=== PATIENT | male | born 1945 | race Caucasian/White ===

== ENCOUNTER → 2019-11-01 14:04 | Outpatient (BNVA) | payer MEDICARE, SELFPAY | PROVIDERS: Family Provider Family Medicine; PCP Family Medicine; Visit Provider Internal Medicine Rheumatology | DX: L40.59 Other psoriatic arthropathy (principal); L40.0 Psoriasis vulgaris; Z79.52 Long term (current) use of systemic steroids; D86.0 Sarcoidosis of lung; M17.0 Bilateral primary osteoarthritis of knee; Z79.899 Other long term (current) drug therapy | CPT/HCPCS: 99213 ==

== ENCOUNTER → 2020-02-07 13:06 | Outpatient (BNVA) | payer MEDICARE, SELFPAY | PROVIDERS: Family Provider Family Medicine; PCP Family Medicine; Visit Provider Internal Medicine Rheumatology | DX: L40.50 Arthropathic psoriasis, unspecified (principal); Z79.899 Other long term (current) drug therapy; L40.59 Other psoriatic arthropathy; Z11.59 Encounter for screening for other viral diseases; Z72.89 Other problems related to lifestyle | CPT/HCPCS: 36415; 80076; 82565; 85025; 85651; 86140; 86480; 86704; 86803; 87340 ==

== ENCOUNTER → 2020-04-11 10:13 | Outpatient (BNVA) | payer MEDICARE, SELFPAY | PROVIDERS: Family Provider Family Medicine; PCP Family Medicine; Visit Provider Internal Medicine | DX: J84.89 Other specified interstitial pulmonary diseases (principal); Z79.899 Other long term (current) drug therapy; Z11.59 Encounter for screening for other viral diseases; Z11.1 Encounter for screening for respiratory tuberculosis; M35.9 Systemic involvement of connective tissue, unspecified; M35.3 Polymyalgia rheumatica; L40.50 Arthropathic psoriasis, unspecified; M54.5 Low back pain; M35.8 Other specified systemic involvement of connective tissue; Z72.89 Other problems related to lifestyle | CPT/HCPCS: 36415; 80053; 85025; 85651; 86140; 86431; 86480; 86704; 86803; 86812; 87340 ==

== ENCOUNTER 2020-04-13 11:00 | Outpatient (CLI) | payer MEDICARE, SELFPAY ==
--- NOTE | 2020-04-13 11:16 | XR_ITS ---
WS: [id number] XR lumbar spine 2-3V* [id number] REASON FOR EXAM: lower back pain FINDINGS: Loss of the disc spaces from L2 through S1 from degenerate disc disease. The vertebral bodies appear to be essentially normal there is no fractures seen. There is calcified densities seen in both kidneys suggesting renal calculus. A scoliotic curve convex to the right is seen. XR/XR lumbar spine 2-3V* [id number] IMPRESSION: Degenerated disc changes L2-S1 Renal calculus bilaterally Scoliosis convex to the right.
--- NOTE | 2020-04-13 11:16 | XR_ITS ---
WS: [id number] XR hand LT 2V 71502 REASON FOR EXAM: hand pain and swelling FINDINGS: A prominent cyst is seen in the distal third phalanx. This appears to be expanding and ther e appears to be a fracture noted through the cyst. Mild degenerate changes of the remaining entered phalangeal joints. XR/XR hand LT 2V 10714 IMPRESSION: Fracture of the distal third phalanx through a prominent cyst.
--- NOTE | 2020-04-13 11:16 | XR_ITS ---
WS: [id number] XR hand RT 2V 34115 REASON FOR EXAM: hand pain FINDINGS: Degenerate changes of the first metacarpal carpal articulation cystic changes in the proxim al metacarpal are noted. There is degenerate changes of the distal interphalangeal joints. XR/XR hand RT 2V 45913 IMPRESSION: Osteoarthritic changes. Degenerate changes of the first metacarpal carpal articulation.
--- NOTE | 2020-04-13 11:16 | XR_ITS ---
WS: [id number] XR pelvis 1-2V* [id number] REASON FOR EXAM: SI joint pain FINDINGS: Normal appearance of the sacroiliac joints are seen. The ilium, ischium, and pubis are within normal limits. XR/XR pelvis 1-2V* [id number] IMPRESSION: Negative pelvis and sacroiliac joints .
== END 2020-04-13 11:01 | disposition home or self-care (01) ==
LOC: RADWPI 11:04
PROVIDERS: Family Provider Family Medicine; PCP Family Medicine; Visit Provider Internal Medicine
DX: M54.5 Low back pain (principal); M79.89 Other specified soft tissue disorders; N20.0 Calculus of kidney; M19.041 Primary osteoarthritis, right hand; S62.633A Displaced fracture of distal phalanx of left middle finger, initial encounter for closed fracture; X58.XXXA Exposure to other specified factors, initial encounter
CPT/HCPCS: 72100; 72170; 73120

== ENCOUNTER → 2020-06-27 09:58 | Outpatient (BNVA) | payer MEDICARE, SELFPAY | PROVIDERS: Family Provider Family Medicine; PCP Family Medicine; Visit Provider Internal Medicine | DX: L40.50 Arthropathic psoriasis, unspecified (principal); M35.8 Other specified systemic involvement of connective tissue; J84.89 Other specified interstitial pulmonary diseases; Z79.899 Other long term (current) drug therapy; Z79.52 Long term (current) use of systemic steroids | CPT/HCPCS: 99213 ==

== ENCOUNTER 2020-07-09 07:19 | Outpatient (CLI) | payer MEDICARE, SELFPAY ==
--- NOTE | 2020-07-09 07:45 | ECG_ITS ---
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 Interpretive Statements NAME OF STUDY: LEXISCAN SESTAMIBI STRESS TEST INDICATION: Chest Pain PROCEDURE: At the baseline, the blood pressure was 122/73 mmHg, oxygen saturation 98% with a heart rate of 57 bpm. The electrocardiogram showed sinus bradycardia, normal axis with nonspecific ST-T changes. The Lexiscan was infused over a period of 20 seconds. A total of 0.4 milligrams of Lexiscan was infused. The stress phase was continued for a total of 5 minutes. Heart rate at the end of the stress phase was 68 bpm, oxygen saturation 98% with a blood pressure of 127/67 mmHg. The EKG at the peak infusion revealed no significant ST-T wave changes. Sestamibi was injected 20 seconds after the Lexiscan infusion. Blood pressure at the end of the recovery phase was 118/66 mmHg, oxygen saturation 99% with a heart rate of 64 beats per minute. CONCLUSION: 1. No significant EKG changes with the LexiScan infusion. 2. No LexiScan induced chest pain or cardiac arrhythmia. 3. Normal blood pressure and heart rate response. 4. Sestamibi/sestamibi perfusion scan pending; see separate report. Electronically Signed On 07-09-2020 17:25:15 CDT by Cristina Gaytan M.D. [email or web address]
--- NOTE | 2020-07-09 07:45 | NMCV_ITS ---
NM sonya perf SPECT r/s* [id number] Sarkis Galvin Age: 74 Gender: M : 1945 Exam Date: 07/09/2020 08:52 Ordering Phys: Steffany Escobedo Technologist: ANDRADE Field Exam Location: [facility] [place] Indications: CHEST PAIN STRESS TEST Please see separate stress test report in [facility] for full findings IMAGE PROTOCOL Rest/Stress 1 Lexiscan Day Radiopharmaceutical Dose (mCi) Administration Site Administered by Rest: Tc-99m 10.7 IV ANDRADE Wick Sestamibi Stress:Tc-99m 32.4 IV ANDRADE Wick Sestamibi Rest: 09-Jul-2020 60 Discovery 630 Stress: 09-Jul-2020 15 Discovery 630 0.4mg Lexiscan. Images obtained in supine and prone position. SPECT RESULTS Technical Quality: Excellent Raw Data Analysis: Normal Image Corrections: No attenuation or motion correction applied Summed Stress Score: 1 Summed Rest Score: 0 Summed Difference Score: 1 PERFUSION FINDINGS SPECT images demonstrate homogeneous tracer distribution throughout the myocardium. FUNCTIONAL RESULTS (calculated via Gated SPECT) Stress Image LV EF (%): 74 Stress EDV (mL):97 TID: 1.17 Stress ESV (mL):25 FUNCTIONAL FINDINGS: There is normal left ventricular systolic function. LVEF at stress is 74%. IMPRESSIONS 1. Normal myocardial perfusion is noted. 2. LV systolic function is normal Kyler Quiroz MD (Electronically Signed) Final Date: 10 July 2020 17:38 S
[2020-07-09 08:02] VITALS: BMI 30.5
[2020-07-09] MEDS: regadenoson 0.4 Mg/5 ml Syringe IVP (10:06)
[2020-07-09 10:27] VITALS: BP 118/66; PULSE 65
== END 2020-07-09 07:20 | disposition home or self-care (01) ==
LOC: CDL 07:19
PROVIDERS: PCP Family Medicine; Visit Provider Nurse Practitioner Family
DX: R07.9 Chest pain, unspecified (principal)
CPT/HCPCS: 78452; 93017; A9500; J2785

== ENCOUNTER → 2020-08-10 09:30 | Outpatient (BNVA) | payer MEDICARE, SELFPAY | PROVIDERS: PCP Family Medicine; Visit Provider Internal Medicine Rheumatology | DX: Z79.899 Other long term (current) drug therapy (principal) | CPT/HCPCS: 36415; 80053; 85025; 85651; 86140 ==

== ENCOUNTER 2020-08-17 10:02 | Outpatient (CLI) | payer MEDICARE, SELFPAY ==
--- NOTE | 2020-08-17 15:15 | CT_ITS ---
WS: [id number] CT scan of the chest without IV contrast, supine inspiration and expiration, prone inspiration, addit ional two-dimensional coronal and sagittal reconstruction was performed. 08/17/2020 Clinical Data: Interstitial lung disease Comparison: CT chest, 03/10/2019. DLP: 1814.[address] scans at [facility] use at least one of these dose optimization techniques: automat ed exposure control; mA and/or kV adjustment per patient size (includes targeted exams where dose is matched to clinical indication); or iterative reconstruction. Findings: There is a pleural-based 0.3 cm right middle lobe nodule seen best on axial image 29 of 62 unchanged. Again there is no evidence of interstitial fibrosis or diffuse interstitial lung disease. The localiz ed interstitial change in the left lower lobe with mild left pleural thickening remains the same. The expiratory images show no air trapping. No lung masses are seen. No pleural effusion or pneumonia is seen. The pulmonary vascularity is normal. The heart size is normal with no pericardial effusion. Mitral valve calcification is noted. The pulmo nary arterial system and thoracic aorta demonstrate no abnormalities or dilatations. Tracheal bifurca tion normally into the bronchi. There is no axillary or significant mediastinal adenopathy. The upper abdomen shows nonobstructing calcifications in the right kidney with a low density lesion m easuring 1.85 cm. The lesion has not changed from the previous study.. CT/CT chest wo con [id number] Impression: 1. Negative for diffuse interstitial lung disease or air trapping. 2. No change in left lower lobe interstitial change and pleural thickening. 3. No change in 0.3 cm right middle lobe nodule.
== END 2020-08-17 10:03 | disposition home or self-care (01) ==
PROVIDERS: Family Provider Family Medicine; PCP Family Medicine; Visit Provider Internal Medicine Critical Care Medicine
DX: J84.9 Interstitial pulmonary disease, unspecified (principal)
CPT/HCPCS: 71250

== ENCOUNTER → 2020-08-18 12:47 | Outpatient (BNVA) | payer MEDICARE, SELFPAY | PROVIDERS: Family Provider Family Medicine; PCP Family Medicine; Visit Provider Internal Medicine Critical Care Medicine | DX: Z11.59 Encounter for screening for other viral diseases (principal); J98.4 Other disorders of lung | CPT/HCPCS: 87635 ==

== ENCOUNTER 2020-08-22 07:16 | Outpatient (CLI) | payer MEDICARE, SELFPAY ==
--- NOTE | 2020-08-22 09:26 | PFTS_ITS ---
Date of Study:08/22/20 Date of Dictation: MECHANICS: Forced vital capacity (FVC) is reduced. Forced expiratory volume in one second (FEV1) is reduced. FEV1/FVC is normal. FLOW VOLUME LOOP: Narrow. LUNG VOLUMES: Total lung capacity (TLC) is reduced. Residual volume (RV) is reduced. DIFFUSING CAPACITY FOR CARBON MONOXIDE: Moderately reduced. INTERPRETATION: The pulmonary function tests are consistent with moderately severe restriction. There is no significant postbronchodilator response. Lung volumes are consistent with restrictive lung disease. Gas exchange (DLCO) is moderately reduced. MTDD
== END 2020-08-22 07:17 | disposition home or self-care (01) ==
PROVIDERS: PCP Family Medicine; Visit Provider Internal Medicine Critical Care Medicine
DX: J98.4 Other disorders of lung (principal)
CPT/HCPCS: 94060; 94726; 94729; J7611

== ENCOUNTER → 2020-09-27 13:57 | Outpatient (BNVA) | payer MEDICARE, SELFPAY | PROVIDERS: PCP Family Medicine; Visit Provider Internal Medicine | DX: L40.50 Arthropathic psoriasis, unspecified (principal); Z79.899 Other long term (current) drug therapy; Z79.52 Long term (current) use of systemic steroids; J84.10 Pulmonary fibrosis, unspecified; J98.4 Other disorders of lung | CPT/HCPCS: 81401; 99213 ==

== ENCOUNTER 2020-11-08 20:00 | Outpatient (CLI) | payer MEDICARE, SELFPAY | END 2020-11-08 20:01 | disposition home or self-care (01) | LOC: SLEEP 11-09 08:59 | PROVIDERS: PCP Family Medicine; Visit Provider Internal Medicine Critical Care Medicine | DX: G47.33 Obstructive sleep apnea (adult) (pediatric) (principal) | CPT/HCPCS: 95811 ==

== ENCOUNTER 2020-12-19 10:43 | Outpatient (CLI) | payer MEDICARE, SELFPAY ==
--- NOTE | 2020-12-19 11:00 | USCV_ITS ---
Sarkis Galvin Age: 75 Gender: M : 1945 Exam Date: 12/19/2020 11:08 Ordering Phys: Jace Cho MD Technologist: Maria Esther Alarcon [place]am Location[place] [facility] [place] Indication: CHEST PAIN BP: 133 / 70 HR: 66 Rhythm: Sinus Technical Quality: Fair MEASUREMENTS (Male / Female) Normal Values 2D ECHO LV Diastolic Diameter PLAX 4.3 cm 4.2 - 5.9 / 3.9 - 5.3 cm LV Systolic Diameter PLAX 3.0 cm IVS Diastolic Thickness 1.0 cm 0.6 - 1.0 / 0.6 - 0.9 cm IVS Systolic Thickness 1.3 cm LVPW Diastolic Thickness 0.9 cm 0.6 - 1.0 / 0.6 - 0.9 cm LVPW Systolic Thickness 1.3 cm RV Chamber Size 4.7 cm LVOT Diameter 2.0 cm LV Ejection Fraction 2D Teich 58.4 % LV Ejection Fraction MOD 2C 56.9 % LV Ejection Fraction 2C AL 57.9 % LA Diameter 3.1 cm LA Width 3.8 cm LA Height 4.7 cm RA Width 3.8 cm RA Height 4.3 cm Aorta at Sinotubular Diameter 2.6 cm M-MODE LV Diastolic Diameter MM 4.9 cm 4.2 - 5.9 / 3.9 - 5.3 cm LV Systolic Diameter MM 3.4 cm LV Ejection Fraction MM Teich 58.7 % IVS Diastolic Thickness MM 1.0 cm 0.6 - 1.0 / 0.6 - 0.9 cm IVS Systolic Thickness MM 1.7 cm LVPW Diastolic Thickness MM 1.1 cm 0.6 - 1.0 / 0.6 - 0.9 cm LVPW Systolic Thickness MM 1.7 cm Aortic Annulus Diameter 2.9 cm LA Ao Ratio MM 1.1 MV E Point Septal Separation 0.9 cm DOPPLER AV Peak Velocity 135.0 cm/s LVOT Peak Velocity 121.0 cm/s AV Area Cont Eq vti 2.7 cm squared AV Area Cont Eq pk 2.9 cm squared MV Area PHT 5.8 cm squared Mitral E to A Ratio 1.0 MV E' Velocity 39.5 cm/s Mitral E to MV E' Ratio 13.2 Mitral E to LV E' Lateral Ratio 11.5 Mitral E to LV E' Septal Ratio 15.8 TR Peak Velocity 297.7 cm/s TR Peak Gradient 35.5 mmHg TR Mean Velocity 194.2 cm/s TR Mean Gradient 18.8 mmHg TR Velocity Time Integral 94.7 cm TV Peak E Velocity 87.0 cm/s Right Atrial Pressure 8.0 mmHg Pulmonary Artery Systolic Pressu 43.5 mmHg PV Peak Velocity 58.0 cm/s RV Acceleration Time 0.0 s RV Ejection Time 0.3 s RV AcT/ET 0.1 FINDINGS Left Ventricle Normal left ventricular size and systolic function, EF 57 %. No regional wall motion abnormalities. Right Ventricle The right ventricle is normal in size and function. Right Atrium The right atrium is normal in size. Left Atrium The left atrium is normal in size. Mitral Valve Thickened mitral valve. Mild mitral annular calcification. Grade 2 prolapse of the anterior mitral leaflet with trace to mild mitral regurgitation Aortic Valve Thickened aortic valve. Tricuspid Valve Moderate tricuspid valve regurgitation. Pulmonic Valve No gross abnormalities noted Pericardium Normal pericardium without effusion. Aorta Normal ascending aorta dimension. CONCLUSIONS Normal left ventricular size and systolic function, EF 57 %. No regional wall motion abnormalities. Thickened mitral valve. Mild mitral annular calcification. Grade 2 prolapse of the anterior mitral leaflet with trace to mild mitral regurgitation. Thickened aortic valve. Moderate tricuspid valve regurgitation. Mild pulmonary hypertension with an estimated pulmonary artery peak systolic pressure of 43.5 mmHg There is no pericardial effusion. There are no intracardiac masses. Compared to the study from 03/10/2019, there may not be a significant change Dr Rohit Clark MD [facility] (Electronically Signed) Final Date: 19 December 2020 17:10 S
== END 2020-12-19 10:44 | disposition home or self-care (01) ==
LOC: US 10:44
PROVIDERS: PCP Family Medicine; Visit Provider Internal Medicine Critical Care Medicine
DX: L40.50 Arthropathic psoriasis, unspecified (principal); M79.643 Pain in unspecified hand; J96.11 Chronic respiratory failure with hypoxia; Z79.899 Other long term (current) drug therapy; Z79.52 Long term (current) use of systemic steroids; R07.9 Chest pain, unspecified; I08.3 Combined rheumatic disorders of mitral, aortic and tricuspid valves; I27.20 Pulmonary hypertension, unspecified
CPT/HCPCS: 80053; 85025; 85651; 86140; 93306; 99214

== ENCOUNTER 2020-12-26 20:00 | Outpatient (CLI) | payer MEDICARE, SELFPAY | END 2020-12-26 20:01 | disposition home or self-care (01) | LOC: SLEEP 12-27 08:17 | PROVIDERS: PCP Family Medicine; Visit Provider Internal Medicine Critical Care Medicine | DX: G47.31 Primary central sleep apnea (principal) | CPT/HCPCS: 95811 ==

== ENCOUNTER → 2021-02-11 11:42 | Outpatient (BNVA) | payer MEDICARE, SELFPAY | PROVIDERS: PCP Family Medicine; Visit Provider Internal Medicine | DX: L40.50 Arthropathic psoriasis, unspecified (principal); R21 Rash and other nonspecific skin eruption; Z79.899 Other long term (current) drug therapy; D86.0 Sarcoidosis of lung; J96.11 Chronic respiratory failure with hypoxia; Z99.81 Dependence on supplemental oxygen | CPT/HCPCS: 99214 ==

== ENCOUNTER 2021-02-12 09:43 | Outpatient (CLI) | payer MEDICARE, SELFPAY ==
--- NOTE | 2021-02-12 09:54 | XRR_ITS ---
PROCEDURE INFORMATION: Exam: XR Right Hand Exam date and time: 02/12/2021 9:57 AM Age: 75 years old Clinical indication: Condition or disease; Arthritis; Type not specified; Hand; Bilateral; Additional info: L40.50 - arthropathic psoriasis, unspecified TECHNIQUE: Imaging protocol: XR Right hand. Views: 1 or 2 views. COMPARISON: CR XR hand RT 2V [id number] 04/13/2020 11:20 AM FINDINGS: Bones/joints: Chronic degenerative osteoarthritis is present with joint space narrowing, sclerosis and small osteophyte formation. This is most prominent in the triscaphe joint and 1st carpometacarpal joint. There also moderate degenerative changes in the 2nd and 3rd metacarpophalangeal joints and in most of the interphalangeal joints with narrowing sclerosis and tiny osteophytes. No fracture or other acute abnormalities are seen. No other erosive or destructive changes are seen. Soft tissues: Normal. XR/XR hand RT 2V [id number] IMPRESSION: 1. No acute abnormality. 2. Chronic degenerative osteoarthritis most prominently in the triscaphe joint and 1st carpometacarpal joint.
--- NOTE | 2021-02-12 09:54 | XRR_ITS ---
PROCEDURE INFORMATION: Exam: XR Left Hand Exam date and time: 02/12/2021 9:57 AM Age: 75 years old Clinical indication: Condition or disease; Arthritis; Type not specified; Hand; Bilateral; Additional info: L40.50 - arthropathic psoriasis, unspecified TECHNIQUE: Imaging protocol: XR Left hand. Views: 3 or more views. COMPARISON: CR XR hand LT 2V [id number] 04/13/2020 11:20 AM FINDINGS: Bones/joints: No fracture, dislocation or other acute bone or joint abnormalities are seen. Chronic degenerative disease is present with joint space narrowing sclerosis and osteophytes especially in the triscaphe joint and 1st carpometacarpal joint. There also degenerative changes moderately in the 2nd and 3rd metacarpophalangeal joints and in the interphalangeal joints with narrowing sclerosis and osteophytes. There is a stable benign cyst in the distal phalanx of the middle finger. Soft tissues: Normal. XR/XR hand LT 2V [id number] IMPRESSION: 1. No acute abnormality. 2. Chronic degenerative osteoarthritis most probably in the triscaphe joint and 1st carpometacarpal joint. 3. No significant change in the benign bone cyst in the distal phalanx of the middle finger.
[2021-02-12 10:35] LABS: Add Urine Microscopic? NO; Charge for UA Resulting for Rev
[2021-02-12 10:40] LABS: Basophils # 0.1 10^3/uL (0.0-0.1); Basophils % 0.6 %; Eosinophils # 0.1 10^3/uL (0.0-0.8); Eosinophils % 1.1 %; Hematocrit 44.8 % (42.0-52.0); Hemoglobin 13.4 g/dL (11.7-16.6); Lymphocytes # 1.7 10^3/uL (0.8-4.8); Lymphocytes % 14.4 %; Mean Corpuscular HGB Conc 29.9 g/dL (30.0-36.0); Mean Corpuscular Hemoglobin 29.5 pg (28.0-34.0); Mean Corpuscular Volume 98.5 fL (80-94); Monocytes # 0.6 10^3/uL (0.2-0.9); Neutrophils # 9.47 10^3/uL (1.8-7.7); Neutrophils % 78.1 %; Nucleated Red Blood Cells % 0 %; Platelet Count 275 10^3/cmm (130-400); Red Blood Count 4.55 10^6/uL (4.1-5.3); Red Cell Distribution Width 12.5 % (12.1-15.1); White Blood Count 12.1 10^3/uL (4.0-10.0)
[2021-02-12 10:56] LABS: Bilirubin Urine Neg (Negative); Blood Urine Neg (Negative); Glucose Urine UA Norm (Normal); Ketones Urine Negative (Negative); Leukocyte Esterase Urine Negative (Negative); Nitrate Urine Negative (Negative); Protein Urine Neg (Negative); Urine Appearance Clear (CLEAR); Urine Color Yellow (Yellow); Urobilinogen Urine Norm (Negative); pH Urine 5 (5-7)
[2021-02-12 10:57] LABS: Alanine Aminotransferase 32 U/L (0-41); Albumin Level 4.4 g/dL (3.5-5.2); Alkaline Phosphatase 62 IU/L (40-130); Anion Gap 13.3 (5-19); Aspartate Amino Transferase 22 U/L (0-40); Blood Urea Nitrogen 32 mg/dL (8-23); Calcium 9.1 mg/dL (8.5-10.5); Carbon Dioxide 30 mmol/L (22-29); Chloride 100 mmol/L (98-107); Globulin 2.6 g/dL (1.3-4.6); Glucose 127 mg/dL (65-115); Osmolality Calculated 296 mOsm/kg (285-295); Potassium 4.3 mmol/L (3.5-5.1); Sodium 139 mmol/L (136-145); Total Bilirubin 0.3 mg/dL (0.15-1.2)
[2021-02-12 11:58] LABS: Erythrocyte Sedimentation Rate 9 mm/hr (0-10)
== END 2021-02-12 09:44 | disposition home or self-care (01) ==
PROVIDERS: PCP Family Medicine; Visit Provider Internal Medicine
DX: L40.50 Arthropathic psoriasis, unspecified (principal)
CPT/HCPCS: 36415; 73120; 80053; 81003; 85025; 85651

== ENCOUNTER → 2021-03-28 13:07 | Outpatient (BNVA) | payer MEDICARE, SELFPAY | PROVIDERS: PCP Family Medicine; Visit Provider Internal Medicine | DX: L40.50 Arthropathic psoriasis, unspecified (principal); M06.09 Rheumatoid arthritis without rheumatoid factor, multiple sites; D86.0 Sarcoidosis of lung; Z79.899 Other long term (current) drug therapy; Z79.52 Long term (current) use of systemic steroids | CPT/HCPCS: 99214 ==

== ENCOUNTER 2021-04-03 12:00 | Outpatient (CLI) | payer MEDICARE, SELFPAY | END 2021-04-03 12:01 | disposition home or self-care (01) | LOC: SLEEP 04-04 16:04 | PROVIDERS: PCP Family Medicine; Visit Provider Internal Medicine Critical Care Medicine | DX: G47.31 Primary central sleep apnea (principal) | CPT/HCPCS: 94762 ==

== ENCOUNTER 2021-04-10 13:26 | Outpatient (CLI) | payer MEDICARE, SELFPAY ==
[2021-04-10 13:35] VITALS: BP 131/80; PULSE 60; RESP 20; TEMP 35.8; O2SAT 94
[2021-04-10] MEDS: sodium chloride 0.9% 250 ML 100 ML IV (14:00)
[2021-04-10] MEDS: diphenhydrAMINE 25 mg Capsule PO (14:03)
[2021-04-10] MEDS: acetaminophen 325 mg Tablet 650 MG PO (14:03)
[2021-04-10 15:12] VITALS: BP 121/75; PULSE 61; RESP 20; TEMP 36.2; O2SAT 99
== END 2021-04-10 13:27 | disposition home or self-care (01) ==
LOC: ONCMED 13:29
PROVIDERS: PCP Family Medicine; Visit Provider Internal Medicine
DX: M06.09 Rheumatoid arthritis without rheumatoid factor, multiple sites (principal)
CPT/HCPCS: 96365; 96375; J0129; J2920; J7050

== ENCOUNTER 2021-04-24 06:35 | Outpatient (CLI) | payer MEDICARE, SELFPAY ==
[2021-04-24] MEDS: diphenhydrAMINE 25 mg Capsule PO (14:10)
[2021-04-24] MEDS: acetaminophen 325 mg Tablet 650 MG PO (14:10)
[2021-04-24] MEDS: sodium chloride 0.9% 250 ML 30 ML IV (14:15)
== END 2021-04-24 06:36 | disposition home or self-care (01) ==
PROVIDERS: PCP Family Medicine; Referring Provider Internal Medicine; Visit Provider Internal Medicine
DX: M06.09 Rheumatoid arthritis without rheumatoid factor, multiple sites (principal)
CPT/HCPCS: 96365; 96375; J0129; J2920; J7050

== ENCOUNTER 2021-04-27 10:51 | Outpatient (CLI) | payer MEDICARE, SELFPAY ==
[2021-04-27 11:40] LABS: Basophils # 0.1 10^3/uL (0.0-0.1); Basophils % 0.9 %; Eosinophils # 0.2 10^3/uL (0.0-0.8); Eosinophils % 2.3 %; Hematocrit 46.5 % (42.0-52.0); Hemoglobin 13.8 g/dL (11.7-16.6); Lymphocytes # 1.9 10^3/uL (0.8-4.8); Lymphocytes % 18.1 %; Mean Corpuscular HGB Conc 29.7 g/dL (30.0-36.0); Mean Corpuscular Hemoglobin 28.3 pg (28.0-34.0); Mean Corpuscular Volume 95.3 fL (80-94); Mean Platelet Volume 9.7 fL (7.4-10.4); Monocytes # 0.7 10^3/uL (0.2-0.9); Monocytes % 7.1 %; Neutrophils % 70.8 %; Nucleated Red Blood Cells % 0 %; Platelet Count 262 10^3/cmm (130-400); Red Blood Count 4.88 10^6/uL (4.1-5.3); Red Cell Distribution Width 13.7 % (12.1-15.1); White Blood Count 10.3 10^3/uL (4.0-10.0)
[2021-04-27 11:59] LABS: Alanine Aminotransferase 28 U/L (0-41); Albumin Level 4.1 g/dL (3.5-5.2); Alkaline Phosphatase 67 IU/L (40-130); Anion Gap 14.1 (5-19); Aspartate Amino Transferase 23 U/L (0-40); Blood Urea Nitrogen 27 mg/dL (8-23); C Reactive Protein 8.7 mg/L (0.0-4.9); Calcium 9.4 mg/dL (8.5-10.5); Carbon Dioxide 32 mmol/L (22-29); Chloride 101 mmol/L (98-107); Globulin 2.8 g/dL (1.3-4.6); Glucose 134 mg/dL (65-115); Osmolality Calculated 303 mOsm/kg (285-295); Potassium 4.1 mmol/L (3.5-5.1); Sodium 143 mmol/L (136-145); Total Bilirubin 0.4 mg/dL (0.15-1.2); Total Protein 6.9 g/dL (6.6-8.7)
[2021-04-27 12:46] LABS: Erythrocyte Sedimentation Rate 5 mm/hr (0-10)
== END 2021-04-27 10:52 | disposition home or self-care (01) ==
PROVIDERS: PCP Family Medicine; Visit Provider Internal Medicine
DX: L40.50 Arthropathic psoriasis, unspecified (principal); M06.09 Rheumatoid arthritis without rheumatoid factor, multiple sites; M17.0 Bilateral primary osteoarthritis of knee; Z79.899 Other long term (current) drug therapy
CPT/HCPCS: 36415; 80053; 85025; 85651; 86140

== ENCOUNTER → 2021-05-01 13:48 | Outpatient (BNVA) | payer MEDICARE, SELFPAY | PROVIDERS: PCP Family Medicine; Visit Provider Internal Medicine | DX: M06.09 Rheumatoid arthritis without rheumatoid factor, multiple sites (principal); L40.50 Arthropathic psoriasis, unspecified; D86.0 Sarcoidosis of lung; J98.4 Other disorders of lung; G47.33 Obstructive sleep apnea (adult) (pediatric); M17.0 Bilateral primary osteoarthritis of knee; Z79.899 Other long term (current) drug therapy | CPT/HCPCS: 99214 ==

== ENCOUNTER → 2021-05-24 14:11 | Outpatient (BNVA) | payer MEDICARE, SELFPAY | PROVIDERS: PCP Family Medicine; Visit Provider Registered Nurse Neonatal Intensive Care | DX: Z20.822 Contact with and (suspected) exposure to COVID-19 (principal) | CPT/HCPCS: 87635 ==

== ENCOUNTER 2021-05-25 10:42 | Emergency (ER) | payer MEDICARE, SELFPAY ==
[2021-05-25 10:51] VITALS: BP 123/71; PULSE 71; RESP 18; TEMP 39.3; O2SAT 97; BMI 31.0
[2021-05-25 11:04] VITALS: O2SAT 96
--- NOTE | 2021-05-25 11:28 | XRR_ITS ---
PROCEDURE INFORMATION: Exam: XR Chest Exam date and time: 05/25/2021 11:28 AM Age: 75 years old Clinical indication: Cough; Additional info: Covid, interstitial fibrosis, hypoxia TECHNIQUE: Imaging protocol: XR of the chest. Views: 1 view. COMPARISON: CT chest con [id number] 08/17/2020 10:45 AM FINDINGS: Lungs: Atelectasis/scarring at the left lateral costophrenic angle. Mild interstitial prominence. No focal consolidation. Pleural spaces: Unremarkable. No pleural effusion. No pneumothorax. Heart/Mediastinum: Unremarkable. No cardiomegaly. Vasculature: Prominent aortic arch similar to prior. Bones/joints: No acute bony abnormality. XR/XR chest 1V portable [id number] IMPRESSION: Mild atelectasis/scarring interstitial prominence. No focal consolidation.
--- NOTE | 2021-05-25 11:32 | ED_ITS ---
HPI - COVID General: Chief Complaint: COVID symptoms Stated Complaint: COVID +; CHEST PAIN Time Seen by Provider: 05/25/21 10:52 Triage information: Has fever, cough or shortness of breath . Exposure to COVID + person last 14 days History of Present Illness: MD complaint: known COVID positive Prior covid testing: yes, results known Prior testing date: 05/24/21 COVID 19 common symptoms: positive fever(s), chills, cough, non-productive cough, dyspnea, fatigue, body aches, headache(s) and nasal congestion; negative nausea, vomiting or diarrhea COVID 19 other sytmptoms: negative chest pain or requiring more oxygen Onset (ago): day(s) (5) Severity: mild Pertinent comorbid conditions: COPD/respiratory disease (Interstitial fibrosis) Treatment prior to arrival: none COVID Results: SARS-CoV-2 RNA (RT-PCR) Not detected (NOT DETECTED) 08/18/20 12:47 08/18/20 Review of Systems Const: Reports: fever(s), chills, body aches and fatigue ENMT: Reports: nasal congestion Card: Denies: chest pain, edema, dyspnea on exertion or orthopnea Resp: Reports: dyspnea and non-productive cough GI: Denies: abdominal pain, nausea, vomiting, hematemesis, coffee ground emesis, diarrhea, constipation, bloating, hematochezia or melena : Denies: flank pain, dysuria, urinary frequency or urinary urgency Skin/Breast: Denies: rash or pruritus Neuro: Reports: headache(s) PFSH ED PFSH: Medical History Diastolic heart failure Fibromyalgia Lumbago TRACE (obstructive sleep apnea) Osteoarthritis of knees, bilateral Psoriatic arthritis Rheumatoid arthritis without rheumatoid factor, multiple sites Sarcoidosis of lung Shortness of breath Surgical History H/O bilateral cataract extraction right:12/05/14 left: 12/12/14 H/O lithotripsy H/O repair of rotator cuff H/O transurethral resection of prostate History of appendectomy History of arthroscopy of both knees History of lung biopsy Family History Father , Emphysema 72 Emphysema of lung CAD (coronary artery disease) Other Cancer Hypertension Social History Smoking and tobacco status: never smoked Alcohol intake: never Lives independently: Yes Household members: spouse Marital status: Current occupational status: retired History of recent travel: No Current gender identity: Male Physical Exam Const: COMMON NORMALS: no acute distress GENERAL APPEARANCE: cooperative and comfortable ORIENTATION/CONSCIOUSNESS: Yes awake, Yes oriented to person, Yes oriented to place and Yes oriented to time HENMT: COMMON NORMALS: normocephalic and atraumatic HEAD & SCALP: normocephalic and atraumatic Neck/C-Spine: COMMON NORMALS: no JVD Resp: AUSCULTATION: wheezes Cardio: COMMON NORMALS: no JVD, regular rate, regular rhythm and No murmurs present (Cardio) RATE: regular rate RHYTHM: regular rhythm GI: COMMON NORMALS: Soft to palpation and No hepatosplenomegaly present AUSCULTATION: Yes normoactive bowel sounds PALPATION: Yes Soft to palpation, No Tenderness to palpation present (GI), No Guarding due to palpation present (GI) and Yes No hepatosplenomegaly present Extremity: COMMON NORMALS: normal to inspection, capillary refill normal, no clubbing, cyanosis or edema, no calf tenderness and no pedal edema Neuro: SENSORIUM/ORIENTATION: Yes oriented to person, Yes oriented to place and Yes oriented to time Skin: COMMON NORMALS: no rashes or lesions noted GENERAL SKIN EXAM: no rashes or lesions noted Course Vital Signs: Vital signs: Vital Signs Temperature 102.7 F H 05/25/21 10:51 Pulse Rate 71 05/25/21 10:51 Respiratory Rate 18 05/25/21 10:51 Blood Pressure 123/71 05/25/21 10:51 Pulse Oximetry 85 L 05/25/21 11:58 MDM - COVID MDM Narrative: Medical decision making narrative: Initially was a question whether or not the patient would qualify he is normally on 4 L we did a home O2 eval any maintains his sats with activity on the regular 4 L he is. He is not requiring any further oxygen. Think this patient is at significant risk for deterioration with Covid in the earlier he gets the monoclonal antibody infusions the more beneficial day will be we are still completing some infusions at this time we will go ahead and move him to the vertical flow room complete infusion and then discharged home. Follow-up with primary care continue to monitor home oxygen saturations. Lab Data: Labs: Lab Results 05/25/21 Range/Units 10:30 WBC 4.9 (4.0-10.0) 10^3/ uL RBC 4.22 (4.1-5.3) 10^6/u L Hgb 13.1 (11.7-16.6) g/dL Hct 40.2 L (42.0-52.0) % MCV 95.3 H (80-94) fL MCH 31.0 (28.0-34.0) pg MCHC 32.6 (30.0-36.0) g/dL RDW 14.5 (12.1-15.1) % Plt Count 187 (130-400) 10^3/c mm MPV 10.4 (7.4-10.4) fL Neut % (Auto) 63.2 % Lymph % (Auto) 28.2 % [place] % (Auto) 8.0 % Eos % (Auto) 0.0 % Baso % (Auto) 0.2 % Neut # (Auto) 3.10 (1.8-7.7) 10^3/u L Lymph # (Auto) 1.4 (0.8-4.8) 10^3/u L [place] # (Auto) 0.4 (0.2-0.9) 10^3/u L Eos # (Auto) 0.0 (0.0-0.8) 10^3/u L Baso # (Auto) 0.0 (0.0-0.1) 10^3/u L Nucleated RBC % (a uto) 0 % Nucleated RBCs # 0.0 /100WBC COVID Results: SARS-CoV-2 RNA (RT-PCR) Not detected (NOT DETECTED) 08/18/20 12:47 08/18/20 Discharge Plan Discharge Patient Disposition: Home Clinical Impression: COVID-19, Pulmonary fibrosis, Sarcoidosis of lung Condition: Stable Prescriptions: No Action aspirin [Aspirin Low Dose] 81 mg tablet,delayed release (DR/EC) 81 mg PO DAILY RF: 0 metoprolol tartrate 100 mg tablet 100 mg PO DAILY RF: 0 escitalopram oxalate [Lexapro] 20 mg tablet 20 mg PO DAILY RF: 0 oxycodone-acetaminophen [Percocet] 7.5-325 mg tablet 1 tab PO BID PRNRF: 0 cholecalciferol (vitamin D3) 25 mcg (1,000 unit) capsule 25 mcg PO DAILY RF: 0 prednisone 5 mg tablet 5 mg PO DAILY Qty: 30 RF: 2 desonide 0.05 % cream 1 applic TOPICAL BID Qty: 60 RF: 0 Xeljanz XR 11 mg tablet extended release 24 hr 11 mg PO DAILY Qty: 30 RF: 3 Hold Instructions: Patient No Longer Taking prednisone 5 mg tablet 10 mg PO DAILY RF: 0 esomeprazole magnesium 40 mg capsule,delayed release(DR/EC) 40 mg PO DAILY 90 Days Qty: 90 RF: 3 Anoro Ellipta 62.5-25 mcg/actuation blister with device See Rx Instructions .ROUTE .COMPLEX Qty: 60 RF: 3 spironolactone 25 mg tablet 25 mg PO BID Qty: 60 RF: 5 hydroxychloroquine 200 mg tablet 200 mg PO BID Qty: 60 RF: 2 furosemide 40 mg tablet 80 mg PO QAM Qty: 30 RF: 3 Discharge Orders: Discharge ED (Routine); Ordered 05/25/21 Ordered By: Aleksandr Jett Referrals: Ryan Condon, [Primary Care Provider] - Discharge Diet: Usual diet Discharge Activity: Increase activity as tolerated Patient Instructions: Opioid Safety Activity Restrictions/Additional Instructions: Monitor oxygen sats at home return to the emergency room if you have further problems. 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
[2021-05-25 11:58] VITALS: O2SAT 85; O2SAT 93
[2021-05-25 12:45] LABS: Basophils % 0.2 %; Hematocrit 40.2 % (42.0-52.0); Hemoglobin 13.1 g/dL (11.7-16.6); Lymphocytes # 1.4 10^3/uL (0.8-4.8); Lymphocytes % 28.2 %; Mean Corpuscular HGB Conc 32.6 g/dL (30.0-36.0); Mean Corpuscular Volume 95.3 fL (80-94); Mean Platelet Volume 10.4 fL (7.4-10.4); Monocytes # 0.4 10^3/uL (0.2-0.9); Neutrophils % 63.2 %; Nucleated Red Blood Cells % 0 %; Platelet Count 187 10^3/cmm (130-400); Red Blood Count 4.22 10^6/uL (4.1-5.3); Red Cell Distribution Width 14.5 % (12.1-15.1); White Blood Count 4.9 10^3/uL (4.0-10.0)
[2021-05-25 13:43] VITALS: BP 119/69; PULSE 71; RESP 18; TEMP 37.5; O2SAT 98
[2021-05-25 14:21] LABS: Alanine Aminotransferase 18 U/L (0-41); Alkaline Phosphatase 51 IU/L (40-130); Anion Gap 14.9 (5-19); Aspartate Amino Transferase 41 U/L (0-40); Blood Urea Nitrogen 30 mg/dL (8-23); C Reactive Protein 77.3 mg/L (0.0-4.9); Calcium 8.4 mg/dL (8.5-10.5); Carbon Dioxide 30 mmol/L (22-29); Chloride 97 mmol/L (98-107); Globulin 2.4 g/dL (1.3-4.6); Glucose 81 mg/dL (65-115); Osmolality Calculated 289 mOsm/kg (285-295); Potassium 4.9 mmol/L (3.5-5.1); Sodium 137 mmol/L (136-145); Total Bilirubin 0.3 mg/dL (0.15-1.2); Total Protein 6.4 g/dL (6.6-8.7)
[2021-05-25 15:05] VITALS: BP 113/69; PULSE 69; RESP 18; TEMP 37.7; O2SAT 97
--- NOTE | 2021-05-25 15:05 | PC.NURSE ---
DC instructions given to patient ,voiced full understanding. IV DC'd Cath intact,bleeding controlled with cotton ball and coban . tolerated well. Patient to Er entrance via wheelchair to POV with zero difficulties.
== END 2021-05-25 15:05 | disposition home or self-care (01) ==
PROVIDERS: Emergency Provider Family Medicine; PCP Family Medicine
DX: U07.1 COVID-19 (principal); J84.10 Pulmonary fibrosis, unspecified; D86.0 Sarcoidosis of lung; I50.30 Unspecified diastolic (congestive) heart failure; Z79.82 Long term (current) use of aspirin
CPT/HCPCS: 71045; 80053; 85025; 86140; 94760; 96365; 99284

== ENCOUNTER → 2021-08-21 14:05 | Outpatient (BNVA) | payer MEDICARE, SELFPAY | PROVIDERS: PCP Family Medicine; Visit Provider Internal Medicine | DX: M06.09 Rheumatoid arthritis without rheumatoid factor, multiple sites (principal); J98.4 Other disorders of lung; R22.1 Localized swelling, mass and lump, neck; M17.0 Bilateral primary osteoarthritis of knee; Z79.899 Other long term (current) drug therapy | CPT/HCPCS: 36415; 81003; 81401; 86140; 99214 ==

== ENCOUNTER 2021-08-24 13:51 | Outpatient (CLI) | payer MEDICARE, SELFPAY ==
--- NOTE | 2021-08-24 14:51 | XRR_ITS ---
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 Views: 2 views. COMPARISON: CR XR chest 1V portable [id number] 05/25/2021 11:36 AM FINDINGS: Lungs: Minimal bibasilar atelectasis with unchanged elevation of the right hemidiaphragm. No consolidation. Low lung volumes. Pleural spaces: Unremarkable. No pleural effusion. No pneumothorax. Heart/Mediastinum: Stable cardiomediastinal silhouette. Bones/joints: Degenerative changes of the spine seen. XR/XR chest 2V* [id number] IMPRESSION: No evidence of active cardiopulmonary disease. Radiation Dose CTDIVOL = (mGy): DLP = (mGy-cm)
--- NOTE | 2021-08-24 14:51 | XRR_ITS ---
PROCEDURE INFORMATION: Exam: XR Left Knee Exam date and time: 08/24/2021 2:51 PM Age: 76 years old Clinical indication: Screening exam; - rheumatoid arthritis without rheumatoid factor, . ; additional info: M06.09 - rheumatoid arthritis without rheumatoid factor, . . . TECHNIQUE: Imaging protocol: XR Left knee. Views: 1 or 2 views. COMPARISON: No relevant prior studies available. FINDINGS: Bones/joints: No fracture or dislocation. There is [id number] degenerative changes of the left knee, manifested by joint space narrowing and periarticular osteophytes, involving mainly the medial compartment. Small loose/intra-articular bodies noted along the mid posterior aspect of the joint. Trace joint effusion noted. Soft tissues: Normal. XR/XR knee LT 1-2V [id number] IMPRESSION: 1. Jvgc-kd-fazftrdt degenerative changes, involving mainly the medial compartment. 2. No acute injury. Radiation Dose CTDIVOL = (mGy): DLP = (mGy-cm)
--- NOTE | 2021-08-24 14:51 | XRR_ITS ---
PROCEDURE INFORMATION: Exam: XR Right Knee Exam date and time: 08/24/2021 2:51 PM Age: 76 years old Clinical indication: Screening exam; - rheumatoid arthritis without rheumatoid factor, . ; additional info: M06.09 - rheumatoid arthritis without rheumatoid factor, . . . TECHNIQUE: Imaging protocol: XR Right knee. Views: 1 or 2 views. COMPARISON: No relevant prior studies available. FINDINGS: Bones/joints: No acute fracture or dislocation. There is severe degenerative changes of the right knee, manifested by joint space narrowing with [id number]-sa-[id number] apposition and subchondral sclerosis in the medial compartment. Small periarticular osteophytes noted. Trace joint effusion seen. Soft tissues: Normal. XR/XR knee RT 1-2V [id number] IMPRESSION: 1. No acute injury. 2. Severe degenerative changes of the medial compartment. Radiation Dose CTDIVOL = (mGy): DLP = (mGy-cm)
== END 2021-08-24 13:52 | disposition home or self-care (01) ==
LOC: RAD 13:55
PROVIDERS: PCP Family Medicine; Visit Provider Internal Medicine
DX: M06.09 Rheumatoid arthritis without rheumatoid factor, multiple sites (principal); Z79.899 Other long term (current) drug therapy
CPT/HCPCS: 71046; 73560

== ENCOUNTER → 2021-08-30 10:20 | Outpatient (BNVA) | payer MEDICARE, SELFPAY | PROVIDERS: PCP Family Medicine; Visit Provider Internal Medicine Cardiovascular Disease | DX: I50.32 Chronic diastolic (congestive) heart failure (principal) | CPT/HCPCS: 80048; 83880 ==

== ENCOUNTER → 2021-11-13 14:04 | Outpatient (BNVA) | payer MEDICARE, SELFPAY | PROVIDERS: PCP Family Medicine; Visit Provider Internal Medicine | DX: M06.09 Rheumatoid arthritis without rheumatoid factor, multiple sites (principal); L40.50 Arthropathic psoriasis, unspecified; R06.02 Shortness of breath; J84.10 Pulmonary fibrosis, unspecified; M25.569 Pain in unspecified knee | CPT/HCPCS: 99214 ==

== ENCOUNTER → 2022-01-02 14:26 | Outpatient (BNVA) | payer MEDICARE, SELFPAY | PROVIDERS: PCP Family Medicine; Visit Provider Internal Medicine Critical Care Medicine | DX: G47.31 Primary central sleep apnea (principal); J96.11 Chronic respiratory failure with hypoxia; J84.10 Pulmonary fibrosis, unspecified; J98.4 Other disorders of lung | CPT/HCPCS: 99213 ==

== ENCOUNTER → 2022-01-21 15:26 | Outpatient (BNVA) | payer MEDICARE, SELFPAY | PROVIDERS: PCP Family Medicine; Visit Provider Internal Medicine | DX: I50.32 Chronic diastolic (congestive) heart failure (principal); I08.1 Rheumatic disorders of both mitral and tricuspid valves; R06.02 Shortness of breath | CPT/HCPCS: 99214 ==

== ENCOUNTER 2022-05-05 13:14 | Outpatient (CLI) | payer MEDICARE, SELFPAY ==
[2022-05-05 13:50] LABS: Basophils % 0.5 %; Eosinophils # 0.1 10^3/uL (0.0-0.8); Eosinophils % 1.2 %; Hematocrit 41.7 % (42.0-52.0); Hemoglobin 13.6 g/dL (11.7-16.6); Lymphocytes # 2.3 10^3/uL (0.8-4.8); Lymphocytes % 34.7 %; Mean Corpuscular HGB Conc 32.6 g/dL (30.0-36.0); Mean Corpuscular Hemoglobin 30.3 pg (28.0-34.0); Mean Corpuscular Volume 92.9 fl (80-94); Mean Platelet Volume 10.5 fL (7.4-10.4); Monocytes # 0.4 10^3/uL (0.2-0.9); Monocytes % 6.7 %; Neutrophils # 3.72 10^3/uL (1.8-7.7); Neutrophils % 56.4 %; Nucleated Red Blood Cells % 0 %; Platelet Count 220 10^3/cmm (130-400); Red Blood Count 4.49 10^6/uL (4.1-5.3); Red Cell Distribution Width 13.2 % (12.1-15.1); White Blood Count 6.6 10^3/uL (4.0-10.0)
[2022-05-05 14:15] LABS: Erythrocyte Sedimentation Rate 8 mm/hr (0-10)
[2022-05-05 14:18] LABS: Alanine Aminotransferase 14 U/L (0-41); Alkaline Phosphatase 74 IU/L (40-130); Aspartate Amino Transferase 21 U/L (0-40); Blood Urea Nitrogen 19 mg/dL (8-23); C Reactive Protein 29.7 mg/L (0.0-4.9); Calcium 8.8 mg/dL (8.5-10.5); Carbon Dioxide 31 mmol/L (22-29); Chloride 97 mmol/L (98-107); Glucose 110 mg/dL (65-115); Osmolality Calculated 291 mOsm/kg (285-295); Sodium 139 mmol/L (136-145); Total Bilirubin 0.3 mg/dL (0.15-1.2)
[2022-05-05 14:20] LABS: Anion Gap 15.3 (5-19); Potassium 4.3 mmol/L (3.5-5.1)
== END 2022-05-05 13:15 | disposition home or self-care (01) ==
LOC: LAB 13:16
PROVIDERS: PCP Family Medicine; Visit Provider Internal Medicine
DX: L40.50 Arthropathic psoriasis, unspecified (principal); M17.0 Bilateral primary osteoarthritis of knee
CPT/HCPCS: 80053; 85025; 85651; 86140

== ENCOUNTER → 2022-05-06 13:27 | Outpatient (BNVA) | payer MEDICARE, SELFPAY | PROVIDERS: PCP Family Medicine; Visit Provider Internal Medicine | DX: M06.09 Rheumatoid arthritis without rheumatoid factor, multiple sites (principal); L40.50 Arthropathic psoriasis, unspecified; M17.0 Bilateral primary osteoarthritis of knee; R06.02 Shortness of breath; M79.643 Pain in unspecified hand | CPT/HCPCS: 99214 ==

== ENCOUNTER → 2022-06-06 11:19 | Outpatient (BNVA) | payer MEDICARE, SELFPAY | PROVIDERS: PCP Family Medicine; Visit Provider Nurse Practitioner Family | DX: R00.1 Bradycardia, unspecified (principal) | CPT/HCPCS: 93005; 99213 ==

== ENCOUNTER → 2022-07-07 10:49 | Outpatient (BNVA) | payer MEDICARE, SELFPAY | PROVIDERS: PCP Family Medicine; Visit Provider Internal Medicine Critical Care Medicine | DX: J96.11 Chronic respiratory failure with hypoxia (principal); G47.31 Primary central sleep apnea; J84.10 Pulmonary fibrosis, unspecified; J98.4 Other disorders of lung; R51.9 Headache, unspecified | CPT/HCPCS: 99213; 99214 ==

== ENCOUNTER 2022-07-10 08:23 | Outpatient (CLI) | payer MEDICARE, OTHER, SELFPAY ==
--- NOTE | 2022-07-10 08:31 | US_ITS ---
WS: [id number] Thyroid ultrasound, 07/10/2022 Clinical Data: LEFT SIDED NECK FULLNESS Comparison: Subcutaneous ultrasound of the anterior inferior left neck. Findings: The right lobe of thyroid measures 4.4 cm x 1.7 cm x 1.9 cm. There is a small nodule in the inferior thyroid measuring 0.35 x 0.46 x 0.54 cm. There are minimal echoes within. The left lobe measures 3.4 cm x 1.5 cm x 1.8 cm. There is a small lymph node adjacent to the left lob e of thyroid measuring 0.69 x 1.02 x 1.11 cm per The isthmus measured 0.7 mm. The echotexture of the thyroid is uniform. No cysts or masses are seen. There is a small lymph node in the left cervical chain measuring 0.52 x 0.80 x 0.88 cm US/US thyroid [id number] Impression: 1. Small nodule in right lobe of thyroid. 2. Small lymph node adjacent to the left thyroid lobe. 3. Left cervical lymph node. 4. Enlarged isthmus.
--- NOTE | 2022-07-10 08:31 | US_ITS ---
WS: [email or web address] Abdomen ultrasound, 07/10/2022 Clinical Data: RUQ BELLY PAIN Comparison: Renal ultrasound, 11/14/2011. Findings: The pancreas is obscured by overlying bowel gas. The liver shows no cysts, masses or dilated intrahepatic ducts. Portal venous flow is normal. The jaylon er echotexture is consistent and unremarkable. The gallbladder has no stones or sludge. The wall measures 0.3 cm with no pericholecystic fluid. The common bile duct is 0.4 cm and no intraductal abnormalities are noted. The right kidney is 10.9 cm. There are 2 simple cysts in the inferior pole right kidney, one measures 1.93 x 2.20 x 2.23 cm and the other is 1.27 x 1.30 x 1.41 cm. The left kidney is 9.9 cm. There is a simple cyst measuring 4.45 x 4.49 x 5.03 cm per The abdominal aorta is not dilated and the inferior vena cava has normal flow. No vascular abnormalit ies are seen. The spleen measures 11.8 cm and there are no intrasplenic masses or capsular abnormalities. US/US abdomen complete* [id number] Impression: 1. Pancreas obscured by overlying bowel gas. 2. Bilateral renal cysts.
== END 2022-07-10 08:24 | disposition home or self-care (01) ==
LOC: RAD 08:23
PROVIDERS: PCP Family Medicine; Visit Provider Family Medicine
DX: R10.11 Right upper quadrant pain (principal); E04.1 Nontoxic single thyroid nodule
CPT/HCPCS: 76536; 76700

== ENCOUNTER 2022-08-15 14:45 | Outpatient (CLI) | payer OTHER, SELFPAY ==
--- NOTE | 2022-08-15 | CT_ITS ---
WS: [email or web address] CT NECK TECHNIQUE: Contrast-enhanced CT of the neck with coronal and sagittal reformatted images. CLINICAL INFORMATION: PAIN COMPARISON: Ultrasound thyroid July 10, 2022 DLP: 279.[address] scans at [facility] use at least one of these dose optimization techniques: automated e xposure control; mA and/or kV adjustment per patient size (includes targeted exams where dose is matc hed to clinical indication); or iterative reconstruction. FINDINGS: Dental artifact degrades some images at the tongue base. Mastoid air cells are well aerated. Retentio n cyst or polyp RIGHT maxillary sinus measuring 12 x 18 mm. Normal posterior nasopharynx. Normal para pharyngeal fat. Parotid glands are normal. Normal submandibular glands. No evidence of supraglottic o r glottic mass. Normal subglottic airway. Lung apices are well aerated. Partially visualized slightly ectatic descending thoracic aorta measuri ng 3.4 CM. Somewhat diminutive atrophic thyroid gland is normal in appearance. Small nodule seen on recent ultrasound not well seen on today's study. Incidental bovine arch. Reversal normal cervical lordosis centered at t he C4-C6 vertebral bodies with anterior wedging. Slight anterolisthesis C3 on C4. No cervical lymphad enopathy. CT/CT neck w con* [id number] IMPRESSION: 1. Somewhat diminutive atrophic thyroid gland. No visualized thyroid nodules. Tiny subcentimeter nodule along the recent ultrasound not well visualized on is study. 2. No cervical lymphadenopathy. 3. No evidence of supraglottic or glottic mass. 4. Slightly ectatic thoracic aorta measuring 3.4 CM. 5. Reversal normal cervical lordosis centered at C4-C6 with mild central canal stenosis.
[2022-08-15] MEDS: iohexol 350 mg/mL 100 mL Btl IV (16:25)
== END 2022-08-15 14:46 | disposition home or self-care (01) ==
LOC: RAD 14:46
PROVIDERS: PCP Family Medicine; Visit Provider Family Medicine
DX: I77.810 Thoracic aortic ectasia (principal)
CPT/HCPCS: 70491

== ENCOUNTER → 2022-09-01 14:52 | Outpatient (BNVA) | payer MEDICARE, SELFPAY | PROVIDERS: PCP Family Medicine; Visit Provider Internal Medicine | DX: L40.50 Arthropathic psoriasis, unspecified (principal); R51.9 Headache, unspecified; M17.0 Bilateral primary osteoarthritis of knee | CPT/HCPCS: 80053; 84550; 85025; 85651; 86140; 99214 ==

== ENCOUNTER → 2022-09-05 08:40 | Outpatient (BNVA) | payer OTHER, MEDICARE, SELFPAY | PROVIDERS: PCP Family Medicine; Visit Provider Otolaryngology | DX: Z86.39 Personal history of other endocrine, nutritional and metabolic disease (principal); H60.542 Acute eczematoid otitis externa, left ear; H83.3X9 Noise effects on inner ear, unspecified ear; H93.13 Tinnitus, bilateral; M26.623 Arthralgia of bilateral temporomandibular joint | CPT/HCPCS: 99204 ==

== ENCOUNTER → 2022-10-24 11:04 | Outpatient (BNVA) | payer MEDICARE, SELFPAY | PROVIDERS: PCP Family Medicine; Visit Provider Internal Medicine | DX: I50.32 Chronic diastolic (congestive) heart failure (principal); R06.02 Shortness of breath; I07.1 Rheumatic tricuspid insufficiency; I34.1 Nonrheumatic mitral (valve) prolapse | CPT/HCPCS: 99214 ==

== ENCOUNTER 2022-12-03 14:41 | Outpatient (CLI) | payer MEDICARE, SELFPAY ==
--- NOTE | 2022-12-03 15:00 | USCV_ITS ---
Sarkis Galvin Age: 77 Gender: M : 1945 Exam Date: 12/03/2022 14:54 Ordering Phys: Kyler Quiroz M.D ([email or web address]) Technologist: Aurora Ayala Exam Location: [place] Indication: mvp BP: 130 / 70 HR: 52 Rhythm: Sinus Technical Quality: Good MEASUREMENTS (Male / Female) Normal Values 2D ECHO LV Diastolic Diameter PLAX 5.1 cm 4.2 - 5.9 / 3.9 - 5.3 cm LV Systolic Diameter PLAX 3.0 cm IVS Diastolic Thickness 1.1 cm 0.6 - 1.0 / 0.6 - 0.9 cm IVS Systolic Thickness 2.2 cm LVPW Diastolic Thickness 1.0 cm 0.6 - 1.0 / 0.6 - 0.9 cm LVPW Systolic Thickness 1.6 cm LVOT Diameter 2.1 cm LV Ejection Fraction 2D Teich 70.2 % LV Ejection Fraction MOD 2C 60.9 % LV Ejection Fraction 2C AL 62.2 % LA Diameter 3.4 cm LA Width 3.8 cm LA Height 4.4 cm RA Width 2.5 cm RA Height 5.2 cm Aorta at Sinotubular Diameter 2.8 cm IVC Diameter 1.4 cm M-MODE MV E Point Septal Separation 1.5 cm DOPPLER AV Peak Velocity 105.0 cm/s LVOT Peak Velocity 111.0 cm/s AV Area Cont Eq vti 3.6 cm squared AV Area Cont Eq pk 3.8 cm squared MV Area PHT 2.4 cm squared Mitral E to A Ratio 0.8 MV E' Velocity 37.5 cm/s Mitral E to MV E' Ratio 11.5 Mitral E to LV E' Lateral Ratio 9.3 Mitral E to LV E' Septal Ratio 15.4 TR Peak Velocity 260.0 cm/s TR Peak Gradient 27.0 mmHg Right Atrial Pressure 3.0 mmHg Pulmonary Artery Systolic Pressu 30.0 mmHg PV Peak Velocity 81.0 cm/s RV Acceleration Time 0.1 s RV Ejection Time 0.3 s RV AcT/ET 0.4 FINDINGS Left Ventricle Left ventricle is normal in size. LV systolic function is normal with EF of 60 to 65%. No regional wall motion abnormalities are seen. Grade 1 diastolic dysfunction is seen. Right Ventricle Normal in size and function Right Atrium Normal in size Left Atrium Normal in size Mitral Valve Moderate mitral annular calcification is seen. Mitral valve prolapse is noted. Mild mitral regurgitation. Aortic Valve Aortic valve is mildly thickened. No significant aortic stenosis. Tricuspid Valve Mild tricuspid regurgitation. Pulmonary artery systolic pressure is normal. Pulmonic Valve Not well-visualized Pericardium Normal Aorta Normal in size IVC Appears to be normal CONCLUSIONS LV systolic function is normal with EF of 60 to 65% Grade 1 diastolic dysfunction Moderate mitral annular calcification is seen. Mitral valve prolapse is noted. Mild mitral regurgitation. Aortic valve is mildly thickened. Mild tricuspid regurgitation Compared to prior echocardiogram from 2020, no significant changes are seen. Kyler Quiroz MD (Electronically Signed) Final Date: 09 December 2022 18:21 S
== END 2022-12-03 14:42 | disposition home or self-care (01) ==
LOC: RAD 14:42
PROVIDERS: PCP Family Medicine; Visit Provider Internal Medicine
DX: I07.1 Rheumatic tricuspid insufficiency (principal); I34.1 Nonrheumatic mitral (valve) prolapse; I35.8 Other nonrheumatic aortic valve disorders
CPT/HCPCS: 93306

== ENCOUNTER → 2023-01-12 09:19 | Outpatient (BNVA) | payer MEDICARE, SELFPAY | PROVIDERS: PCP Family Medicine; Visit Provider Internal Medicine Pulmonary Disease | DX: J96.11 Chronic respiratory failure with hypoxia (principal); G47.31 Primary central sleep apnea; J84.10 Pulmonary fibrosis, unspecified; J98.4 Other disorders of lung | CPT/HCPCS: 99214 ==

== ENCOUNTER → 2023-02-05 11:22 | Outpatient (BNVA) | payer MEDICARE, SELFPAY | PROVIDERS: PCP Family Medicine; Visit Provider Internal Medicine | DX: L40.50 Arthropathic psoriasis, unspecified (principal); M17.0 Bilateral primary osteoarthritis of knee | CPT/HCPCS: 99214 ==

== ENCOUNTER 2023-03-03 15:47 | Outpatient (CLI) | payer MEDICARE, SELFPAY ==
--- NOTE | 2023-03-03 16:36 | MR_ITS ---
WS: [email or web address] MRI NECK with and without CONTRAST. COMPARISON: Prior MRI brain 05/17/2018 Multiplanar, multisequence imaging is performed with and without contrast. MultiHance 20 mL IV. History: Jaw pain for 6 months. No injury. Marked reversal of the normal cervical lordosis centered at C4-5. Mild anterior wedging of C5 and C6. Cervical cord is being displaced posterior. There is disc and osteophyte contact on the cervical cor d most significant at C4-5 and C5-6. No inferior displacement of cerebellar tonsils. Nasopharynx and oropharynx and larynx are negative. No enhancing masses. No compromise of the airway. Torus tubarius and eustachian tubes are negative. No significant amount of fluid in the mastoid air cells. No mass at the cerebellopontine angles or along the internal auditory canals. Orbits and globe s are negative. Imaging through the mandible demonstrates no destructive lesions. No significant amount of edema. The re is artifact from the patient's dental amalgam. There is no bone destruction which is obvious. Very mild narrowing of the TM joints. This study was not dedicated to the TM joints but there is no signa l abnormality identified. No cervical chain adenopathy. Visualized portions of the brain included dem onstrate dilatation of the ventricular system most significant involving the lateral ventricles which may be related to aging. Fourth ventricle is normal size. MR/MR orbit face neck wo/w* [id number] IMPRESSION: 1. No neck mass or adenopathy. 2. Marked reversal of the normal cervical lordosis centered at C4-5. There is osteophyte contact on the ventral cervical cord at C4-5 and C5-6. 3. On a few images which include the brain in the lateral ventricles appear di lated. Only a small portion of the lateral ventricles are included. This appear s progressed since 2018. Consider follow-up MRI brain or CT head for further ev aluation.
[2023-03-03] MEDS: gadobenate dimeglumine 20 mL vial IV (17:45)
== END 2023-03-03 15:48 | disposition home or self-care (01) ==
PROVIDERS: PCP Clinical Nurse Specialist Adult Health; Visit Provider Specialist
DX: H90.3 Sensorineural hearing loss, bilateral (principal)
CPT/HCPCS: 70543; A9577

== ENCOUNTER → 2023-03-04 13:16 | Outpatient (BNVA) | payer MEDICARE, SELFPAY | PROVIDERS: PCP Clinical Nurse Specialist Adult Health; Visit Provider Otolaryngology | DX: Z86.39 Personal history of other endocrine, nutritional and metabolic disease (principal); E04.1 Nontoxic single thyroid nodule | CPT/HCPCS: 99213 ==

== ENCOUNTER 2023-03-16 13:04 | Outpatient (CLI) | payer MEDICARE, SELFPAY ==
--- NOTE | 2023-03-16 13:15 | US_ITS ---
WS: [email or web address] ULTRASOUND THYROID TECHNIQUE: Ultrasound of the thyroid. CLINICAL INFORMATION: thyroid nodule COMPARISON: Ultrasound July 10, 2022 FINDINGS: Thyroid: Right and left thyroid lobes are normal in size and echotexture. Right thyroid lobe: 4.2 cm x 1.8 cm x 1.7 cm Hypoechoic RIGHT inferior thyroid lobe nodule measuring 4.9 x 5.3 x 3.1 mm Left thyroid lobe: 2.7 cm x 1.5 cm x 1.1 cm. Isthmus: 0.5 mm. Cervical lymphadenopathy: None. US/US thyroid [id number] IMPRESSION: 1. Hypoechoic RIGHT inferior thyroid lobe nodule measuring 4.9 x 5.3 x 3.1 mm is unchanged 2. No LEFT thyroid nodules. 3. Enlarged isthmus measuring 5 mm unchanged. 4. No other suspicious findings.
== END 2023-03-16 13:05 | disposition home or self-care (01) ==
LOC: RAD 13:09
PROVIDERS: PCP Clinical Nurse Specialist Adult Health; Visit Provider Otolaryngology
DX: E04.1 Nontoxic single thyroid nodule (principal)
CPT/HCPCS: 76536

== ENCOUNTER 2023-04-11 20:08 | Inpatient (IN) | payer MEDICARE, SELFPAY ==
[2023-04-11 20:26] VITALS: BP 105/70; PULSE 74; RESP 17; TEMP 36.7; O2SAT 90
--- NOTE | 2023-04-11 22:23 | XRR_ITS ---
PROCEDURE INFORMATION: Exam: XR Right Hip Exam date and time: 04/11/2023 10:43 PM Age: 77 years old Clinical indication: Injury or trauma; Fall; Blunt trauma (contusions or hematomas); Right; Hip; Additional info: Fall hip pain TECHNIQUE: Imaging protocol: Radiologic exam of the right hip. Views: 1 view hip with pelvis when performed. COMPARISON: CR XR pelvis 1-2V* [id number] 04/13/2020 11:20 AM FINDINGS: Bones/joints: Unremarkable. No acute fracture. Soft tissues: Unremarkable. XR/XR hip RT 2-3V wo/w pel* [id number] IMPRESSION: No acute findings.
--- NOTE | 2023-04-11 22:23 | XRR_ITS ---
PROCEDURE INFORMATION: Exam: XR Right Wrist Exam date and time: 04/11/2023 10:43 PM Age: 77 years old Clinical indication: Injury or trauma; Fall; Other: Pain; Additional info: Fall wrist pain TECHNIQUE: Imaging protocol: Radiologic exam of the right wrist. Views: 3 or more views. COMPARISON: No relevant prior studies available. FINDINGS: Bones/joints: Severe degenerative changes in the distal scaphoid carpal joint. Degenerative changes of the 1st carpometacarpal joint. No fracture. Soft tissues: Normal. Vasculature: Arterial calcifications. XR/XR wrist RT min 3V* [id number] IMPRESSION: No acute findings.
[2023-04-11 22:30] VITALS: BP 144/92; PULSE 88; RESP 22; O2SAT 92
[2023-04-11] MEDS: ondansetron 2 mg/ML SDV 2 mL 4 MG IVP (22:39)
[2023-04-11 22:44] VITALS: RESP 22; O2SAT 96
[2023-04-11] MEDS: HYDROmorphone 1 mg/mL INJ 1 mL IVP (22:44)
[2023-04-11 23:30] VITALS: BP 160/107; RESP 20; O2SAT 94
[2023-04-12] VITALS (14 sets, daily range): BP systolic 92–125; BP diastolic 52–91; PULSE 73–97; RESP 18–22; TEMP 36.8–37.5; O2SAT 90–98
--- NOTE | 2023-04-12 00:01 | XRR_ITS ---
PROCEDURE INFORMATION: Exam: XR Chest Exam date and time: 04/12/2023 12:13 AM Age: 77 years old Clinical indication: Injury or trauma; Fall; Shortness of breath; Crushing; Additional info: Fall SOB TECHNIQUE: Imaging protocol: Radiologic exam of the chest. Views: 1 view. COMPARISON: CR XR chest 2V* [id number] 08/24/2021 2:54 PM FINDINGS: Lungs: Low lung volumes and bronchovascular crowding as well as asymmetric more reduction of the left lung volume compared to the right which could be accentuated by portable technique. Suggestion of increased pulmonary vascularity increased interstitial opacities. There are bibasilar opacities which may represent atelectasis, inflammation, or infection. Pleural spaces: Unremarkable. No pleural effusion. No pneumothorax. Heart/Mediastinum: There is patchy opacity in the right lower lobe medially which may represent inflammation , infection, or prominent mediastinal lymph nodes or vascular structure. The cardiomediastinal silhouette is enlarged, similar to the prior. Vasculature: The thoracic aorta is tortuous and atherosclerotic. Bones/joints: There are degenerative changes of the spine and shoulder joints. Gastrointestinal tract: The stomach is mildly distended with gases. XR/XR chest 1V portable [id number] IMPRESSION: 1. Low lung volumes and bronchovascular crowding.. 2. Mildly increased pulmonary vascularity and increased interstitial opacities. Findings can be seen with pulmonary edema. Atypical infection can give a similar appearance. 3. Hilar and mediastinal opacities compatible with calcified lymph nodes. 4. Mild gastric gaseous distention.
--- NOTE | 2023-04-12 00:02 | ECG_ITS ---
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 Measurements Intervals Ward Rate: 97 P: 41 AZ: 186 QRS: 19 QRSD: 93 T: 15 QT: 345 QTc: 439 Interpretive Statements SINUS RHYTHM MINIMAL ST DEPRESSION [0.025+ mV ST DEPRESSION] No previous ECG available for comparison Electronically Signed On 04-13-2023 7:58:49 CDT by Kyler Quiroz M.D. [email or web address]
--- NOTE | 2023-04-12 00:05 | PC.NURSE ---
Attempted to ambulate patient per provider. Patient able to stand but unable to bear weight or walk with walker. Patient also complains of shortness of breath. Patient does wear oxygen at home but normally only 2 Liters at night. Patient on 4L via nasal cannula with oxygen saturation at 93%. Patient history of pulmonary fibroids. Provider notified and new orders obtained.
[2023-04-12 00:20] LABS: Basophils # 0.1 10^3/uL (0.0-0.1); Basophils % 0.4 %; Eosinophils # 0.1 10^3/uL (0.0-0.8); Eosinophils % 0.6 %; Hematocrit 48.1 % (42.0-52.0); Hemoglobin 14.7 g/dL (11.7-16.6); Lymphocytes # 4.9 10^3/uL (0.8-4.8); Lymphocytes % 23.2 %; Mean Corpuscular HGB Conc 30.6 g/dL (30.0-36.0); Mean Corpuscular Hemoglobin 29.5 pg (28.0-34.0); Mean Corpuscular Volume 96.4 fl (80-94); Mean Platelet Volume 10.1 fL (7.4-10.4); Monocytes # 1.3 10^3/uL (0.2-0.9); Monocytes % 6.1 %; Neutrophils # 14.51 10^3/uL (1.8-7.7); Nucleated Red Blood Cells % 0 %; Platelet Count 305 10^3/cmm (130-400); Red Blood Count 4.99 10^6/uL (4.1-5.3); Red Cell Distribution Width 13.6 % (12.1-15.1)
[2023-04-12 00:26] LABS: ABG PCO2 54.5 mmHg (35-45); ABG PH Result 7.29 (7.35-7.45); Base Excess ABG -1.4 mmol/L (-2.0-2.0); Blood Gas Allen Test Pos; Blood Gas Sample Type Arterial; HCO3 ABG 26.3 mmol/L (22-26); PO2 ABG 78.7 mmHg (80.0-100.0)
[2023-04-12 00:28] LABS: Blood Gas Sample Site Radial, left; Oxygen Device NC
[2023-04-12 00:37] LABS: Glucose Urine UA Norm (Normal); Ketones Urine 1+ (Negative); Protein Urine 1+ (Negative); Specific Gravity, Urine 1.025 (1.005-1.030); Urine Appearance Hazy (CLEAR); Urine Color Yellow (Yellow); pH Urine 5 (5-7)
[2023-04-12 00:38] LABS: Add Urine Microscopic? YES; Bilirubin Urine Neg (Negative); Blood Urine Neg (Negative); Leukocyte Esterase Urine Trace (Negative); Nitrate Urine Negative (Negative); Urobilinogen Urine Norm (Negative)
[2023-04-12 00:39] LABS: Bacteria Urine TRACE /hpf; Squamous Epithelial Cell Urine 0-4 /hpf (0-5); WBC Urine 0-4 /hpf (0-5)
[2023-04-12 00:40] LABS: Hyaline Casts Urine 0-4 /lpf; Mucus Urine 1+ /hpf
[2023-04-12 00:44] LABS: Alanine Aminotransferase 24 U/L (0-41); Albumin Level 4.5 g/dL (3.5-5.2); Alkaline Phosphatase 93 U/L (40-130); Anion Gap 18.6 (5-19); Aspartate Amino Transferase 26 U/L (0-40); Blood Urea Nitrogen 32 mg/dL (8-23); C Reactive Protein 15.2 mg/L (0.0-4.9); Calcium 9.7 mg/dL (8.5-10.5); Carbon Dioxide 30 mmol/L (22-29); Chloride 98 mmol/L (98-107); Globulin 3.2 g/dL (1.3-4.6); Glucose 121 mg/dL (65-115); NT Pro B Type Natriuretic Pept 407 pg/mL (0-450); Osmolality Calculated 302 mOsm/kg (285-295); Potassium 4.6 mmol/L (3.5-5.1); Sodium 142 mmol/L (136-145); Total Bilirubin 0.5 mg/dL (0.15-1.2); Total Protein 7.7 g/dL (6.6-8.7)
--- NOTE | 2023-04-12 00:45 | W.ED.FALL ---
HPI - Fall General: Chief Complaint: Fall Stated Complaint: fall, right hip pain Time Seen by Provider: 04/11/23 22:19 Source: patient and family History of Present Illness: 77 year old gentleman with a history of pulmonary fibrosis. Evidently this is from sarcoidosis. He presents with a fall at home. He sustained an injury to his right hip, and was unable to get up her bear weight at home. He also caught himself in the fall with his right hand coming as complaining of right wrist pain, and an abrasion to the right elbow. He is more short of breath than normal as well. He has noticed this today. Usually, he only wears oxygen at night. MD complaint: fall Fall from: standing Fall witnessed: yes, by family Place fall occurred: home Loss of consciousness: None Prolonged down time: no Symptoms prior to fall: none Context: tripped/slipped Location of injury - extremities: Right: hand and thigh Severity: severe Quality: sharp Associated symptoms-after fall: Reports difficulty walking, short of breath and weakness (generalized); Denies abdominal pain, chest pain, confusion, headache(s), hematuria, lightheadedness, neck pain or vertigo Review of Systems Const: Denies: fever(s) or chills Eyes: Denies: change in vision Card: Denies: chest pain or lightheadedness Resp: Reports: dyspnea; Denies: productive cough or non-productive cough GI: Denies: abdominal pain : Denies: flank pain, difficulty urinating or hematuria Musc: Denies: neck pain Neuro: Reports: difficulty walking; Denies: headache(s), vertigo or confusion PFS ED PFSH: Medical History Diastolic heart failure Facial pain Fibromyalgia 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 Lumbago Mitral valve prolapse TRACE (obstructive sleep apnea) Osteoarthritis of knees, bilateral Psoriatic arthritis Rheumatoid arthritis without rheumatoid factor, multiple sites Sarcoidosis of lung Shortness of breath Surgical History H/O bilateral cataract extraction right:12/05/14 left: 12/12/14 H/O lithotripsy H/O repair of rotator cuff H/O transurethral resection of prostate History of appendectomy History of arthroscopy of both knees History of lung biopsy History of lung biopsy Family History Father , Emphysema 72 Emphysema of lung CAD (coronary artery disease) Other Cancer Hypertension Social History Smoking and tobacco status: never smoked Second hand smoke exposure: No Smoking risk assessment/counseling performed?: No Alcohol intake: never Counseling given: No Substance/Drug Use: never Counseling given: No Lives independently: Yes Household members: spouse Marital status: Current occupational status: retired Current occupation: Steps are wide 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 Can use walker to ascend Do you think of yourself as: Straight/Heterosexual Current gender identity: Male Physical Exam Const: GENERAL APPEARANCE: ill appearing (mildly) and frail appearing NUTRITIONAL APPEARANCE: overweight ORIENTATION/CONSCIOUSNESS: Yes awake, Yes oriented to person and Yes oriented to place HENMT: COMMON NORMALS: normocephalic, atraumatic and Normal external nose present HEAD & SCALP: normocephalic and atraumatic FACE & SINUS: normal facial exam NOSE: Normal external nose present Eye: COMMON NORMALS: Equal, round and reactive pupils present and EOMs intact bilaterally PUPIL: Yes Equal, round and reactive pupils present Neck/C-Spine: GENERAL: Yes trachea midline Chest: CHEST: Yes Symmetrical chest wall rise Resp: COMMON NORMALS: clear to auscultation bilaterally EFFORT & INSPECTION: Yes tachypneic and No respiratory distress AUSCULTATION: clear to auscultation bilaterally and diminished lung sounds Cardio: COMMON NORMALS: regular rate and regular rhythm RATE: regular rate RHYTHM: regular rhythm PERIPHERAL PULSES: posterior tibial pulses present GI: COMMON NORMALS: Normal to inspection, nondistended, normoactive bowel sounds present and non-tender Extremity: NARRATIVE EXTREMITY EXAM: Examination of the right hip reveals no gross deformity. There is tenderness laterally, but not anteriorly. There is moderate pain on log roll testing. Pulses are intact distally. Examination of the r wrist reveals ulnar sided tenderness. No deformity. Neuro: SENSORIUM/ORIENTATION: Yes oriented to person and Yes oriented to place Course Vital Signs: Vital signs: Vital Signs Temperature 98.7 F 04/12/23 11:58 Pulse Rate 90 04/12/23 09:17 Respiratory Rate 18 04/12/23 11:58 Blood Pressure 109/70 04/12/23 11:58 Pulse Oximetry 95 04/12/23 09:17 Oxygen Delivery Me thod Nasal Cannula 04/12/23 09:17 Oxygen Flow Rate 4 04/12/23 09:17 MDM - Fall Medical Decision Making X-rays were negative for hip fracture. Also negative for right wrist fracture. However, the patient is significantly short of breath. He's requiring more oxygen than normal, just sitting at the edge of the bed. He's up to four liters by nasal cannula now. X-ray reveals baseline changes of pulmonary fibrosis, but perhaps increased opacities suggestive of a possible atypical pneumonia. He is treated with rocephin and zithromax after blood cultures. He is unable to bear weight on that hip. Because of these things, he'll be admitted. Hospitalist has agreed to admit, and will evaluate the patient. Lab Data 04/12/23 00:13 04/12/23 00:13 Radiology Impressions Hip/Pelvis X-Ray 04/11/23 22:23 IMPRESSION: No acute findings. Wrist X-Ray 04/11/23 22:23 IMPRESSION: No acute findings. Chest X-Ray 04/12/23 00:01 IMPRESSION: 1. Low lung volumes and bronchovascular crowding.. 2. Mildly increased pulmonary vascularity and increased interstitial opacities. Findings can be seen with pulmonary edema. Atypical infection can give a similar appearance. 3. Hilar and mediastinal opacities compatible with calcified lymph nodes. 4. Mild gastric gaseous distention. Pelvis CT 04/12/23 02:59 IMPRESSION: 1. No definite acute fracture or dislocation, see above discussion. 2. Other findings discussed above. Laboratory Results WBC 21.0 10^3/uL (4.0-10.0) H 04/12/23 00:13 RBC 4.99 10^6/uL (4.1-5.3) 04/12/23 00:13 Hgb 14.7 g/dL (11.7-16.6) 04/12/23 00:13 Hct 48.1 % (42.0-52.0) 04/12/23 00:13 MCV 96.4 fl (80-94) H 04/12/23 00:13 MCH 29.5 pg (28.0-34.0) 04/12/23 00:13 MCHC 30.6 g/dL (30.0-36.0) 04/12/23 00:13 RDW 13.6 % (12.1-15.1) 04/12/23 00:13 Plt Count 305 10^3/cmm (130-400) 04/12/23 00:13 MPV 10.1 fL (7.4-10.4) 04/12/23 00:13 Neut % (Auto) 69.0 % 04/12/23 00:13 Lymph % (Auto) 23.2 % 04/12/23 00:13 [place] % (Auto) 6.1 % 04/12/23 00:13 Eos % (Auto) 0.6 % 04/12/23 00:13 Baso % (Auto) 0.4 % 04/12/23 00:13 Neut # (Auto) 14.51 10^3/uL (1.8-7.7) H 04/12/23 00:13 Lymph # (Auto) 4.9 10^3/uL (0.8-4.8) H 04/12/23 00:13 [place] # (Auto) 1.3 10^3/uL (0.2-0.9) H 04/12/23 00:13 Eos # (Auto) 0.1 10^3/uL (0.0-0.8) 04/12/23 00:13 Baso # (Auto) 0.1 10^3/uL (0.0-0.1) 04/12/23 00:13 Nucleated RBC % (auto) 0 % 04/12/23 00:13 Nucleated RBCs # 0.0 /100WBC 04/12/23 00:13 Specimen Type Arterial 04/12/23 00:16 Sample Site Radial, left 04/12/23 00:16 ABG pH 7.29 (7.35-7.45) L 04/12/23 00:16 ABG pCO2 54.5 mmHg (35-45) H 04/12/23 00:16 ABG pO2 78.7 mmHg (80.0-100.0) L 04/12/23 00:16 ABG HCO3 26.3 mmol/L (22-26) H 04/12/23 00:16 ABG Base Excess -1.4 mmol/L (-2.0-2.0) 04/12/23 00:16 Kj Test Pos 04/12/23 00:16 Hematocrit 47.0 % (42-52) 04/12/23 00:16 O2 Delivery Device Nc 04/12/23 00:16 O2 Liters/Min 4.0 % 04/12/23 00:16 File Keeper ID [email or web address] 04/12/23 00:16 Sodium 142 mmol/L (136-145) 04/12/23 00:13 Potassium 4.6 mmol/L (3.5-5.1) 04/12/23 00:13 Chloride 98 mmol/L (98-107) 04/12/23 00:13 Carbon Dioxide 30 mmol/L (22-29) H 04/12/23 00:13 Anion Gap 18.6 (5-19) 04/12/23 00:13 BUN 32 mg/dL (8-23) H 04/12/23 00:13 Creatinine 1.9 mg/dL (0.7-1.2) H 04/12/23 00:13 GFR Calculation Not Reportable 04/12/23 00:13 Glucose 121 mg/dL (65-115) H 04/12/23 00:13 Calculated Osmolality 302 mOsm/kg (285-295) H 04/12/23 00:13 Calcium 9.7 mg/dL (8.5-10.5) 04/12/23 00:13 Total Bilirubin 0.5 mg/dL (0.15-1.2) 04/12/23 00:13 AST 26 U/L (0-40) 04/12/23 00:13 ALT 24 U/L (0-41) 04/12/23 00:13 Alkaline Phosphatase 93 U/L (40-130) 04/12/23 00:13 C-Reactive Protein 15.2 mg/L (0.0-4.9) H 04/12/23 00:13 NT-Pro-B Natriuret Pep 407 pg/mL (0-450) 04/12/23 00:13 Total Protein 7.7 g/dL (6.6-8.7) 04/12/23 00:13 Albumin 4.5 g/dL (3.5-5.2) 04/12/23 00:13 Globulin 3.2 g/dL (1.3-4.6) 04/12/23 00:13 Urine Color Yellow (Yellow) 04/12/23 00:13 Urine Appearance Hazy (CLEAR) A 04/12/23 00:13 Urine pH 5 (5-7) 04/12/23 00:13 Ur Specific [place] 1.025 (1.005-1.030) 04/12/23 00:13 Urine Protein 1+ (Negative) H 04/12/23 00:13 Urine Glucose (UA) Norm (Normal) 04/12/23 00:13 Urine Ketones 1+ (Negative) H 04/12/23 00:13 Urine Blood Neg (Negative) 04/12/23 00:13 Urine Nitrate Negative (Negative) 04/12/23 00:13 Urine Bilirubin Neg (Negative) 04/12/23 00:13 Urine Urobilinogen Norm mg/dL (Negative) 04/12/23 00:13 Ur Leukocyte Esterase Trace (Negative) H 04/12/23 00:13 Urine RBC None /hpf (0-2) 04/12/23 00:13 Urine WBC 0-4 /hpf (0-5) H 04/12/23 00:13 Ur Squamous Epith Cells 0-4 /hpf (0-5) H 04/12/23 00:13 Amorphous Sediment Not Reportable 04/12/23 00:13 Urine Bacteria Trace /hpf (NONE) 04/12/23 00:13 Hyaline Casts 0-4 /lpf H 04/12/23 00:13 Urine Mucus 1+ /hpf 04/12/23 00:13 Discharge Plan Discharge Patient Disposition: Admitted As Inpatient Admit Provider: Yudelka Crain Clinical Impression: Pulmonary fibrosis, Chronic respiratory failure with hypoxia, Pneumonia, Contusion of hip, right Condition: Stable Coding Level of Care Code ED Practice Support Specialist for Kyle Schwartz
[2023-04-12] MEDS: cefTRIAXone 1,000 MG in sodium chloride 0.9% (plus) 50 ML 100 MG IV (02:17)
[2023-04-12] MEDS: azithromycin 500 MG in sodium chloride 0.9% 250 ML 250 MG IV (02:55)
--- NOTE | 2023-04-12 02:59 | CTR_ITS ---
PROCEDURE INFORMATION: Exam: CT Pelvis Without Contrast; Skeletal Exam date and time: 04/12/2023 3:12 AM Age: 77 years old Clinical indication: Pain and injury or trauma; Fall; Crushing; Hip and pelvic region; Hip pain; Right hip; Additional info: R hip pain TECHNIQUE: Imaging protocol: Computed tomography of the pelvis without contrast. Exam focused on the skeleton. Radiation optimization: All CT scans at this facility use at least one of these dose optimization techniques: automated exposure control; mA and/or kV adjustment per patient size (includes targeted exams where dose is matched to clinical indication); or iterative reconstruction. REPORTING DATA: Count of CT and Cardiac NM exams in prior 12 months: This patient has received [address] and 0 known cardiac nuclear medicine studies in the 12 months prior to the current study. COMPARISON: CR (PELVIS, ) 04/11/2023 10:43 PM RADIATION DOSE METRICS: Total DLP (mGy-cm): 615.95 FINDINGS: Bones/joints: No visible acute fracture or dislocation of either femoral head or neck. If there is continued clinical suspicion for hip fracture, MRI could be more sensitive than CT for detecting occult/subtle fractures. No definite acute fracture of the other included bones of the pelvis. No diastases of either SI joint, or the symphysis pubis. Moderate to severe degenerative/arthritic changes in the lower lumbar spine. Soft tissues: Small umbilical hernia, containing only fat. Very small inguinal hernias bilaterally, containing only fat. No other significant soft tissue abnormality. CT/CT bony pelvis [id number] IMPRESSION: 1. No definite acute fracture or dislocation, see above discussion. 2. Other findings discussed above.
--- NOTE | 2023-04-12 04:24 | PM.HP ---
Providers/Chief Complaint Admitting Physician: Yudelka Crain MD Primary Care Provider: Bill Mello Chief Complaint: fall, right hip pain History of Present Illness Sarkis Galvin is a 77 year old male with history of obstructive sleep apnea rheumatoid arthritis pulmonary fibrosis sarcoidosis diastolic heart failure osteoarthritis psoriatic arthritis presented with complaint of fall and pain in right hip. As per the patient he was playing with his grandson when he had a mechanical fall followed by dizziness and inability to move the right hip. He denies any fever shortness of breath chest pain cough bowel or urinary complaints. No history of sick contacts noted. In ER his WBC was 21 with left shift ABG consistent with hypercarbia hypoxia serum creatinine was 1.9 and UA was positive for trace leukocyte Estrace trace bacteria. Review of Systems Narrative: Review of system as per [facility] Medications/Allergies Home Medications Medication Instructions Recorded Confirmed Last Taken Type aspirin 81 mg tablet,delayed 81 mg PO DAILY 01/27/20 03/04/23 Unknown History release (Sea Low Dose Aspirin) cholecalciferol (vitamin D3) 25 25 mcg PO DAILY 03/28/21 02/24/23 Unknown History mcg (1,000 unit) capsule ascorbic acid (vitamin C) 1,000 mg 1,000 mg PO DAILY 09/02/21 03/04/23 Unknown History tablet zinc 50 mg tablet 50 mg PO DAILY 09/02/21 03/04/23 Unknown History desonide 0.05 % topical cream 1 applic topical BID #60 grams 12/31/21 03/04/23 Unknown Rx potassium chloride 10 mEq 10 meq PO DAILY #90 tabs 04/21/22 03/04/23 Unknown Rx tablet,extended release spironolactone 25 mg tablet 25 mg PO DAILY #90 tabs 10/24/22 03/04/23 Unknown Rx furosemide 40 mg tablet 40 mg PO DAILY #90 tabs 01/05/23 03/04/23 Unknown Rx esomeprazole magnesium 40 mg 40 mg PO DAILY 90 days #90 caps 01/06/23 02/24/23 Unknown Rx capsule,delayed release hydroxychloroquine 200 mg tablet 200 mg PO BID #60 tabs 01/13/23 02/24/23 Unknown Rx metoprolol succinate 100 mg See Rx Instructions .Route 02/02/23 03/04/23 Unknown Rx tablet,extended release 24 hr .COMPLEX #90 tabs melatonin 10 mg disintegrating 10 mg PO DAILY To fall asleep 02/24/23 03/04/23 Unknown History tablet escitalopram oxalate 20 mg tablet See Rx Instructions .Route 03/02/23 03/04/23 Unknown Rx .COMPLEX #90 tabs prednisone 5 mg tablet 5 mg PO DAILY #50 tabs 04/06/23 Unknown Rx Allergies Allergy/AdvReac Type Severity Reaction Status Date / Time ranitidine [From Zantac] Allergy Mild rash Verified 04/11/23 20:31 apremilast [From Otezla] Allergy diarrhea Verified 04/11/23 20:31 etanercept [From Enbrel] Allergy life Verified 04/11/23 20:31 threatening infection levofloxacin [From Levaquin] Allergy vomiting Verified 04/11/23 20:31 methotrexate Allergy life Verified 04/11/23 20:31 threatening infection tamsulosin Allergy dizziness Verified 04/11/23 20:31 tramadol Allergy nausea Verified 04/11/23 20:31 tofacitinib [From Xeljanz] AdvReac ADR-Dizzine Verified 04/11/23 20:31 ss PFSH Acute PFSH: Medical History Diastolic heart failure Facial pain Fibromyalgia 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 Lumbago Mitral valve prolapse TRACE (obstructive sleep apnea) Osteoarthritis of knees, bilateral Psoriatic arthritis Rheumatoid arthritis without rheumatoid factor, multiple sites Sarcoidosis of lung Shortness of breath Surgical History H/O bilateral cataract extraction right:12/05/14 left: 12/12/14 H/O lithotripsy H/O repair of rotator cuff H/O transurethral resection of prostate History of appendectomy History of arthroscopy of both knees History of lung biopsy History of lung biopsy Family History Father , Emphysema 72 Emphysema of lung CAD (coronary artery disease) Other Cancer Hypertension Social History Smoking and tobacco status: never smoked Second hand smoke exposure: No Smoking risk assessment/counseling performed?: No Alcohol intake: never Counseling given: No Substance/Drug Use: never Counseling given: No Lives independently: Yes Household members: spouse Marital status: Current occupational status: retired Do you think of yourself as: Straight/Heterosexual Current gender identity: Male Vitals/I&O/Wt Last Vital Signs Temp 98.3 F 04/12/23 04:00 Pulse 73 04/12/23 04:00 Resp 18 04/12/23 04:00 BP 105/75 04/12/23 04:00 Pulse Ox 95 04/12/23 04:00 O2 Del Method Nasal Cannula 04/12/23 04:00 O2 Flow Rate 4 04/12/23 04:00 04/11/23 04/11/23 04/12/23 14:59 22:59 06:59 Intake Total 300 / 300 Balance 300 / 300 Weight last 48 hrs Weight 95.254 kg Physical Exam Narrative: Alert awake oriented x3 lying comfortably in bed not in acute distress Chest clear to auscultation bilaterally no rhonchi or wheezing Cardiovascular exam normal Abdomen soft distended nontender normal bowel sounds Extremities trace edema bilateral lower extremities, restriction of movement in right lower extremity, right hip no bruising noted Data 04/12/23 00:13 04/12/23 00:13 CT Abd/Pel: Radiologist's impression: Bones/joints: No visible acute fracture or dislocation of either femoral head or neck. ?If there is continued clinical suspicion for hip fracture, MRI could be more sensitive than CT for detecting occult/subtle fractures. ?No definite acute fracture of the other included bones of the pelvis. ?No diastases of either SI joint, or the symphysis pubis. ?Moderate to severe degenerative/arthritic changes in the lower lumbar spine. Soft tissues: Small umbilical hernia, containing only fat. ?Very small inguinal hernias bilaterally, containing only fat. ?No other significant soft tissue abnormality. CXR: Radiologist's impression: IMPRESSION: 1. ? Low lung volumes and bronchovascular crowding.. 2. ? Mildly increased pulmonary vascularity and increased interstitial opacities. Findings can be seen with pulmonary edema. Atypical infection can give a similar appearance. 3. ? Hilar and mediastinal opacities compatible with calcified lymph nodes. 4. ? Mild gastric gaseous distention Xray Ortho: Radiologist's impression: X-ray hip and x-ray of right wrist No acute findings EKG 1: My Interpretation: Normal sinus rhythm no acute ST-T changes A&P Assessment and plan (1) Pneumonia: (2) Fall: (3) Acute renal failure: Plan 77-year-old with significant medical history presented with complaint of right hip pain and restriction of movement s/p fall and found to have leukocytosis acute renal failure and metabolic acidosis likely secondary to pneumonia and dehydration Will admit to medical floor IV fluids normal saline at 100 mm/h IV ceftriaxone 1 g daily IV azithromycin 500 mg daily Right hip pain likely secondary to blunt trauma OT PT eval Pain control with p.o. Percocet 1 tab every 4 hours as needed Resume home medications DVT prophylaxis with subcutaneous heparin Full code for now Need to reconcile home medications with family Attestations Medical Necessity Statement*: In view of pneumonia and shortness of breath associated with on patient needs to be on IV antibiotics and seen by OT PT. hence needs continued hospitalization for more than 2 midnights Time Spent in Patient Care: 30 minutes Coding Level of Care Code 07239 Diagnoses Pneumonia J18.9 Fall W19.XXXA Acute renal failure N17.9 Time Spent (min) 30
--- NOTE | 2023-04-12 04:26 | PC.NURSE ---
ADMIT NOTE Pt received to room from ED at 0415. Is alert and oriented. Says he fell while playing with his great grandchild. c/o pain in R leg and wrist/arm. Was unable to walk. Says pain is not bad now if he is not moving. Has a skin tear to R elbow with bandaids in place. Bruising noted to elbow. O2 in place at 4l per NC. Was reported by ED nurse to have been quite SOB & sats dropping significantly with getting up down there. Pt says he normally wears O2 at 2l mostly at night and denies any increasing SOB lately or cough. Tells me he has pulmonary fibrosis but it has been better last couple of years. IV patent to L ac. Received IV antibiotics while in the ED. VS check done and RN at bedside completing admission assessment
[2023-04-12] MEDS: sodium chloride 0.9% 1,000 ML 75 ML IV ×2 (05:48→19:42)
[2023-04-12] MEDS: enoxaparin 30 mg/0.3 mL Syringe SUBCUT (05:51)
[2023-04-12] MEDS: hydroxychloroquine 200 mg Tablet PO (08:14)
[2023-04-12] MEDS: cholecalciferol (vitamin D3) 1,000 unit Tablet 1000 UNIT PO (08:14)
[2023-04-12] MEDS: ascorbic acid 500 mg Tablet 1000 MG PO (08:15)
[2023-04-12] MEDS: metoprolol succinate ER (24 HR) 100 mg Tablet PO (08:15)
[2023-04-12] MEDS: potassium chloride ER 10 mEq Tablet PO (08:15)
[2023-04-12] MEDS: aspirin 81 mg EC Tablet PO (08:15)
[2023-04-12] MEDS: spironolactone 25 mg Tablet PO (08:15)
[2023-04-12] MEDS: zinc gluconate 50 mg Tablet PO (08:15)
[2023-04-12] MEDS: predniSONE 5 mg Tablet PO (08:15)
[2023-04-12] MEDS: pantoprazole DR 40 mg Tablet PO (08:15)
[2023-04-12] MEDS: escitalopram 10 mg Tablet 20 MG PO (08:15)
--- NOTE | 2023-04-12 10:51 | CTR_ITS ---
PROCEDURE INFORMATION: Exam: CT Lumbar Spine Without Contrast Exam date and time: 04/12/2023 2:34 PM Age: 77 years old Clinical indication: Injury or trauma; Fall; Blunt trauma (contusions or hematomas) TECHNIQUE: Imaging protocol: Computed tomography of the lumbar spine without contrast. Radiation optimization: All CT scans at this facility use at least one of these dose optimization techniques: automated exposure control; mA and/or kV adjustment per patient size (includes targeted exams where dose is matched to clinical indication); or iterative reconstruction. REPORTING DATA: Count of CT and Cardiac NM exams in prior 12 months: This patient has received [address] and 0 known cardiac nuclear medicine studies in the 12 months prior to the current study. COMPARISON: CR XR lumbar spine 2-3V* [id number] 04/13/2020 11:20 AM RADIATION DOSE METRICS: Total DLP (mGy-cm): 830.45 FINDINGS: Bones/joints: See L1-L2 finding. L1-L2: L1-L2 broad-based disc bulge with mild spinal canal and moderate bilateral foraminal narrowing. L2-L3: L2-L3 productive degenerative changes with minimal spinal canal and moderate to severe bilateral foraminal narrowing. L3-L4: No significant disc bulge or herniation. No severe spinal canal stenosis. No significant neural foraminal narrowing. L4-L5: L4-L5 broad-based disc bulge with mild spinal canal and cvmh-bo-aiezauze bilateral foraminal narrowing. L4-L5 broad-based disc bulge with kzto-vi-vkehaivq spinal canal and moderate bilateral foraminal narrowing. L5-S1: L5/S1 productive degenerative changes with moderate to severe bilateral foraminal narrowing. Kidneys and ureters: Perinephric edema bilaterally likely reflecting renal insufficiency. Bilateral renal cysts, some of which appear hyperdense, negative for follow-up advised. Soft tissues: Unremarkable. Other findings: Bilateral punctate non-obstructing calyceal stones. CT/CT lumbar spine wo con* [id number] IMPRESSION: 1. Negative for fracture or dislocation. 2. Bilateral punctate non-obstructing calyceal stones. 3. Perinephric edema bilaterally likely reflecting renal insufficiency. 4. Bilateral renal cysts, some of which appear hyperdense, negative for follow-up advised. 5. L1-L2 broad-based disc bulge with mild spinal canal and moderate bilateral foraminal narrowing. 6. L2-L3 productive degenerative changes with minimal spinal canal and moderate to severe bilateral foraminal narrowing. 7. L4-L5 broad-based disc bulge with mild spinal canal and xqad-hl-uvackmef bilateral foraminal narrowing. 8. L4-L5 broad-based disc bulge with wwnv-md-moknprtc spinal canal and moderate bilateral foraminal narrowing. 9. L5/S1 productive degenerative changes with moderate to severe bilateral foraminal narrowing. COMMENTS: Consistent with the [employer]'s Incidental Findings Committee white paper (J Am Galindo Radiol 2018): Any incidental renal lesion less than 1 cm or classified as too small to characterize, or any incidental cystic renal lesion characterized as simple-appearing, is likely benign. No follow-up imaging is recommended for these lesions per consensus recommendations based on imaging criteria.
[2023-04-12] MEDS: fentaNYL 25 mcg Patch 1 PATCH TRANSDERMA (11:58)
[2023-04-12] MEDS: diclofenac 1% Topical Gel 100 gm 1 APPLIC TOPICAL ×3 (12:00→21:46)
--- NOTE | 2023-04-12 15:17 | W.PM.EVENTAC ---
Event Note Event Note: Admitted overnight. H&P and labs appreciated. Today morning laying comfortably in bed. States he was feeling absolutely fine at his baseline till yesterday while he was playing with his grandson and he fell backwards. He states a mechanical fall. Post fall he has been having pain in his right hip along with mild dizziness. Pain is going down the right leg. Having pain on minimal movements starting from back. Denies any nausea vomiting, headache, dysuria, diarrhea, fever, cough or expectoration. Denies any recent changes in medications. States takes Lasix for some kind of heart failure, prednisone for rheumatoid arthritis and pulmonary fibrosis. At baseline uses 2 L of oxygen when sleeping at night. Blood work from last night appreciated for white count 21,000, hemoglobin of 14, CMP showing a creatinine of 1.9 with baseline creatinine of around 1.5. Patient failed SLR testing on right leg. Plan: CT lumbar spine. CT pelvic, wrist x-ray negative for acute fractures. Fentanyl patch on right hip and back. Diclofenac application locally. Continue with gentle IV hydration. Hold off on Lasix for now. Repeat CBC and CMP in AM. Low suspicion of infectious process for now. Leukocytosis could be reactionary to fall along with being on chronic steroids. Patient so far has not had any fever. Check blood culture. Started on ceftriaxone and azithromycin overnight. For now we will continue. Other Coding Information Prolonged care (total time indicated above or notated here) (50 minutes) Gathering history, examining, reviewing labs with patient and ordering new labs including CT lumbar spine.
[2023-04-12 16:20] LABS: Iron 64 ug/dL (59-158); Percent Saturation 25.4 % (20-50); Total Iron Binding Capacity 251 mcg/dl; Unsaturated Iron Binding 187 ug/dL (112-347)
[2023-04-12 16:27] LABS: Procalcitonin 0.96 ng/mL (0-0.5)
[2023-04-12 16:32] LABS: Thyroid Stimulating Hormone 1.22 uIU/mL (0.27-4.20); Vitamin B12 541 pg/mL (232-1245)
--- NOTE | 2023-04-12 18:39 | PC.NURSE ---
Patient's daughter and son have POA and the son is the primary on medical. She can bring a copy if she need to.
[2023-04-13] VITALS (7 sets, daily range): BP systolic 105–116; BP diastolic 63–71; PULSE 67–90; RESP 17–23; TEMP 36.7–37.8; O2SAT 90–96
[2023-04-13] MEDS: cefTRIAXone 1,000 MG in sodium chloride 0.9% (plus) 50 ML 100 MG IV (01:12)
[2023-04-13] MEDS: azithromycin 500 MG in sodium chloride 0.9% 250 ML 250 MG IV (03:56)
[2023-04-13 04:01] LABS: Basophils # 0.1 10^3/uL (0.0-0.1); Basophils % 0.5 %; Eosinophils # 0.3 10^3/uL (0.0-0.8); Eosinophils % 2.7 %; Hematocrit 36.4 % (42.0-52.0); Hemoglobin 11.6 g/dL (11.7-16.6); Lymphocytes # 1.9 10^3/uL (0.8-4.8); Lymphocytes % 20.4 %; Mean Corpuscular HGB Conc 31.9 g/dL (30.0-36.0); Mean Corpuscular Hemoglobin 30.8 pg (28.0-34.0); Mean Corpuscular Volume 96.6 fl (80-94); Mean Platelet Volume 10.9 fL (7.4-10.4); Monocytes # 0.8 10^3/uL (0.2-0.9); Monocytes % 8.8 %; Neutrophils # 6.08 10^3/uL (1.8-7.7); Neutrophils % 66.9 %; Nucleated Red Blood Cells % 0 %; Platelet Count 166 10^3/cmm (130-400); Red Blood Count 3.77 10^6/uL (4.1-5.3); Red Cell Distribution Width 13.6 % (12.1-15.1); White Blood Count 9.1 10^3/uL (4.0-10.0)
[2023-04-13 04:39] LABS: Chol HDL Ratio 4.49 mg/dL (1.0-5.00); Cholesterol 166 mg/dL (0-200); HDL Cholesterol 37 mg/dL (60-100); LDL Cholesterol Calculated 108 mg/dL (50-129); Triglycerides 104 mg/dL (0-150); VLDL Cholestrol Calculation 21 mg/dL (0-30)
[2023-04-13 04:43] LABS: Alanine Aminotransferase 14 U/L (0-41); Albumin Level 3.3 g/dL (3.5-5.2); Alkaline Phosphatase 68 U/L (40-130); Anion Gap 14.6 (5-19); Aspartate Amino Transferase 17 U/L (0-40); Blood Urea Nitrogen 40 mg/dL (8-23); Calcium 8.9 mg/dL (8.5-10.5); Carbon Dioxide 26 mmol/L (22-29); Chloride 100 mmol/L (98-107); Globulin 2.5 g/dL (1.3-4.6); Glucose 99 mg/dL (65-115); Osmolality Calculated 292 mOsm/kg (285-295); Potassium 4.6 mmol/L (3.5-5.1); Sodium 136 mmol/L (136-145); Total Bilirubin 0.5 mg/dL (0.15-1.2); Total Protein 5.8 g/dL (6.6-8.7)
[2023-04-13 04:48] LABS: Estmated Average Glucose 117; Hemoglobin A1C 5.7 % (4.0-6.0)
[2023-04-13 04:51] LABS: Folate Level 5.7 ng/mL (4.5-32.2)
[2023-04-13] MEDS: enoxaparin 30 mg/0.3 mL Syringe SUBCUT (06:32)
[2023-04-13] MEDS: escitalopram 10 mg Tablet 20 MG PO (09:39)
[2023-04-13] MEDS: pantoprazole DR 40 mg Tablet PO (09:39)
[2023-04-13] MEDS: predniSONE 5 mg Tablet PO (09:39)
[2023-04-13] MEDS: aspirin 81 mg EC Tablet PO (09:39)
[2023-04-13] MEDS: zinc gluconate 50 mg Tablet PO (09:39)
[2023-04-13] MEDS: cholecalciferol (vitamin D3) 1,000 unit Tablet 1000 UNIT PO (09:39)
[2023-04-13] MEDS: metoprolol succinate ER (24 HR) 100 mg Tablet PO (09:39)
[2023-04-13] MEDS: ascorbic acid 500 mg Tablet 1000 MG PO (09:39)
[2023-04-13] MEDS: diclofenac 1% Topical Gel 100 gm 1 APPLIC TOPICAL (09:41)
--- NOTE | 2023-04-13 10:10 | XR_ITS ---
WS: [id number] EXAMINATION: XR chest 1V portable [id number] REASON FOR EXAM: hypoxia COMPARISON: 04/12/2023 ORDER DATE: 04/13/2023 10:13 AM TECHNIQUE: A single, portable frontal chest x-ray was obtained. X-RAY FINDINGS: There is mildly prominent pulmonary vascularity. There is moderate reduction in lung volume greater o n the right with the diaphragm elevated about 2 cm above the left hemidiaphragm. There is some associ ated right basal atelectasis. Pleural spaces are clear. No pleural effusions or pneumothorax. Cardiomediastinal silhouette demonstrates mild atherosclerotic aortic change. No significant change f rom previous. There are some nodular opacities superimposed by left heart border in the left infrahil ar region possibly adenopathy cannot rule out other nodular pulmonary change and is stable compared t o the previous study No tubes or lines are present. XR/XR chest 1V portable [id number] IMPRESSION: No significant change from previous study Follow-up chest lateral view would be beneficial for comparison. If Feasible.
[2023-04-13 14:45] LABS: Adenovirus Not Detected (NOT DETECT); Chlamydia Pneumoniae Not Detected (NOT DETECT); Coronavirus 229E,HKU1,NL63,OC4 Not Detected (NOT DETECT); Human Metapneumovirus Not Detected (NOT DETECT); Human Rhinovirus/Enterovirus Not Detected (NOT DETECT); Influenza A Not Detected (NOT DETECT); Influenza A H1 Not Detected (NOT DETECT); Influenza A H1-2009 Not Detected (NOT DETECT); Influenza A H3 Not Detected (NOT DETECT); Influenza B Not Detected (NOT DETECT); Mycoplasma Pneumoniae Not Detected (NOT DETECT); Parainfluenza Virus Type 1 Not Detected (NOT DETECT); Parainfluenza Virus Type 2 Not Detected (NOT DETECT); Parainfluenza Virus Type 3 Not Detected (NOT DETECT); Parainfluenza Virus Type 4 Not Detected (NOT DETECT); Respiratory Syncytial Virus A Not Detected (NOT DETECT); Respiratory Syncytial Virus B Not Detected (NOT DETECT); SARS-COV-2 Not Detected (NOT DETECT)
[2023-04-13] MEDS: FUROsemide 10 mg/mL SDV 2mL 20 MG IVP (15:06)
--- NOTE | 2023-04-13 18:26 | P.PN_ITS ---
Subjective Subjective: States he is doing all right. He worked some with physical therapy. That did not go as well as he thought it would. He is agreeable for arrangements to go to rehabilitation. He otherwise denies pain or discomfort while at rest. Vitals/I&O/Wt Last Vital Signs Temp 98.1 F 04/13/23 16:00 Pulse 73 04/13/23 16:00 Resp 19 H 04/13/23 16:00 BP 107/67 04/13/23 16:00 Pulse Ox 95 04/13/23 16:00 O2 Del Method Nasal Cannula 04/13/23 16:00 O2 Flow Rate 2 04/13/23 15:46 04/13/23 04/13/23 04/13/23 06:59 14:59 22:59 Intake Total 500 / 2180 1959 480 / 2440 Output Total 300 / 900 400 / 400 Balance 200 / 1280 1959 80 / 2040 Weight last 48 hrs Weight 95.254 kg Physical Exam Narrative: Sitting up in a chair. Const: COMMON NORMALS: patient oriented x3 and alert GENERAL APPEARANCE: cooperative ORIENTATION/CONSCIOUSNESS: Yes awake HENMT: COMMON NORMALS: oropharynx normal Neck/C-Spine: COMMON NORMALS: no JVD Resp: COMMON NORMALS: normal respiratory effort and clear to auscultation bilaterally AUSCULTATION: clear to auscultation bilaterally Cardio: COMMON NORMALS: no JVD, regular rhythm, S1 normal heart sound present, S2 normal heart sound present and No murmurs present (Cardio) RHYTHM: regular rhythm HEART SOUNDS: S1 normal heart sound present and S2 normal heart sound present GI: COMMON NORMALS: Normal to inspection, nondistended, normoactive bowel sounds present, Soft to palpation and non-tender PALPATION: Yes Soft to palpation Extremity: COMMON NORMALS: no joint enlargement and no pedal edema Neuro: COMMON NORMALS: patient oriented x3 and moves all extremities SENSORIUM/ORIENTATION: Yes alert Skin: COMMON NORMALS: no rashes or lesions noted GENERAL SKIN EXAM: no rashes or lesions noted Data 04/13/23 03:21 04/13/23 03:21 Micro: Microbiology 04/12/23 15:36 Blood Culture - Preliminary Blood NEGATIVE TO DATE 04/12/23 15:30 Blood Culture - Preliminary Blood NEGATIVE TO DATE 04/12/23 15:44 MRSA Culture - Final Nose A&P Assessment and plan (1) Pneumonia: Continue ceftriaxone, azithromycin. Low-grade temp noted again this morning. Obtain COVID-19 PCR panel, noted negative. Still requiring oxygen support 2 L. Follow-up chest x-ray obtained no significant change from prior. Moderate reduction in lung volume, greater on the right, mildly prominent pulmonary vascularity. Right basilar atelectasis. Stop IV fluid. On my review with some congestive appearance of x-ray given also dose of 20 mg IV Lasix x1, however, with ASHLEE risk of worsening kidney function and renal failure, reassess renal function. (2) Fall: Per discussion with physical therapist did not do as well today as anticipated, will require rehabilitation. Discussed with case management, working on setting it up and he is agreeable. Degenerative changes noted on CT spine. (3) Acute renal failure: With noted improvement, creatinine down to 1.4 from 1.9. Reassess renal fu nction. Plan 77-year-old with significant medical history presented with complaint of right hip pain and restriction of movement s/p fall and found to have leukocytosis acute renal failure and metabolic acidosis likely secondary to pneumonia and dehydration Will admit to medical floor Right hip pain likely secondary to blunt trauma OT PT eval Pain control with p.o. Percocet 1 tab every 4 hours as needed Resume home medications DVT prophylaxis with subcutaneous heparin Full code for now Need to reconcile home medications with family Attestations Medical Necessity Statement*: Admission for assessment managed of pneumonia, hypoxia, ASHLEE in a gentleman after a fall. Post discharge planning and arrangements. Diagnoses Pneumonia J18.9 Fall W19.XXXA Acute renal failure N17.9
[2023-04-14] VITALS (13 sets, daily range): BP systolic 96–122; BP diastolic 62–82; PULSE 61–91; RESP 16–24; TEMP 36.5–37.4; O2SAT 90–98
[2023-04-14] MEDS: cefTRIAXone 1,000 MG in sodium chloride 0.9% (plus) 50 ML 100 MG IV (01:59)
[2023-04-14] MEDS: azithromycin 500 MG in sodium chloride 0.9% 250 ML 250 MG IV (02:38)
[2023-04-14] MEDS: ipratropium-albuterol 3 mL Neb INHALATION ×4 (04:10→19:26)
[2023-04-14 04:53] LABS: Basophils % 0.5 %; Eosinophils # 0.3 10^3/uL (0.0-0.8); Eosinophils % 3.6 %; Hematocrit 36.5 % (42.0-52.0); Hemoglobin 11.3 g/dL (11.7-16.6); Lymphocytes # 1.4 10^3/uL (0.8-4.8); Mean Corpuscular Hemoglobin 29.4 pg (28.0-34.0); Mean Corpuscular Volume 94.8 fl (80-94); Mean Platelet Volume 10.3 fL (7.4-10.4); Monocytes # 0.8 10^3/uL (0.2-0.9); Monocytes % 9.6 %; Neutrophils % 69.7 %; Nucleated Red Blood Cells % 0 %; Platelet Count 147 10^3/cmm (130-400); Red Blood Count 3.85 10^6/uL (4.1-5.3); Red Cell Distribution Width 13.7 % (12.1-15.1); White Blood Count 8.5 10^3/uL (4.0-10.0)
[2023-04-14 05:08] LABS: Anion Gap 15.1 (5-19); Blood Urea Nitrogen 34 mg/dL (8-23); Calcium 8.9 mg/dL (8.5-10.5); Carbon Dioxide 26 mmol/L (22-29); Chloride 102 mmol/L (98-107); Glucose 103 mg/dL (65-115); Osmolality Calculated 294 mOsm/kg (285-295); Potassium 5.1 mmol/L (3.5-5.1); Sodium 138 mmol/L (136-145)
[2023-04-14] MEDS: enoxaparin 30 mg/0.3 mL Syringe SUBCUT (05:41)
[2023-04-14] MEDS: ascorbic acid 500 mg Tablet 1000 MG PO (09:40)
[2023-04-14] MEDS: cholecalciferol (vitamin D3) 1,000 unit Tablet 1000 UNIT PO (09:40)
[2023-04-14] MEDS: zinc gluconate 50 mg Tablet PO (09:40)
[2023-04-14] MEDS: pantoprazole DR 40 mg Tablet PO (09:40)
[2023-04-14] MEDS: metoprolol succinate ER (24 HR) 100 mg Tablet PO (09:40)
[2023-04-14] MEDS: aspirin 81 mg EC Tablet PO (09:40)
[2023-04-14] MEDS: escitalopram 10 mg Tablet 20 MG PO (09:40)
[2023-04-14] MEDS: predniSONE 5 mg Tablet PO (09:40)
--- NOTE | 2023-04-14 14:52 | XR_ITS ---
WS: [id number] Chest 2 view. HISTORY: Respiratory failure. Inspiration and expiration films were obtained. COMPARISON: 04/13/2023. Mild elevation of the RIGHT hemidiaphragm. Mild interstitial thickening. No fluid overload. No pleura l effusions. No pneumothorax. Mild volume loss with expiration. Mild cardiomegaly. Moderate widening of the mediastinum is probably due to position and ectatic aorta. XR/XR chest 2V insp/exp [id number] IMPRESSION: 1. No pneumonia. 2. Mild interstitial thickening may be fluid or pneumonitis. 3. No pneumothorax.
--- NOTE | 2023-04-14 15:02 | P.PN_ITS ---
Subjective Subjective: He feels the breathing is still not the best today. Breathing treatments helped for short while. No chest pain. Denies orthopnea. No LE edema. Vitals/I&O/Wt Last Vital Signs Temp 97.9 F 04/14/23 12:00 Pulse 88 04/14/23 13:25 Resp 18 04/14/23 13:15 BP 118/82 04/14/23 12:00 Pulse Ox 93 04/14/23 13:15 O2 Del Method Nasal Cannula 04/14/23 13:15 O2 Flow Rate 3 04/14/23 13:15 04/14/23 04/14/23 04/14/23 06:59 14:59 22:59 Intake Total 300 / 2940 960 / 960 Output Total 450 / 850 Balance -150 / 2090 960 / 960 Physical Exam Narrative: Sitting up in bed. Const: COMMON NORMALS: patient oriented x3 and alert GENERAL APPEARANCE: cooperative ORIENTATION/CONSCIOUSNESS: Yes awake HENMT: COMMON NORMALS: oropharynx normal Neck/C-Spine: OTHER: Difficult to evaluate if any JVD Resp: COMMON NORMALS: normal respiratory effort and clear to auscultation bilaterally AUSCULTATION: clear to auscultation bilaterally Cardio: COMMON NORMALS: regular rhythm, S1 normal heart sound present, S2 normal heart sound present and No murmurs present (Cardio) RHYTHM: regular rhythm HEART SOUNDS: S1 normal heart sound present and S2 normal heart sound present GI: COMMON NORMALS: Normal to inspection, nondistended, normoactive bowel sounds present, Soft to palpation and non-tender PALPATION: Yes Soft to palpation Extremity: COMMON NORMALS: no joint enlargement and no pedal edema Neuro: COMMON NORMALS: patient oriented x3 and moves all extremities SENSORIUM/ORIENTATION: Yes alert Skin: COMMON NORMALS: no rashes or lesions noted GENERAL SKIN EXAM: no rashes or lesions noted Data 04/14/23 04:32 04/14/23 04:32 Micro: Microbiology 04/12/23 15:36 Blood Culture - Preliminary Blood NEGATIVE TO DATE 04/12/23 15:30 Blood Culture - Preliminary Blood NEGATIVE TO DATE 04/12/23 15:44 MRSA Culture - Final Nose A&P Assessment and plan (1) Pneumonia: He is still feeling somewhat dyspneic. Does have a few faint crackles. Cannot evaluate for JVD. No peripheral edema. Denies orthopnea. 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 Discussed with him obtaining repeat chest x-ray. Requested. Consider additional Lasix. Possible diastolic CHF. Otherwise for pneumonia continue ceftriaxone, azithromycin. Low-grade temp noted again this morning. Noted COVID 19 PCR panel negative, discussed with h im. Still requiring oxygen support 3 L. Add I-S Repeat renal function, monitor for worsening renal function which she is at risk with ASHLEE. Creatinine today is somewhat better at 1.1. (2) Fall: Will benefit from rehabilitation. Continue PT. Arrangements underway for a uthorization for rehabilitation at [facility]. Discussed with case management. Degenerative changes noted on CT spine. Discussed with him. He was having lower back pain with turning. Add lidocaine patch. Currently continues with fentanyl patch. [place] as needed. (3) Acute renal failure: With noted improvement, creatinine down to 1.4 from 1.9. Reassess renal function. Plan 77-year-old with significant medical history presented with complaint of right hip pain and restriction of movement s/p fall and found to have leukocytosis acute renal failure and metabolic acidosis likely secondary to pneumonia and dehydration Will admit to medical floor Right hip pain likely secondary to blunt trauma OT PT eval Pain control with p.o. Percocet 1 tab every 4 hours as needed Resume home medications DVT prophylaxis with subcutaneous heparin Full code for now Need to reconcile home medications with family Attestations Medical Necessity Statement*: Continue admission for Monia, hypoxia, possible diastolic CHF, optimization of pain control, disposition planning and arrangements. Diagnoses Pneumonia J18.9 Fall W19.XXXA Acute renal failure N17.9
[2023-04-15] VITALS (12 sets, daily range): BP systolic 98–124; BP diastolic 62–80; PULSE 64–92; RESP 16–21; TEMP 36.4–37.7; O2SAT 88–98
[2023-04-15] MEDS: cefTRIAXone 1,000 MG in sodium chloride 0.9% (plus) 50 ML 100 MG IV (02:31)
[2023-04-15] MEDS: ipratropium-albuterol 3 mL Neb INHALATION ×4 (02:51→20:27)
[2023-04-15] MEDS: azithromycin 500 MG in sodium chloride 0.9% 250 ML 250 MG IV (03:10)
[2023-04-15] MEDS: enoxaparin 30 mg/0.3 mL Syringe SUBCUT (05:49)
[2023-04-15 06:06] LABS: Basophils % 0.5 %; Eosinophils # 0.3 10^3/uL (0.0-0.8); Eosinophils % 3.5 %; Hematocrit 36.5 % (42.0-52.0); Hemoglobin 11.5 g/dL (11.7-16.6); Lymphocytes # 1.1 10^3/uL (0.8-4.8); Lymphocytes % 14.5 %; Mean Corpuscular HGB Conc 31.5 g/dL (30.0-36.0); Mean Corpuscular Hemoglobin 29.8 pg (28.0-34.0); Mean Corpuscular Volume 94.6 fl (80-94); Mean Platelet Volume 10.9 fL (7.4-10.4); Monocytes # 0.7 10^3/uL (0.2-0.9); Monocytes % 9.4 %; Neutrophils # 5.56 10^3/uL (1.8-7.7); Neutrophils % 71.5 %; Nucleated Red Blood Cells % 0 %; Platelet Count 161 10^3/cmm (130-400); Red Blood Count 3.86 10^6/uL (4.1-5.3); Red Cell Distribution Width 13.7 % (12.1-15.1); White Blood Count 7.8 10^3/uL (4.0-10.0)
[2023-04-15 06:28] LABS: Anion Gap 14.7 (5-19); Blood Urea Nitrogen 28 mg/dL (8-23); Calcium 8.9 mg/dL (8.5-10.5); Carbon Dioxide 25 mmol/L (22-29); Chloride 100 mmol/L (98-107); Creatinine Clr Calc Pharmacy 82.3099; Glucose 88 mg/dL (65-115); Osmolality Calculated 285 mOsm/kg (285-295); Potassium 4.7 mmol/L (3.5-5.1); Sodium 135 mmol/L (136-145)
[2023-04-15] MEDS: cholecalciferol (vitamin D3) 1,000 unit Tablet 1000 UNIT PO (08:22)
[2023-04-15] MEDS: pantoprazole DR 40 mg Tablet PO (08:22)
[2023-04-15] MEDS: predniSONE 5 mg Tablet PO (08:22)
[2023-04-15] MEDS: metoprolol succinate ER (24 HR) 100 mg Tablet PO (08:22)
[2023-04-15] MEDS: ascorbic acid 500 mg Tablet 1000 MG PO (08:22)
[2023-04-15] MEDS: aspirin 81 mg EC Tablet PO (08:22)
[2023-04-15] MEDS: zinc gluconate 50 mg Tablet PO (08:22)
[2023-04-15] MEDS: escitalopram 10 mg Tablet 20 MG PO (08:22)
[2023-04-15] MEDS: lidocaine 5% Patch 1 PATCH TOPICAL (08:31)
[2023-04-15] MEDS: fentaNYL 25 mcg Patch 1 PATCH TRANSDERMA (10:26)
[2023-04-15] MEDS: FUROsemide 10 mg/mL SDV 2mL 20 MG IVP (10:26)
--- NOTE | 2023-04-15 21:42 | P.PN_ITS ---
Subjective Subjective: He is not feeling the best in terms of his breathing. Breathing treatments helping for short while. Having some cough, not coughing up much phlegm. Vitals/I&O/Wt Last Vital Signs Temp 98.2 F 04/15/23 20:46 Pulse 69 04/15/23 20:46 Resp 21 H 04/15/23 20:46 BP 103/70 04/15/23 20:46 Pulse Ox 95 04/15/23 20:46 O2 Del Method Nasal Cannula 04/15/23 20:27 O2 Flow Rate 3 04/15/23 20:27 04/15/23 04/15/23 04/15/23 06:59 14:59 22:59 Intake Total 300 / 1740 240 / 240 450 / 690 Output Total 400 / 700 250 / 250 Balance -100 / 1040 -10 / -10 450 / 440 Physical Exam Narrative: Sitting up in bed. Const: COMMON NORMALS: patient oriented x3 and alert GENERAL APPEARANCE: cooperative ORIENTATION/CONSCIOUSNESS: Yes awake HENMT: COMMON NORMALS: oropharynx normal Neck/C-Spine: COMMON NORMALS: no JVD OTHER: Difficult to evaluate if any JVD Resp: COMMON NORMALS: normal respiratory effort and clear to auscultation bilaterally AUSCULTATION: clear to auscultation bilaterally Cardio: COMMON NORMALS: no JVD, regular rhythm, S1 normal heart sound present, S2 normal heart sound present and No murmurs present (Cardio) RHYTHM: regular rhythm HEART SOUNDS: S1 normal heart sound present and S2 normal heart sound present GI: COMMON NORMALS: Normal to inspection, nondistended, normoactive bowel sounds present, Soft to palpation and non-tender PALPATION: Yes Soft to palpation Extremity: COMMON NORMALS: no joint enlargement and no pedal edema Neuro: COMMON NORMALS: patient oriented x3 and moves all extremities SENSORIUM/ORIENTATION: Yes alert Skin: COMMON NORMALS: no rashes or lesions noted GENERAL SKIN EXAM: no rashes or lesions noted Data 04/15/23 05:25 04/15/23 05:25 Micro: Microbiology 04/14/23 13:30 Gram Stain - Final Sputum - Expectorated Sputum A&P Assessment and plan (1) Pneumonia: Still dyspnea, discussed with him interstitial edema, possibly pneumonitis, vers us fluid overload changes noted on chest x-ray. Discussed giving him additional dose of Lasix IV this morning. Reassess again in the morning, consider repeat. BUN noted with some elevation at 28. Creatinine has normalized at 0.9. At risk of further ASHLEE. Monitor with diuretic. Discussed with case management delay in discharge. He is still feeling somewhat dyspneic. Few faint crackles. Cannot evaluate for JVD. No peripheral edema. Denies orthopnea. 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 Discussed with him obtaining repeat chest x-ray. Requested. Consider additional Lasix. Possible acute diastolic CHF. Per discussion with nursing staff he persistent transient worsening of breathing after receiving infusions of ceftriaxone and azithromycin. We are going to try to change his antibiotic, but as he is allergic to Levaquin. Will change to cefepime for now. MRSA PCR noted negative. He is also feeling somewhat achy. Blood pressure soft. We will increase his prednisone dose to 15 mg. Otherwise for pneumonia continue ceftriaxone, azithromycin. Low-grade temp noted again this morning. Noted COVID 19 PCR panel negative, discussed with him. Still requiring oxygen support 3 L. I-S Repeat renal function, monitor for worsening renal function which she is at risk with ASHLEE. Creatinine today is somewhat better at 1.1. (2) Fall: Will benefit from rehabilitation. Continue PT. Arrangements underway for authorization for rehabilitation at SNF. Discussed with case management. Degenerative changes noted on CT spine. Discussed with him. He was having lower back pain with turning. Add lidocaine patch. Currently continues with fentanyl patch. [place] as needed. (3) Acute renal failure: Improving. Cr normalized. BUN 28. Reassess renal function. Plan 77-year-old with significant medical history presented with complaint of right hip pain and restriction of movement s/p fall and found to have leukocytosis acute renal failure and metabolic acidosis likely secondary to pneumonia and dehydration Will admit to medical floor Right hip pain likely secondary to blunt trauma OT PT eval Pain control with p.o. Percocet 1 tab every 4 hours as needed Resume home medications DVT prophylaxis with subcutaneous heparin Full code for now Need to reconcile home medications with family Attestations Medical Necessity Statement*: Continue admission for Monia, hypoxia, possible diastolic CHF, optimization of pain control, disposition planning and arrangements. Diagnoses Pneumonia J18.9 Fall W19.XXXA Acute renal failure N17.9
[2023-04-15] MEDS: cefepime 1,000 MG in sodium chloride 0.9% (plus) 50 ML 100 MG IV (22:56)
[2023-04-16 03:10] VITALS: PULSE 67; RESP 18; O2SAT 95
[2023-04-16] MEDS: ipratropium-albuterol 3 mL Neb INHALATION ×2 (03:10→09:00)
[2023-04-16 04:03] VITALS: BP 119/73; PULSE 70; RESP 19; TEMP 36.8; O2SAT 97
[2023-04-16 05:12] LABS: Basophils % 0.7 %; Eosinophils # 0.3 10^3/uL (0.0-0.8); Eosinophils % 5.4 %; Hemoglobin 11.1 g/dL (11.7-16.6); Lymphocytes # 1.2 10^3/uL (0.8-4.8); Mean Corpuscular HGB Conc 31.7 g/dL (30.0-36.0); Mean Corpuscular Hemoglobin 30.3 pg (28.0-34.0); Mean Corpuscular Volume 95.6 fl (80-94); Monocytes # 0.6 10^3/uL (0.2-0.9); Monocytes % 9.4 %; Neutrophils # 3.82 10^3/uL (1.8-7.7); Nucleated Red Blood Cells % 0 %; Platelet Count 159 10^3/cmm (130-400); Red Blood Count 3.66 10^6/uL (4.1-5.3); Red Cell Distribution Width 13.8 % (12.1-15.1)
[2023-04-16 05:32] LABS: Anion Gap 12.4 (5-19); Blood Urea Nitrogen 25 mg/dL (8-23); Carbon Dioxide 28 mmol/L (22-29); Chloride 103 mmol/L (98-107); Glucose 100 mg/dL (65-115); Osmolality Calculated 292 mOsm/kg (285-295); Potassium 4.4 mmol/L (3.5-5.1); Sodium 139 mmol/L (136-145)
[2023-04-16] MEDS: enoxaparin 40 mg/0.4 mL Syringe SUBCUT (05:54)
[2023-04-16 07:16] VITALS: BP 104/68; PULSE 69; RESP 16; TEMP 36.3; O2SAT 97
[2023-04-16] MEDS: lidocaine 5% Patch 1 PATCH TOPICAL (08:09)
[2023-04-16] MEDS: cholecalciferol (vitamin D3) 1,000 unit Tablet 1000 UNIT PO (08:10)
[2023-04-16] MEDS: ascorbic acid 500 mg Tablet 1000 MG PO (08:10)
[2023-04-16] MEDS: metoprolol succinate ER (24 HR) 100 mg Tablet PO (08:10)
[2023-04-16] MEDS: zinc gluconate 50 mg Tablet PO (08:10)
[2023-04-16] MEDS: aspirin 81 mg EC Tablet PO (08:10)
[2023-04-16] MEDS: predniSONE 5 mg Tablet 15 MG PO (08:10)
[2023-04-16] MEDS: escitalopram 10 mg Tablet 20 MG PO (08:10)
[2023-04-16] MEDS: pantoprazole DR 40 mg Tablet PO (08:10)
[2023-04-16 08:50] VITALS: PULSE 66; RESP 18; O2SAT 97
[2023-04-16] MEDS: FUROsemide 10 mg/mL SDV 2mL 20 MG IVP (09:27)
[2023-04-16] MEDS: cefepime 1,000 MG in sodium chloride 0.9% (plus) 50 ML 100 MG IV (09:27)
[2023-04-16 11:07] VITALS: BP 110/72; PULSE 73; RESP 18; TEMP 36.9; O2SAT 91
[2023-04-16 11:11] LABS: SARS Covid-2 Antigen negative (Negative)
[2023-04-16] MEDS: levoFLOXacin 750 mg Tablet PO (11:35)
--- NOTE | 2023-04-16 13:23 | P.DS_ITS ---
Discharge Providers Date of Admission: 04/12/23 03:30 Date of Discharge: April 16, 2023 Attending Provider at Admission: Yudelka Crain MD Attending Provider at Discharge: Dwayne Salinas Primary Care Provider: Bill Mello Diagnoses at Discharge Discharge Diagnosis (1) Pneumonia: Status: Acute (2) Fall: Status: Acute (3) Acute renal failure: Status: Acute Reason for Visit Reason for Visit: fall, right hip pain Hospital Course Hospital Course Pleasant 77-year-old gentleman with history of TRACE, rheumatoid arthritis, localized pulmonary fibrosis, sarcoidosis, diastolic CHF, mitral valve prolapse, osteoarthritis, psoriatic arthritis, presented after a fall with pain in his right hip he sustained while playing with his grandson. Subsequently with pain, inability to move the right hip. Dizziness. On presentation found to have pneumonia, with leukocytosis, as well as acute kidney injury creatinine up to 1.9. With metabolic acidosis. Dehydration. He was treated with ceftriaxone, azithromycin, his diuretics were stopped, received fluid hydration. Pain control was initiated for right hip pain with fentanyl patch, as needed oxycodone, although he did not request for any of the latter. Imaging and presentation including hip and pelvis x-ray, wrist x-ray without acute findings. Pelvic CT obtained with persistent pain without definite acute fracture or dislocation. Moderate to severe degenerative/arthritic changes in the lower lumbar spine. This was followed up with lumbar spine CT and also as discussed with him noted mild-moderate to moderate changes including disc bulges, neuroforaminal narrowing, with moderate to severe neuroforaminal narrowing in L5/S1. Lidocaine patch was added for local pain control as well. This has been gradually improving. He has been mobilizing with physical therapy but would benefit from further rehabilitation. He has had slow recovery from pneumonia. MRSA PCR was negative. Sputum culture was obtained and with some mixed organisms on Gram stain with gram-positive cocci, gram-positive rods. Pending. Requiring oxygenation support of 3 L. Has had some cough and congestion without much sputum coming up. Viral PCR COVID panel negative for COVID or other viruses. Chest x-ray with interstitial pulmonary changes, pneumonitis, possibly edema, as he had been receiving IV fluids, these were discontinued, he received Lasix. Symptoms with improvement. He also was noted to be quite sensitive to antibiotic infusions possibly with a mitral prolapse and diastolic CHF, further confirming likely also exacerbated diastolic CHF. Received IV Lasix yesterday and today. Today he is feeling he is doing better and is improving. Volume status appears improved. He will complete antibiotic course for pneumonia with transition to Levaquin. He has adverse reaction of vomiting listed, however, agreed to try the medication here before discharge to see if he is in fact intolerant as he does not recall having a reaction. Discussed with him risks of Levaquin including tendinitis/tendon rupture. No noted aneurysm on prior imaging including abdominal ultrasound and CT chest. Please follow-up pending sputum culture results. With acute illness his prednisone dose is increased to 15 mg with a taper over the next 6 days. He is asked to follow-up with pulmonology to reassess for recovery, and follow- up with pulmonology and rheumatology to continue his treatments and assessments for any rheumatologic or sarcoidosis related pulmonary involvement. Physical Exam Narrative: Sitting up in bed. Const: COMMON NORMALS: patient oriented x3 and alert GENERAL APPEARANCE: cooperative ORIENTATION/CONSCIOUSNESS: Yes awake HENMT: COMMON NORMALS: oropharynx normal Neck/C-Spine: COMMON NORMALS: no JVD OTHER: Difficult to evaluate if any JVD Resp: COMMON NORMALS: normal respiratory effort and clear to auscultation bilaterally AUSCULTATION: clear to auscultation bilaterally Cardio: COMMON NORMALS: no JVD, regular rhythm, S1 normal heart sound present, S2 normal heart sound present and No murmurs present (Cardio) RHYTHM: regular rhythm HEART SOUNDS: S1 normal heart sound present and S2 normal heart sound present GI: COMMON NORMALS: Normal to inspection, nondistended, normoactive bowel sounds present, Soft to palpation and non-tender PALPATION: Yes Soft to palpation Extremity: COMMON NORMALS: no joint enlargement and no pedal edema Neuro: COMMON NORMALS: patient oriented x3 and moves all extremities SENSORIUM/ORIENTATION: Yes alert Skin: COMMON NORMALS: no rashes or lesions noted GENERAL SKIN EXAM: no rashes or lesions noted Discharge Data Studies Completed and Pending Completed Studies During Hospitalization Category Date Time Status CT bony pelvis [id number] Stat Cat Scan 04/12/23 02:[address] lumbar spine wo con* [id number] Routine Cat Scan 04/12/23 10:51 Completed CXRIE [XR chest 2V insp/exp [id number]] Routine Exams 04/14/23 14:52 Completed CXRP [XR chest 1V portable [id number]] Routine Exams 04/13/23 10:10 Completed XR chest 1V portable [id number] Stat Exams 04/12/23 00:01 Completed XR hip RT 2-3V wo/w pel* [id number] Stat Exams 04/11/23 22:23 Completed XR wrist RT min 3V* [id number] Stat Exams 04/11/23 22:23 Completed Pending at discharge Category Date Time Status Blood Culture Stat Lab 04/12/23 15:36 Results Sputum Culture and Gram Stain Routine Lab 04/14/23 13:30 Results Radiology Impressions Hip/Pelvis X-Ray 04/11/23 22:23 IMPRESSION: No acute findings. Wrist X-Ray 04/11/23 22:23 IMPRESSION: No acute findings. Pelvis CT 04/12/23 02:59 IMPRESSION: 1. No definite acute fracture or dislocation, see above discussion. 2. Other findings discussed above. Lumbar Spine CT 04/12/23 10:51 IMPRESSION: 1. Negative for fracture or dislocation. 2. Bilateral punctate non-obstructing calyceal stones. 3. Perinephric edema bilaterally likely reflecting renal insufficiency. 4. Bilateral renal cysts, some of which appear hyperdense, negative for follow-up advised. 5. L1-L2 broad-based disc bulge with mild spinal canal and moderate bilateral foraminal narrowing. 6. L2-L3 productive degenerative changes with minimal spinal canal and moderate to severe bilateral foraminal narrowing. 7. L4-L5 broad-based disc bulge with mild spinal canal and [id number] bilateral foraminal narrowing. 8. L4-L5 broad-based disc bulge with [id number] spinal canal and moderate bilateral foraminal narrowing. 9. L5/S1 productive degenerative changes with moderate to severe bilateral foraminal narrowing. COMMENTS: Consistent with the [employer]'s Incidental Findings Committee white paper (J Am Galindo Radiol 2018): Any incidental renal lesion less than 1 cm or classified as too small to characterize, or any incidental cystic renal lesion characterized as simple-appearing, is likely benign. No follow-up imaging is recommended for these lesions per consensus recommendations based on imaging criteria. Chest X-Ray 04/14/23 14:52 IMPRESSION: 1. No pneumonia. 2. Mild interstitial thickening may be fluid or pneumonitis. 3. No pneumothorax. Laboratory Results WBC 6.0 10^3/uL (4.0-10.0) 04/16/23 04:21 RBC 3.66 10^6/uL (4.1-5.3) L 04/16/23 04:21 Hgb 11.1 g/dL (11.7-16.6) L 04/16/23 04:21 Hct 35.0 % (42.0-52.0) L 04/16/23 04:21 MCV 95.6 fl (80-94) H 04/16/23 04:21 MCH 30.3 pg (28.0-34.0) 04/16/23 04:21 MCHC 31.7 g/dL (30.0-36.0) 04/16/23 04:21 RDW 13.8 % (12.1-15.1) 04/16/23 04:21 Plt Count 159 10^3/cmm (130-400) 04/16/23 04:21 MPV 11.0 fL (7.4-10.4) H 04/16/23 04:21 Neut % (Auto) 64.0 % 04/16/23 04:21 Lymph % (Auto) 20.0 % 04/16/23 04:21 [place] % (Auto) 9.4 % 04/16/23 04:21 Eos % (Auto) 5.4 % 04/16/23 04:21 Baso % (Auto) 0.7 % 04/16/23 04:21 Neut # (Auto) 3.82 10^3/uL (1.8-7.7) 04/16/23 04:21 Lymph # (Auto) 1.2 10^3/uL (0.8-4.8) 04/16/23 04:21 [place] # (Auto) 0.6 10^3/uL (0.2-0.9) 04/16/23 04:21 Eos # (Auto) 0.3 10^3/uL (0.0-0.8) 04/16/23 04:21 Baso # (Auto) 0.0 10^3/uL (0.0-0.1) 04/16/23 04:21 Nucleated RBC % (auto) 0 % 04/16/23 04:21 Nucleated RBCs # 0.0 /100WBC 04/16/23 04:21 Specimen Type Arterial 04/12/23 00:16 Sample Site Radial, left 04/12/23 00:16 ABG pH 7.29 (7.35-7.45) L 04/12/23 00:16 ABG pCO2 54.5 mmHg (35-45) H 04/12/23 00:16 ABG pO2 78.7 mmHg (80.0-100.0) L 04/12/23 00:16 ABG HCO3 26.3 mmol/L (22-26) H 04/12/23 00:16 ABG Base Excess -1.4 mmol/L (-2.0-2.0) 04/12/23 00:16 Kj Test Pos 04/12/23 00:16 Hematocrit 47.0 % (42-52) 04/12/23 00:16 O2 Delivery Device Nc 04/12/23 00:16 O2 Liters/Min 4.0 % 04/12/23 00:16 City Councilman ID [email or web address] 04/12/23 00:16 Sodium 139 mmol/L (136-145) 04/16/23 04:21 Potassium 4.4 mmol/L (3.5-5.1) 04/16/23 04:21 Chloride 103 mmol/L (98-107) 04/16/23 04:21 Carbon Dioxide 28 mmol/L (22-29) 04/16/23 04:21 Anion Gap 12.4 (5-19) 04/16/23 04:21 BUN 25 mg/dL (8-23) H 04/16/23 04:21 Creatinine 1.0 mg/dL (0.7-1.2) 04/16/23 04:21 GFR Calculation Not Reportable 04/16/23 04:21 Glucose 100 mg/dL (65-115) 04/16/23 04:21 Estimat Average Glucose 117 04/13/23 03:21 Hemoglobin A1c 5.7 % (4.0-6.0) 04/13/23 03:21 Calculated Osmolality 292 mOsm/kg (285-295) 04/16/23 04:21 Calcium 9.0 mg/dL (8.5-10.5) 04/16/23 04:21 Iron 64 ug/dL (59-158) 04/12/23 15:30 TIBC 251 mcg/dl 04/12/23 15:30 % Saturation 25.4 % (20-50) 04/12/23 15:30 Unsat Iron Binding 187 ug/dL (112-347) 04/12/23 15:30 Total Bilirubin 0.5 mg/dL (0.15-1.2) 04/13/23 03:21 AST 17 U/L (0-40) 04/13/23 03:21 ALT 14 U/L (0-41) 04/13/23 03:21 Alkaline Phosphatase 68 U/L (40-130) 04/13/23 03:21 C-Reactive Protein 15.2 mg/L (0.0-4.9) H 04/12/23 00:13 NT-Pro-B Natriuret Pep 407 pg/mL (0-450) 04/12/23 00:13 Total Protein 5.8 g/dL (6.6-8.7) L 04/13/23 03:21 Albumin 3.3 g/dL (3.5-5.2) L 04/13/23 03:21 Globulin 2.5 g/dL (1.3-4.6) 04/13/23 03:21 Triglycerides 104 mg/dL (0-150) 04/13/23 03:21 Cholesterol 166 mg/dL (0-200) 04/13/23 03:21 LDL Cholesterol, Calc 108 mg/dL (50-129) 04/13/23 03:21 Total VLDL Cholesterol 21 mg/dL (0-30) 04/13/23 03:21 HDL Cholesterol 37 mg/dL (60-100) L 04/13/23 03:21 Cholesterol/HDL Ratio 4.49 mg/dL (1.0-5.00) 04/13/23 03:21 Vitamin B12 541 pg/mL (232-1245) 04/12/23 15:30 Folate 5.7 ng/mL (4.5-32.2) 04/13/23 03:21 Procalcitonin 0.96 ng/mL (0-0.5) H 04/12/23 15:30 TSH 1.22 uIU/mL (0.27-4.20) 04/12/23 15:30 Urine Color Yellow (Yellow) 04/12/23 00:13 Urine Appearance Hazy (CLEAR) A 04/12/23 00:13 Urine pH 5 (5-7) 04/12/23 00:13 Ur Specific [place] 1.025 (1.005-1.030) 04/12/23 00:13 Urine Protein 1+ (Negative) H 04/12/23 00:13 Urine Glucose (UA) Norm (Normal) 04/12/23 00:13 Urine Ketones 1+ (Negative) H 04/12/23 00:13 Urine Blood Neg (Negative) 04/12/23 00:13 Urine Nitrate Negative (Negative) 04/12/23 00:13 Urine Bilirubin Neg (Negative) 04/12/23 00:13 Urine Urobilinogen Norm mg/dL (Negative) 04/12/23 00:13 Ur Leukocyte Esterase Trace (Negative) H 04/12/23 00:13 Urine RBC None /hpf (0-2) 04/12/23 00:13 Urine WBC 0-4 /hpf (0-5) H 04/12/23 00:13 Ur Squamous Epith Cells 0-4 /hpf (0-5) H 04/12/23 00:13 Amorphous Sediment Not Reportable 04/12/23 00:13 Urine Bacteria Trace /hpf (NONE) 04/12/23 00:13 Hyaline Casts 0-4 /lpf H 04/12/23 00:13 Urine Mucus 1+ /hpf 04/12/23 00:13 Coronavirus 229E (PCR) Not detected (NOT DETECT) 04/13/23 12:45 SARS-CoV-2 (PCR) Not detected (NOT DETECT) 04/13/23 12:45 SARS-CoV-2 Ag (Rapid) negative (Negative) 04/16/23 10:30 Vitals Last Vital Signs Temp 98.4 F 04/16/23 11:07 Pulse 73 04/16/23 11:07 Resp 18 04/16/23 11:07 BP 110/72 04/16/23 11:07 Pulse Ox 91 04/16/23 11:07 O2 Del Method Nasal Cannula 04/16/23 11:07 O2 Flow Rate 3 04/16/23 08:50 Discharge Plan Discharge Patient Disposition: Xfer SNF Condition: Stable Prescriptions: New lidocaine 5 % Adhesive Patch,Medicated 1 patch topical [id number] Qty: 7 0RF acetaminophen 650 mg tablet extended release 650 mg PO Q8H PRN (Reason: pain) Qty: 60 0RF fentanyl 25 mcg/hr Patch 72 Hour 1 patch transdermal Q72H Qty: 2 0RF levofloxacin 750 mg Tablet 750 mg PO DAILY Qty: 4 0RF Continued aspirin [Sea Low Dose Aspirin] 81 mg tablet,delayed release (DR/EC) 81 mg PO DAILY cholecalciferol (vitamin D3) 25 mcg (1,000 unit) capsule 25 mcg PO DAILY ascorbic acid (vitamin C) 1,000 mg tablet 1,000 mg PO DAILY spironolactone 25 mg tablet 25 mg PO DAILY Qty: 90 2RF melatonin 10 mg tablet,disintegrating 10 mg PO DAILY desonide 0.05 % cream 1 applic TOPICAL BID Qty: 60 0RF potassium chloride 10 mEq tablet extended release 10 meq PO DAILY Qty: 90 3RF esomeprazole magnesium 40 mg capsule,delayed release(DR/EC) 40 mg PO DAILY 90 Days Qty: 90 2RF hydroxychloroquine 200 mg tablet 200 mg PO BID Qty: 60 4RF metoprolol succinate 100 mg tablet extended release 24 hr See Rx Instructions .ROUTE .COMPLEX Qty: 90 3RF Dose Instruction: Take 1 tablet by mouth once daily Rx Instructions: Take 1 tablet by mouth once daily zinc acetate 50 mg (zinc) Capsule 50 mg PO DAILY escitalopram oxalate 20 mg tablet 20 mg PO DAILY prednisone 5 mg tablet 5 mg PO DAILY Qty: 20 3RF Rx Instructions: 1 and 1/2 tabs daily Changed furosemide 40 mg tablet 40 mg PO DAILY PRN (Reason: Edema) Qty: 90 3RF Discharge Orders: Discharge Order (Routine); Ordered 04/16/23 Ordered By: Dwayne Salinas Referrals: [facility] [Outside] Datar,Dejan Turcios MD [Physician] - 06/22/23 3:00 pm () Bill Mello NP [Primary Care Provider] - 4-7 days Discharge Diet: Cardiac Discharge Activity: Increase activity as tolerated, As per PT/OT instructions and Oxygen as instructed Patient Instructions: Fentanyl (Absorbed through the skin), Levofloxacin (By mouth), Mitral Valve Prolapse (GEN), Using Oxygen at Home (GEN), Community Acquired Pneumonia (GEN), Fall Prevention (GEN) Activity Restrictions/Additional Instructions: Continue oxygen support at 3 L, wean down as tolerating. Continue incentive spirometer. Complete antibiotic course. Continue oral Lasix as needed for lower extremity edema, in case of worsening shortness of breath with lying flat. Or more than 3 pounds weight gain in 2 days. Monitor daily weights. Follow-up with pulmonology to reassess recovery from pneumonia, reassess pulmonary fibrosis. Prednisone dose is increased for now to 15 mg due to acute illness, please taper down to 10 mg in 3 days, then back to 5 mg and another 3 days. Follow-up with pulmonology and rheumatology for continued reassessment of sarcoidosis, rheumatoid arthritis, continued monitoring for any autoimmune related pulmonary condition. Please have your primary doctor reassess your kidney function after acute kidney injury. Avoid NSAIDs, avoid any medications that may contribute to kidney injury. Follow-up with your primary doctor for reassessment of recovery from back pain and reassessment of significant arthritis in your lower back. Follow-up with your primary provider regarding mitral valve prolapse. Discharge Attestations Time Spent in Discharge Care*: greater than 30 min Quality Metrics Clinical Quality Measures [ No reported AMI, CVA or VTE this stay] Coding Level of Care Code 30352 Total time (in minutes) for Discharge: 40 Diagnoses Pneumonia J18.9 Fall W19.XXXA Acute renal failure N17.9
[2023-04-16 14:19] VITALS: BP 110/72; PULSE 73; RESP 18; TEMP 36.9; O2SAT 91
== END 2023-04-16 13:45 | disposition skilled nursing facility (03) | DRG 193 ==
LOC: ER 22:19 → MEDSURG 04-12 03:30
PROVIDERS: Student in an Organized Health Care Education/Training Program; Admitting Provider Internal Medicine; Emergency Provider Emergency Medicine; PCP Clinical Nurse Specialist Adult Health; Visit Provider Internal Medicine
DX: J18.9 Pneumonia, unspecified organism (principal); I50.33 Acute on chronic diastolic (congestive) heart failure; N17.9 Acute kidney failure, unspecified; E87.20 Acidosis, unspecified; W01.0XXA Fall on same level from slipping, tripping and stumbling without subsequent striking against object, initial encounter; G47.33 Obstructive sleep apnea (adult) (pediatric); M06.09 Rheumatoid arthritis without rheumatoid factor, multiple sites; J84.10 Pulmonary fibrosis, unspecified; D86.0 Sarcoidosis of lung; I34.1 Nonrheumatic mitral (valve) prolapse; L40.50 Arthropathic psoriasis, unspecified; M25.551 Pain in right hip; Z79.82 Long term (current) use of aspirin; Z79.52 Long term (current) use of systemic steroids; M51.26 Other intervertebral disc displacement, lumbar region; M79.7 Fibromyalgia; E86.0 Dehydration
CPT/HCPCS: 36415; 36600; 71045; 71046; 72131; 72192; 73110; 73502; 80048; 80053; 80061; 81001; 82607; 82746; 82803; 83036; 83540; 83550; 83880; 84145; 84443; 85025; 86140; 87040; 87070; 87205; 87426; 87635; 87641; 93005; 94640; 96365; 96367; 96372; 96375; 97110; 97116; 97162; 97166; 97530; 97535; 99222; 99285; J0456; J0692; J0696; J1170; J1650; J1940; J2405; J7030; J7050; J7512

== ENCOUNTER 2023-05-03 07:57 | Inpatient (IN) | payer MEDICARE, SELFPAY ==
[2023-05-03] VITALS (9 sets, daily range): BP systolic 115–142; BP diastolic 72–81; PULSE 64–74; RESP 16–18; TEMP 36.3–36.9; O2SAT 96–98; BMI 29.8
--- NOTE | 2023-05-03 08:15 | W.ED.FALL ---
HPI - Fall General: Chief Complaint: Fall Stated Complaint: RIGHT HIP PAIN S/P FALL Time Seen by Provider: 05/03/23 07:58 Source: patient Mode of arrival: EMS History of Present Illness: This 77-year-old male was brought in for evaluation following a fall this morning. He was trying to get out of the toilet seat when he tripped and fell. He landed on the right hip. Patient denies head injury or loss of consciousness. He was unable to put weight on that leg. Associated symptoms-after fall: Denies chest pain, headache(s), lightheadedness or neck pain Review of Systems Const: Denies: chills, body aches or change in appetite Eyes: Denies: change in vision or eye discharge ENMT: Denies: throat pain, dental pain or nasal discharge Card: Denies: chest pain or lightheadedness : Denies: dysuria Musc: Reports: extremity pain (Right hip) and deformity (Right hip); Denies: neck pain or back pain Neuro: Denies: headache(s) or weakness in extremities Psych: Denies: depression Derian/Lymph: Denies: easy bruising All/Imm: Denies: urticaria, tongue swelling or facial swelling PFSH ED PFSH: Medical History Diastolic heart failure Facial pain Fibromyalgia 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 Lumbago Mitral valve prolapse TRACE (obstructive sleep apnea) Osteoarthritis of knees, bilateral Psoriatic arthritis Rheumatoid arthritis without rheumatoid factor, multiple sites Sarcoidosis of lung Shortness of breath Surgical History H/O bilateral cataract extraction right:12/05/14 left: 12/12/14 H/O lithotripsy H/O repair of rotator cuff H/O transurethral resection of prostate History of appendectomy History of arthroscopy of both knees History of lung biopsy History of lung biopsy Family History Father , Emphysema 72 Emphysema of lung CAD (coronary artery disease) Other Cancer Hypertension Social History Smoking and tobacco status: never smoked Second hand smoke exposure: No Smoking risk assessment/counseling performed?: No Alcohol intake: never Counseling given: No Substance/Drug Use: never Counseling given: No Lives independently: Yes Household members: spouse Marital status: Current occupational status: retired Current occupation: Steps are wide 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 Can use walker to ascend Do you think of yourself as: Straight/Heterosexual Current gender identity: Male Physical Exam Const: COMMON NORMALS: no acute distress, patient oriented x3, no limitations and alert HENMT: COMMON NORMALS: normocephalic HEAD & SCALP: normocephalic Eye: COMMON NORMALS: EOMs intact bilaterally Neck/C-Spine: COMMON NORMALS: full ROM and supple Chest: COMMONS NORMALS: normal inspection of the chest Resp: COMMON NORMALS: normal respiratory effort, No retractions and No use of accessory muscles AUSCULTATION: wheezes (Terminal expiratory wheeze) Cardio: COMMON NORMALS: regular rate, regular rhythm and No murmurs present (Cardio) RATE: regular rate RHYTHM: regular rhythm GI: COMMON NORMALS: Normal to inspection, nondistended, normoactive bowel sounds present and non-tender : COMMON NORMALS: Yes no CVA tenderness BLADDER/KIDNEY EXAM: Yes no CVA tenderness Back/Pelvis: COMMON NORMALS: no CVA tenderness and no thoracic nor lumbar tenderness Extremity: GENERAL: Yes normal exam except as noted LEFT UPPER EXTREMITY: Yes lower arm (Skin tear on the lateral aspect of the left forearm.) RIGHT LOWER EXTREMITY: Yes hip joint OTHER: Marked limitation of right hip movement due to pain. Dorsalis pedis pulses present. No distal neurovascular deficit. Neuro: COMMON NORMALS: patient oriented x3 and no focal motor deficits SENSORIUM/ORIENTATION: Yes alert Psych: COMMON NORMALS: mental status grossly normal and cooperative Course Consultations: Consultation #1: X-ray reveals right ankle femur fracture. Case discussed with Dr. Dejesus, orthopedic surgeon. He recommends admitting patient to hospitalist and he will plan for surgery tomorrow. Consultation #2: Case discussed with Dr. Hameed who accepted patient for admission. Time: 09:37 Vital Signs: Vital signs: Vital Signs Temperature 97.5 F L 05/05/23 09:49 Pulse Rate 83 05/05/23 09:49 Respiratory Rate 14 05/05/23 09:49 Blood Pressure 118/82 05/05/23 09:49 Pulse Oximetry 98 05/05/23 09:49 Oxygen Delivery Me thod Nasal Cannula 05/05/23 09:49 Oxygen Flow Rate 2 05/05/23 08:26 MDM - Fall Medical Decision Making Medical decision making: This 77-year-old male presents to the ER for evaluation following a fall. X-ray reveals a right neck of femur fracture. Case discussed with Dr. Dejesus who recommends admission under the hospitalist. He will take patient to the OR tomorrow. Case discussed with Dr. Hameed who accepted patient for admission. Lab Data 05/05/23 05:00 05/05/23 05:00 Radiology Impressions Hip/Pelvis X-Ray 05/03/23 08:23 IMPRESSION: Mildly impacted right subcapital femoral neck fracture with varus angulation. Chest X-Ray 05/03/23 08:36 IMPRESSION: No acute findings. Laboratory Results WBC 7.8 10^3/uL (4.0-10.0) 05/03/23 08:50 RBC 3.60 10^6/uL (4.1-5.3) L 05/03/23 08:50 Hgb 12.1 g/dL (11.7-16.6) 05/03/23 08:50 Hct 36.8 % (42.0-52.0) L 05/03/23 08:50 MCV 102.2 fl (80-94) H 05/03/23 08:50 MCH 33.6 pg (28.0-34.0) 05/03/23 08:50 MCHC 32.9 g/dL (30.0-36.0) 05/03/23 08:50 RDW 14.0 % (12.1-15.1) 05/03/23 08:50 Plt Count 311 10^3/cmm (130-400) 05/03/23 08:50 MPV 10.5 fL (7.4-10.4) H 05/03/23 08:50 Neut % (Auto) 56.8 % 05/03/23 08:50 Lymph % (Auto) 29.7 % 05/03/23 08:50 Navarro % (Auto) 9.3 % 05/03/23 08:50 Eos % (Auto) 3.0 % 05/03/23 08:50 Baso % (Auto) 0.9 % 05/03/23 08:50 Neut # (Auto) 4.41 10^3/uL (1.8-7.7) 05/03/23 08:50 Lymph # (Auto) 2.3 10^3/uL (0.8-4.8) 05/03/23 08:50 Navarro # (Auto) 0.7 10^3/uL (0.2-0.9) 05/03/23 08:50 Eos # (Auto) 0.2 10^3/uL (0.0-0.8) 05/03/23 08:50 Baso # (Auto) 0.1 10^3/uL (0.0-0.1) 05/03/23 08:50 Nucleated RBC % (auto) 0 % 05/03/23 08:50 Nucleated RBCs # 0.0 /100WBC 05/03/23 08:50 PT 13.60 SECONDS (12.1-14.9) 05/03/23 08:50 INR 1.01 (0.8-1.2) 05/03/23 08:50 Sodium Cancelled 05/03/23 08:50 Potassium Cancelled 05/03/23 08:50 Chloride Cancelled 05/03/23 08:50 Carbon Dioxide Cancelled 05/03/23 08:50 Anion Gap Cancelled 05/03/23 08:50 BUN Cancelled 05/03/23 08:50 Creatinine Cancelled 05/03/23 08:50 GFR Calculation Cancelled 05/03/23 08:50 Glucose Cancelled 05/03/23 08:50 Calculated Osmolality Cancelled 05/03/23 08:50 Calcium Cancelled 05/03/23 08:50 Total Bilirubin Cancelled 05/03/23 08:50 AST Cancelled 05/03/23 08:50 ALT Cancelled 05/03/23 08:50 Alkaline Phosphatase Cancelled 05/03/23 08:50 Total Protein Cancelled 05/03/23 08:50 Albumin Cancelled 05/03/23 08:50 Globulin Cancelled 05/03/23 08:50 Discharge Plan Discharge Patient Disposition: Admitted As Inpatient Admit Provider: Scottie Hameed Clinical Impression: Fracture of femoral neck, right, Fall Condition: Stable Discharge Diet: Advance as tolerated Discharge Activity: Limit activity as instructed Coding Level of Care Code ED Rod Drawer for Chg Lana
--- NOTE | 2023-05-03 08:23 | XRR_ITS ---
PROCEDURE INFORMATION: Exam: XR Right Hip Exam date and time: 05/03/2023 8:30 AM Age: 77 years old Clinical indication: Injury or trauma; Fall; Blunt trauma (contusions or hematomas); Right; Hip; Additional info: Fall with right hip pain TECHNIQUE: Imaging protocol: Radiologic exam of the right hip. Views: 2 or 3 views hip with pelvis when performed. COMPARISON: CT bony pelvis [id number] 04/12/2023 3:12 AM FINDINGS: Bones/joints: Mildly impacted subcapital femoral neck fracture on the right. Satisfactory femoroacetabular alignment. Varus angulation at the fracture site. The visible portion of the pelvis is intact. Left hip is unremarkable. Soft tissues: Visible soft tissues are unremarkable. XR/XR hip RT 2-3V wo/w pel* [id number] IMPRESSION: Mildly impacted right subcapital femoral neck fracture with varus angulation.
[2023-05-03] MEDS: morphine 4 mg/mL SDV 1 mL IVP (08:29)
--- NOTE | 2023-05-03 08:36 | XRR_ITS ---
PROCEDURE INFORMATION: Exam: XR Chest Exam date and time: 05/03/2023 8:34 AM Age: 77 years old Clinical indication: Injury or trauma; Fall; Blunt trauma (contusions or hematomas); Additional info: Pre op right hip FX TECHNIQUE: Imaging protocol: Radiologic exam of the chest. Views: 1 view. COMPARISON: CR XR chest 2V insp/exp [id number] 04/14/2023 2:09 PM FINDINGS: Lungs: There is no consolidation. Pleural spaces: There is no pleural effusion or pneumothorax. Heart/Mediastinum: There is enlargement of the cardiac silhouette. Bones/joints: Bones are unremarkable. XR/XR chest 1V portable [id number] IMPRESSION: No acute findings.
[2023-05-03 09:24] LABS: Basophils # 0.1 10^3/uL (0.0-0.1); Basophils % 0.9 %; Eosinophils # 0.2 10^3/uL (0.0-0.8); Hematocrit 36.8 % (42.0-52.0); Hemoglobin 12.1 g/dL (11.7-16.6); Lymphocytes # 2.3 10^3/uL (0.8-4.8); Lymphocytes % 29.7 %; Mean Corpuscular HGB Conc 32.9 g/dL (30.0-36.0); Mean Corpuscular Hemoglobin 33.6 pg (28.0-34.0); Mean Corpuscular Volume 102.2 fl (80-94); Mean Platelet Volume 10.5 fL (7.4-10.4); Monocytes # 0.7 10^3/uL (0.2-0.9); Monocytes % 9.3 %; Neutrophils # 4.41 10^3/uL (1.8-7.7); Neutrophils % 56.8 %; Nucleated Red Blood Cells % 0 %; Platelet Count 311 10^3/cmm (130-400); White Blood Count 7.8 10^3/uL (4.0-10.0)
[2023-05-03 09:38] LABS: INR 1.01 (0.8-1.2)
[2023-05-03] MEDS: LORazepam 2 mg/mL INJ 1 mL 1 MG IVP ×2 (09:41→15:16)
[2023-05-03 10:18] LABS: Alanine Aminotransferase 39 U/L (0-41); Albumin Level 3.6 g/dL (3.5-5.2); Alkaline Phosphatase 152 U/L (40-130); Anion Gap 9.9 (5-19); Aspartate Amino Transferase 37 U/L (0-40); Blood Urea Nitrogen 19 mg/dL (8-23); Calcium 8.9 mg/dL (8.5-10.5); Carbon Dioxide 34 mmol/L (22-29); Chloride 99 mmol/L (98-107); Glucose 95 mg/dL (65-115); Osmolality Calculated 290 mOsm/kg (285-295); Potassium 3.9 mmol/L (3.5-5.1); Sodium 139 mmol/L (136-145); Total Bilirubin 0.4 mg/dL (0.15-1.2); Total Protein 6.6 g/dL (6.6-8.7)
[2023-05-03] MEDS: morphine 4 mg/mL SDV 1 mL 2 MG IVP (12:17)
[2023-05-03] MEDS: hydrocortisone 100 mg/2 mL SDV 50 MG IVP ×2 (12:18→23:20)
[2023-05-03] MEDS: oxyCODONE-APAP 5-325 mg Tablet 1 TAB PO ×2 (14:32→23:20)
--- NOTE | 2023-05-03 15:10 | PM.CONSULT ---
Providers/Reason For Consult Consulting Physician/Specialty*: Orthopedics Reason for Consult*: Right hip pain Attending Physician: Scottie Hameed MD Primary Care Provider: Bill Mello History of Present Illness History of Present Illness Sarkis Galvin is a 77 year old male who presented to the emergency room after a fall while trying to get off the toilet. Patient reports falling April 12, 2023 but no fractures were identified. He was sent to a snf due to inability to mobilize without severe pain in the right hip. He then fell 05/03/2023 x-rays confirmed a displaced right femoral neck orthopedics was consulted for more definitive treatment and management. He was evaluated in room 266 with family present still complaining of sharp stabbing constant pain in the right hip with movement making it much worse spasming pain has been intense. He denies any loss of consciousness in the fall denies any neck or back pain. He ranks the pain as 10 out of 10 on the pain scale. Pain is localized to the right hip with movement making it much worse. States he received some Ativan in the emergency room which she is requesting again because it did provide him some relief. Review of Systems Const: Denies: chills, body aches or change in appetite Eyes: Denies: change in vision or eye discharge ENMT: Denies: throat pain, dental pain or nasal discharge Card: Denies: chest pain or lightheadedness : Denies: dysuria Musc: Reports: extremity pain (Right hip) and deformity (Right hip); Denies: neck pain or back pain Neuro: Denies: headache(s) or weakness in extremities Psych: Denies: depression Derian/Lymph: Denies: easy bruising All/Imm: Denies: urticaria, tongue swelling or facial swelling Medications/Allergies Home Medications Medication Instructions Recorded Confirmed Last Taken Type aspirin 81 mg tablet,delayed 81 mg PO DAILY 01/27/20 05/03/23 05/02/23 History release (Sea Low Dose Aspirin) cholecalciferol (vitamin D3) 25 25 mcg PO DAILY 03/28/21 05/03/23 05/02/23 History mcg (1,000 unit) capsule ascorbic acid (vitamin C) 1,000 mg 1,000 mg PO DAILY 09/02/21 05/03/23 05/02/23 History tablet desonide 0.05 % topical cream 1 applic topical BID #60 grams 12/31/21 05/03/23 05/02/23 Rx potassium chloride 10 mEq 10 meq PO DAILY #90 tabs 04/21/22 05/03/23 Unknown Rx tablet,extended release spironolactone 25 mg tablet 25 mg PO DAILY #90 tabs 10/24/22 05/03/23 05/02/23 Rx esomeprazole magnesium 40 mg 40 mg PO DAILY 90 days #90 caps 01/06/23 05/03/23 05/02/23 Rx capsule,delayed release hydroxychloroquine 200 mg tablet 200 mg PO BID #60 tabs 01/13/23 05/03/23 05/03/23 Rx melatonin 10 mg disintegrating 10 mg PO DAILY To fall asleep 02/24/23 05/03/23 05/02/23 History tablet escitalopram oxalate 20 mg tablet 20 mg PO DAILY 04/12/23 05/03/23 05/02/23 History zinc acetate 50 mg (zinc) capsule 50 mg PO DAILY 04/12/23 05/03/23 05/02/23 History acetaminophen 650 mg 650 mg PO Q8H PRN pain #60 tabs 04/16/23 05/03/23 Unknown Rx tablet,extended release furosemide 40 mg tablet 40 mg PO DAILY PRN Edema #90 tabs 04/16/23 05/03/23 05/03/23 Rx lidocaine 5 % topical patch 1 patch topical [id number] #7 ea 04/16/23 05/03/23 Unknown Rx prednisone 5 mg tablet 5 mg PO DAILY #20 tabs 04/16/23 05/03/23 05/02/23 Rx metoprolol succinate 100 mg 100 mg PO DAILY 05/03/23 05/03/23 05/02/23 History tablet,extended release 24 hr Allergies Allergy/AdvReac Type Severity Reaction Status Date / Time ranitidine [From Zantac] Allergy Mild rash Verified 05/03/23 08:59 apremilast [From Otezla] Allergy diarrhea Verified 05/03/23 08:59 etanercept [From Enbrel] Allergy life Verified 05/03/23 08:59 threatening infection levofloxacin [From Levaquin] Allergy vomiting Verified 05/03/23 08:59 methotrexate Allergy life Verified 05/03/23 08:59 threatening infection tamsulosin Allergy dizziness Verified 05/03/23 08:59 tramadol Allergy nausea Verified 05/03/23 08:59 tofacitinib [From Xeljanz] AdvReac ADR-Dizzine Verified 05/03/23 08:59 ss Current Medications Generic Name Dose Route Start Last Admin Trade Name Freq PRN Reason Stop Dose Admin Hydrocortisone Sodium Succinate 50 mg 05/03/23 12:00 05/03/23 12:18 Hydrocortisone 100 Mg/2 Ml Sdv IVP 50 mg Q12H AGNES Administration Morphine Sulfate 2 mg 05/03/23 11:29 05/03/23 12:17 Morphine 4 Mg/Ml Sdv 1 Ml IVP 2 mg Q2H PRN Administration SEVERE PAIN Oxycodone/Acetaminophen 1 tab 05/03/23 11:29 05/03/23 14:32 Oxycodone-Apap 5-325 Mg Tablet PO 1 tab Q4H PRN Administration SEVERE PAIN PFSH Acute PFSH: Medical History Diastolic heart failure Facial pain Fibromyalgia 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 Lumbago Mitral valve prolapse TRACE (obstructive sleep apnea) Osteoarthritis of knees, bilateral Psoriatic arthritis Rheumatoid arthritis without rheumatoid factor, multiple sites Sarcoidosis of lung Shortness of breath Surgical History H/O bilateral cataract extraction right:12/05/14 left: 12/12/14 H/O lithotripsy H/O repair of rotator cuff H/O transurethral resection of prostate History of appendectomy History of arthroscopy of both knees History of lung biopsy History of lung biopsy Family History Father , Emphysema 72 Emphysema of lung CAD (coronary artery disease) Other Cancer Hypertension Social History Smoking and tobacco status: never smoked Second hand smoke exposure: No Smoking risk assessment/counseling performed?: No Alcohol intake: never Counseling given: No Substance/Drug Use: never Counseling given: No Lives independently: Yes Household members: spouse Marital status: Current occupational status: retired Current occupation: Steps are wide 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 Can use walker to ascend Do you think of yourself as: Straight/Heterosexual Current gender identity: Male Vitals/I&O/Wt Last Vital Signs Temp 97.3 F L 05/03/23 11:36 Pulse 66 05/03/23 11:36 Resp 18 05/03/23 14:32 BP 142/81 05/03/23 11:36 Pulse Ox 98 05/03/23 11:36 O2 Del Method Nasal Cannula 05/03/23 11:36 O2 Flow Rate 2 05/03/23 08:30 Weight last 48 hrs Weight 220 lb Physical Exam Narrative: Patient is alert and orient x3 has a good general appearance in obvious acute distress. He has obvious deformity of the right lower extremity with shortening and external rotation of the leg. He is tender with palpation over the right hip nontender over the left. He has full range of motion of the left lower extremity at the hip knee and ankle. He has negative logroll on the left. He has good sensation light touch down both lower extremities skin is clear warm femoral good cap refill wiggles all digits. Calves are supple no medial thigh tenderness. Dorsalis pedis and posterior tibial pulses are palpable. He has no palpable pain in the lumbar thoracic or cervical spine full range motion of both upper extremities at the shoulders elbows and wrist. Hands warm good cap refill radial pulses are palpable. HENMT: COMMON NORMALS: normocephalic and atraumatic HEAD & SCALP: normocephalic and atraumatic Resp: OTHER: Labored with oxygen via nasal cannula Cardio: COMMON NORMALS: regular rate and regular rhythm RATE: regular rate RHYTHM: regular rhythm GI: COMMON NORMALS: Soft to palpation and non-tender PALPATION: Yes Soft to palpation : COMMON NORMALS: Yes no CVA tenderness BLADDER/KIDNEY EXAM: Yes no CVA tenderness Back/Pelvis: COMMON NORMALS: no CVA tenderness Psych: COMMON NORMALS: mental status grossly normal and cooperative Data 05/04/23 03:57 05/04/23 03:57 A&P Assessment and plan (1) Displaced fracture of right femoral neck: Discussed treatment options and involve a right hip hemiarthroplasty. We will await medical clearance. Due to his rheumatoid arthritis I will order portable flexion-extension views of the cervical spine. We will keep him n.p.o. after midnight. Has pain medication available. I will add Ativan 1 mg IV every 8 hours as needed anxiety and spasms. Explained the risks and benefits of the procedure which include but not limited to bleeding infection nerve damage continued hip pain need for further surgery reaction anesthesia he understands these risks wished to proceed. Discussed this with Dr. Dejesus agrees above-stated plan. More than 50% of the time spent with the patient today involved coordination of care, counseling and discussion of conservative versus surgical treatment options. Total amount of time spent with the patient was 32 minutes. Coding Level of Care Code Acute Code for [facility] Fwd Diagnoses Displaced fracture of right femoral neck S72.001A Time Spent (min) 32
--- NOTE | 2023-05-03 15:39 | P.HP_ITS ---
Providers/Chief Complaint Admitting Physician: Scottie Hameed MD Primary Care Provider: Bill Mello Chief Complaint: RIGHT HIP PAIN S/P FALL History of Present Illness Sarkis Galvin is a 77 year old male with past medical history of obstructive sleep apnea rheumatoid arthritis pulmonary fibrosis sarcoidosis, diastolic heart failure osteoarthritis psoriatic arthritis, after a fall while trying to get off the toilet. Patient was recently discharged after being managed for fall at home he was sent to the retirement, at that time no fracture was identified. It appears from the description of the patient that likely it is a mechanical fall, he denied any loss of co nsciousness, lightheadedness dizziness, chest pain shortness of breath. X-ray right hip done today has shown: Mildly impacted right subcapital femoral neck fracture with varus angulation. Orthopedic was consulted by ER due for intervention in the morning. His labs and vitals have been reviewed. Review of Systems General: Reports: 10 or more systems reviewed and unremarkable except in HPI and below Const: Denies: fever(s), chills, body aches, change in appetite or diaphoresis Card: Denies: palpitations, edema, swelling of feet/ankles, dyspnea on exertion, orthopnea or leg pain with exertion Resp: Denies: dyspnea, productive cough, wheezing or pain on inspiration GI: Denies: abdominal pain, nausea, vomiting, diarrhea or constipation : Denies: flank pain or difficulty urinating Musc: Reports: extremity pain; Denies: back pain or extremity swelling Neuro: Denies: headache(s), difficulty walking or confusion Medications/Allergies Home Medications Medication Instructions Recorded Confirmed Last Taken Type aspirin 81 mg tablet,delayed 81 mg PO DAILY 01/27/20 05/03/23 05/02/23 History release (Sea Low Dose Aspirin) cholecalciferol (vitamin D3) 25 25 mcg PO DAILY 03/28/21 05/03/23 05/02/23 History mcg (1,000 unit) capsule ascorbic acid (vitamin C) 1,000 mg 1,000 mg PO DAILY 09/02/21 05/03/23 05/02/23 History tablet desonide 0.05 % topical cream 1 applic topical BID #60 grams 12/31/21 05/03/23 05/02/23 Rx potassium chloride 10 mEq 10 meq PO DAILY #90 tabs 04/21/22 05/03/23 Unknown Rx tablet,extended release spironolactone 25 mg tablet 25 mg PO DAILY #90 tabs 10/24/22 05/03/23 05/02/23 Rx esomeprazole magnesium 40 mg 40 mg PO DAILY 90 days #90 caps 01/06/23 05/03/23 05/02/23 Rx capsule,delayed release hydroxychloroquine 200 mg tablet 200 mg PO BID #60 tabs 01/13/23 05/03/23 05/03/23 Rx melatonin 10 mg disintegrating 10 mg PO DAILY To fall asleep 02/24/23 05/03/23 05/02/23 History tablet escitalopram oxalate 20 mg tablet 20 mg PO DAILY 04/12/23 05/03/23 05/02/23 History zinc acetate 50 mg (zinc) capsule 50 mg PO DAILY 04/12/23 05/03/23 05/02/23 H istory acetaminophen 650 mg 650 mg PO Q8H PRN pain #60 tabs 04/16/23 05/03/23 Unknown Rx tablet,extended release furosemide 40 mg tablet 40 mg PO DAILY PRN Edema #90 tabs 04/16/23 05/03/23 0 05/03/23 Rx lidocaine 5 % topical patch 1 patch topical [id number] #7 ea 04/16/23 05/03/23 Unknown Rx prednisone 5 mg tablet 5 mg PO DAILY #20 tabs 04/16/23 05/03/23 05/02/23 Rx metoprolol succinate 100 mg 100 mg PO DAILY 05/03/23 05/03/23 05/02/23 History tablet,extended release 24 hr Allergies Allergy/AdvReac Type Severity Reaction Status Date / Time ranitidine [From Zantac] Allergy Mild rash Verified 05/03/23 08:59 apremilast [From Otezla] Allergy diarrhea Verified 05/03/23 08:59 etanercept [From Enbrel] Allergy life Verified 05/03/23 08:59 threatening infection levofloxacin [From Levaquin] Allergy vomiting Verified 05/03/23 08:59 methotrexate Allergy life Verified 05/03/23 08:59 threatening infection tamsulosin Allergy dizziness Verified 05/03/23 08:59 tramadol Allergy nausea Verified 05/03/23 08:59 tofacitinib [From Xeljanz] AdvReac ADR-Dizzine Verified 05/03/23 08:59 ss PFSH Acute PFSH: Medical History Diastolic heart failure Facial pain Fibromyalgia 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 Lumbago Mitral valve prolapse TRACE (obstructive sleep apnea) Osteoarthritis of knees, bilateral Psoriatic arthritis Rheumatoid arthritis without rheumatoid factor, multiple sites Sarcoidosis of lung Shortness of breath Surgical History H/O bilateral cataract extraction right:12/05/14 left: 12/12/14 H/O lithotripsy H/O repair of rotator cuff H/O transurethral resection of prostate History of appendectomy History of arthroscopy of both knees History of lung biopsy History of lung biopsy Family History Father , Emphysema 72 Emphysema of lung CAD (coronary artery disease) Other Cancer Hypertension Social History Smoking and tobacco status: never smoked Second hand smoke exposure: No Smoking risk assessment/counseling performed?: No Alcohol intake: never Counseling given: No Substance/Drug Use: never Counseling given: No Lives independently: Yes Household members: spouse Marital status: Current occupational status: retired Current occupation: Steps are wide 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 Can use walker to ascend Do you think of yourself as: Straight/Heterosexual Current gender identity: Male Vitals/I&O/Wt Last Vital Signs Temp 97.3 F L 05/03/23 11:36 Pulse 66 05/03/23 11:36 Resp 18 05/03/23 14:32 BP 142/81 05/03/23 11:36 Pulse Ox 98 05/03/23 11:36 O2 Del Method Nasal Cannula 05/03/23 11:36 O2 Flow Rate 2 05/03/23 08:30 05/03/23 05/03/23 05/03/23 06:59 14:59 22:59 Intake Total 120 / 120 Balance 120 / 120 Weight last 48 hrs Weight 99.79 kg Physical Exam HENMT: COMMON NORMALS: normocephalic and atraumatic HEAD & SCALP: normocephalic and atraumatic Resp: COMMON NORMALS: clear to auscultation bilaterally AUSCULTATION: clear to auscultation bilaterally Cardio: COMMON NORMALS: regular rate, regular rhythm, S1 normal heart sound present, S2 normal heart sound present, No gallops present (Cardio), No murmurs present (Cardio), No rub (Cardio) and Peripheral pulses 2+ throughout RATE: regular rate RHYTHM: regular rhythm HEART SOUNDS: S1 normal heart sound present and S2 normal heart sound present PERIPHERAL PULSES: Peripheral pulses 2+ throughout GI: COMMON NORMALS: Normal to inspection, nondistended, normoactive bowel sounds present, Soft to palpation, non-tender, No hepatosplenomegaly present and no masses AUSCULTATION: Yes normoactive bowel sounds PALPATION: Yes Soft to palpation and Yes No hepatosplenomegaly present RECTAL EXAM: Yes deferred Extremity: COMMON NORMALS: no clubbing, cyanosis or edema and no pedal edema Data 05/03/23 08:50 05/03/23 09:50 A&P Assessment and plan (1) Displaced fracture of right femoral neck: (2) Contusion of hip, right: (3) Current chronic use of systemic steroids: Plan 77 year old male with past medical history of obstructive sleep apnea rheumatoid arthritis pulmonary fibrosis sarcoidosis, diastolic heart failure osteoarthritis psoriatic arthritis, after a fall while trying to get off the toilet.. Assessment: Right hip fracture: Pain control Bowel regimen Physical therapy on board Orthopedic on board N.p.o. after midnight History of chronic steroid use: Has been chronically on prednisone Currently has been placed on hydrocortisone Prednisone will be resumed on discharge CODE STATUS: Full code DVT prophylaxis on Lovenox Attestations Medical Necessity Statement*: Patient needs to be in hospital for management of hip fracture.Anticipated length of stay greater than 2 midnights. Coding Level of Care Code Acute Code for [facility] Fwd Diagnoses Displaced fracture of right femoral neck S72.001A Contusion of hip, right S70.01XA Current chronic use of systemic steroids Z79.52
[2023-05-03] MEDS: hydroxychloroquine 200 mg Tablet PO (17:53)
[2023-05-04] VITALS (22 sets, daily range): BP systolic 106–153; BP diastolic 67–106; PULSE 65–116; RESP 16–18; TEMP 36.2–37.3; O2SAT 90–99
[2023-05-04 05:13] LABS: Basophils % 0.4 %; Eosinophils % 0.3 %; Hematocrit 35.9 % (42.0-52.0); Hemoglobin 11.3 g/dL (11.7-16.6); Lymphocytes # 1.7 10^3/uL (0.8-4.8); Lymphocytes % 19.1 %; Mean Corpuscular HGB Conc 31.5 g/dL (30.0-36.0); Mean Corpuscular Hemoglobin 31.2 pg (28.0-34.0); Mean Corpuscular Volume 99.2 fl (80-94); Monocytes # 0.7 10^3/uL (0.2-0.9); Monocytes % 7.3 %; Neutrophils # 6.56 10^3/uL (1.8-7.7); Neutrophils % 72.6 %; Nucleated Red Blood Cells % 0 %; Platelet Count 251 10^3/cmm (130-400); Red Blood Count 3.62 10^6/uL (4.1-5.3); Red Cell Distribution Width 13.7 % (12.1-15.1); White Blood Count 9.1 10^3/uL (4.0-10.0)
[2023-05-04 05:30] LABS: INR 1.05 (0.8-1.2)
[2023-05-04 05:35] LABS: Anion Gap 9.6 (5-19); Blood Urea Nitrogen 18 mg/dL (8-23); Calcium 8.8 mg/dL (8.5-10.5); Carbon Dioxide 34 mmol/L (22-29); Chloride 98 mmol/L (98-107); Glucose 108 mg/dL (65-115); Osmolality Calculated 286 mOsm/kg (285-295); Potassium 4.6 mmol/L (3.5-5.1); Sodium 137 mmol/L (136-145)
[2023-05-04] MEDS: pantoprazole DR 40 mg Tablet PO (07:33)
[2023-05-04] MEDS: oxyCODONE-APAP 5-325 mg Tablet 1 TAB PO (07:34)
--- NOTE | 2023-05-04 10:19 | P.ANESASSM_ITS ---
Pre-Anesthetic Assessment Height/Weight: Height 1.83 m Weight 99.79 kg Temp Pulse Resp BP Pulse Ox O2 Del Method O2 Flow Rate 97.9 F 75 17 145/76 96 Nasal Cannula 2 05/04/23 07:43 05/04/23 07:43 05/04/23 07:43 05/04/23 07:43 05/04/23 07:43 05/04/23 07:34 05/04/23 08:00 Preop Diagnosis: Displaced right femoral neck fracture Operation Date: 05/04/23 11:30 Proposed Procedures p Hemiarthroplasty Hip(Right) - Tyrone Dejesus DO Familial anesthetic complications: None Last intake: Intake Last Liquid Date 05/03/23 Last Liquid Time 18:00 Last Solid Date 05/03/23 Last Solid Time 18:00 Social No alcohol and No tobacco Exam alert, oriented x 3, clear to auscultation bilaterally and regular rate & rhythm Airway Mallampati: Class IV Dentition: full and other (poor dentition) Pulmonary Sleep Apnea fibrosis CV/HEM Congestive Heart Failure (MVP) [facility] Rheumatoid Arthritis Anesthetic Plan ASA status: 3 Anesthesia: General and Regional (specify below) Risk of > 500 ml blood loss (7ml/kg in children): No Medications/Allergies Home Medications Medication Instructions Recorded Confirmed Last Taken Type aspirin 81 mg tablet,delayed 81 mg PO DAILY 01/27/20 05/03/23 05/02/23 History release (Sea Low Dose Aspirin) cholecalciferol (vitamin D3) 25 25 mcg PO DAILY 03/28/21 05/03/23 05/02/23 History mcg (1,000 unit) capsule ascorbic acid (vitamin C) 1,000 mg 1,000 mg PO DAILY 09/02/21 05/03/23 05/02/23 History tablet desonide 0.05 % topical cream 1 applic topical BID #60 grams 12/31/21 05/03/23 05/02/23 Rx potassium chloride 10 mEq 10 meq PO DAILY #90 tabs 04/21/22 05/03/23 Unknown Rx tablet,extended release spironolactone 25 mg tablet 25 mg PO DAILY #90 tabs 10/24/22 05/03/23 05/02/23 Rx esomeprazole magnesium 40 mg 40 mg PO DAILY 90 days #90 caps 01/06/23 05/03/23 05/02/23 Rx capsule,delayed release hydroxychloroquine 200 mg tablet 200 mg PO BID #60 tabs 01/13/23 05/03/23 05/03/23 Rx melatonin 10 mg disintegrating 10 mg PO DAILY To fall asleep 02/24/23 05/03/23 05/02/23 History tablet escitalopram oxalate 20 mg tablet 20 mg PO DAILY 04/12/23 05/03/23 05/02/23 History zinc acetate 50 mg (zinc) capsule 50 mg PO DAILY 04/12/23 05/03/23 05/02/23 History acetaminophen 650 mg 650 mg PO Q8H PRN pain #60 tabs 04/16/23 05/03/23 Unknown Rx tablet,extended release furosemide 40 mg tablet 40 mg PO DAILY PRN Edema #90 tabs 04/16/23 05/03/23 05/03/23 Rx lidocaine 5 % topical patch 1 patch topical [id number] #7 ea 04/16/23 05/03/23 Unknown Rx prednisone 5 mg tablet 5 mg PO DAILY #20 tabs 04/16/23 05/03/23 05/02/23 Rx metoprolol succinate 100 mg 100 mg PO DAILY 05/03/23 05/03/23 05/02/23 History tablet,extended release 24 hr Allergies Allergy/AdvReac Type Severity Reaction Status Date / Time ranitidine [From Zantac] Allergy Mild rash Verified 05/03/23 08:59 apremilast [From Otezla] Allergy diarrhea Verified 05/03/23 08:59 etanercept [From Enbrel] Allergy life Verified 05/03/23 08:59 threatening infection levofloxacin [From Levaquin] Allergy vomiting Verified 05/03/23 08:59 methotrexate Allergy life Verified 05/03/23 08:59 threatening infection tamsulosin Allergy dizziness Verified 05/03/23 08:59 tramadol Allergy nausea Verified 05/03/23 08:59 tofacitinib [From Xeljanz] AdvReac ADR-Dizzine Verified 05/03/23 08:59 ss Current Medications Generic Name Dose Route Start Last Admin Trade Name Freq PRN Reason Stop Dose Admin Hydrocortisone Sodium Succinate 50 mg 05/03/23 12:00 05/03/23 23:20 Hydrocortisone 100 Mg/2 Ml Sdv IVP 50 mg Q12H AGNES Administration Hydroxychloroquine Sulfate 200 mg 05/03/23 18:00 05/03/23 17:53 Hydroxychloroquine 200 Mg Tablet PO 200 mg BID AGNES Administration Lorazepam 1 mg 05/03/23 15:04 05/03/23 15:16 Lorazepam 2 Mg/Ml Inj 1 Ml IVP 1 mg Q8H PRN Administration Anxiety/spasms Morphine Sulfate 2 mg 05/03/23 11:29 05/03/23 12:17 Morphine 4 Mg/Ml Sdv 1 Ml IVP 2 mg Q2H PRN Administration SEVERE PAIN Non-Formulary Medication 10 mg 05/04/23 09:00 05/04/23 07:23 Melatonin PO Not Given DAILY AGNES Oxycodone/Acetaminophen 1 tab 05/03/23 11:29 05/04/23 07:34 Oxycodone-Apap 5-325 Mg Tablet PO 1 tab Q4H PRN Administration SEVERE PAIN Pantoprazole Sodium 40 mg 05/04/23 09:00 05/04/23 07:[address] 40 Mg Tablet PO 40 mg DAILY AGNES Administration PFSH Anesthesia Medical History Diastolic heart failure Facial pain Fibromyalgia 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 Lumbago Mitral valve prolapse TRACE (obstructive sleep apnea) Osteoarthritis of knees, bilateral Psoriatic arthritis Rheumatoid arthritis without rheumatoid factor, multiple sites Sarcoidosis of lung Shortness of breath Surgical History H/O bilateral cataract extraction right:12/05/14 left: 12/12/14 H/O lithotripsy H/O repair of rotator cuff H/O transurethral resection of prostate History of appendectomy History of arthroscopy of both knees History of lung biopsy History of lung biopsy Family History Father , Emphysema 72 Emphysema of lung CAD (coronary artery disease) Other Cancer Hypertension Social History Smoking and tobacco status: never smoked Second hand smoke exposure: No Smoking risk assessment/counseling performed?: No Alcohol intake: never Counseling given: No Substance/Drug Use: never Counseling given: No Lives independently: Yes Household members: spouse Marital status: Current occupational status: retired Current occupation: Steps are wide 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 Can use walker to ascend Do you think of yourself as: Straight/Heterosexual Current gender identity: Male Data Anesthesia 05/04/23 03:57 05/04/23 03:57 Short CBC 05/03/23 05/04/23 Range/Units 08:50 03:57 WBC 7.8 9.1 (4.0-10.0) 10^3/uL Hgb 12.1 11.3 L (11.7-16.6) g/dL Hct 36.8 L 35.9 L (42.0-52.0) % MCV 102.2 H 99.2 H (80-94) fl Plt Count 311 251 (130-400) 10^3/cmm Neut % (Auto) 56.8 72.6 % Neut # (Auto) 4.41 6.56 (1.8-7.7) 10^3/uL BMP 05/03/23 05/03/23 05/04/23 08:50 09:50 03:57 Sodium Cancelled 139 137 Potassium Cancelled 3.9 4.6 Chloride Cancelled 99 98 Carbon Dioxide Cancelled 34 H 34 H BUN Cancelled 19 18 Creatinine Cancelled 1.1 1.1 Glucose Cancelled 95 108 Calcium Cancelled 8.9 8.8 Liver Function 05/03/23 05/03/23 Range/Units 08:50 09:50 Total Bilirubin Cancelled 0.4 AST Cancelled 37 ALT Cancelled 39 Alkaline Phosphatase Cancelled 152 H Albumin Cancelled 3.6 Coags 05/03/23 05/04/23 08:50 03:57 PT 13.60 14.00 INR 1.01 1.05 Cardiac Studies: Echocardiogram 12/03/22 Echocardiogram Ultrasound 12/19/20 Sestamibi Stress Test (Cardiology) 07/09
[2023-05-04] MEDS: sodium chloride 0.9% 1,000 ML 30 ML IV (10:42)
--- NOTE | 2023-05-04 11:23 | W.PM.OPSUD ---
Surgery/Procedure H&P Update DATE OF PROCEDURE: May 04, 2023 DATE H&P PERFORMED: 05/03/23 H&P UPDATE INFORMATION: I have reviewed H&P completed within last 30 days, I have examined patient prior to procedure and No changes to prior documentation PREOP DIAGNOSIS: Displaced right femoral neck fracture PLANNED PROCEDURE: Operation Date: 05/04/23 11:30 Proposed Procedures p Hemiarthroplasty Hip(Right) - Tyrone Dejesus DO
[2023-05-04] MEDS: ceFAZolin 2,000 MG in sodium chloride 0.9% (plus) 50 ML 100 MG IV ×2 (11:27→17:47)
--- NOTE | 2023-05-04 12:57 | PM.OP ---
Operative Report Date of procedure: May 04, 2023 Pre-op diagnosis: Preop Diagnosis Displaced right femoral neck fracture Post-op diagnosis: same Procedure done: Right Hip Hemiarthroplasty Surgeon: Tyrone Dejesus Java Software Architect: José Luis Magdaleno Java Software Architect: The surgical services assistant, José Luis Magdaleno, PAC was needed for his expertise with fracture care. He was important and necessary throughout the procedure to complete in a safe and timely manner. He assisted with patient positioning prepping and draping tissue retraction suctioning of the operative field protection of the critical structures and tissue closure Estimated blood loss (mL): 50 Procedure: Right hip hemiarthroplasty Patient was brought to the operative suite after undergoing anesthesia with spinal was placed in the lateral decubitus position.? The left side was brought up.? All areas measure well-padded.? Patient was prepped and draped normal sterile fashion. Skin incision made over the left hip.? IT band was cut retractors were placed.? The abductors and capsule were taken anteriorly.? The femoral neck was cut approximately fingerbreadth above the lesser trochanter.? The femoral head was then removed.? Femoral head was then measured. Next tension was brought to the femur.? The preparing box tender was used followed by the canal finder.? The broaches were then used up to a size 7.? A size 7 stem from [place] was inserted.? Appropriate size head and -4 neck length were placed on side the Nolan taper of the femoral stem.? Hip was reduced.? Hip was found to be stable in all ranges of motion.? Wounds were then irrigated and abductors and capsule repaired.? IT band was closed with 0 Vicryl.? And the skin was closed with 2-0 Vicryl and lakia.? Sterile dressings applied and patient was transferred to the PACU in stable condition.
[2023-05-04] MEDS: ipratropium-albuterol 3 mL Neb INHALATION (13:17)
[2023-05-04] MEDS: fentaNYL 50 mcg/mL INJ 2mL IVP (13:20)
[2023-05-04] MEDS: zinc gluconate 50 mg Tablet PO (14:38)
[2023-05-04] MEDS: HYDROcodone-acetaminophen 5-325 mg Tablet PO (14:38)
[2023-05-04] MEDS: aspirin 81 mg EC Tablet PO (14:38)
[2023-05-04] MEDS: escitalopram 10 mg Tablet 20 MG PO (14:38)
[2023-05-04] MEDS: cholecalciferol (vitamin D3) 1,000 unit Tablet 1000 UNIT PO (14:39)
[2023-05-04] MEDS: hydroxychloroquine 200 mg Tablet PO ×2 (14:39→17:51)
[2023-05-04] MEDS: spironolactone 25 mg Tablet PO (14:39)
[2023-05-04] MEDS: ascorbic acid 500 mg Tablet 1000 MG PO (14:39)
--- NOTE | 2023-05-04 15:26 | PM.PN ---
Subjective Subjective: Hospital course, labs appreciated. Patient awaiting ORIF today. Denies any nausea, vomiting, headache. Has remained hemodynamically stable. Complaining of mild pain. Blood work showed a stable CBC, INR and BMP. Vitals/I&O/Wt Last Vital Signs Temp 97.2 F L 05/04/23 13:04 Pulse 80 05/04/23 13:45 Resp 16 05/04/23 13:45 BP 123/89 05/04/23 13:45 Pulse Ox 99 05/04/23 13:45 O2 Del Method Simple Mask 05/04/23 13:45 O2 Flow Rate 6 05/04/23 13:45 05/04/23 05/04/23 05/04/23 06:59 14:59 22:59 Intake Total 0 / 960 166 / 166 Output Total 500 / 500 Balance 0 / 560 -334 / -334 Weight last 48 hrs Weight 99.79 kg Physical Exam HENMT: COMMON NORMALS: normocephalic and atraumatic HEAD & SCALP: normocephalic and atraumatic Resp: COMMON NORMALS: clear to auscultation bilaterally AUSCULTATION: clear to auscultation bilaterally Cardio: COMMON NORMALS: regular rate, regular rhythm, S1 normal heart sound present, S2 normal heart sound present, No gallops present (Cardio), No murmurs present (Cardio), No rub (Cardio) and Peripheral pulses 2+ throughout RATE: regular rate RHYTHM: regular rhythm HEART SOUNDS: S1 normal heart sound present and S2 normal heart sound present PERIPHERAL PULSES: Peripheral pulses 2+ throughout GI: COMMON NORMALS: Normal to inspection, nondistended, normoactive bowel sounds present, Soft to palpation, non-tender, No hepatosplenomegaly present and no masses AUSCULTATION: Yes normoactive bowel sounds PALPATION: Yes Soft to palpation and Yes No hepatosplenomegaly present RECTAL EXAM: Yes deferred Extremity: COMMON NORMALS: no clubbing, cyanosis or edema and no pedal edema Urinary Catheter Management: Garcia Latex: Cath Placed During This Visit: yes Urinary Catheter Date of Insertion: 05/04/23 Urinary Catheter Time of Insertion: 11:45 Data 05/04/23 03:57 05/04/23 03:57 A&P Assessment and plan (1) Displaced fracture of right femoral neck: Plan for ORIF today. NPO. We will monitor hemoglobin. Pain control, perioperative antibiotics, anticoagulation, PT as per orthopedic team for now. (2) Contusion of hip, right: (3) Current chronic use of systemic steroids: Takes prednisone 5 mg oral daily. Admission switch to hydrocortisone 50 mg IV every 12 hourly. Plan to switch back to home dose of prednisone from tomorrow. Plan Cardiac diet postoperatively Lovenox for DVT prophylaxis if okay with orthopedic team. Full code. Discharge plan: Plan to discharge to possible SNF postoperatively in next 24 to 48 hours depending on clinical progression. Attestations Medical Necessity Statement*: Requires further hospitalization for management of right hip fracture requiring ORIF by safe discharge planning Diagnoses Displaced fracture of right femoral neck S72.001A Contusion of hip, right S70.01XA Current chronic use of systemic steroids Z79.52
[2023-05-04] MEDS: enoxaparin 40 mg/0.4 mL Syringe SUBCUT (17:46)
[2023-05-04] MEDS: HYDROcodone-acetaminophen 5-325 mg Tablet 1 TAB PO ×2 (17:51→21:51)
[2023-05-04] MEDS: ketorolac 30 mg/mL INJ IVP (20:13)
[2023-05-04] MEDS: hydrocortisone 100 mg/2 mL SDV 50 MG IVP (22:33)
[2023-05-04] MEDS: morphine 4 mg/mL SDV 1 mL 2 MG IVP (22:33)
[2023-05-05] VITALS (13 sets, daily range): BP systolic 104–146; BP diastolic 67–82; PULSE 69–95; RESP 14–18; TEMP 36.3–37.3; O2SAT 97–99
[2023-05-05] MEDS: HYDROcodone-acetaminophen 5-325 mg Tablet PO ×2 (02:09→06:15)
[2023-05-05] MEDS: ceFAZolin 2,000 MG in sodium chloride 0.9% (plus) 50 ML 100 MG IV ×2 (02:35→11:22)
[2023-05-05 06:11] LABS: Basophils % 0.1 %; Hematocrit 31.9 % (42.0-52.0); Hemoglobin 9.7 g/dL (11.7-16.6); Lymphocytes # 1.1 10^3/uL (0.8-4.8); Lymphocytes % 10.8 %; Mean Corpuscular HGB Conc 30.4 g/dL (30.0-36.0); Mean Corpuscular Volume 98.8 fl (80-94); Mean Platelet Volume 10.2 fL (7.4-10.4); Monocytes # 0.8 10^3/uL (0.2-0.9); Monocytes % 8.1 %; Neutrophils # 7.84 10^3/uL (1.8-7.7); Neutrophils % 80.6 %; Nucleated Red Blood Cells % 0 %; Platelet Count 228 10^3/cmm (130-400); Red Blood Count 3.23 10^6/uL (4.1-5.3); Red Cell Distribution Width 13.3 % (12.1-15.1); White Blood Count 9.7 10^3/uL (4.0-10.0)
[2023-05-05 06:16] LABS: Alanine Aminotransferase 27 U/L (0-41); Alkaline Phosphatase 125 U/L (40-130); Anion Gap 12.9 (5-19); Aspartate Amino Transferase 34 U/L (0-40); Blood Urea Nitrogen 29 mg/dL (8-23); Calcium 8.4 mg/dL (8.5-10.5); Carbon Dioxide 30 mmol/L (22-29); Chloride 100 mmol/L (98-107); Globulin 2.7 g/dL (1.3-4.6); Glucose 114 mg/dL (65-115); Osmolality Calculated 293 mOsm/kg (285-295); Potassium 4.9 mmol/L (3.5-5.1); Sodium 138 mmol/L (136-145); Total Bilirubin 0.4 mg/dL (0.15-1.2); Total Protein 5.7 g/dL (6.6-8.7)
--- NOTE | 2023-05-05 07:22 | PM.PN ---
Subjective Subjective: POD 1 Patient resting comfortably. Has mild right hip pain. Vitals/I&O/Wt Last Vital Signs Temp 98.0 F 05/05/23 03:49 Pulse 71 05/05/23 03:49 Resp 18 05/05/23 03:49 BP 111/72 05/05/23 03:49 Pulse Ox 97 05/05/23 03:49 O2 Del Method Nasal Cannula 05/04/23 20:30 O2 Flow Rate 2 05/04/23 20:30 05/04/23 05/05/23 05/05/23 22:59 06:59 14:59 Intake Total 50 / 216 290 / 506 Output Total 350 / 850 Balance 50 / -284 -60 / -344 Weight last 48 hrs Weight 220 lb Physical Exam Narrative: Patient is alert and orient x3 has good general appearance normal normal affect. Right Hip incision is clean and dry. There is no signs of erythema or drainage no signs of infection. Good motor strength throughout both lower extremities. Fires in all motor groups. Skin is clear warm, feet are warm with good cap refill in all digits. Normal sensation to light touch. Calves are supple, no medial thigh tenderness, negative Homans' sign. No palpable edema peripherally. Urinary Catheter Management: Garcia Latex: Cath Placed During This Visit: yes, but has since been removed by the nurse Reason for Continuing Indwelling Catheter: Decision to DC Catheter Urinary Catheter Date of Insertion: 05/04/23 Urinary Catheter Time of Insertion: 11:45 Date Urinary Catheter Removed: 05/05/23 Time Urinary Catheter Discontinued: 06:22 Data 05/05/23 05:00 05/05/23 05:00 A&P Assessment and plan (1) Displaced fracture of right femoral neck: Physical therapy to mobilize with hip precautions. Continue incentive spirometry for pulmonary toilet. Change dressing on postop day 2 with Silverlon applied follow-up in 12 to 14 days for staple removal. Attestations Medical Necessity Statement*: Defer to medical team Coding Level of Care Code Acute Code for [facility] Fwd Diagnoses Displaced fracture of right femoral neck S72.001A
[2023-05-05] MEDS: pantoprazole DR 40 mg Tablet PO (09:15)
[2023-05-05] MEDS: aspirin 81 mg EC Tablet PO (09:15)
[2023-05-05] MEDS: cholecalciferol (vitamin D3) 1,000 unit Tablet 1000 UNIT PO (09:15)
[2023-05-05] MEDS: escitalopram 10 mg Tablet 20 MG PO (09:15)
[2023-05-05] MEDS: ascorbic acid 500 mg Tablet 1000 MG PO (09:16)
[2023-05-05] MEDS: hydroxychloroquine 200 mg Tablet PO ×2 (09:16→17:02)
[2023-05-05] MEDS: zinc gluconate 50 mg Tablet PO (09:16)
[2023-05-05] MEDS: spironolactone 25 mg Tablet PO (09:16)
--- NOTE | 2023-05-05 09:23 | PC.CHAP ---
Pastoral Care Encounter/Spiritual Assessment Type of Contact [] Declined meal packer visit [] Patient/Family/Request visit [] Outpatient visit [] Follow-up visit [] Physician referral [] Code/Alert [x] Routine visit [] Staff referral [] Actively dying [] Patient sleeping [] Family support [] [] Out of room [] Palliative care [] [] Receiving care in room [] Pre-surgical visit [] Trauma [] Long length of stay [] ICU visit [] Other: Relational/Emotional Strength [x] Patient feels connected with others/family/visitors/staff [] Distress [] Loneliness/isolation [] Abandonment Spirituality of Patient [x] Person of Nancy [] Attends Hoahaoism of their Nancy [x] Believes in Prayer [] Reads Bible or Anglican materials [] There are Spiritual issues to be addressed Hydropress Operator Interventions [x] Prayer [x] Active listening [] Non-anxious presence [] Spiritual/emotional support [] Crisis/trauma care [] Spiritual counseling [] Bereavement support [] Provided bereavement packet [] Provided Bible/devotional materials [] Provided toy/stuffed animal, coloring book to patient or family member [] Provided Communion [] Anointing/Ace [] Salvation [x] Completed spiritual assessment [] Other: Impact on Illness or Injury [] Angry [] Fearful [] Anxious [] Often cries [] Exhaustion [] Unable to work [] Unable to attend buddhism [] Unable to walk/stand [] Unable to read [] Unable to drive [] Unable to eat/drink [] Unable to sleep [] Unable to be with family [] Patient intubated [] Other: Summary Time spent with patient 5 min
[2023-05-05] MEDS: predniSONE 5 mg Tablet PO (11:15)
[2023-05-05] MEDS: HYDROcodone-acetaminophen 5-325 mg Tablet 1 TAB PO ×3 (11:15→20:19)
[2023-05-05] MEDS: morphine 4 mg/mL SDV 1 mL 2 MG IVP ×2 (14:38→23:24)
--- NOTE | 2023-05-05 15:25 | P.PN_ITS ---
Subjective Subjective: No acute events overnight. Underwent ORIF yesterday. Tolerated the procedure well. Overnight has remained hemodynamically stable and afebrile. Garcia catheter removed. Worked well with physical therapy today. States pain is well controlled. Denies any nausea, vomiting, headache. Vitals/I&O/Wt Last Vital Signs Temp 98 F 05/05/23 11:34 Pulse 76 05/05/23 14:12 Resp 17 05/05/23 14:38 BP 113/68 05/05/23 11:34 Pulse Ox 99 05/05/23 11:34 O2 Del Method Nasal Cannula 05/05/23 11:34 O2 Flow Rate 2 05/05/23 08:26 05/05/23 05/05/23 05/05/23 06:59 14:59 22:59 Intake Total 290 / 506 1010 / 1010 Output Total 350 / 850 Balance -60 / -344 1010 / 1010 Physical Exam HENMT: COMMON NORMALS: normocephalic and atraumatic HEAD & SCALP: normocephalic and atraumatic Resp: COMMON NORMALS: clear to auscultation bilaterally AUSCULTATION: clear to auscultation bilaterally Cardio: COMMON NORMALS: regular rate, regular rhythm, S1 normal heart sound present, S2 normal heart sound present, No gallops present (Cardio), No murmurs present (Cardio), No rub (Cardio) and Peripheral pulses 2+ throughout RATE: regular rate RHYTHM: regular rhythm HEART SOUNDS: S1 normal heart sound present and S2 normal heart sound present PERIPHERAL PULSES: Peripheral pulses 2+ throughout GI: COMMON NORMALS: Normal to inspection, nondistended, normoactive bowel sounds present, Soft to palpation, non-tender, No hepatosplenomegaly present and no masses AUSCULTATION: Yes normoactive bowel sounds PALPATION: Yes Soft to palpation and Yes No hepatosplenomegaly present RECTAL EXAM: Yes deferred Extremity: COMMON NORMALS: no clubbing, cyanosis or edema and no pedal edema Urinary Catheter Management: Garcia Latex: Cath Placed During This Visit: yes, but has since been removed by the nurse Reason for Continuing Indwelling Catheter: Decision to DC Catheter Urinary Catheter Date of Insertion: 05/04/23 Urinary Catheter Time of Insertion: 11:45 Date Urinary Catheter Removed: 05/05/23 Time Urinary Catheter Discontinued: 06:22 Data 05/05/23 05:00 05/05/23 05:00 A&P Assessment and plan (1) Displaced fracture of right femoral neck: Post-ORIF day 1. Hemoglobin stable. Lovenox for DVT prophylaxis. Pain control with [place] 1 5 mg tablet every 4 as needed, morphine 2 mg every 4 as needed. Physical therapy. (2) Contusion of hip, right: (3) Current chronic use of systemic steroids: Continue home dose of prednisone 5 mg daily. Plan ASHLEE: Creatinine slightly elevated to 1.3 today. Baseline around 1.1. Most likely in setting of poor oral intake as patient was n.p.o. prior to the OR. Encourage increased oral intake. Medical reconciliation done for nephrotoxic drugs. Continue to monitor BMP daily. Regular diet. Lovenox for DVT prophylaxis. Full code. Discharge plan: Plan to discharge to possible SNF postoperatively in next 24 to 48 hours depending on clinical progression. Attestations Medical Necessity Statement*: Requires further hospitalization for post-ORIF care, mild ASHLEE while safe disc harge planning is sought. Diagnoses Displaced fracture of right femoral neck S72.001A Contusion of hip, right S70.01XA Current chronic use of systemic steroids Z79.52
[2023-05-05] MEDS: enoxaparin 40 mg/0.4 mL Syringe SUBCUT (17:02)
[2023-05-06] VITALS (10 sets, daily range): BP systolic 106–135; BP diastolic 71–79; PULSE 87–95; RESP 16–18; TEMP 36.6–36.9; O2SAT 96–100
[2023-05-06] MEDS: HYDROcodone-acetaminophen 5-325 mg Tablet 1 TAB PO ×5 (00:26→18:24)
[2023-05-06 05:36] LABS: Basophils % 0.2 %; Eosinophils # 0.1 10^3/uL (0.0-0.8); Hemoglobin 8.9 g/dL (11.7-16.6); Lymphocytes # 1.8 10^3/uL (0.8-4.8); Lymphocytes % 19.5 %; Mean Corpuscular HGB Conc 30.7 g/dL (30.0-36.0); Mean Corpuscular Hemoglobin 30.1 pg (28.0-34.0); Mean Platelet Volume 10.3 fL (7.4-10.4); Monocytes # 1.1 10^3/uL (0.2-0.9); Monocytes % 11.7 %; Neutrophils # 6.01 10^3/uL (1.8-7.7); Neutrophils % 67.2 %; Nucleated Red Blood Cells % 0 %; Platelet Count 236 10^3/cmm (130-400); Red Blood Count 2.96 10^6/uL (4.1-5.3); Red Cell Distribution Width 13.3 % (12.1-15.1)
[2023-05-06 05:57] LABS: Alanine Aminotransferase 14 U/L (0-41); Albumin Level 3.1 g/dL (3.5-5.2); Alkaline Phosphatase 114 U/L (40-130); Anion Gap 11.5 (5-19); Aspartate Amino Transferase 35 U/L (0-40); Blood Urea Nitrogen 36 mg/dL (8-23); Calcium 8.5 mg/dL (8.5-10.5); Carbon Dioxide 31 mmol/L (22-29); Chloride 96 mmol/L (98-107); Glucose 107 mg/dL (65-115); Osmolality Calculated 287 mOsm/kg (285-295); Potassium 4.5 mmol/L (3.5-5.1); Sodium 134 mmol/L (136-145); Total Bilirubin 0.4 mg/dL (0.15-1.2); Total Protein 6.1 g/dL (6.6-8.7)
--- NOTE | 2023-05-06 07:04 | PC.NURSE ---
Addendum entered by Connie Whitten RN 05/06/23 07:32: Dr. Brooks notified that patient has Tramadol listed as an allergy, with reaction of nausea. Addendum entered by Connie Whitten RN 05/06/23 07:08: Tramadol x1 ordered. Original Note: Patient is complaining of jaw pain and a headache this morning. The headache started about 4 am. And now he has jaw pain and says the headache is getting worse. Dr. Brooks notified at this time.
[2023-05-06] MEDS: cholecalciferol (vitamin D3) 1,000 unit Tablet 1000 UNIT PO (08:45)
[2023-05-06] MEDS: predniSONE 5 mg Tablet PO (08:45)
[2023-05-06] MEDS: ascorbic acid 500 mg Tablet 1000 MG PO (08:45)
[2023-05-06] MEDS: pantoprazole DR 40 mg Tablet PO (08:45)
[2023-05-06] MEDS: spironolactone 25 mg Tablet PO (08:46)
[2023-05-06] MEDS: hydroxychloroquine 200 mg Tablet PO ×2 (08:46→17:29)
[2023-05-06] MEDS: zinc gluconate 50 mg Tablet PO (08:46)
[2023-05-06] MEDS: escitalopram 10 mg Tablet 20 MG PO (08:47)
[2023-05-06] MEDS: aspirin 81 mg EC Tablet PO (08:47)
--- NOTE | 2023-05-06 10:17 | PM.DCS ---
Discharge Providers Date of Admission: 05/03/23 09:38 Date of Discharge: May 06, 2023 Attending Provider at Admission: Scottie Hameed MD Attending Provider at Discharge: Brian Brooks MD Primary Care Provider: Bill Mello Diagnoses at Discharge Discharge Diagnosis (1) Displaced fracture of right femoral neck: Status: Acute (2) Contusion of hip, right: Status: Acute (3) Current chronic use of systemic steroids: Status: Acute Reason for Visit Reason for Visit: RIGHT HIP PAIN S/P FALL Physical Exam Urinary Catheter Management: Garcia Latex: Cath Placed During This Visit: yes, but has since been removed by the nurse Reason for Continuing Indwelling Catheter: Decision to DC Catheter Urinary Catheter Date of Insertion: 05/04/23 Urinary Catheter Time of Insertion: 11:45 Date Urinary Catheter Removed: 05/05/23 Time Urinary Catheter Discontinued: 06:22 Discharge Data Studies Completed and Pending Completed Studies During Hospitalization Category Date Time Status CXRP [XR chest 1V portable [id number]] Stat Exams 05/03/23 08:36 Completed XR hip RT 2-3V wo/w pel* [id number] Stat Exams 05/03/23 08:23 Completed Pending at discharge Category Date Time Status COVID [SARS Covid-2 Antigen] Routine Lab 05/06/23 08:58 Received Radiology Impressions Hip/Pelvis X-Ray 05/03/23 08:23 IMPRESSION: Mildly impacted right subcapital femoral neck fracture with varus angulation. Chest X-Ray 05/03/23 08:36 IMPRESSION: No acute findings. Laboratory Results WBC 9.0 10^3/uL (4.0-10.0) 05/06/23 04:50 RBC 2.96 10^6/uL (4.1-5.3) L 05/06/23 04:50 Hgb 8.9 g/dL (11.7-16.6) L 05/06/23 04:50 Hct 29.0 % (42.0-52.0) L 05/06/23 04:50 MCV 98.0 fl (80-94) H 05/06/23 04:50 MCH 30.1 pg (28.0-34.0) 05/06/23 04:50 MCHC 30.7 g/dL (30.0-36.0) 05/06/23 04:50 RDW 13.3 % (12.1-15.1) 05/06/23 04:50 Plt Count 236 10^3/cmm (130-400) 05/06/23 04:50 MPV 10.3 fL (7.4-10.4) 05/06/23 04:50 Neut % (Auto) 67.2 % 05/06/23 04:50 Lymph % (Auto) 19.5 % 05/06/23 04:50 Rankin % (Auto) 11.7 % 05/06/23 04:50 Eos % (Auto) 1.0 % 05/06/23 04:50 Baso % (Auto) 0.2 % 05/06/23 04:50 Neut # (Auto) 6.01 10^3/uL (1.8-7.7) 05/06/23 04:50 Lymph # (Auto) 1.8 10^3/uL (0.8-4.8) 05/06/23 04:50 Rankin # (Auto) 1.1 10^3/uL (0.2-0.9) H 05/06/23 04:50 Eos # (Auto) 0.1 10^3/uL (0.0-0.8) 05/06/23 04:50 Baso # (Auto) 0.0 10^3/uL (0.0-0.1) 05/06/23 04:50 Nucleated RBC % (auto) 0 % 05/06/23 04:50 Nucleated RBCs # 0.0 /100WBC 05/06/23 04:50 PT 14.00 SECONDS (12.1-14.9) 05/04/23 03:57 INR 1.05 (0.8-1.2) 05/04/23 03:57 Sodium 134 mmol/L (136-145) L 05/06/23 04:50 Potassium 4.5 mmol/L (3.5-5.1) 05/06/23 04:50 Chloride 96 mmol/L (98-107) L 05/06/23 04:50 Carbon Dioxide 31 mmol/L (22-29) H 05/06/23 04:50 Anion Gap 11.5 (5-19) 05/06/23 04:50 BUN 36 mg/dL (8-23) H 05/06/23 04:50 Creatinine 1.2 mg/dL (0.7-1.2) 05/06/23 04:50 GFR Calculation Not Reportable 05/06/23 04:50 Glucose 107 mg/dL (65-115) 05/06/23 04:50 Calculated Osmolality 287 mOsm/kg (285-295) 05/06/23 04:50 Calcium 8.5 mg/dL (8.5-10.5) 05/06/23 04:50 Total Bilirubin 0.4 mg/dL (0.15-1.2) 05/06/23 04:50 AST 35 U/L (0-40) 05/06/23 04:50 ALT 14 U/L (0-41) 05/06/23 04:50 Alkaline Phosphatase 114 U/L (40-130) 05/06/23 04:50 Total Protein 6.1 g/dL (6.6-8.7) L 05/06/23 04:50 Albumin 3.1 g/dL (3.5-5.2) L 05/06/23 04:50 Globulin 3.0 g/dL (1.3-4.6) 05/06/23 04:50 Vitals Last Vital Signs Temp 98.2 F 05/06/23 07:38 Pulse 89 05/06/23 08:00 Resp 18 05/06/23 07:38 BP 125/76 05/06/23 07:38 Pulse Ox 98 05/06/23 08:00 O2 Del Method Nasal Cannula 05/06/23 08:00 O2 Flow Rate 2 05/06/23 08:00 Discharge Plan Discharge Patient Disposition: Xfer SNF Condition: Stable Prescriptions: Continued aspirin [Sea Low Dose Aspirin] 81 mg tablet,delayed release (DR/EC) 81 mg PO DAILY cholecalciferol (vitamin D3) 25 mcg (1,000 unit) capsule 25 mcg PO DAILY ascorbic acid (vitamin C) 1,000 mg tablet 1,000 mg PO DAILY spironolactone 25 mg tablet 25 mg PO DAILY Qty: 90 2RF melatonin 10 mg tablet,disintegrating 10 mg PO DAILY desonide 0.05 % cream 1 applic TOPICAL BID Qty: 60 0RF esomeprazole magnesium 40 mg capsule,delayed release(DR/EC) 40 mg PO DAILY 90 Days Qty: 90 2RF hydroxychloroquine 200 mg tablet 200 mg PO BID Qty: 60 4RF zinc acetate 50 mg (zinc) Capsule 50 mg PO DAILY escitalopram oxalate 20 mg tablet 20 mg PO DAILY lidocaine 5 % Adhesive Patch,Medicated 1 patch topical [id number] Qty: 7 0RF acetaminophen 650 mg tablet extended release 650 mg PO Q8H PRN (Reason: pain) Qty: 60 0RF furosemide 40 mg tablet 40 mg PO DAILY PRN (Reason: Edema) Qty: 90 3RF prednisone 5 mg tablet 5 mg PO DAILY Qty: 20 3RF Changed metoprolol succinate 100 mg tablet extended release 24 hr 50 mg PO DAILY Qty: 30 0RF Rx Instructions: Take 1 tablet by mouth once daily Discontinued potassium chloride 10 mEq tablet extended release 10 meq PO DAILY Qty: 90 3RF Discharge Orders: Discharge Order (Routine); Ordered 05/06/23 Ordered By: Brian Brooks Referrals: [facility] [Outside] Bill Mello ROLL INSPECTOR [Primary Care Provider] - Discharge Diet: Advance as tolerated Discharge Activity: Limit activity as instructed Patient Instructions: Opioid Safety Activity Restrictions/Additional Instructions: You are being discharged from the hospital today during which time you have been under the care of Dr Dejesus. You had a Right hip fracture. You were treated for this injury with a Martir Arthroplasty which is a partial hip replacement. You may resume you normal diet (including any special diets as directed by your primary doctor) as well as your home medications. You should follow up with you primary doctor if you have any questions regarding medication you took prior to your stay in the hospital. You may take your pain medication as prescribed. After the first few days, take your pain medication as needed. Do not drive or drink alcohol while taking your pain medication. Your injury may increase your risk of developing a blood clot,or DVT, in your arm or leg. This could potentially dislodge and travel to your lungs and become a life threatening condition called apulmonary embolus,or PE. You have been prescribed eliquis to be taken to prevent this. Frequent movement of the legs will also help prevent this from occurring. If you develop any new or worsening cough, chestpain, bloody sputum or shortness of breath, call 911 or go to the EmergencyRoom. Always keep your surgical incision/dressing clean and dry. If you experience increasing pain at your incision site, redness, swelling, increasing discharge, foul odors, or fevers (greater than 100.4), night sweats or chills you should call the office at the above number. If you feel this is an emergency you should be evaluated in the Emergency Department of a nearby hospital. Orthopedic Patient Instructions Summary: Weight Bearing: WBAT Activity: as tolerated. Diet: regular. Wound Care: Keep dressing clean and dry. Change as needed Anticoagulation: Lovenox Pain Medication: Take only as needed. Ice, rest and elevation will be of great benefit. Please plan to follow-up [facility] Dr Dejesus in 2 weeks. You will need to call the clinic [phone] to schedule. Do not hesitate to call the office with any questions or concerns. Coding Level of Care Code Acute Code for [facility] Fwd Diagnoses Displaced fracture of right femoral neck S72.001A Contusion of hip, right S70.01XA Current chronic use of systemic steroids Z79.52
[2023-05-06 10:37] LABS: SARS Covid-2 Antigen negative (Negative)
--- NOTE | 2023-05-06 10:56 | PC.SOCIAL ---
IMM Update pg 2 of IMM updated and reviewed w/ patient. Copy provided and Copy dated, initialed and placed in chart.
--- NOTE | 2023-05-06 12:31 | PC.NURSE ---
Upon arriving to work yesterday, 05/05/23, this nurse found patient to have bled through his dressings on his right hip, completely saturating his linens as well. This nurse changed his dressing and applied 2 ABD pads covered with covaderm. This nurse called to notify Dr. Dejesus, who asked that I just redress the wound. José Luis had previously charted that dressing was clean, dry and intact. Upon arriving to work today, 05/06/23, this nurse found patient to have bled through his dressings on his right hip again, completely saturing his linens. I weighed the saturated dressings which totaled out to be 100mL. New dressing was applied with ABD pads and covaderm. Attempted to reach Dr. Dejesus, but was unable to reach him. Dr. Reese was notified and requested that lovenox be D/C, patients discharge be cancelled and an H&H to be drawn. I relayed this to patient, who was very understanding and agreed with care.
--- NOTE | 2023-05-06 13:44 | PM.PN ---
Subjective Subjective: No acute events overnight. Patient has remained hemodynamically stable and afebrile. Working well with physical therapy. Plan was to discharge to SNF today but was withheld as patient is having surgical incision site bleeding. Pressure bandage has been placed. Patient denies any extra pain. Blood work appreciated for declining hemoglobin level, creatinine trending down to baseline. Vitals/I&O/Wt Last Vital Signs Temp 98 F 05/06/23 11:42 Pulse 94 05/06/23 11:42 Resp 16 05/06/23 11:42 BP 135/79 05/06/23 11:42 Pulse Ox 96 05/06/23 11:42 O2 Del Method Nasal Cannula 05/06/23 11:42 O2 Flow Rate 2 05/06/23 08:00 05/05/23 05/06/23 05/06/23 22:59 06:59 14:59 Intake Total 480 / 1490 960 / 960 Output Total 350 / 350 Balance 480 / 1490 -350 / 1140 960 / 960 Physical Exam Narrative: General: No acute distress, AO x3 HEENT: PERRLA, pupils bilaterally equal and reactive Chest: Normal vesicular breath sounds, no added sounds, equal good air entry bilaterally CVS: S1-S2 regular, no murmurs, no tachycardia, no gallops, no rubs Abdomen: Soft, nontender, no organomegaly, bowel sounds present Neuro: No focal deficits, no facial deformity, AO x3, power 5/5 in all limbs Extremity: Surgical bandage present with mild soakage Urinary Catheter Management: Garcia Latex: Cath Placed During This Visit: yes, but has since been removed by the nurse Reason for Continuing Indwelling Catheter: Decision to DC Catheter Urinary Catheter Date of Insertion: 05/04/23 Urinary Catheter Time of Insertion: 11:45 Date Urinary Catheter Removed: 05/05/23 Time Urinary Catheter Discontinued: 06:22 Data 05/06/23 04:50 05/06/23 04:50 A&P Assessment and plan (1) Displaced fracture of right femoral neck: Post-ORIF day 2. Hemoglobin trended down to 8.3. Postoperative bleeding seen from the incision site. Discussed with Dr. Dejesus. Plan for pressure dressing. Hold off on Lovenox. Repeat hemoglobin in afternoon. Pain control with [place] 1 5 mg tablet every 4 as needed, morphine 2 mg every 4 as needed. Physical therapy. (2) Contusion of hip, right: (3) Current chronic use of systemic steroids: Continue home dose of prednisone 5 mg daily. (4) Postoperative bleeding from incision: Plan ASHLEE: Creatinine back to baseline. Monitor BMP daily. Encourage oral intake. Regular diet. Lovenox for DVT prophylaxis. Full code. Discharge plan: Discharge withheld today given postoperative incision site bleeding. We will continue to monitor hemoglobin and possible discharge in a.m. to SNF. Attestations Medical Necessity Statement*: Requires further hospitalization for post-ORIF care in setting of postoperative bleeding from incision site Diagnoses Displaced fracture of right femoral neck S72.001A Contusion of hip, right S70.01XA Current chronic use of systemic steroids Z79.52 Postoperative bleeding from incision
[2023-05-06 15:16] LABS: Hematocrit 27.3 % (42.0-52.0); Hemoglobin 8.5 g/dL (11.7-16.6)
[2023-05-07] VITALS (9 sets, daily range): BP systolic 110–127; BP diastolic 64–79; PULSE 78–103; RESP 16–18; TEMP 36.7–37.1; O2SAT 90–100
[2023-05-07] MEDS: zinc gluconate 50 mg Tablet PO (08:55)
[2023-05-07] MEDS: cholecalciferol (vitamin D3) 1,000 unit Tablet 1000 UNIT PO (08:55)
[2023-05-07] MEDS: pantoprazole DR 40 mg Tablet PO (08:55)
[2023-05-07] MEDS: predniSONE 5 mg Tablet PO (08:55)
[2023-05-07] MEDS: spironolactone 25 mg Tablet PO (08:56)
[2023-05-07] MEDS: aspirin 81 mg EC Tablet PO (08:56)
[2023-05-07] MEDS: HYDROcodone-acetaminophen 5-325 mg Tablet 1 TAB PO ×2 (08:56→14:07)
[2023-05-07] MEDS: escitalopram 10 mg Tablet 20 MG PO (08:56)
[2023-05-07] MEDS: ascorbic acid 500 mg Tablet 1000 MG PO (08:56)
[2023-05-07] MEDS: hydroxychloroquine 200 mg Tablet PO (08:59)
--- NOTE | 2023-05-07 09:43 | PM.PN ---
Subjective Subjective: Patient is sitting up in bed pain is controlled. No complaints. Vitals/I&O/Wt Last Vital Signs Temp 98.8 F 05/07/23 07:34 Pulse 87 05/07/23 07:39 Resp 18 05/07/23 07:39 BP 110/68 05/07/23 07:34 Pulse Ox 98 05/07/23 07:39 O2 Del Method Nasal Cannula 05/07/23 07:39 O2 Flow Rate 2 05/07/23 07:39 05/06/23 05/07/23 05/07/23 22:59 06:59 14:59 Intake Total 480 / 1440 240 / 240 Balance 480 / 1440 240 / 240 Physical Exam Narrative: Bandages clean dry intact do not see any evidence of drainage on the dressing this morning. Urinary Catheter Management: Garcia Latex: Cath Placed During This Visit: yes, but has since been removed by the nurse Reason for Continuing Indwelling Catheter: Decision to DC Catheter Urinary Catheter Date of Insertion: 05/04/23 Urinary Catheter Time of Insertion: 11:45 Date Urinary Catheter Removed: 05/05/23 Time Urinary Catheter Discontinued: 06:22 Data 05/06/23 14:50 05/06/23 04:50 A&P Assessment and plan (1) Encounter for postoperative care: Patient is status post hip hemiarthroplasty. Doing well bleeding seems to have decreased. Okay to discharge from orthopedic standpoint Attestations Medical Necessity Statement*: Per primary service Coding Level of Care Code Acute Code for [facility] Fwd Diagnoses Encounter for postoperative care Z48.89
[2023-05-07 10:45] LABS: Basophils % 0.4 %; Eosinophils # 0.2 10^3/uL (0.0-0.8); Hematocrit 27.2 % (42.0-52.0); Hemoglobin 8.3 g/dL (11.7-16.6); Lymphocytes # 1.1 10^3/uL (0.8-4.8); Lymphocytes % 15.5 %; Mean Corpuscular HGB Conc 30.5 g/dL (30.0-36.0); Mean Corpuscular Volume 98.2 fl (80-94); Mean Platelet Volume 9.9 fL (7.4-10.4); Monocytes % 13.1 %; Neutrophils # 4.86 10^3/uL (1.8-7.7); Neutrophils % 67.2 %; Nucleated Red Blood Cells % 0 %; Platelet Count 213 10^3/cmm (130-400); Red Blood Count 2.77 10^6/uL (4.1-5.3); Red Cell Distribution Width 13.4 % (12.1-15.1); White Blood Count 7.2 10^3/uL (4.0-10.0)
[2023-05-07] MEDS: acetaminophen 325 mg Tablet 650 MG PO (10:51)
--- NOTE | 2023-05-07 11:06 | P.DS_ITS ---
Discharge Providers Date of Admission: 05/03/23 09:38 Date of Discharge: May 07, 2023 Attending Provider at Admission: Scottie Hameed MD Attending Provider at Discharge: Brian Brooks MD Consults: Ortho: Dr. Dejesus Primary Care Provider: Bill Mello Diagnoses at Discharge Discharge Diagnosis (1) Encounter for postoperative care: Status: Acute Reason for Visit Reason for Visit: RIGHT HIP PAIN S/P FALL Brief History: Sarkis Galvin is a 77 year old male with past medical history of obstructive sleep apnea rheumatoid arthritis pulmonary fibrosis sarcoidosis, diastolic heart failure osteoarthritis psoriatic arthritis, after a fall while trying to get off the toilet.? Patient was recently discharged after being managed for fall at home he was sent to [facility], at that time no fracture was identified. It appears from the description of the patient that likely it is a mechanical fall, he denied any loss of consciousness, lightheadedness dizziness, chest pain shortness of breath. X-ray right hip done today has shown:?Mildly impacted right subcapital femoral neck fracture with varus angulation. Orthopedic was consulted by ER due for intervention in the morning. His labs and vitals have been reviewed. Hospital Course Hospital Course Is unclear the for further evaluation and management right femoral neck fr acture. Orthopedics was consulted. He underwent ORIF which he tolerated well. Postoperative stay was complicated by incisional site bleeding. He was treated with pressure bandage. His hemoglobin dropped from 11 perioperatively to 8.6 but remained stable for 48 hours. Patient has been working well with physical therapy. He has been discharged to SNF for further rehabitation with advised to follow-up with Dr. Dejesus in his office. Wound care to be done as per orthopedic team. Physical Exam Narrative: General: No acute distress, AO x3 HEENT: PERRLA, pupils bilaterally equal and reactive Chest: Normal vesicular breath sounds, no added sounds, equal good air entry bilaterally CVS: S1-S2 regular, no murmurs, no tachycardia, no gallops, no rubs Abdomen: Soft, nontender, no organomegaly, bowel sounds present Neuro: No focal deficits, no facial deformity, AO x3, power 5/5 in all limbs Extremity: Surgical bandage present with mild soakage Urinary Catheter Management: Garcia Latex: Cath Placed During This Visit: yes, but has since been removed by the nurse Reason for Continuing Indwelling Catheter: Decision to DC Catheter Urinary Catheter Date of Insertion: 05/04/23 Urinary Catheter Time of Insertion: 11:45 Date Urinary Catheter Removed: 05/05/23 Time Urinary Catheter Discontinued: 06:22 Discharge Data Studies Completed and Pending Completed Studies During Hospitalization Category Date Time Status CXRP [XR chest 1V portable [id number]] Stat Exams 05/03/23 08:36 Completed XR hip RT 2-3V wo/w pel* [id number] Stat Exams 05/03/23 08:23 Completed Radiology Impressions Hip/Pelvis X-Ray 05/03/23 08:23 IMPRESSION: Mildly impacted right subcapital femoral neck fracture with varus angulation. Chest X-Ray 05/03/23 08:36 IMPRESSION: No acute findings. Laboratory Results WBC 7.2 10^3/uL (4.0-10.0) 05/07/23 10:20 RBC 2.77 10^6/uL (4.1-5.3) L 05/07/23 10:20 Hgb 8.3 g/dL (11.7-16.6) L 05/07/23 10:20 Hct 27.2 % (42.0-52.0) L 05/07/23 10:20 MCV 98.2 fl (80-94) H 05/07/23 10:20 MCH 30.0 pg (28.0-34.0) 05/07/23 10:20 MCHC 30.5 g/dL (30.0-36.0) 05/07/23 10:20 RDW 13.4 % (12.1-15.1) 05/07/23 10:20 Plt Count 213 10^3/cmm (130-400) 05/07/23 10:20 MPV 9.9 fL (7.4-10.4) 05/07/23 10:20 Neut % (Auto) 67.2 % 05/07/23 10:20 Lymph % (Auto) 15.5 % 05/07/23 10:20 [place] % (Auto) 13.1 % 05/07/23 10:20 Eos % (Auto) 3.0 % 05/07/23 10:20 Baso % (Auto) 0.4 % 05/07/23 10:20 Neut # (Auto) 4.86 10^3/uL (1.8-7.7) 05/07/23 10:20 Lymph # (Auto) 1.1 10^3/uL (0.8-4.8) 05/07/23 10:20 [place] # (Auto) 1.0 10^3/uL (0.2-0.9) H 05/07/23 10:20 Eos # (Auto) 0.2 10^3/uL (0.0-0.8) 05/07/23 10:20 Baso # (Auto) 0.0 10^3/uL (0.0-0.1) 05/07/23 10:20 Nucleated RBC % (auto) 0 % 05/07/23 10:20 Nucleated RBCs # 0.0 /100WBC 05/07/23 10:20 PT 14.00 SECONDS (12.1-14.9) 05/04/23 03:57 INR 1.05 (0.8-1.2) 05/04/23 03:57 Sodium 134 mmol/L (136-145) L 05/06/23 04:50 Potassium 4.5 mmol/L (3.5-5.1) 05/06/23 04:50 Chloride 96 mmol/L (98-107) L 05/06/23 04:50 Carbon Dioxide 31 mmol/L (22-29) H 05/06/23 04:50 Anion Gap 11.5 (5-19) 05/06/23 04:50 BUN 36 mg/dL (8-23) H 05/06/23 04:50 Creatinine 1.2 mg/dL (0.7-1.2) 05/06/23 04:50 GFR Calculation Not Reportable 05/06/23 04:50 Glucose 107 mg/dL (65-115) 05/06/23 04:50 Calculated Osmolality 287 mOsm/kg (285-295) 05/06/23 04:50 Calcium 8.5 mg/dL (8.5-10.5) 05/06/23 04:50 Total Bilirubin 0.4 mg/dL (0.15-1.2) 05/06/23 04:50 AST 35 U/L (0-40) 05/06/23 04:50 ALT 14 U/L (0-41) 05/06/23 04:50 Alkaline Phosphatase 114 U/L (40-130) 05/06/23 04:50 Total Protein 6.1 g/dL (6.6-8.7) L 05/06/23 04:50 Albumin 3.1 g/dL (3.5-5.2) L 05/06/23 04:50 Globulin 3.0 g/dL (1.3-4.6) 05/06/23 04:50 SARS-CoV-2 Ag (Rapid) negative (Negative) 05/06/23 08:58 Vitals Last Vital Signs Temp 98.8 F 05/07/23 07:34 Pulse 87 05/07/23 07:39 Resp 18 05/07/23 07:39 BP 110/68 05/07/23 07:34 Pulse Ox 98 05/07/23 07:39 O2 Del Method Nasal Cannula 05/07/23 07:39 O2 Flow Rate 2 05/07/23 07:39 Discharge Plan Discharge Patient Disposition: Xfer SNF Condition: Stable Prescriptions: New ferrous gluconate 324 mg (37.5 mg iron) tablet 324 mg PO BID Qty: 60 0RF Continued aspirin [Sea Low Dose Aspirin] 81 mg tablet,delayed release (DR/EC) 81 mg PO DAILY cholecalciferol (vitamin D3) 25 mcg (1,000 unit) capsule 25 mcg PO DAILY ascorbic acid (vitamin C) 1,000 mg tablet 1,000 mg PO DAILY spironolactone 25 mg tablet 25 mg PO DAILY Qty: 90 2RF melatonin 10 mg tablet,disintegrating 10 mg PO DAILY desonide 0.05 % cream 1 applic TOPICAL BID Qty: 60 0RF esomeprazole magnesium 40 mg capsule,delayed release(DR/EC) 40 mg PO DAILY 90 Days Qty: 90 2RF hydroxychloroquine 200 mg tablet 200 mg PO BID Qty: 60 4RF zinc acetate 50 mg (zinc) Capsule 50 mg PO DAILY escitalopram oxalate 20 mg tablet 20 mg PO DAILY lidocaine 5 % Adhesive Patch,Medicated 1 patch topical [id number] Qty: 7 0RF acetaminophen 650 mg tablet extended release 650 mg PO Q8H PRN (Reason: pain) Qty: 60 0RF furosemide 40 mg tablet 40 mg PO DAILY PRN (Reason: Edema) Qty: 90 3RF prednisone 5 mg tablet 5 mg PO DAILY Qty: 20 3RF Changed metoprolol succinate 100 mg tablet extended release 24 hr 50 mg PO DAILY Qty: 30 0RF Rx Instructions: Take 1 tablet by mouth once daily No Action potassium chloride 10 mEq tablet extended release 10 meq PO DAILY Qty: 90 3RF Discharge Orders: Discharge Order (Routine); Ordered 05/07/23 Ordered By: Brian Brooks Referrals: [facility] [Outside] Tyrone Dejesus DO [Physician] - 05/12/23 8:45 am Bill Mello NP [Primary Care Provider] - Discharge Diet: Advance as tolerated Discharge Activity: Limit activity as instructed Patient Instructions: Opioid Safety Activity Restrictions/Additional Instructions: You are being discharged from the hospital today during which time you have been under the care of Dr Dejesus. You had a Right hip fracture. You were treated for this injury with a Martir Arthroplasty which is a partial hip replacement. You may resume you normal diet (including any special diets as directed by your primary doctor) as well as your home medications. You should follow up with you primary doctor if you have any questions regarding medication you took prior to your stay in the hospital. You may take your pain medication as prescribed. After the first few days, take your pain medication as needed. Do not drive or drink alcohol while taking your pain medication. Your injury may increase your risk of developing a blood clot,or DVT, in your arm or leg. This could potentially dislodge and travel to your lungs and become a life threatening condition called apulmonary embolus,or PE. You have been prescribed eliquis to be taken to prevent this. Frequent movement of the legs will also help prevent this from occurring. If you develop any new or worsening cough, chestpain, bloody sputum or shortness of breath, call 911 or go to the EmergencyRoom. Always keep your surgical incision/dressing clean and dry. If you experience increasing pain at your incision site, redness, swelling, increasing discharge, foul odors, or fevers (greater than 100.4), night sweats or chills you should call the office at the above number. If you feel this is an emergency you should be evaluated in the Emergency Department of a nearby hospital. Orthopedic Patient Instructions Summary: Weight Bearing: WBAT Activity: as tolerated. Diet: regular. Wound Care: Keep dressing clean and dry. Change as needed Anticoagulation: Lovenox Pain Medication: Take only as needed. Ice, rest and elevation will be of great benefit. Please plan to follow-up wlth Dr Dejesus in 2 weeks. You will need to call the clinic [phone] to schedule. Do not hesitate to call the office with any questions or concerns. Discharge Attestations Time Spent in Discharge Care*: greater than 30 min Specific Discharge Activities: educating patient, discussing with pcp/other providers, discussing with nurse outreach case manager/social workers/dc planners, documenting/other paperwork and evaluating patient/reviewing data Status at Discharge: Cognitive status at discharge: cognitively intact , Behavioral status at discharge: cooperative , Functional status at discharge: uses cane/walker , Overall status at discharge: patient is progressing back to baseline Quality Metrics Clinical Quality Measures [ No reported AMI, CVA or VTE this stay] Coding Level of Care Code 02756 Total time (in minutes) for Discharge: 50 Diagnoses Encounter for postoperative care Z48.89
== END 2023-05-07 14:20 | disposition skilled nursing facility (03) | DRG 522 ==
LOC: ER 10:44 → MEDSURG 10:45
PROVIDERS: Orthopaedic Surgery; Admitting Provider Internal Medicine; Emergency Provider Family Medicine; PCP Clinical Nurse Specialist Adult Health; Visit Provider Student in an Organized Health Care Education/Training Program
PROC: 0SRR0JZ Replacement of Right Hip Joint, Femoral Surface with Synthetic Substitute, Open Approach (ICD-10-PCS; CPT 27125; principal; 2023-05-04 11:25)
DX: S72.011A Unspecified intracapsular fracture of right femur, initial encounter for closed fracture (principal); I50.32 Chronic diastolic (congestive) heart failure; N17.9 Acute kidney failure, unspecified; L76.22 Postprocedural hemorrhage of skin and subcutaneous tissue following other procedure; W01.0XXA Fall on same level from slipping, tripping and stumbling without subsequent striking against object, initial encounter; G47.33 Obstructive sleep apnea (adult) (pediatric); M06.9 Rheumatoid arthritis, unspecified; D86.0 Sarcoidosis of lung; L40.50 Arthropathic psoriasis, unspecified; Z79.82 Long term (current) use of aspirin; Z79.52 Long term (current) use of systemic steroids; M79.7 Fibromyalgia; I34.1 Nonrheumatic mitral (valve) prolapse
CPT/HCPCS: 36415; 51702; 71045; 73502; 80048; 80053; 85014; 85018; 85025; 85610; 87426; 96372; 96374; 97110; 97116; 97161; 97166; 97530; 99285; C1776; J0690; J1100; J1170; J1650; J1720; J1885; J2060; J2270; J2405; J2704; J3010; J7030; J7512; Q3014

== ENCOUNTER 2023-05-09 16:18 | Outpatient (CLI) | payer MEDICARE, SELFPAY ==
[2023-05-09 16:44] LABS: Hematocrit 25.7 % (42.0-52.0); Hemoglobin 7.8 g/dL (11.7-16.6); Mean Corpuscular HGB Conc 30.4 g/dL (30.0-36.0); Mean Corpuscular Hemoglobin 30.4 pg (28.0-34.0); Mean Platelet Volume 10.1 fL (7.4-10.4); Platelet Count 261 10^3/cmm (130-400); Red Blood Count 2.57 10^6/uL (4.1-5.3); Red Cell Distribution Width 13.5 % (12.1-15.1); White Blood Count 7.4 10^3/uL (4.0-10.0)
== END 2023-05-09 16:19 | disposition home or self-care (01) ==
PROVIDERS: PCP Clinical Nurse Specialist Adult Health; Visit Provider Family Medicine
DX: Z01.89 Encounter for other specified special examinations (principal)
CPT/HCPCS: 85025; 85027

== ENCOUNTER → 2023-05-12 08:42 | Outpatient (BNVA) | payer MEDICARE, SELFPAY | PROVIDERS: PCP Clinical Nurse Specialist Adult Health; Visit Provider Orthopaedic Surgery | DX: Z48.89 Encounter for other specified surgical aftercare (principal) | CPT/HCPCS: 99024 ==

== ENCOUNTER → 2023-05-19 15:20 | Outpatient (BNVA) | payer MEDICARE, SELFPAY | PROVIDERS: PCP Clinical Nurse Specialist Adult Health; Visit Provider Physician Assistant | DX: Z48.89 Encounter for other specified surgical aftercare (principal) | CPT/HCPCS: 73502; 99024 ==

== ENCOUNTER → 2023-06-02 09:35 | Outpatient (BNVA) | payer MEDICARE, SELFPAY | PROVIDERS: PCP Clinical Nurse Specialist Adult Health; Visit Provider Internal Medicine | DX: Z79.52 Long term (current) use of systemic steroids; L40.50 Arthropathic psoriasis, unspecified; M17.0 Bilateral primary osteoarthritis of knee; W19.XXXA Unspecified fall, initial encounter; Z96.641 Presence of right artificial hip joint | CPT/HCPCS: 99214 ==

== ENCOUNTER 2023-06-04 15:02 | Outpatient (CLI) | payer MEDICARE, SELFPAY ==
--- NOTE | 2023-06-04 15:30 | XR_ITS ---
WS: [id number] DEXA (DUAL ENERGY X-RAY ABSORPTIOMETRY) Bone mineral density was performed using a Coup[employer] machine. HISTORY: S72.001A - Fracture of unspecified part of neck of right ... COMPARISON: None available. Lumbar spine BMD (L1-L4): 1.026 g/cm2 T score: -1.6 Z score: -1.5 Left forearm BMD: 0.797 g/cm2. T score: -1.9 Z score: -0.8 IMPRESSION: Osteopenia.
[2023-06-04 16:24] LABS: Basophils # 0.1 10^3/uL (0.0-0.1); Basophils % 0.9 %; Eosinophils # 0.1 10^3/uL (0.0-0.8); Eosinophils % 1.5 %; Hematocrit 42.1 % (42.0-52.0); Hemoglobin 12.9 g/dL (11.7-16.6); Lymphocytes # 2.3 10^3/uL (0.8-4.8); Lymphocytes % 29.1 %; Mean Corpuscular HGB Conc 30.6 g/dL (30.0-36.0); Mean Corpuscular Hemoglobin 29.9 pg (28.0-34.0); Mean Corpuscular Volume 97.5 fl (80-94); Mean Platelet Volume 10.2 fL (7.4-10.4); Monocytes # 0.6 10^3/uL (0.2-0.9); Monocytes % 7.7 %; Neutrophils # 4.66 10^3/uL (1.8-7.7); Neutrophils % 60.2 %; Nucleated Red Blood Cells % 0 %; Platelet Count 206 10^3/cmm (130-400); Red Blood Count 4.32 10^6/uL (4.1-5.3); Red Cell Distribution Width 13.7 % (12.1-15.1); White Blood Count 7.8 10^3/uL (4.0-10.0)
[2023-06-04 17:11] LABS: Alanine Aminotransferase 20 U/L (0-41); Albumin Level 3.8 g/dL (3.5-5.2); Alkaline Phosphatase 163 U/L (40-130); Anion Gap 14.1 (5-19); Aspartate Amino Transferase 26 U/L (0-40); Blood Urea Nitrogen 17 mg/dL (8-23); Calcium 9.4 mg/dL (8.5-10.5); Carbon Dioxide 28 mmol/L (22-29); Chloride 104 mmol/L (98-107); Globulin 3.2 g/dL (1.3-4.6); Glucose 91 mg/dL (65-115); Osmolality Calculated 293 mOsm/kg (285-295); Potassium 5.1 mmol/L (3.5-5.1); Sodium 141 mmol/L (136-145); Total Bilirubin 0.4 mg/dL (0.15-1.2)
== END 2023-06-04 15:03 | disposition home or self-care (01) ==
PROVIDERS: PCP Clinical Nurse Specialist Adult Health; Visit Provider Internal Medicine
DX: S72.001A Fracture of unspecified part of neck of right femur, initial encounter for closed fracture (principal); X58.XXXA Exposure to other specified factors, initial encounter; M85.80 Other specified disorders of bone density and structure, unspecified site; Z79.52 Long term (current) use of systemic steroids; Z48.89 Encounter for other specified surgical aftercare
CPT/HCPCS: 36415; 77080; 80053; 85025

== ENCOUNTER → 2023-06-16 12:48 | Outpatient (BNVA) | payer MEDICARE, SELFPAY | PROVIDERS: PCP Clinical Nurse Specialist Adult Health; Visit Provider Physician Assistant | DX: M17.11 Unilateral primary osteoarthritis, right knee; S72.001D Fracture of unspecified part of neck of right femur, subsequent encounter for closed fracture with routine healing; X58.XXXD Exposure to other specified factors, subsequent encounter; Z96.649 Presence of unspecified artificial hip joint | CPT/HCPCS: 73502; 99213 ==

== ENCOUNTER → 2023-07-09 06:52 | Outpatient (BNVA) | payer MEDICARE, SELFPAY | PROVIDERS: PCP Clinical Nurse Specialist Adult Health; Visit Provider Student in an Organized Health Care Education/Training Program | DX: M17.11 Unilateral primary osteoarthritis, right knee (principal); Z01.818 Encounter for other preprocedural examination | CPT/HCPCS: 73560; 73565; 99214 ==

== ENCOUNTER → 2023-07-16 09:39 | Outpatient (BNVA) | payer MEDICARE, SELFPAY | PROVIDERS: PCP Clinical Nurse Specialist Adult Health; Visit Provider Internal Medicine Pulmonary Disease | DX: G47.31 Primary central sleep apnea (principal); J96.11 Chronic respiratory failure with hypoxia; J84.10 Pulmonary fibrosis, unspecified; J98.4 Other disorders of lung; G47.33 Obstructive sleep apnea (adult) (pediatric) | CPT/HCPCS: 99214 ==

== ENCOUNTER 2023-07-22 07:10 | Outpatient (CLI) | payer MEDICARE, SELFPAY ==
--- NOTE | 2023-07-22 07:30 | CT_ITS ---
WS: [id number] CT RIGHT KNEE, NONCONTRAST TECHNIQUE: Noncontrast CT of the RIGHT knee to include the RIGHT hip and ankle. [facility]AD[facility] CLINICAL INFORMATION: DJD RIGHT KNEE COMPARISON: None. DLP: 1047.[address] scans at [facility] use at least one of these dose optimization techniques: automated e xposure control; mA and/or kV adjustment per patient size (includes targeted exams where dose is matc hed to clinical indication); or iterative reconstruction. FINDINGS: Prior postoperative changes RIGHT MAURILIO. Hypertrophic patella. Tiny suprapatellar effusion. Prepatellar soft tissue edema. Hypertrophic change along the joint line. Moderate to advanced joint space narrow ing medial joint compartment. Lobulated popliteal cyst measuring 3.3 x 1.6 cm Sigmoid diverticulosis. Prostate calcification. IMPRESSION: Images obtained for preoperative purposes.
== END 2023-07-22 07:11 | disposition home or self-care (01) ==
PROVIDERS: PCP Clinical Nurse Specialist Adult Health; Visit Provider Student in an Organized Health Care Education/Training Program
DX: M17.11 Unilateral primary osteoarthritis, right knee (principal)
CPT/HCPCS: 73700

== ENCOUNTER → 2023-07-23 10:34 | Outpatient (BNVA) | payer MEDICARE, SELFPAY | PROVIDERS: PCP Clinical Nurse Specialist Adult Health; Visit Provider Clinical Nurse Specialist Adult Health | DX: R06.02 Shortness of breath (principal); Z96.649 Presence of unspecified artificial hip joint; E04.1 Nontoxic single thyroid nodule; Z01.818 Encounter for other preprocedural examination | CPT/HCPCS: 80053; 81000; 85025 ==

== ENCOUNTER → 2023-07-24 10:54 | Outpatient (BNVA) | payer OTHER, SELFPAY | PROVIDERS: PCP Clinical Nurse Specialist Adult Health; Visit Provider Internal Medicine | DX: I50.32 Chronic diastolic (congestive) heart failure (principal); I08.1 Rheumatic disorders of both mitral and tricuspid valves | CPT/HCPCS: 99214 ==

== ENCOUNTER → 2023-07-28 15:07 | Outpatient (BNVA) | payer OTHER, SELFPAY | PROVIDERS: PCP Clinical Nurse Specialist Adult Health; Visit Provider Physician Assistant | DX: Z96.649 Presence of unspecified artificial hip joint (principal); Z47.89 Encounter for other orthopedic aftercare | CPT/HCPCS: 73502; 99024 ==

== ENCOUNTER 2023-08-03 11:12 | Observation (INO) | payer MEDICARE, SELFPAY ==
[2023-07-31 17:34] VITALS: BMI 34.2
[2023-08-03] VITALS (19 sets, daily range): BP systolic 81–130; BP diastolic 52–79; PULSE 55–80; RESP 14–20; TEMP 36.2–37.1; O2SAT 90–97; BMI 29.1
[2023-08-03] MEDS: sodium chloride 0.9% 1,000 ML 30 ML IV (07:43)
--- NOTE | 2023-08-03 07:45 | P.HPUD_ITS ---
Surgery/Procedure H&P Update DATE OF PROCEDURE: August 03, 2023 DATE H&P PERFORMED: 07/09/23 H&P UPDATE INFORMATION: I have reviewed H&P completed within last 30 days, I have examined patient prior to procedure and No changes to prior documentation CHANGES TO PREVIOUS DOCUMENTATION: No changes healthy is with her preoperative clearance process and cleared to proceed with surgical intervention by her preoperative team. He is on hydrochl oric when at baseline this can be maintained throughout his procedure and does not need to be discontinued prior or after. He understands the ins and outs procedure the risk benefits complication alternatives surgery and through shared decision-making elects proceed with surgical intervention. All questions answered. PREOP DIAGNOSIS: Right knee DJD PRIMARY INDICATION FOR PROCEDURE: Right knee degenerative joint disease failed conservative treatment PLANNED PROCEDURE: Operation Date: 08/03/23 08:50 Proposed Procedures p RIGHT KNEE TOTAL KNEE REPLACEMENT WITH ARIADNA [id number],M17.11(Right) - Liam Dean DO
[2023-08-03] MEDS: acetaminophen 1,000 MG/100 ML PIGGYBACK 400 MG IV ×3 (07:54→23:56)
[2023-08-03] MEDS: ketorolac 30 mg/mL INJ IVP (07:55)
[2023-08-03] MEDS: ceFAZolin 2,000 MG in sodium chloride 0.9% (plus) 50 ML 100 MG IV ×2 (09:20→16:40)
[2023-08-03] MEDS: ROPivacaine 0.2% Premix 100 mL 200 MG INTRA-ARTI (10:32)
[2023-08-03] MEDS: ketorolac 30 mg/mL INJ XX (10:35)
[2023-08-03] MEDS: EPINEPHrine 1 mg/mL INJ XX (10:35)
--- NOTE | 2023-08-03 10:38 | ANES.PREANE2 ---
Pre-Anesthetic Assessment Height/Weight: Height 1.83 m Weight 97.522 kg Temp Pulse Resp BP Pulse Ox O2 Del Method 97.2 F L 66 14 130/79 93 Room Air 08/03/23 07:37 08/03/23 07:37 08/03/23 07:37 08/03/23 07:37 08/03/23 07:37 08/03/23 07:41 Preop Diagnosis: Right knee DJD Operation Date: 08/03/23 08:50 Proposed Procedures p RIGHT KNEE TOTAL KNEE REPLACEMENT WITH ARIADNA [id number],M17.11(Right) - Liam Dean DO Familial anesthetic complications: none Was Beta Kelsey taken within 24 hours: Yes Was Clonidine taken within 24 hours: N/A Last intake: Intake Last Liquid Date 08/02/23 Last Liquid Time 20:00 Last Solid Date 08/02/23 Last Solid Time 20:00 Social No alcohol Exam alert, oriented x 3, clear to auscultation bilaterally and regular rate & rhythm Airway Submandibular: within normal limits Cervical ROM: within normal limits Mallampati: Class III Dentition: chipped CV/HEM Anemia and Hypertension GI Gastroesophageal Reflux Disease Metabolic Morbid Obesity Chronic steroid Musc/skel Osteoarthritis/DJD and Rheumatoid Arthritis Anesthetic Plan ASA status: 3 Anesthesia: Regional (specify below) (SAB with adductor blk) Medications/Allergies Home Medications Medication Instructions Recorded Confirmed Last Taken Type aspirin 81 mg tablet,delayed 81 mg PO DAILY 01/27/20 07/31/23 07/30/23 History release (Sea Low Dose Aspirin) cholecalciferol (vitamin D3) 25 25 mcg PO DAILY 03/28/21 07/31/23 08/02/23 History mcg (1,000 unit) capsule ascorbic acid (vitamin C) 1,000 mg 1,000 mg PO DAILY 09/02/21 07/31/23 08/02/23 History tablet desonide 0.05 % topical cream 1 applic topical BID #60 grams 12/31/21 07/31/23 07/31/23 Rx potassium chloride 10 mEq 10 meq PO DAILY #90 tabs 04/21/22 07/31/23 08/02/23 Rx tablet,extended release spironolactone 25 mg tablet 25 mg PO DAILY #90 tabs 10/24/22 07/31/23 08/02/23 Rx esomeprazole magnesium 40 mg 40 mg PO DAILY 90 days #90 caps 01/06/23 07/31/23 08/02/23 Rx capsule,delayed release hydroxychloroquine 200 mg tablet 200 mg PO BID #60 tabs 01/13/23 07/31/23 08/02/23 Rx melatonin 10 mg disintegrating 10 mg PO BEDTIME 02/24/23 07/31/23 08/02/23 History tablet escitalopram oxalate 20 mg tablet 20 mg PO DAILY 04/12/23 07/31/23 08/02/23 History zinc acetate 50 mg (zinc) capsule 50 mg PO DAILY 04/12/23 07/31/23 08/02/23 History acetaminophen 650 mg 650 mg PO Q8H PRN pain #60 tabs 04/16/23 07/31/23 Unknown Rx tablet,extended release furosemide 40 mg tablet 40 mg PO DAILY PRN Edema #90 tabs 04/16/23 07/31/23 07/30/23 Rx prednisone 5 mg tablet 5 mg PO DAILY #20 tabs 04/16/23 07/31/23 08/02/23 Rx metoprolol succinate 100 mg 50 mg PO DAILY #30 tabs 05/06/23 07/31/23 08/03/23 06:30 Rx tablet,extended release 24 hr ferrous gluconate 324 mg (37.5 mg 240 mg PO BID 07/16/23 07/31/23 08/02/23 History iron) tablet Allergies Allergy/AdvReac Type Severity Reaction Status Date / Time ranitidine [From Zantac] Allergy Mild rash Verified 07/31/23 17:20 apremilast [From Otezla] Allergy diarrhea Verified 07/31/23 17:20 etanercept [From Enbrel] Allergy life Verified 07/31/23 17:20 threatening infection levofloxacin [From Levaquin] Allergy vomiting Verified 07/31/23 17:20 methotrexate Allergy life Verified 07/31/23 17:20 threatening infection tamsulosin Allergy dizziness Verified 07/31/23 17:20 tramadol Allergy nausea Verified 07/31/23 17:20 tofacitinib [From Xeljanz] AdvReac ADR-Dizzine Verified 07/31/23 17:20 ss Current Medications Generic Name Dose Route Start Last Admin Trade Name Freq PRN Reason Stop Dose Admin Epinephrine HCl 1 mg 08/03/23 10:35 08/03/23 10:35 Epinephrine 1 Mg/Ml Inj XX 08/03/23 10:36 1 mg ONCE ONE Administration Sodium Chloride 1,000 mls @ 30 mls/hr 08/03/23 07:30 08/03/23 10:31 Sodium Chloride 0.9% IV 08/04/23 07:29 Infused .Q24H AGNES Infusion Ketorolac Tromethamine 30 mg 08/03/23 10:37 08/03/23 10:35 Ketorolac 30 Mg/Ml Inj XX 08/03/23 10:38 30 mg ONCE ONE Administration PFSH Anesthesia Medical History Diastolic heart failure Facial pain Fibromyalgia 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 Lumbago Mitral valve prolapse TRACE (obstructive sleep apnea) Osteoarthritis of knees, bilateral Psoriatic arthritis Rheumatoid arthritis without rheumatoid factor, multiple sites Sarcoidosis of lung Shortness of breath Surgical History H/O bilateral cataract extraction right:12/05/14 left: 12/12/14 H/O lithotripsy H/O repair of rotator cuff H/O transurethral resection of prostate History of appendectomy History of arthroscopy of both knees History of lung biopsy History of lung biopsy Family History Father , Emphysema 72 Emphysema of lung CAD (coronary artery disease) Other Cancer Hypertension Social History Smoking and tobacco status: never smoked Second hand smoke exposure: No Smoking risk assessment/counseling performed?: No Alcohol intake: never Counseling given: No Substance/Drug Use: never Counseling given: No Lives independently: Yes Household members: spouse Marital status: Current occupational status: retired Current occupation: Steps are wide 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 Can use walker to ascend Do you think of yourself as: Straight/Heterosexual Current gender identity: Male Data Anesthesia Blood Bank 08/03/23 07:48 Blood Type O Positive Rho(D) Type Positive Antibody Screen Negative Cardiac Studies: Echocardiogram 12/03/22 Echocardiogram Ultrasound 12/19/20 Sestamibi Stress Test (Cardiology) 07/09/20 Anesthesia Procedures Nerve Block Nerve Block 1: Main Anesthesia: spinal anesthesia block Time Out Performed: Yes Consent: requested by attending/covering physician, from patient, risks and benefits reviewed and patient agrees to proceed Nerve block location: adductor canal (right) Anesthesia monitors applied: pulse oximetry, EKG, BP cuff and oxygen Nerve block position: supine Anesthetic Used: ropivicaine 0.5% Amount of anesthesia used (mL): 20 Ultrasound used to: recognize landmarks Nerve Stimulator Used?: No Interscalene/Femoral BLK: 4 stimuplex 21 g needle used for position and inplane approach Injection: neg aspiration of heme Patient Tolerated Procedure: well Complications: none
[2023-08-03] MEDS: tranexamic acid 1,000 mg/10mL SDV 1000 MG IRRIGATION (10:52)
[2023-08-03] MEDS: vancomycin 1,000 MG SDV 1000 MG INTRA-ARTI (10:57)
--- NOTE | 2023-08-03 11:17 | P.OP_ITS ---
Operative Report Date of procedure: August 03, 2023 Surgeon: Liam Dean DO Rip And Groove Machine Operator: Arnulfo Dean PA-C: PA was necessary for assistance in this case with assistance with retraction and protection of neurovascular structures as well as to assist with wound closure as well as to assist with implantation. Procedure: Preoperative diagnosis: Right knee degenerative joint disease failed conservative treatment post-op diagnosis: Same Procedure done: Right total knee arthroplasty, cemented?robotic assisted Lake Implants: Halifax triathlon size 7 femur CR cemented?right Halifax triathlon size?7 tibia universal baseplate cemented Halifax triathlon symmetric patella size 39mm Halifax triathlon polyethylene 10mm Surgeon: Liam Dean DO Estimated blood loss: 120 mL Tourniquet 47minutes IV fluids: 1200 mL Urine output: 50 mL Complications: None Condition: stable Disposition: floor Brief History: Patient is a 78-year-old male with with chronic?right knee degenerative joint disease.? Patient has been worked up in the outpatient setting in the orthopedic office at this point time through shared decision making given his [id number] arthritis as well as failed conservative treatment, and pt would like to proceed with a?right total knee arthroplasty.? Through shared decision making elected to proceed with surgical intervention for?right total knee arthroplasty.? We talked about continued conservative treatment and surgical intervention as far as the?risk benefits complications alternatives surgical and nonsurgical treatment options.? At this point time understanding patient?risks with surgery he agrees to proceed with surgical intervention.? Once again??risk with surgery include but are not limited to make it better make it worse blood clot, heart attack, stroke, on the table, infection, injury to nerves or vessels, persistent pain, arthrofibrosis, implant failure.? Understanding these?risks patient agrees to proceed with surgical intervention consent was obtained in the office.? All questions answered. Procedure: Patient was seen and evaluated in the preoperative holding area.? Consent was?reviewed and signed with patient with plan for?right total knee arthroplasty.? All questions answered.? Correct extremity marked.? Patient seen and evaluated by the anesthesia department and once cleared for surgery was giovanni gallego back to the operative suite.? Patient was placed into a supine position on the OR table.? All bony prominences were well-padded.? Patient was appropriately secured to the bed.? Patient underwent anesthesia per the anesthesia department.? Patient?received spinal anesthesia and? Garcia catheter was placed.? A nonsterile tourniquet was applied to the?right thigh.? At this point in time a final timeout performed.? Patient?received appropriate preoperative antibiotics and TXA. Next the?right lower extremity was then prepped and draped in standard orthopedic fashion. Esmarch tourniquet was used exsanguinate the?right lower extremity.? Tourniquet was insufflated to 250 mmHg. A standard anterior incision was made over midline of the knee.? Sharp scalpel excision through skin and subcutaneous tissue full-thickness skin flaps were made.? Fascia was elevated off of the extensor?retinaculum was stable with medial parapatellar arthrotomy was then made.? The performed standard sequential?releases..? Immediately on entry into the joint patient was found to have severe eburnated bone and tricompartmental arthritic changes noted.? With significant osteophyte formation.? Next the the patella was then stuffed and the knee was then flexed.?? Lulu was placed superiorly around the anterior aspect of the femur this was freed of synovium and I subsequently then placed by 2 femur pins to establish my femur arrays for the Cloud Amenity?robot.? These were then placed bicortically and? femur array was then appropriately secured with appropriate visualization.? Next attention was turned towards the tibial?rays.? These were then drilled sequentially bicortically in parallel fashion and intraincisional.? I then placed my guide as well as my tibial array on in place.? This was appropriately secured and had excellent visualization with the Lake?robot.? Next the tibial checkpoint as well as femur checkpoint were then placed.? At this point time I then subsequently established my head center as well as my medial lateral malleoli as well as my checkpoints.? Next utilizing standard Lake technology I then mapped out the appropriate points and confirmation points around the femur as well as the tibia in standard fashion.? Once this was then done I then?removed all osteophytes in preparation for dynamic testing.? All osteophytes were?removed as well as I?removed the ACL and the PCL was excised due to its significant tearing and degeneration noted.? At this point time the knee was brought into full extension and we performed our standard evaluation of our gap balancing stressing his ligaments and extension as well as flexion appropriate adjustments were made to have appropriate gap balancing in both flexion and extension.? This plan for final counts.? We get a preoperative plan evaluating our implants which was a size 7 femur and a size 7 tibia.? Next we brought in the Lake?robot and sequentially made our femur cuts.? All excess bony cuts were then?removed.? Finally we made our tibial cut.? Once this was done a standard PCL?retractor was then placed into this position I excised the medial and lateral meniscus.? The tibial cut was then subsequently?removed all excess bony debris was?removed.? I then utilized a lamina nickel operator and?remove the posterior osteophytes.? At this point time sized the tibia and confirmed this was a size 7.? I utilized our blunt probe to establish?rotation of tibial implant.? Once this was done I then placed my tibia size 7 trial in appropriate position and then subsequently placed tibial pins to hold this into place placed a size 10 mm poly as well as a size 7 femur which was appropriately impacted in place knee was then subsequently brought into extension. Trials were then assessed, this was stable with varus valgus stress in extension as well as flexion.? This was stable with varus valgus stress in extension as well as had symmetrical translation when brought into flexion demonstrating symmetrical gaps. I had excellent balance gaps in flexion and extension with varus and valgus stresses.? At this point I was satisfied with these implants these were then verified and opened on the back table size7 tibia, size7 femur,? size 10 mm polythickness.? We did confirm appropriate gap balancing and stresses as well as alignment utilizing? Lake and were satisfied with this plan.? ?At this point time with my trials in place I then towel clip the patella everted this made appropriate measurements subsequently utilizing freehand technique performed by patellar?resurfacing this was confirmed to be appropriate?resection and subsequently sized to be a 39 mm symmetric.? My drill peg guides were then clamped and appropriate position and appropriate position in the patella for appropriate tracking and parallel with the joint.? Pegs were drilled trial implant was placed and the knee was then subsequently?ranged and found to have excellent patellar tracking.? All checkpoints as well as guidepins and arrays were?removed and appropriate counts made. Femur pegs were then drilled.? Satisfied with our tibial placement?rotation I then utilized the keel punch and prepped the tibia.? At this point time all of our trial implants were?removed.? ? The wound bed? was thoroughly irrigated and dried and prepped for cementation.? Cement was mixed on the back table.? Once cement was?ready this was then covered onto the tibia and the tibial baseplate was then impacted and all excess cement was?removed.? Next the polyethylene was then impacted into place on the tibial baseplate.? Next cement was placed onto the femur as well as under the femur implants and impacted in to place and all excess cement was extruded and?removed.? Knee was taken into full extension? to clear all excess cement was?removed.? Warm saline was placed over the joint.? I then towel clip patella and dried for cementation. cemented the patella into place.? This was all clamped and the cement was allowed to cure.? Thorough irrigation performed with pulse lavage.? I then placed my periarticular injection while the cement was curing.? Once cured the knee was taken through?range of motion and had excellent stability and gaps were balanced in flexion and extension.? Tourniquet was then deflated. hemostasis satisfactory with electrocautery.? Next I then subsequently closed the capsule with Ethibond suture as well as a?running strata fix suture.? Knee was then taken through?range of motion 30 times.? Next the skin was then closed in layered fashion of?running stratifix sutures of deep and subcutenous tissue and skin.? ?closed in flexion and Prineo glue was then placed over the incision this allowed to cure.? Incision was covered with Silverlon, with ABDs soft?roll and Zenon wrap.? Patient was then awakened from anesthesia and taken to PACU in stable condition. Disposition: Patient taken to PACU in stable condition will be admitted to the floor for pain control PT/OT weight-bear as tolerated?right lower extremity dressing changes as needed, DVT prophylaxis. Pain control. Patient will?receive appropriate postoperative antibiotics. patient will be seen today by the internal medicine team for medical management.? Patient will follow up with the office in 2 weeks.? Patient understands agrees with current plan.? All questions answered.
--- NOTE | 2023-08-03 11:24 | XR_ITS ---
WS: [id number] KNEE RIGHT TECHNIQUE: 3 views of the right knee CLINICAL INFORMATION: r tka COMPARISON: None. FINDINGS: Postoperative changes RIGHT TKA. Associated patellar resurfacing. Hardware appears in good position. Associated soft tissue edema and postoperative air in the subcutaneous soft tissues. IMPRESSION: RIGHT TKA normal for postoperative purposes. Kellgren-Davy Classification: NA
--- NOTE | 2023-08-03 11:47 | P.BOP_ITS ---
Date of procedure: [2022] Surgeon name: Dr. Dianne [place] Pigment Grinder(s) name(s): Arnulfo Dean physician switchboard operator assistant Procedure(s) performed: Right total knee arthroplasty with Lake robot Description of findings: [Right knee degenerative joint disease] Estimated blood loss: [125 mL] Specimen(s) removed: [N/A] Post-operative diagnosis: [Right knee degenerative joint disease]
--- NOTE | 2023-08-03 11:50 | P.PCN_ITS ---
PACU note Narrative: Patient is a 78-year-old male that just underwent a right knee total arthroplasty with Lake robot. Pt transferred to PACU in stable condition. Dressing is dry. pt is awake and alert. pt able to perform straight leg raise, Femoral nerve intact. Distal pulses are palpable toes are warm and we ll-perfused. Cap refill is normal and under 2 seconds. Pain is controlled. unable to perform further assessment of sensation and motor function due to residual spinal block. Exam: awake Disposition: discharged
[2023-08-03] MEDS: lactated ringers 1,000 ML 100 ML IV (14:06)
[2023-08-03] MEDS: chlorhexidine gluconate 0.12% Btl 473 mL 30 ML MUCOUS MEM ×3 (14:06→20:38)
--- NOTE | 2023-08-03 15:59 | ANE.PACU2 ---
Inpatient post-anesthesia follow up: Airway intact: Yes Vital signs: Temperature 98.3 F Pulse Rate 64 Respiratory Rate 15 Blood Pressure 101/64 Pulse Oximetry 97 Oxygen Delivery Me thod Room Air Oxygen Flow Rate 2 Fraction of Inspir ed Oxygen Hydration adequate: Yes Nausea and vomiting: No Pain level: 1 Mental status: Baseline
--- NOTE | 2023-08-03 17:01 | PC.OT ---
Patient had surgery earlier this date. To attempt OT evaluation on a later date.
[2023-08-03] MEDS: docusate sodium 100 mg Capsule PO (17:48)
[2023-08-03] MEDS: iron polysaccharide complex 150 mg Capsule PO (17:48)
[2023-08-03] MEDS: calcium carb-vit d 600mg/400unit 1 Tablet 1 EACH PO (17:48)
[2023-08-03] MEDS: mupirocin oint 22 gm 1 APPLIC NASAL (17:49)
[2023-08-03] MEDS: oxyCODONE 5 mg IR Tab/Cap PO (20:37)
[2023-08-03] MEDS: ketorolac 30 mg/mL INJ 15 MG IVP (23:55)
[2023-08-04] MEDS: lactated ringers 1,000 ML 100 ML IV (00:26)
[2023-08-04] MEDS: ceFAZolin 2,000 MG in sodium chloride 0.9% (plus) 50 ML 100 MG IV ×2 (01:52→08:31)
[2023-08-04 03:48] VITALS: BP 102/68; PULSE 67; RESP 15; TEMP 36.6; O2SAT 90
[2023-08-04 05:10] LABS: Basophils # 0.1 10^3/uL (0.0-0.1); Basophils % 0.5 %; Eosinophils # 0.3 10^3/uL (0.0-0.8); Eosinophils % 2.7 %; Hematocrit 39.7 % (37-53); Lymphocytes # 1.7 10^3/uL (0.8-4.8); Mean Corpuscular HGB Conc 30.5 g/dL (30-55); Mean Corpuscular Hemoglobin 27.8 pg (27-33); Mean Corpuscular Volume 91.1 fl (82-101); Mean Platelet Volume 10.4 fL (7.4-10.4); Monocytes # 0.7 10^3/uL (0.2-0.9); Neutrophils # 7.08 10^3/uL (1.8-7.7); Neutrophils % 72.4 %; Nucleated Red Blood Cells % 0 %; Platelet Count 175 10^3/cmm (157-399); Red Blood Count 4.36 10^6/uL (3.85-5.65); Red Cell Distribution Width 13.3 % (12.1-15.1); White Blood Count 9.77 10^3/uL (3.29-11.43)
[2023-08-04 05:33] LABS: Anion Gap 10.3 (5-19); Blood Urea Nitrogen 28 mg/dL (8-23); Calcium 8.6 mg/dL (8.5-10.5); Carbon Dioxide 31 mmol/L (22-29); Chloride 103 mmol/L (98-107); Glucose 102 mg/dL (65-115); Osmolality Calculated 296 mOsm/kg (285-295); Potassium 4.3 mmol/L (3.5-5.1); Sodium 140 mmol/L (136-145)
[2023-08-04 07:10] VITALS: BP 109/64; PULSE 71; RESP 16; TEMP 36.4; O2SAT 92
[2023-08-04 07:29] VITALS: PULSE 74; RESP 16; O2SAT 93
[2023-08-04] MEDS: docusate sodium 100 mg Capsule PO (08:29)
[2023-08-04] MEDS: iron polysaccharide complex 150 mg Capsule PO (08:29)
[2023-08-04] MEDS: multivitamin therapeutic Tablet 1 TAB PO (08:29)
[2023-08-04] MEDS: apixaban 5 mg Tablet 2.5 MG PO (08:29)
[2023-08-04] MEDS: calcium carb-vit d 600mg/400unit 1 Tablet 1 EACH PO (08:29)
[2023-08-04] MEDS: acetaminophen 1,000 MG/100 ML PIGGYBACK 400 MG IV (08:30)
[2023-08-04] MEDS: chlorhexidine gluconate 0.12% Btl 473 mL 30 ML MUCOUS MEM ×2 (08:30→13:52)
[2023-08-04] MEDS: mupirocin oint 22 gm 1 APPLIC NASAL (08:31)
--- NOTE | 2023-08-04 09:43 | PC.CHAP ---
Pastoral Care Encounter/Spiritual Assessment Type of Contact [] Declined typo machine operator visit [] Patient/Family/Request visit [] Outpatient visit [] Follow-up visit [] Physician referral [] Code/Alert [x] Routine visit [] Staff referral [] Actively dying [] Patient sleeping [] Family support [] [] Out of room [] Palliative care [] [] Receiving care in room [] Pre-surgical visit [] Trauma [] Long length of stay [] ICU visit [] Other: Relational/Emotional Strength [x] Patient feels connected with others/family/visitors/staff [] Distress [] Loneliness/isolation [] Abandonment Spirituality of Patient [x] Person of Nancy [] Attends Jehovah'S Witness of their Nancy [x] Believes in Prayer [] Reads Bible or Confucianist materials [] There are Spiritual issues to be addressed Harvest Worker Fruit Interventions [x] Prayer [x] Active listening [] Non-anxious presence [x] Spiritual/emotional support [] Crisis/trauma care [] Spiritual counseling [] Bereavement support [] Provided bereavement packet [] Provided Bible/devotional materials [] Provided toy/stuffed animal, coloring book to patient or family member [] Provided Communion [] Anointing/[place] [] Salvation [x] Completed spiritual assessment [] Other: Impact on Illness or Injury [] Angry [] Fearful [] Anxious [] Often cries [] Exhaustion [] Unable to work [] Unable to attend alevism [] Unable to walk/stand [] Unable to read [] Unable to drive [] Unable to eat/drink [] Unable to sleep [] Unable to be with family [] Patient intubated [] Other: Summary Time spent with patient 5 min
--- NOTE | 2023-08-04 10:37 | PM.CONSULT ---
Providers/Reason For Consult Consulting Physician/Specialty*: Hospitalist Reason for Consult*: post op Management Attending Physician: Liam Dean DO Primary Care Provider: Bill Mello History of Present Illness History of Present Illness Sarkis Galvin is a 78 year old male status post surgery of right knee medicine team has been consulted for postoperative management. Patient is stating that he uses 2 L of oxygen at baseline only at night for sleep apnea, does not use any inhalers does not carry any diagnosis of COPD Review of Systems Const: Denies: fever(s) Eyes: Denies: photophobia ENMT: Denies: throat pain Card: Denies: chest pain Resp: Denies: dyspnea GI: Denies: abdominal pain : Denies: flank pain Musc: Denies: neck pain Skin/Breast: Denies: rash Neuro: Denies: headache(s) Medications/Allergies Home Medications Medication Instructions Recorded Confirmed Last Taken Type aspirin 81 mg tablet,delayed 81 mg PO DAILY 01/27/20 07/31/23 07/30/23 History release (Sea Low Dose Aspirin) cholecalciferol (vitamin D3) 25 25 mcg PO DAILY 03/28/21 07/31/23 08/02/23 History mcg (1,000 unit) capsule ascorbic acid (vitamin C) 1,000 mg 1,000 mg PO DAILY 09/02/21 07/31/23 08/02/23 History tablet desonide 0.05 % topical cream 1 applic topical BID #60 grams 12/31/21 07/31/23 07/31/23 Rx potassium chloride 10 mEq 10 meq PO DAILY #90 tabs 04/21/22 07/31/23 08/02/23 Rx tablet,extended release spironolactone 25 mg tablet 25 mg PO DAILY #90 tabs 10/24/22 07/31/23 08/02/23 Rx esomeprazole magnesium 40 mg 40 mg PO DAILY 90 days #90 caps 01/06/23 07/31/23 08/02/23 Rx capsule,delayed release hydroxychloroquine 200 mg tablet 200 mg PO BID #60 tabs 01/13/23 07/31/23 08/02/23 Rx melatonin 10 mg disintegrating 10 mg PO BEDTIME 02/24/23 07/31/23 08/02/23 History tablet escitalopram oxalate 20 mg tablet 20 mg PO DAILY 06/07/31/23 08/02/23 History zinc acetate 50 mg (zinc) capsule 50 mg PO DAILY 04/12/23 07/31/23 08/02/23 History acetaminophen 650 mg 650 mg PO Q8H PRN pain #60 tabs 04/16/23 07/31/23 Unknown Rx tablet,extended release furosemide 40 mg tablet 40 mg PO DAILY PRN Edema #90 tabs 04/16/23 07/31/23 07/30/23 Rx prednisone 5 mg tablet 5 mg PO DAILY #20 tabs 04/16/23 07/31/23 08/02/23 Rx metoprolol succinate 100 mg 50 mg PO DAILY #30 tabs 05/06/23 07/31/23 08/03/23 06:30 Rx tablet,extended release 24 hr ferrous gluconate 324 mg (37.5 mg 240 mg PO BID 07/16/23 07/31/23 08/02/23 History iron) tablet Allergies Allergy/AdvReac Type Severity Reaction Status Date / Time ranitidine [From Zantac] Allergy Mild rash Verified 07/31/23 17:20 apremilast [From Otezla] Allergy diarrhea Verified 07/31/23 17:20 etanercept [From Enbrel] Allergy life Verified 07/31/23 17:20 threatening infection levofloxacin [From Levaquin] Allergy vomiting Verified 07/31/23 17:20 methotrexate Allergy life Verified 07/31/23 17:20 threatening infection tamsulosin Allergy dizziness Verified 07/31/23 17:20 tramadol Allergy nausea Verified 07/31/23 17:20 tofacitinib [From Xeljanz] AdvReac ADR-Dizzine Verified 07/31/23 17:20 ss PFSH Acute PFSH: Medical History Diastolic heart failure Facial pain Fibromyalgia 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 Lumbago Mitral valve prolapse TRACE (obstructive sleep apnea) Osteoarthritis of knees, bilateral Psoriatic arthritis Rheumatoid arthritis without rheumatoid factor, multiple sites Sarcoidosis of lung Shortness of breath Surgical History H/O bilateral cataract extraction right:12/05/14 left: 12/12/14 H/O lithotripsy H/O repair of rotator cuff H/O transurethral resection of prostate History of appendectomy History of arthroscopy of both knees History of lung biopsy History of lung biopsy Family History Father , Emphysema 72 Emphysema of lung CAD (coronary artery disease) Other Cancer Hypertension Social History Smoking and tobacco status: never smoked Second hand smoke exposure: No Smoking risk assessment/counseling performed?: No Alcohol intake: never Counseling given: No Substance/Drug Use: never Counseling given: No Lives independently: Yes Household members: spouse Marital status: Current occupational status: retired Current occupation: Steps are wide 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 Can use walker to ascend Do you think of yourself as: Straight/Heterosexual Current gender identity: Male Vitals/I&O/Wt Last Vital Signs Temp 98.3 F 08/03/23 12:09 Pulse 68 08/03/23 12:14 Resp 16 08/03/23 12:14 BP 97/62 08/03/23 12:14 Pulse Ox 94 08/03/23 12:14 O2 Del Method Nasal Cannula 08/03/23 12:14 O2 Flow Rate 2 08/03/23 12:04 08/02/23 08/03/23 08/03/23 22:59 06:59 14:59 Intake Total 1510 / 1510 Output Total 175 / 175 Balance 1335 / 1335 Weight last 48 hrs Weight 97.522 kg Physical Exam Narrative: Awake and alert Right knee covered in dressing Working with PT GCS 15 S1, S2 Abdomen soft Currently on room air Pleasant and cooperative Urinary Catheter Management: Garcia: Cath Placed During This Visit: yes Urinary Catheter Date of Insertion: 08/03/23 Urinary Catheter Time of Insertion: 09:40 Data 08/04/23 05:03 08/04/23 05:03 A&P Assessment and plan (1) Status post hip hemiarthroplasty: (2) Primary osteoarthritis of right knee: (3) ASHLEE (acute kidney injury): Plan Acute on chronic kidney disease: Baseline creatinine seems to be between 1.1-1.4 ASHLEE related ketorolac Discontinue NSAIDs and ketorolac I do believe patient could be discharged home with a BMP prescription for his ASHLEE to monitor his kidney function as this is ketorolac related which should improve once medication is discontinued Continue IV fluids until he is discharged Would recommend holding off on spironolactone and hydroxychloroquine for at least 3 to 4 days he may resume once creatinine goes back to baseline Postop day 1 Patient did well with physical therapy Sleep apnea Uses 2 L of oxygen and nighttime Full code Regular diet Consult Attestations Medical Necessity Statement: As per orthopedics Diagnoses Status post hip hemiarthroplasty Z96.649 Primary osteoarthritis of right knee M17.11 ASHLEE (acute kidney injury) N17.9
[2023-08-04 11:12] VITALS: PULSE 68; RESP 16; TEMP 36.6; O2SAT 95
--- NOTE | 2023-08-04 12:56 | P.PN_ITS ---
Subjective Subjective: Patient is a 78-year-old male that is 1 day postop right total knee arthroplasty. Denies any acute events overnight. Patient's pain is well controlled. He has has seen physical therapy today and they have gotten him up to ambulate. Denies any fevers or vomiting. Vitals/I&O/Wt Last Vital Signs Temp 97.8 F 08/04/23 11:12 Pulse 68 08/04/23 11:12 Resp 16 08/04/23 11:12 BP 109/64 08/04/23 07:10 Pulse Ox 95 08/04/23 11:12 O2 Del Method Room Air 08/04/23 11:12 O2 Flow Rate 2 08/03/23 13:24 08/03/23 08/04/23 08/04/23 22:59 06:59 14:59 Intake Total 500 / 2010 1600 / 3610 630 / 630 Output Total 50 / 225 200 / 425 Balance 450 / 1785 1400 / 3185 630 / 630 Weight last 48 hrs Weight 215 lb Physical Exam Const: COMMON NORMALS: alert GENERAL APPEARANCE: cooperative HENMT: COMMON NORMALS: atraumatic HEAD & SCALP: atraumatic Resp: COMMON NORMALS: normal respiratory effort EFFORT & INSPECTION: Yes able to speak in complete sentences and No tachypneic Extremity: NARRATIVE EXTREMITY EXAM: Right leg?dressing is dry. pt can wiggle toes and plantarflex and dorsiflex foot. pt able to perform straight leg raise, Femoral nerve intact. Distal pulses are palpable toes are warm and well-perfused. Cap refill is normal and under 2 seconds. Sensation to foot is intact. Pain is controlled. Neuro: SENSORIUM/ORIENTATION: Yes alert Skin: GENERAL SKIN EXAM: dry skin Urinary Catheter Management: Garcia: Cath Placed During This Visit: yes, but has since been removed by the nurse Reason for Continuing Indwelling Catheter: Decision to DC Catheter Urinary Catheter Date of Insertion: 08/03/23 Urinary Catheter Time of Insertion: 09:40 Date Urinary Catheter Removed: 08/03/23 Time Urinary Catheter Discontinued: 14:23 Data 08/04/23 05:03 08/04/23 05:03 A&P Assessment and plan (1) Status post total right knee replacement using cement: Plan Plan: -Hospitalist on board for medical management -Labs and imaging reviewed today -DVT prophylaxis per hospitalist -Physical therapy -Weight-bear as tolerated -Leave dressing on dry and in place. -Pain control From an orthopedic standpoint patient is cleared for discharge home. Case management to get patient set up with physical therapy. He was sent home with prescription for pain meds and a prescription for Eliquis 2.5 mg twice daily for the next 14 days. Follow-up appointment at orthopedic clinic in 2 weeks. Attestations Medical Necessity Statement*: Ongoing care for after right total knee arthroplasty Coding Level of Care Code Acute Code for [facility] Diagnoses Status post total right knee replacement using cement Z96.651
--- NOTE | 2023-08-04 13:05 | PM.DCS ---
Discharge Providers Date of Admission: 08/03/23 11:12 Date of Discharge: August 04, 2023 Attending Provider at Admission: Liam Dean DO Attending Provider at Discharge: Liam Dean DO Consults: Hospitalist?Dr. Baca Primary Care Provider: Bill Mello Diagnoses at Discharge Discharge Diagnosis (1) Status post total right knee replacement using cement: Status: Acute Reason for Visit Reason for Visit: M17.11 Brief History: Right knee degenerative joint disease, undergoing right total knee arthroplasty Hospital Course Hospital Course Patient presented to the preoperative holding area with plan for right total knee arthroplasty after patient has been worked up in the outpatient setting for failed conservative treatment of right knee degenerative joint disease.? Once cleared by anesthesia for surgery patient subsequently was taken back to the operative suite? underwent? anesthesia per anesthesia department and then subsequently underwent a right total knee arthroplasty.? Procedure was performed without any complications patient was taken to PACU in stable condition patient? recovered well in PACU and then was admitted to the floor postoperatively internal medicine was consulted and on board for medical management and assistance with care.? Patient received appropriate PT/OT, postoperative antibiotics, postoperative TXA, pain control, postoperative DVT prophylaxis.? Elevation and ice.? Patient encouraged for knee range of motion allowed weightbearing as tolerated to the operative lower extremity.? Dressing was changed as needed, labs were monitored daily.?? Patient recovered well postoperatively and worked well and progressed well with therapy.? It was determined on postoperative day 1 the patient was stable for discharge from an orthopedic standpoint and medicine.? Patient was comfortable with discharge and plan was discharged home.? Patient received appropriate discharge instructions as well as pain medication and DVT prophylaxis postoperatively.? Given appropriate instructions for? dressing management.? Patient will follow-up with Dr. Dean/orthopedics in the office in 2 weeks.? All questions answered.? Understand if there is any issues questions or concerns and contact the office. Physical Exam Const: COMMON NORMALS: alert GENERAL APPEARANCE: cooperative HENMT: COMMON NORMALS: atraumatic HEAD & SCALP: atraumatic Resp: COMMON NORMALS: normal respiratory effort EFFORT & INSPECTION: Yes able to speak in complete sentences and No tachypneic Extremity: NARRATIVE EXTREMITY EXAM: Right leg?dressing is dry. pt can wiggle toes and plantarflex and dorsiflex foot. pt able to perform straight leg raise, Femoral nerve intact. Distal pulses are palpable toes are warm and well-perfused. Cap refill is normal and under 2 seconds. Sensation to foot is intact. Pain is controlled. Neuro: SENSORIUM/ORIENTATION: Yes alert Skin: GENERAL SKIN EXAM: dry skin Urinary Catheter Management: Garcia: Cath Placed During This Visit: yes, but has since been removed by the nurse Reason for Continuing Indwelling Catheter: Decision to DC Catheter Urinary Catheter Date of Insertion: 08/03/23 Urinary Catheter Time of Insertion: 09:40 Date Urinary Catheter Removed: 08/03/23 Time Urinary Catheter Discontinued: 14:23 Discharge Data Studies Completed and Pending Completed Studies During Hospitalization Category Date Time Status XR knee RT 3V* [id number] Routine Exams 08/03/23 11:24 Completed Laboratory Results WBC 9.77 10^3/uL (3.29-11.43) 08/04/23 05:03 RBC 4.36 10^6/uL (3.85-5.65) 08/04/23 05:03 Hgb 12.10 g/dL (11.27-16.99) 08/04/23 05:03 Hct 39.7 % (37-53) 08/04/23 05:03 MCV 91.1 fl (82-101) 08/04/23 05:03 MCH 27.8 pg (27-33) 08/04/23 05:03 MCHC 30.5 g/dL (30-55) 08/04/23 05:03 RDW 13.3 % (12.1-15.1) 08/04/23 05:03 Plt Count 175 10^3/cmm (157-399) 08/04/23 05:03 MPV 10.4 fL (7.4-10.4) 08/04/23 05:03 Neut % (Auto) 72.4 % 08/04/23 05:03 Lymph % (Auto) 17.0 % 08/04/23 05:03 Anson % (Auto) 7.0 % 08/04/23 05:03 Eos % (Auto) 2.7 % 08/04/23 05:03 Baso % (Auto) 0.5 % 08/04/23 05:03 Neut # (Auto) 7.08 10^3/uL (1.8-7.7) 08/04/23 05:03 Lymph # (Auto) 1.7 10^3/uL (0.8-4.8) 08/04/23 05:03 Anson # (Auto) 0.7 10^3/uL (0.2-0.9) 08/04/23 05:03 Eos # (Auto) 0.3 10^3/uL (0.0-0.8) 08/04/23 05:03 Baso # (Auto) 0.1 10^3/uL (0.0-0.1) 08/04/23 05:03 Nucleated RBC % (auto) 0 % 08/04/23 05:03 Nucleated RBCs # 0.0 /100WBC 08/04/23 05:03 Sodium 140 mmol/L (136-145) 08/04/23 05:03 Potassium 4.3 mmol/L (3.5-5.1) 08/04/23 05:03 Chloride 103 mmol/L (98-107) 08/04/23 05:03 Carbon Dioxide 31 mmol/L (22-29) H 08/04/23 05:03 Anion Gap 10.3 (5-19) 08/04/23 05:03 BUN 28 mg/dL (8-23) H 08/04/23 05:03 Creatinine 1.6 mg/dL (0.7-1.2) H 08/04/23 05:03 GFR Calculation Not Reportable 08/04/23 05:03 Glucose 102 mg/dL (65-115) 08/04/23 05:03 Calculated Osmolality 296 mOsm/kg (285-295) H 08/04/23 05:03 Calcium 8.6 mg/dL (8.5-10.5) 08/04/23 05:03 Blood Type O Positive 08/03/23 07:48 Rho(D) Type Positive 08/03/23 07:48 Antibody Screen Negative 08/03/23 07:48 Vitals Last Vital Signs Temp 98.3 F 08/04/23 17:10 Pulse 90 08/04/23 17:10 Resp 16 08/04/23 17:10 BP 123/69 08/04/23 17:10 Pulse Ox 91 08/04/23 17:10 O2 Del Method Room Air 08/04/23 15:51 O2 Flow Rate 2 08/03/23 13:24 Discharge Plan Discharge Patient Disposition: Home Condition: Stable Prescriptions: New docusate sodium 100 mg Capsule 100 mg PO BID Qty: 20 0RF Continued aspirin [Sea Low Dose Aspirin] 81 mg tablet,delayed release (DR/EC) 81 mg PO DAILY Rx Instructions: pt states he took today and was instructed not to cholecalciferol (vitamin D3) 25 mcg (1,000 unit) capsule 25 mcg PO DAILY ascorbic acid (vitamin C) 1,000 mg tablet 1,000 mg PO DAILY melatonin 10 mg tablet,disintegrating 10 mg PO BEDTIME ferrous gluconate 324 mg (37.5 mg iron) tablet 240 mg PO BID desonide 0.05 % cream 1 applic TOPICAL BID Qty: 60 0RF esomeprazole magnesium 40 mg capsule,delayed release(DR/EC) 40 mg PO DAILY 90 Days Qty: 90 2RF zinc acetate 50 mg (zinc) Capsule 50 mg PO DAILY escitalopram oxalate 20 mg tablet 20 mg PO DAILY acetaminophen 650 mg tablet extended release 650 mg PO Q8H PRN (Reason: pain) Qty: 60 0RF furosemide 40 mg tablet 40 mg PO DAILY PRN (Reason: Edema) Qty: 90 3RF prednisone 5 mg tablet 5 mg PO DAILY Qty: 20 3RF metoprolol succinate 100 mg tablet extended release 24 hr 50 mg PO DAILY Qty: 30 0RF Rx Instructions: Take 1 tablet by mouth once daily Held spironolactone 25 mg tablet 25 mg PO DAILY Qty: 90 2RF Hold Instructions: Resume on 08/07/23. potassium chloride 10 mEq tablet extended release 10 meq PO DAILY Qty: 90 3RF Hold Instructions: Resume on 08/07/23. hydroxychloroquine 200 mg tablet 200 mg PO BID Qty: 60 4RF Hold Instructions: Resume on 08/07/23. No Action oxycodone 5 mg tablet 5 mg PO Q4H PRN (Reason: Moderate Pain) 7 Days Qty: 42 0RF Discharge Orders: Discharge Order (Routine); Ordered 08/04/23 Ordered By: Liam Daen Other Ambulatory Orders: Basic Metabolic Panel (Routine) Timeframe: 3 Days Facility: [facility] - Location: Lab - Main Lab Ordered By: Ritchie Baca Referrals: Bill Mello NP [Primary Care Provider] - 08/06/23 10:30 am () Liam Dean DO [Physician] - 2 weeks (We have notified your physician's clinic of the need for a follow-up appointment to be scheduled. If you have not heard from them within the next 2 business days, please call them directly. You may also reach out to our modeling manager at [phone] and she can assist you.) Discharge Diet: Advance as tolerated Discharge Activity: Increase activity as tolerated and Limit activity as instructed Patient Instructions: Laxative, Stool Softeners (By mouth), Oxycodone, Rapid Release (By mouth), Ondansetron (By mouth), Apixaban (By mouth), Total Knee Replacement (GEN), Joint Replacement Stoplight, Opioid Safety Activity Restrictions/Additional Instructions: Keep incisions clean dry and intact, leave Silverlon bandage dressings on in place for 7 days after that may rinse incisions with warm soapy water pat dry and redress with a dry dressing. Patient may weight-bear as tolerate to the operative extremity Utilize crutches as needed Encourage knee range of motion Ice and elevate as needed for pain and swelling Take pain medication as prescribed Take antinausea medication as needed The prescribed Eliquis twice daily for the next 14 days for blood clot prevention May supplement for pain with ibuprofen [id number] as needed No baths or soaks Follow-up in the orthopedic office in 2 weeks Contact the office for any questions or concerns Discharge Attestations Time Spent in Discharge Care*: less than 30 min Status at Discharge: Cognitive status at discharge: cognitively intact, Behavioral status at discharge: cooperative, Quality Metrics Clinical Quality Measures [ No reported AMI, CVA or VTE this stay] Coding Level of Care Code Acute Code for Chg Fwd Diagnoses Status post total right knee replacement using cement Z96.651 Time Spent (min) 20
[2023-08-04 15:51] VITALS: BP 123/69; PULSE 90; RESP 16; TEMP 36.8; O2SAT 91
[2023-08-04 17:10] VITALS: BP 123/69; PULSE 90; RESP 16; TEMP 36.8; O2SAT 91
== END 2023-08-04 17:11 | disposition home or self-care (01) ==
LOC: MEDSURG 11:13
PROVIDERS: Admitting Provider Student in an Organized Health Care Education/Training Program; PCP Clinical Nurse Specialist Adult Health; Visit Provider Student in an Organized Health Care Education/Training Program
PROC: 8E0Y0CZ Robotic Assisted Procedure of Lower Extremity, Open Approach (ICD-10-PCS; CPT 27447; principal; 2023-08-03 08:50)
DX: M17.11 Unilateral primary osteoarthritis, right knee (principal); Z79.82 Long term (current) use of aspirin; I11.0 Hypertensive heart disease with heart failure; I50.30 Unspecified diastolic (congestive) heart failure; G47.33 Obstructive sleep apnea (adult) (pediatric); K21.9 Gastro-esophageal reflux disease without esophagitis; E66.01 Morbid (severe) obesity due to excess calories; Z68.29 Body mass index [BMI] 29.0-29.9, adult; Z79.52 Long term (current) use of systemic steroids
CPT/HCPCS: 27447; 36415; 51702; 73562; 80048; 85025; 86850; 86900; 97110; 97116; 97161; 97165; 97530; C1776; G0378; J0131; J0171; J0690; J1100; J1170; J1200; J1885; J2250; J2371; J2405; J2704; J2795; J3010; J3370; J3490; J7030; J7120

== ENCOUNTER → 2023-08-18 15:09 | Outpatient (BNVA) | payer OTHER, SELFPAY | PROVIDERS: PCP Clinical Nurse Specialist Adult Health; Visit Provider Physician Assistant | DX: Z96.651 Presence of right artificial knee joint (principal) | CPT/HCPCS: 73560; 73565 ==

== ENCOUNTER → 2023-08-27 13:11 | Outpatient (BNVA) | payer OTHER, SELFPAY | PROVIDERS: PCP Clinical Nurse Specialist Adult Health; Visit Provider Clinical Nurse Specialist Adult Health | DX: N17.9 Acute kidney failure, unspecified (principal) | CPT/HCPCS: 80048 ==

== ENCOUNTER 2023-09-04 08:56 | Outpatient (RCR) | payer OTHER, SELFPAY | END 2023-09-24 23:59 | disposition home or self-care (01) | LOC: SPT 08:56 | PROVIDERS: PCP Clinical Nurse Specialist Adult Health; Visit Provider Student in an Organized Health Care Education/Training Program | DX: Z47.1 Aftercare following joint replacement surgery (principal); Z96.651 Presence of right artificial knee joint | CPT/HCPCS: 97110; 97161 ==

== ENCOUNTER 2023-09-29 09:58 | Outpatient (RCR) | payer OTHER, SELFPAY | END 2023-10-08 23:59 | disposition home or self-care (01) | LOC: SPT 09:58 | PROVIDERS: PCP Clinical Nurse Specialist Adult Health; Visit Provider Student in an Organized Health Care Education/Training Program | DX: Z47.1 Aftercare following joint replacement surgery (principal); Z96.651 Presence of right artificial knee joint | CPT/HCPCS: 97110 ==

== ENCOUNTER → 2023-09-29 13:24 | Outpatient (BNVA) | payer OTHER, SELFPAY | PROVIDERS: PCP Clinical Nurse Specialist Adult Health; Visit Provider Physician Assistant | DX: Z96.651 Presence of right artificial knee joint (principal) | CPT/HCPCS: 73560; 73565 ==

== ENCOUNTER 2023-10-06 11:09 | Outpatient (CLI) | payer OTHER, SELFPAY ==
[2023-10-06 11:26] LABS: Basophils # 0.1 10^3/uL (0.0-0.1); Basophils % 0.9 %; Eosinophils # 0.2 10^3/uL (0.0-0.8); Eosinophils % 1.9 %; Hematocrit 45.9 % (37-53); Lymphocytes # 2.1 10^3/uL (0.8-4.8); Lymphocytes % 27.6 %; Mean Corpuscular HGB Conc 30.3 g/dL (30-55); Mean Corpuscular Hemoglobin 28.5 pg (27-33); Mean Corpuscular Volume 94.1 fl (82-101); Mean Platelet Volume 9.6 fL (7.4-10.4); Monocytes # 0.6 10^3/uL (0.2-0.9); Monocytes % 7.6 %; Neutrophils # 4.78 10^3/uL (1.8-7.7); Neutrophils % 61.6 %; Nucleated Red Blood Cells % 0 %; Platelet Count 264 10^3/cmm (157-399); Red Blood Count 4.88 10^6/uL (3.85-5.65); Red Cell Distribution Width 14.8 % (12.1-15.1); White Blood Count 7.76 10^3/uL (3.29-11.43)
[2023-10-06 11:29] LABS: Erythrocyte Sedimentation Rate 3 mm/hr (0-10)
[2023-10-06 11:46] LABS: Alanine Aminotransferase 11 U/L (0-41); Albumin Level 4.1 g/dL (3.5-5.2); Alkaline Phosphatase 106 U/L (40-130); Anion Gap 11.5 (5-19); Aspartate Amino Transferase 16 U/L (0-40); Blood Urea Nitrogen 12 mg/dL (8-23); C Reactive Protein 5.6 mg/L (0.0-4.9); Calcium 9.3 mg/dL (8.5-10.5); Carbon Dioxide 32 mmol/L (22-29); Chloride 101 mmol/L (98-107); Globulin 2.9 g/dL (1.3-4.6); Glucose 91 mg/dL (65-115); Osmolality Calculated 289 mOsm/kg (285-295); Potassium 4.5 mmol/L (3.5-5.1); Sodium 140 mmol/L (136-145); Total Bilirubin 0.6 mg/dL (0.15-1.2)
[2023-10-08 15:29] LABS: Glucose-6-Phosphate Dehydrogen 20.7 U/g Hgb (7.0-20.5)
== END 2023-10-06 11:10 | disposition home or self-care (01) ==
LOC: LAB 11:10
PROVIDERS: Internal Medicine; PCP Clinical Nurse Specialist Adult Health; Visit Provider Internal Medicine Rheumatology
DX: M06.09 Rheumatoid arthritis without rheumatoid factor, multiple sites (principal); G47.31 Primary central sleep apnea; J84.10 Pulmonary fibrosis, unspecified; J98.4 Other disorders of lung
CPT/HCPCS: 36415; 80053; 82955; 85025; 85651; 86140

== ENCOUNTER 2023-11-19 12:30 | Outpatient (CLI) | payer MEDICARE, SELFPAY ==
[2023-11-19 13:00] VITALS: PULSE 67; RESP 18; O2SAT 97
[2023-11-19] MEDS: albuterol 2.5 mg/3 mL Neb INHALATION (13:00)
[2023-11-19 13:04] VITALS: PULSE 67
== END 2023-11-19 12:31 | disposition home or self-care (01) ==
PROVIDERS: PCP Clinical Nurse Specialist Adult Health; Visit Provider Internal Medicine Pulmonary Disease
DX: R06.02 Shortness of breath (principal); R94.2 Abnormal results of pulmonary function studies
CPT/HCPCS: 94060; 94618; 94726; 94729; J7613

== ENCOUNTER → 2023-12-08 14:23 | Outpatient (BNVA) | payer MEDICARE, SELFPAY | PROVIDERS: PCP Clinical Nurse Specialist Adult Health; Visit Provider Clinical Nurse Specialist Adult Health | DX: R73.01 Impaired fasting glucose (principal); N18.2 Chronic kidney disease, stage 2 (mild) | CPT/HCPCS: 80053; 82306; 83036; 85025 ==

== ENCOUNTER → 2023-12-10 13:58 | Outpatient (BNVA) | payer MEDICARE, SELFPAY | PROVIDERS: PCP Clinical Nurse Specialist Adult Health; Visit Provider Physician Assistant | DX: Z96.651 Presence of right artificial knee joint (principal) | CPT/HCPCS: 73560; 73565; 99213 ==

== ENCOUNTER → 2024-01-18 07:52 | Outpatient (BNVA) | payer MEDICARE, SELFPAY | PROVIDERS: PCP Clinical Nurse Specialist Adult Health; Visit Provider Internal Medicine Pulmonary Disease | DX: G47.31 Primary central sleep apnea (principal); J96.11 Chronic respiratory failure with hypoxia; J84.10 Pulmonary fibrosis, unspecified; J98.4 Other disorders of lung; J84.9 Interstitial pulmonary disease, unspecified; J43.0 Unilateral pulmonary emphysema [MacLeod's syndrome]; J43.1 Panlobular emphysema; J43.2 Centrilobular emphysema; J43.8 Other emphysema; J44.0 Chronic obstructive pulmonary disease with (acute) lower respiratory infection; U09.9 Post COVID-19 condition, unspecified; Z99.89 Dependence on other enabling machines and devices; J44.9 Chronic obstructive pulmonary disease, unspecified | CPT/HCPCS: 99214 ==

== ENCOUNTER 2024-01-26 12:26 | Outpatient (CLI) | payer MEDICARE, SELFPAY ==
[2024-01-26 13:10] LABS: Blood Urea Nitrogen 22 mg/dL (8-23); Calcium 9.4 mg/dL (8.5-10.5); Carbon Dioxide 30 mmol/L (22-29); Chloride 100 mmol/L (98-107); Glucose 64 mg/dL (65-115); NT Pro B Type Natriuretic Pept 220 pg/mL (0-450); Osmolality Calculated 293 mOsm/kg (285-295); Sodium 141 mmol/L (136-145)
== END 2024-01-26 12:27 | disposition home or self-care (01) ==
LOC: LAB 12:27
PROVIDERS: PCP Clinical Nurse Specialist Adult Health; Visit Provider Internal Medicine
DX: R00.1 Bradycardia, unspecified (principal); I50.32 Chronic diastolic (congestive) heart failure
CPT/HCPCS: 36415; 80048; 83880

== ENCOUNTER → 2024-03-10 13:33 | Outpatient (BNVA) | payer MEDICARE, SELFPAY | PROVIDERS: PCP Clinical Nurse Specialist Adult Health; Visit Provider Physician Assistant | DX: Z96.651 Presence of right artificial knee joint (principal); R20.2 Paresthesia of skin | CPT/HCPCS: 73560; 73565; 99213 ==

== ENCOUNTER 2024-04-06 14:54 | Outpatient (CLI) | payer MEDICARE, SELFPAY ==
[2024-04-06 15:20] LABS: Basophils # 0.1 10^3/uL (0.0-0.1); Basophils % 0.9 %; Eosinophils # 0.2 10^3/uL (0.0-0.8); Eosinophils % 1.7 %; Hematocrit 48.9 % (37-53); Lymphocytes # 2.6 10^3/uL (0.8-4.8); Lymphocytes % 25.7 %; Mean Corpuscular HGB Conc 32.3 g/dL (30-55); Mean Corpuscular Hemoglobin 30.7 pg (27-33); Mean Platelet Volume 9.8 fL (7.4-10.4); Monocytes # 0.7 10^3/uL (0.2-0.9); Monocytes % 6.5 %; Neutrophils # 6.46 10^3/uL (1.8-7.7); Neutrophils % 64.8 %; Nucleated Red Blood Cells % 0 %; Platelet Count 297 10^3/cmm (157-399); Red Blood Count 5.15 10^6/uL (3.85-5.65); Red Cell Distribution Width 13.2 % (12.1-15.1); White Blood Count 9.97 10^3/uL (3.29-11.43)
[2024-04-06 15:37] LABS: Alanine Aminotransferase 19 U/L (0-41); Albumin Level 4.1 g/dL (3.5-5.2); Alkaline Phosphatase 113 U/L (40-130); Aspartate Amino Transferase 25 U/L (0-40); C Reactive Protein 7.3 mg/L (0.0-4.9); Globulin 3.2 g/dL (1.3-4.6); Total Bilirubin 0.5 mg/dL (0.15-1.2); Total Protein 7.3 g/dL (6.6-8.7)
== END 2024-04-06 14:55 | disposition home or self-care (01) ==
LOC: LAB 14:55
PROVIDERS: PCP Clinical Nurse Specialist Adult Health; Visit Provider Internal Medicine Rheumatology
DX: Z79.899 Other long term (current) drug therapy (principal); M06.09 Rheumatoid arthritis without rheumatoid factor, multiple sites
CPT/HCPCS: 36415; 80076; 82565; 85025; 86140

== ENCOUNTER → 2024-04-26 10:43 | Outpatient (BNVA) | payer MEDICARE, SELFPAY | PROVIDERS: PCP Clinical Nurse Specialist Adult Health; Visit Provider Nurse Practitioner Family | DX: I50.32 Chronic diastolic (congestive) heart failure (principal) | CPT/HCPCS: 99213 ==

== ENCOUNTER → 2024-06-28 15:52 | Outpatient (BNVA) | payer MEDICARE, SELFPAY | PROVIDERS: PCP Clinical Nurse Specialist Adult Health; Visit Provider Clinical Nurse Specialist Adult Health | DX: G57.93 Unspecified mononeuropathy of bilateral lower limbs (principal) | CPT/HCPCS: 84550 ==

== ENCOUNTER → 2024-08-11 13:05 | Outpatient (BNVA) | payer MEDICARE, SELFPAY | PROVIDERS: PCP Clinical Nurse Specialist Adult Health; Visit Provider Physician Assistant | DX: Z96.651 Presence of right artificial knee joint (principal) | CPT/HCPCS: 73560; 73565; 99213 ==

== ENCOUNTER → 2024-08-23 14:12 | Outpatient (BNVA) | payer MEDICARE, SELFPAY | PROVIDERS: PCP Clinical Nurse Specialist Adult Health; Visit Provider Internal Medicine Rheumatology | DX: L40.50 Arthropathic psoriasis, unspecified (principal); M06.09 Rheumatoid arthritis without rheumatoid factor, multiple sites; M17.0 Bilateral primary osteoarthritis of knee; L40.0 Psoriasis vulgaris; M10.9 Gout, unspecified; Z79.899 Other long term (current) drug therapy; Z71.85 Encounter for immunization safety counseling | CPT/HCPCS: 99214; 99215 ==

== ENCOUNTER 2024-09-23 10:54 | Outpatient (CLI) | payer MEDICARE, SELFPAY ==
[2024-09-23 11:08] LABS: Erythrocyte Sedimentation Rate < 1 mm/hr (0-10)
[2024-09-23 11:10] LABS: Basophils # 0.1 10^3/uL (0.0-0.1); Basophils % 0.8 %; Eosinophils # 0.2 10^3/uL (0.0-0.8); Eosinophils % 2.5 %; Hematocrit 50.4 % (37-53); Lymphocytes # 2.4 10^3/uL (0.8-4.8); Lymphocytes % 28.5 %; Mean Corpuscular HGB Conc 31.9 g/dL (30-55); Mean Corpuscular Hemoglobin 29.8 pg (27-33); Mean Corpuscular Volume 93.2 fl (82-101); Mean Platelet Volume 9.7 fL (7.4-10.4); Monocytes # 0.7 10^3/uL (0.2-0.9); Monocytes % 8.2 %; Neutrophils # 5.09 10^3/uL (1.8-7.7); Neutrophils % 59.6 %; Nucleated Red Blood Cells % 0 %; Platelet Count 311 10^3/cmm (157-399); Red Blood Count 5.41 10^6/uL (3.85-5.65); Red Cell Distribution Width 13.6 % (12.1-15.1); White Blood Count 8.53 10^3/uL (3.29-11.43)
[2024-09-23 11:23] LABS: Alanine Aminotransferase 38 U/L (0-41); Albumin Level 4.6 g/dL (3.5-5.2); Alkaline Phosphatase 84 U/L (40-130); Aspartate Amino Transferase 34 U/L (0-40); Globulin 2.6 g/dL (1.3-4.6); Total Bilirubin 0.6 mg/dL (0.15-1.2); Total Protein 7.2 g/dL (6.6-8.7); Uric Acid 5.4 mg/dL (3.4-7.0)
== END 2024-09-23 10:55 | disposition home or self-care (01) ==
LOC: LAB 10:54
PROVIDERS: PCP Clinical Nurse Specialist Adult Health; Visit Provider Internal Medicine Rheumatology
DX: L40.50 Arthropathic psoriasis, unspecified (principal); M06.09 Rheumatoid arthritis without rheumatoid factor, multiple sites
CPT/HCPCS: 80076; 82565; 84550; 85025; 85651; 86140

== ENCOUNTER 2024-10-18 12:16 | Outpatient (CLI) | payer MEDICARE, SELFPAY ==
[2024-10-18 12:56] LABS: Anion Gap 16.8 (5-19); Blood Urea Nitrogen 24 mg/dL (8-23); Calcium 9.7 mg/dL (8.5-10.5); Carbon Dioxide 31 mmol/L (22-29); Chloride 99 mmol/L (98-107); Glucose 110 mg/dL (65-115); Osmolality Calculated 301 mOsm/kg (285-295); Potassium 3.8 mmol/L (3.5-5.1); Sodium 143 mmol/L (136-145)
== END 2024-10-18 12:17 | disposition home or self-care (01) ==
LOC: LAB 12:19
PROVIDERS: Visit Provider Nurse Practitioner Family
DX: I50.32 Chronic diastolic (congestive) heart failure (principal)
CPT/HCPCS: 36415; 80048

== ENCOUNTER → 2025-02-15 09:12 | Outpatient (BNVA) | payer MEDICARE, SELFPAY | PROVIDERS: Visit Provider Internal Medicine | DX: I50.32 Chronic diastolic (congestive) heart failure (principal); I07.1 Rheumatic tricuspid insufficiency; I34.1 Nonrheumatic mitral (valve) prolapse; Z79.82 Long term (current) use of aspirin | CPT/HCPCS: 99214 ==

== ENCOUNTER → 2025-03-23 14:20 | Outpatient (BNVA) | payer MEDICARE, SELFPAY | PROVIDERS: PCP Clinical Nurse Specialist Adult Health; Visit Provider Internal Medicine Rheumatology | DX: Z79.899 Other long term (current) drug therapy (principal); R51.9 Headache, unspecified; G89.29 Other chronic pain; J44.9 Chronic obstructive pulmonary disease, unspecified; L40.50 Arthropathic psoriasis, unspecified; M17.0 Bilateral primary osteoarthritis of knee; L40.0 Psoriasis vulgaris; M10.9 Gout, unspecified; Z71.85 Encounter for immunization safety counseling | CPT/HCPCS: 36415; 80076; 82565; 85025; 85651; 86140; 86480; 86704; 86803; 87340; 99214 ==

== ENCOUNTER 2025-03-31 15:31 | Emergency (ER) | payer MEDICARE, SELFPAY ==
[2025-03-31 15:49] VITALS: BP 129/80; PULSE 69; RESP 16; TEMP 36.4; O2SAT 93; BMI 31.5
[2025-03-31 17:09] LABS: Basophils # 0.1 10^3/uL (0.0-0.1); Basophils % 0.6 %; Eosinophils # 0.2 10^3/uL (0.0-0.8); Eosinophils % 1.7 %; Hematocrit 47.4 % (37-53); Lymphocytes # 2.2 10^3/uL (0.8-4.8); Lymphocytes % 25.7 %; Mean Corpuscular HGB Conc 31.6 g/dL (30-55); Mean Corpuscular Hemoglobin 30.2 pg (27-33); Mean Corpuscular Volume 95.6 fl (82-101); Mean Platelet Volume 9.7 fL (7.4-10.4); Monocytes # 0.5 10^3/uL (0.2-0.9); Monocytes % 6.2 %; Neutrophils # 5.69 10^3/uL (1.8-7.7); Neutrophils % 65.3 %; Nucleated Red Blood Cells % 0 %; Platelet Count 251 10^3/cmm (157-399); Red Blood Count 4.96 10^6/uL (3.85-5.65); Red Cell Distribution Width 13.4 % (12.1-15.1); White Blood Count 8.71 10^3/uL (3.29-11.43)
[2025-03-31 17:27] LABS: Alanine Aminotransferase 38 U/L (0-41); Albumin Level 4.5 g/dL (3.5-5.2); Alkaline Phosphatase 85 U/L (40-130); Anion Gap 16.5 (5-19); Aspartate Amino Transferase 31 U/L (0-40); Blood Urea Nitrogen 20 mg/dL (8-23); Calcium 9.3 mg/dL (8.5-10.5); Carbon Dioxide 30 mmol/L (22-29); Chloride 99 mmol/L (98-107); Creatinine Clr Calc Pharmacy 64.4782; Globulin 3.1 g/dL (1.3-4.6); Glucose 100 mg/dL (65-115); Osmolality Calculated 295 mOsm/kg (285-295); Potassium 4.5 mmol/L (3.5-5.1); Sodium 141 mmol/L (136-145); Total Bilirubin 0.5 mg/dL (0.15-1.2); Total Protein 7.6 g/dL (6.6-8.7)
--- NOTE | 2025-03-31 17:31 | CTR_ITS ---
PROCEDURE INFORMATION: Exam: CT Abdomen And Pelvis Without Contrast Exam date and time: 03/31/2025 5:54 PM Age: 79 years old Clinical indication: Other: Urinary retention; Prior surgery; Surgery date: 6+ months; Surgery type: Appy, right hip, renal stones TECHNIQUE: Imaging protocol: Computed tomography of the abdomen and pelvis without contrast. Radiation optimization: All CT scans at this facility use at least one of these dose optimization techniques: automated exposure control; mA and/or kV adjustment per patient size (includes targeted exams where dose is matched to clinical indication); or iterative reconstruction. COMPARISON: CT bony pelvis [id number] 04/12/2023 3:12 AM RADIATION DOSE METRICS: Total DLP (mGy-cm): 1036.8 FINDINGS: Lungs: Atelectasis, parenchymal scarring, and possibly pulmonary fibrosis at the lung bases. Liver: Unremarkable. Gallbladder and biliary ducts: Unremarkable. Pancreas: Unremarkable. Spleen: Calcified granulomas in the spleen. Adrenal glands: Unremarkable. Kidneys and ureters: Nonobstructing bilateral renal calculi. Bilateral renal cysts with a 6.8 cm. Additional bilateral hemorrhagic renal cysts. Stomach and bowel: Colonic diverticulosis without evidence of acute diverticulitis. Appendix: Status post appendectomy. Intraperitoneal space: Unremarkable. Vasculature: Minimal atherosclerotic calcifications in the abdomen and pelvis. Lymph nodes: Unremarkable. Urinary bladder: Decompressed bladder with Garcia catheter in place. Reproductive: Prostatic calcifications. Bones/joints: Right hip arthroplasty. Soft tissues: Fat containing umbilical hernia without inflammatory change. CT/CT abdomen pelvis con [id number] IMPRESSION: 1. No acute findings. Bilateral nonobstructing nephrolithiasis. No ureteral calculi. 2. Ancillary findings as above including bilateral renal cysts. COMMENTS: Consistent with the [employer]'s Incidental Findings Committee white paper (J Am Galindo Radiol 2018): Any incidental renal lesion less than 1 cm or classified as too small to characterize, or any incidental cystic renal lesion characterized as simple-appearing, is likely benign. No follow-up imaging is recommended for these lesions per consensus recommendations based on imaging criteria.
--- NOTE | 2025-03-31 17:31 | W.ED.MALEGU ---
HPI - Male Genitourinary General: Chief complaint: Urogenital-Male Stated complaint: unable to urinate Time Seen by Provider: 03/31/25 17:18 History of Present Illness: Patient is 79-year-old gentleman presents ED with inability to void. Patient stated he has not been able to urinate for the last 5 hours. His pain is directly around his penis. Admits to previous history of renal colic however this has felt different in the past. He has never had an issue with urinary retention. He was intolerant to tamsulosin due to dizziness. Patient states he has not had an issue with his prostate before, however has had a catheter in the past due to CHF. Bladder scan noted 534 mL. Associated symptoms: Reports nausea; Deny vomiting Related Data Home Medications ?Medication ?Instructions ?Recorded ?Confirmed aspirin 81 mg tablet,delayed 81 mg PO DAILY 01/27/20 03/23/25 release (Sea Low Dose Aspirin) cholecalciferol (vitamin D3) 25 25 mcg PO DAILY 03/28/21 03/23/25 mcg (1,000 unit) capsule ascorbic acid (vitamin C) 1,000 mg 1,000 mg PO DAILY 09/02/21 03/23/25 tablet zinc acetate 50 mg (zinc) capsule 50 mg PO DAILY 04/12/23 03/23/25 ferrous gluconate 324 mg (37.5 mg 240 mg PO DAILY 09/29/23 03/23/25 iron) tablet Co Q10 PO 02/15/25 03/23/25 Fish Oil PO 02/15/25 03/23/25 Previous Rx's ?Medication ?Instructions ?Recorded desonide 0.05 % topical cream 1 applic topical BID #60 grams 12/31/21 acetaminophen 650 mg 650 mg PO Q8H PRN pain #60 tabs 04/16/23 tablet,extended release metoprolol succinate 50 mg 50 mg PO DAILY #90 tabs 04/12/24 tablet,extended release 24 hr esomeprazole magnesium 40 mg 40 mg PO DAILY 90 days #90 caps 10/04/24 capsule,delayed release escitalopram oxalate 20 mg tablet 20 mg PO DAILY #90 tabs 11/16/24 furosemide 80 mg tablet 80 mg PO DAILY Edema #90 tabs 01/16/25 tiotropium 2.5 mcg-olodaterol 2.5 2 puff inhalation DAILY #4 grams 02/21/25 mcg/actuation mist for inhalation (Stiolto Respimat) albuterol sulfate 90 mcg/actuation 2 puff inhalation Q6H PRN 03/14/25 aerosol inhaler shortness of breath or wheezing #8.5 grams diclofenac sodium 1 % topical gel 2 g topical QID #100 grams 03/23/25 (Arthritis Pain (diclofenac)) febuxostat 40 mg tablet 40 mg PO DAILY #90 tabs 03/23/25 prednisone 5 mg tablet 5 mg PO DAILY #90 tabs 03/23/25 cephalexin 500 mg capsule 500 mg PO BID 5 days #10 caps 03/31/25 Allergies Allergy/AdvReac Type Severity Reaction Status Date / Time ranitidine (From Zantac) Allergy Mild rash Verified 03/23/25 14:53 upadacitinib (From Rinvoq) Allergy Unknown ADR-Dizzine Verified 03/23/25 14:53 ss apremilast (From Otezla) Allergy diarrhea Verified 03/23/25 14:53 etanercept (From Enbrel) Allergy life Verified 03/23/25 14:53 threatening infection levofloxacin (From Levaquin) Allergy vomiting Verified 03/23/25 14:53 methotrexate Allergy life Verified 03/23/25 14:53 threatening infection tamsulosin Allergy dizziness Verified 03/23/25 14:53 tramadol Allergy nausea Verified 03/23/25 14:53 tofacitinib (From Xeljanz) AdvReac ADR-Dizzine Verified 03/23/25 14:53 ss Review of Systems General: Reports: 10 or more systems reviewed and unremarkable except in HPI and below Const: Denies: fever(s) or chills Card: Denies: chest pain or palpitations Resp: Denies: dyspnea or productive cough GI: Reports: abdominal pain and nausea; Denies: vomiting : Reports: difficulty urinating Musc: Denies: neck pain or back pain Skin/Breast: Denies: rash or pruritus Neuro: Denies: headache(s) or numbness in extremities Psych: Denies: anxiety or depression Derian/Lymph: Denies: easy bruising or easy bleeding All/Imm: Denies: urticaria or throat swelling PFSH ED PFSH: Medical History Pulmonary fibrosis Immunization counseling High risk medication use Plaque psoriasis Hyperlipidemia Cervical disc disease Current chronic use of systemic steroids TMJ arthralgia Tinnitus of both ears Complex sleep apnea syndrome Restrictive lung disease Gout Osteopenia Stage 2 chronic kidney disease baseline creatinine 1.1 ASHLEE (acute kidney injury) Primary osteoarthritis of right knee History of thyroid nodule 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 Mitral valve prolapse Facial pain Tricuspid regurgitation TRACE (obstructive sleep apnea) Fibromyalgia Lumbago Rheumatoid arthritis without rheumatoid factor, multiple sites Diastolic heart failure Osteoarthritis of knees, bilateral Sarcoidosis of lung Psoriatic arthritis Surgical History Status post total right knee replacement using cement Status post right shoulder hemiarthroplasty Status post hip hemiarthroplasty History of lung biopsy H/O bilateral cataract extraction right:12/05/14 left: 12/12/14 History of arthroscopy of both knees H/O lithotripsy H/O transurethral resection of prostate H/O repair of rotator cuff Left shoulder History of appendectomy History of lung biopsy Family History Father , Emphysema 72 Emphysema of lung CAD (coronary artery disease) Other Cancer Hypertension Social History Smoking and tobacco/nicotine status: never used tobacco/nicotine Second hand smoke exposure: No Alcohol intake: never Substance/Drug Use: current Other substance/drug use details: Marijuana gummy at night Lives independently: Yes Household members: spouse Marital status: Current occupational status: retired Current occupation: Steps are wide 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 Can use walker to ascend Do you think of yourself as: Straight/Heterosexual Current gender identity: Male Physical Exam Const: COMMON NORMALS: no acute distress, patient oriented x3 and alert GENERAL APPEARANCE: cooperative NUTRITIONAL APPEARANCE: obese HENMT: COMMON NORMALS: normocephalic, atraumatic and hearing grossly normal bilaterally HEAD & SCALP: normocephalic and atraumatic MOUTH: Normal oral and palatal mucosa present Eye: COMMON NORMALS: Equal, round and reactive pupils present and EOMs intact bilaterally VISUAL ACUITY: Yes acuity normal PUPIL: Yes Equal, round and reactive pupils present Neck/C-Spine: COMMON NORMALS: full ROM and no lymphadenopathy GENERAL: Yes normal visual inspection Chest: Breast/axilla inspection: Yes no chest deformity, asymmetry, normal contours, no nodules, masses, tenderness Resp: COMMON NORMALS: normal respiratory effort and clear to auscultation bilaterally AUSCULTATION: clear to auscultation bilaterally Cardio: COMMON NORMALS: S1 normal heart sound present and S2 normal heart sound present HEART SOUNDS: S1 normal heart sound present and S2 normal heart sound present GI: COMMON NORMALS: Normal to inspection, nondistended, normoactive bowel sounds present and Soft to palpation AUSCULTATION: Yes normoactive bowel sounds PALPATION: Yes Soft to palpation and Yes Tenderness to palpation present (GI) Details: other (suprapubic fullness and tenderness) Neuro: COMMON NORMALS: patient oriented x3 SENSORIUM/ORIENTATION: Yes alert Course Vital Signs: Vital signs: Vital Signs Temperature 97.5 F L 03/31/25 15:49 Pulse Rate 63 03/31/25 19:35 Respiratory Rate 16 03/31/25 15:49 Blood Pressure 134/64 03/31/25 19:35 Pulse Oximetry 97 03/31/25 19:35 Oxygen Delivery Me thod Nasal Cannula 03/31/25 15:49 Oxygen Flow Rate 2 03/31/25 15:49 MDM - Male Medical Decision Making Patient is 79-year-old man intolerant to prostate alpha 1 medications that presents with urinary retention. Initial workup will be obtained, as well as CT to rule out additional differentials including renal colic. Given his urinary retention, he will require a catheter placed and follow-up with urology. Lab Data 03/31/25 17:00 03/31/25 17:00 Radiology Impressions Abdomen/Pelvis CT 03/31/25 17:31 IMPRESSION: 1. No acute findings. Bilateral nonobstructing nephrolithiasis. No ureteral calculi. 2. Ancillary findings as above including bilateral renal cysts. COMMENTS: Consistent with the [employer]'s Incidental Findings Committee white paper (J Am Galindo Radiol 2018): Any incidental renal lesion less than 1 cm or classified as too small to characterize, or any incidental cystic renal lesion characterized as simple-appearing, is likely benign. No follow-up imaging is recommended for these lesions per consensus recommendations based on imaging criteria. Laboratory Results WBC 8.71 10^3/uL (3.29-11.43) 03/31/25 17:00 RBC 4.96 10^6/uL (3.85-5.65) 03/31/25 17:00 Hgb 15.00 g/dL (11.27-16.99) 03/31/25 17:00 Hct 47.4 % (37-53) 03/31/25 17:00 MCV 95.6 fl (82-101) 03/31/25 17:00 MCH 30.2 pg (27-33) 03/31/25 17:00 MCHC 31.6 g/dL (30-55) 03/31/25 17:00 RDW 13.4 % (12.1-15.1) 03/31/25 17:00 Plt Count 251 10^3/cmm (157-399) 03/31/25 17:00 MPV 9.7 fL (7.4-10.4) 03/31/25 17:00 Neut % (Auto) 65.3 % 03/31/25 17:00 Lymph % (Auto) 25.7 % 03/31/25 17:00 [place] % (Auto) 6.2 % 03/31/25 17:00 Eos % (Auto) 1.7 % 03/31/25 17:00 Baso % (Auto) 0.6 % 03/31/25 17:00 Neut # (Auto) 5.69 10^3/uL (1.8-7.7) 03/31/25 17:00 Lymph # (Auto) 2.2 10^3/uL (0.8-4.8) 03/31/25 17:00 [place] # (Auto) 0.5 10^3/uL (0.2-0.9) 03/31/25 17:00 Eos # (Auto) 0.2 10^3/uL (0.0-0.8) 03/31/25 17:00 Baso # (Auto) 0.1 10^3/uL (0.0-0.1) 03/31/25 17:00 Nucleated RBC % (auto) 0 % 03/31/25 17:00 Nucleated RBCs # 0.0 /100WBC 03/31/25 17:00 Sodium 141 mmol/L (136-145) 03/31/25 17:00 Potassium 4.5 mmol/L (3.5-5.1) 03/31/25 17:00 Chloride 99 mmol/L (98-107) 03/31/25 17:00 Carbon Dioxide 30 mmol/L (22-29) H 03/31/25 17:00 Anion Gap 16.5 (5-19) 03/31/25 17:00 BUN 20 mg/dL (8-23) 03/31/25 17:00 Creatinine 1.1 mg/dL (0.7-1.2) 03/31/25 17:00 GFR Calculation Not Reportable 03/31/25 17:00 Glucose 100 mg/dL (65-115) 03/31/25 17:00 Calculated Osmolality 295 mOsm/kg (285-295) 03/31/25 17:00 Calcium 9.3 mg/dL (8.5-10.5) 03/31/25 17:00 Total Bilirubin 0.5 mg/dL (0.15-1.2) 03/31/25 17:00 AST 31 U/L (0-40) 03/31/25 17:00 ALT 38 U/L (0-41) 03/31/25 17:00 Alkaline Phosphatase 85 U/L (40-130) 03/31/25 17:00 Total Protein 7.6 g/dL (6.6-8.7) 03/31/25 17:00 Albumin 4.5 g/dL (3.5-5.2) 03/31/25 17:00 Globulin 3.1 g/dL (1.3-4.6) 03/31/25 17:00 Urine Color Yellow (Yellow) 03/31/25 17:33 Urine Appearance Clear (CLEAR) 03/31/25 17:33 Urine pH 6.5 (5-7) 03/31/25 17:33 Ur Specific [place] 1.009 (1.005-1.030) 03/31/25 17:33 Urine Protein Negative (Negative) 03/31/25 17:33 Urine Glucose (UA) Negative (Normal) 03/31/25 17:33 Urine Ketones Negative (Negative) 03/31/25 17:33 Urine Blood Negative (Negative) 03/31/25 17:33 Urine Nitrate Negative (Negative) 03/31/25 17:33 Urine Bilirubin Negative (Negative) 03/31/25 17:33 Urine Urobilinogen 0.2 mg/dL (Negative) 03/31/25 17:33 Ur Leukocyte Esterase Negative (Negative) 03/31/25 17:33 Urine RBC 3-5 /hpf (0-2) 03/31/25 17:33 Urine WBC 0-5 /hpf (0-5) 03/31/25 17:33 Ur Squamous Epith Cells 0-5 /hpf (0-5) 03/31/25 17:33 Amorphous Sediment Not Reportable 03/31/25 17:33 Urine Bacteria None seen /hpf (NONE) 03/31/25 17:33 Hyaline Casts 0-4 /lpf H 03/31/25 17:33 All radiology interpretation(s) finalized by discharge Discharge Plan Discharge Patient Disposition: Home Clinical Impression: Acute urinary retention Condition: Stable Prescriptions: New cephalexin 500 mg capsule 500 mg PO BID 5 Days Qty: 10 0RF No Action aspirin [Sea Low Dose Aspirin] 81 mg tablet,delayed release (DR/EC) 81 mg PO DAILY Rx Instructions: pt states he took today and was instructed not to cholecalciferol (vitamin D3) 25 mcg (1,000 unit) capsule 25 mcg PO DAILY ascorbic acid (vitamin C) 1,000 mg tablet 1,000 mg PO DAILY febuxostat 40 mg tablet 40 mg PO DAILY Qty: 90 1RF prednisone 5 mg tablet 5 mg PO DAILY Qty: 90 1RF diclofenac sodium [Arthritis Pain (diclofenac)] 1 % gel 2 g topical QID Qty: 100 2RF Rx Instructions: apply to single elbow, wrist or hand; for hand includes palm/fingers/back of hand ferrous gluconate 324 mg (37.5 mg iron) tablet 240 mg PO DAILY Co Q10 PO Fish Oil PO Stiolto Respimat 2.5-2.5 mcg/actuation mist 2 puff inhalation DAILY Qty: 4 6RF desonide 0.05 % cream 1 applic TOPICAL BID Qty: 60 0RF metoprolol succinate 50 mg tablet extended release 24 hr 50 mg PO DAILY Qty: 90 3RF esomeprazole magnesium 40 mg capsule,delayed release(DR/EC) 40 mg PO DAILY 90 Days Qty: 90 3RF escitalopram oxalate 20 mg tablet 20 mg PO DAILY Qty: 90 3RF furosemide 80 mg tablet 80 mg PO DAILY Qty: 90 3RF albuterol sulfate 90 mcg/actuation HFA aerosol inhaler 2 puff inhalation Q6H PRN (Reason: shortness of breath or wheezing) Qty: 8.5 6RF zinc acetate 50 mg (zinc) Capsule 50 mg PO DAILY acetaminophen 650 mg tablet extended release 650 mg PO Q8H PRN (Reason: pain) Qty: 60 0RF Discharge Orders: Discharge ED (Routine); Ordered 03/31/25 Ordered By: Shae Reich Referrals: Arnulfo Sam MD [Primary Care Provider, [facility]] Discharge Diet: Usual diet Discharge Activity: Resume usual activity Patient Instructions: Urinary Retention in Men (ED), Garcia Catheter Placement and Care (ED) Activity Restrictions/Additional Instructions: Follow catheter care instructions/cleaning. Thursday a.m., call your doctor for follow-up next week. As discussed, typically I would place you on tamsulosin at this juncture, however since you have side effects with this, I will defer this to your regular doctor. Return to ED for further issues Print Language: Wallisian Coding Level of Care Code ED Manager Division for Kyle Schwartz
[2025-03-31 17:48] LABS: Bacteria Urine None Seen /hpf; Hyaline Casts Urine 0-4 /lpf; Squamous Epithelial Cell Urine 0-5 /hpf (0-5); WBC Urine 0-5 /hpf (0-5)
[2025-03-31 17:52] LABS: Add Urine Microscopic? YES; Bilirubin Urine Negative (Negative); Blood Urine Negative (Negative); Glucose Urine UA Negative (Normal); Ketones Urine Negative (Negative); Leukocyte Esterase Urine Negative (Negative); Nitrate Urine Negative (Negative); Protein Urine Negative (Negative); Specific Gravity, Urine 1.009 (1.005-1.030); Urine Appearance Clear (CLEAR); Urine Color Yellow (Yellow); Urobilinogen Urine 0.2 mg/dL (Negative); pH Urine 6.5 (5-7)
[2025-03-31 19:09] VITALS: BP 112/70; PULSE 64; O2SAT 97
[2025-03-31 19:35] VITALS: BP 134/64; PULSE 63; O2SAT 97
[2025-03-31] MEDS: cefTRIAXone 1,000 MG in water for injection-sterile 2.1 ML 1 MG IV (20:15)
--- NOTE | 2025-03-31 20:27 | PC.NURSE ---
Patient's stewart catheter was changed to leg bag per instruction of Rachana
[2025-03-31 21:05] VITALS: BP 122/80; PULSE 61; O2SAT 97
== END 2025-03-31 21:06 | disposition home or self-care (01) ==
PROVIDERS: Physician Assistant; Emergency Provider Physician Assistant; PCP Family Medicine
DX: R33.9 Retention of urine, unspecified (principal); Z79.82 Long term (current) use of aspirin; E78.5 Hyperlipidemia, unspecified; N18.2 Chronic kidney disease, stage 2 (mild); I50.30 Unspecified diastolic (congestive) heart failure
CPT/HCPCS: 36415; 51702; 51798; 74176; 80053; 81001; 85025; 96374; 99284; J0696

== ENCOUNTER 2025-04-18 20:00 | Outpatient (CLI) | payer MEDICARE, SELFPAY | END 2025-04-18 20:01 | disposition home or self-care (01) | LOC: SLEEP 04-19 03:16 | PROVIDERS: PCP Family Medicine; Visit Provider Internal Medicine Pulmonary Disease | DX: G47.33 Obstructive sleep apnea (adult) (pediatric) (principal); G47.10 Hypersomnia, unspecified | CPT/HCPCS: 95811 ==

== ENCOUNTER 2025-04-28 13:35 | Emergency (ER) | payer MEDICARE, SELFPAY ==
--- OUTSIDE RECORDS SUMMARY | 2025-04-19 02:44 | XMS_ITS | Continuity of Care Document ---
Author Name [facility] Organization [facility] Care Team Providers Care Sand Polisher Name Role Phone [facility] Unavailable Unavailable Problems Combined list of problems from Department of Defense and Veterans Affairs facilities. It does not include entries that were removed or entered in error. Problem Status Onset Date Problem Type Date of Resolution Comments Source Benign enlargement of prostate Active Condition [place] [facility] Dependence on supplemental oxygen Active Condition [place] [facility] Exposure to potentially hazardous substance Active Condition . [facility] H/O: Bilateral cataract extraction Active Condition [place] [facility] History of appendectomy Active Condition [place] [facility] History of calculus of kidney Active Condition [place] [facility] History of repair of rotator cuff Active Condition [place] [facility] Hypertension Active Condition [place] [facility] Mass of Head and/or Neck (SCT [id number]) Active Condition Jul 17, 2021 Entered By: LAURA CARPENTER Comment: Patient declined CT scan for evaluation of neck mass [place] [facility] Mitral valve prolapse Active Condition [place] [facility] Obstructive sleep apnea of adult Active Condition [place] [facility] Peripheral neuropathy - hereditary or idiopathic Active Condition [place] [facility] Psoriasis Active Condition [place] [facility] Pulmonary fibrosis Active Condition [place] [facility] Rheumatoid arthritis Active Condition [place] [facility] Sarcoidosis Active Condition [place] [facility] Status post ORIF right hip fracture Active Condition [place] [facility] Thyroid nodule Active Condition Aug 272021 Entered By: LAURA CARPENTER Comment: Ultrasound 06/2022 showed thyroid nodule 2 lobes, and cervical lymph node, CT scan 08/15/2022 revealed no visualized thyroid nodules.Sep 16, 2022 Entered By: LAURA CARPENTER Comment: Scan done 08/14/2022 revealed no thyroid nodules, has ENT consultation in place. [place] 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 Diagnosis: ICD-10-CM Z00.01 Encounter for general adult medical exam w abnormal findings Active Diagnosis [facility] Medications Combined list of outpatient medications from Department of Defense and Veterans Affairs facilities.Medications provided include 1) outpatient medications from the last 15 months, and 2) patient-reported medications. Medication Details Route Status Patient Instructions Prescription Expires Prescription Number Last Dispense Date Ordering Provider Order Date Order Qty Source AMOXICILLIN TRIHYDRATE 500MG CAP TAKE 2 CAPSULES BY MOUTH ONE-TIME NEEDED ORAL ACTIVE KRYSTAL RICHARDSON 2017 [facility] ASCORBIC ACID 500MG TAB TAKE TWO TABLETS BY MOUTH ONCE A DAY ORAL ACTIVE RUSSELL CARPENTER 2021 [facility] ASPIRIN 81MG TAB,EC TAKE ONE TABLET BY MOUTH ONCE A DAY ORAL ACTIVE KRYSTAL RICHARDSON 2017 [facility] CHOLECALCIF KENZIE 25MCG (1,000UNIT) TAB TAKE ONE TABLET BY MOUTH ONCE A DAY ORAL ACTIVE PAULINERUSSELL Henrietta 2021 [place] [facility] ESCITALOPRA M OXALATE 20MG TAB TAKE ONE TABLET BY MOUTH ONCE A DAY ORAL ACTIVE PAULINERUSSELL Henrietta 2021 [facility] ESOMEPRAZOL E MAGNESIUM 40MG CAP,EC TAKE 1 CAPSULE BY MOUTH ORAL ACTIVE RUSSELL CARPENTER 2021 [facility] FERROUS GLUCONATE 324MG TAB TAKE ONE TABLET BY MOUTH ONCE A DAY ORAL ACTIVE RUSSELL CARPENTER 2023 [place] [facility] FUROSEMIDE 80MG TAB TAKE ONE TABLET BY MOUTH EVERY MORNING ORAL ACTIVE RUSSELL CARPENTER 2021 [facility] HYDROXYCHLO ROQUINE SO4 200MG TAB TAKE ONE TABLET BY MOUTH TWICE A DAY ORAL ACTIVE KRYSTAL RICHARDSON 2017 [facility] MAGNESIUM OXIDE TAB TAKE 200MG BY MOUTH ONCE A DAY ORAL ACTIVE RUSSELL CARPENTER 2021 [facility] METOPROLOL SUCCINATE 200MG TAB,SA TAKE ONE-HALF TABLET BY MOUTH ONCE A DAY ORAL ACTIVE RUSSELL CARPENTER 2021 [facility] POTASSIUM CHLORIDE 20MEQ TAB,SA (DISPERSIBL E) TAKE ONE-HALF TABLET BY MOUTH Q3DAYS ORAL ACTIVE RUSSELL CARPENTER 2021 [facility] PREDNISONE 5MG TAB TAKE ONE TABLET BY MOUTH EVERY MORNING ORAL ACTIVE KRYSTAL RICHARDSON 2017 [facility] UMECLIDINIU M 62.5MCG/BABAK ANTEROL 25MCG/ACTUA T INH,ORAL,30 D INHALE 1 PUFF ORAL INHALATI ON ONCE A DAY RESPIR ATORY (INHAL ATION) ACTIVE RUSSELL CARPENTER R 2021 [facility] ZINC SULFATE CAP,ORAL TAKE 15MCG BY MOUTH ONCE A DAY ORAL ACTIVE RUSSELL CARPENTER R 2021 [facility] Allergies, Adverse Reactions, Alerts Combined list of allergies from Department of Defense and Veterans Affairs facilities. It does not include entries that were removed or entered in error. Substance Category Reaction Severity Reaction type Status Date Reported Comments Source ENBREL Propensity to adverse reactions to drug (finding) Immunosuppr ession-rela katharina infectious disease active 8 [facility] LEVAQUIN Propensity to adverse reactions to drug (finding) Finding of vomiting active 8 [facility] METHOTREXATE Propensity to adverse reactions to drug (finding) Immunosuppr ession-rela katharina infectious disease active 8 [facility] PERCOCET Propensity to adverse reactions to drug (finding) Eruption active 8 [facility] TAMSULOSIN Propensity to adverse reactions to drug (finding) Dizziness active 8 [facility] TRAMADOL Propensity to adverse reactions to drug (finding) Nausea and vomiting, Generalized aches and pains active 8 [facility] XELJANZ Propensity to adverse reactions to drug (finding) Dizziness MODERATE active 2 [facility] Immunizations Combined list of available immunizations from the Department of Defense and Veterans Affairs facilities. Immunization Series Date Given Administered By Site Reaction Lot Number CVX Code Drug Medicine Assistant Status Comments Source TDAP 2020 115 complet ed [facility] PNEUMOCOCCAL POLYSACCHARID E PPV23 2017 33 complet ed [facility] PNEUMOCOCCAL CONJUGATE PCV 13 2017 133 complet ed . [facility] Results Combined list of recent chemistry, hematology and other laboratory results from Department of Defense and Veterans Affairs, ranging from 15 months to all on record, depending upon the facility. Order Name Results Value Reference Range Date Interpretation Specimen Comments Source VITAMIN D, 25-HYDROXY 25-HYDROXYV ITAMIN D3 [MASS/VOLUM E] IN SERUM OR PLASMA 62.3 ng/mL 30 - 96 11/29 Specimen Type: SERUM No comment entered. Ordering Provider: LAURA CARPENTER Report Released Date/Time: May 31, 2024 01:21 PM Reporting Lab: [place] [facility] [address] [place] [address] Performing Lab: [place] [facility] [address] [place] [address] [facility] HGA1C HEMOGLOBIN A1C/HEMOGLO BIN.TOTAL IN BLOOD 5.9 4.0 - 6.0 11/29 Specimen Type: BLOOD No comment entered. Ordering Provider: LAURA CARPENTER Report Released Date/Time: May 31, 2024 01:21 PM Reporting Lab: [place] [facility] [address] [place] [address] Performing Lab: [place] [facility] [address] [place] [address] [facility] CHOLESTERO L PANEL (PB) CHOLESTEROL [MASS/VOLUM E] IN SERUM OR PLASMA 265 mg/dL 0 - 200 11/29 H Specimen Type: PLASMA Comment: LDL calculation invalid when Triglyceride exceeds 250 mg/dl Ordering Provider: LAURA CARPENTER Report Released Date/Time: May 31, 2024 01:21 PM Reporting Lab: [place] [facility] [address] [place] [address] Performing Lab: [place] [facility] [address] [place] [address] [facility] CHOLESTERO L PANEL (PB) TRIGLYCERID E [MASS/VOLUM E] IN SERUM OR PLASMA 258 mg/dL 0 - 150 02/04 /2025 H Specimen Type: PLASMA Comment: LDL calculation invalid when Triglyceride exceeds 250 mg/dl Ordering Provider: LAURA CARPENTER Report Released Date/Time: May 31, 2024 01:21 PM Reporting Lab: [place] [facility] [address] [place] [address] Performing Lab: [place] [facility] [address] [place] [address] [facility] CHOLESTERO L PANEL (PB) CHOLESTEROL IN LDL [MASS/VOLUM E] IN SERUM OR PLASMA BY CALCULATION commen tmg/dL 11/29 Specimen Type: PLASMA Comment: LDL calculation invalid when Triglyceride exceeds 250 mg/dl Ordering Provider: LAURA CARPENTER Report Released Date/Time: May 31, 2024 01:21 PM Reporting Lab: [place] [facility] [address] [place] [address] Performing Lab: [place] [facility] [address] [place] [address] [facility] CHOLESTERO L PANEL (PB) CHOLESTEROL IN HDL [MASS/VOLUM E] IN SERUM OR PLASMA 43.0 mg/dL 40 11/29 H Specimen Type: PLASMA Comment: LDL calculation invalid when Triglyceride exceeds 250 mg/dl Ordering Provider: LAURA CARPENTER Report Released Date/Time: May 31, 2024 01:21 PM Reporting Lab: [place] [facility] [address] [place] [address] Performing Lab: [place] [facility] [address] [place] [address] [facility] CHOLESTERO L PANEL (PB) CHOLESTEROL IN HDL/CHOLEST KENZIE.TOTAL [MASS RATIO] IN SERUM OR PLASMA 16.2 25 11/29 Specimen Type: PLASMA Comment: LDL calculation invalid when Triglyceride exceeds 250 mg/dl Ordering Provider: LAURA CARPENTER Report Released Date/Time: May 31, 2024 01:21 PM Reporting Lab: [place] [facility] [address] [place] [address] Performing Lab: [place] [facility] [address] [place] [address] [facility] CHOLESTERO L PANEL (PB) CHOLESTEROL IN LDL [MASS/VOLUM E] IN SERUM OR PLASMA BY DIRECT ASSAY 195.8 mg/dL 0 - 99.9 11/29 H Specimen Type: PLASMA Comment: LDL calculation invalid when Triglyceride exceeds 250 mg/dl Ordering Provider: LAURA CARPENTER Report Released Date/Time: May 31, 2024 01:21 PM Reporting Lab: [place] [facility] [address] [place] [address] Performing Lab: [place] [facility] [address] [place] [address] [facility] CBC LEUKOCYTES [#/VOLUME] IN BLOOD BY AUTOMATED COUNT 7.5 10*3/u L 3.6 - 11.2 11/29 Specimen Type: BLOOD No comment entered. Ordering Provider: LAURA CARPENTER Report Released Date/Time: May 31, 2024 01:21 PM Reporting Lab: [place] [facility] [address] [place] [address] Performing Lab: [place] [facility] [address] [place] [address] [facility] CBC ERYTHROCYTE S [#/VOLUME] IN BLOOD BY AUTOMATED COUNT 4.39 10*6/u L 4.10 - 5.70 11/29 Specimen Type: BLOOD No comment entered. Ordering Provider: LAURA CARPENTER Report Released Date/Time: May 31, 2024 01:21 PM Reporting Lab: [place] [facility] [address] [place] [address] Performing Lab: [place] [facility] [address] [place] [phone] [facility] CBC HEMOGLOBIN [MASS/VOLUM E] IN BLOOD 14.6 g/dL 13.1 - 16.8 11/29 Specimen Type: BLOOD No comment entered. Ordering Provider: LAURA CARPENTER Report Released Date/Time: May 31, 2024 01:21 PM Reporting Lab: [place] [facility] [address] [place] [address] Performing Lab: [place] [facility] [address] [place] [address] [facility] CBC HEMATOCRIT [VOLUME FRACTION] OF BLOOD 44.0 38.2 - 48.4 11/29 Specimen Type: BLOOD No comment entered. Ordering Provider: LAURA CARPENTER Report Released Date/Time: May 31, 2024 01:21 PM Reporting Lab: [place] [facility] [address] [place] [address] Performing Lab: [place] [facility] [address] [place] [phone] [facility] CBC MCV [ENTITIC VOLUME] BY AUTOMATED COUNT 100.2 fL 80.0 - 100.0 11/29 H Specimen Type: BLOOD No comment entered. Ordering Provider: LAURA CARPENTER Report Released Date/Time: May 31, 2024 01:21 PM Reporting Lab: [place] [facility] [address] [place] [address] Performing Lab: [place] [facility] [address] [place] [address] [facility] CBC MCH [ENTITIC MASS] BY AUTOMATED COUNT 33.3 pg 27.0 - 34.0 11/29 Specimen Type: BLOOD No comment entered. Ordering Provider: LAURA CARPENTER Report Released Date/Time: May 31, 2024 01:21 PM Reporting Lab: [place] [facility] [address] [place] [phone] Performing Lab: [place] [facility] [address] [place] [phone] [facility] CBC MCHC [MASS/VOLUM E] BY AUTOMATED COUNT 33.2 g/dL 33.0 - 36.0 11/29 Specimen Type: BLOOD No comment entered. Ordering Provider: LAURA CARPENTER Report Released Date/Time: May 31, 2024 01:21 PM Reporting Lab: [place] [facility] [address] [place] [phone] Performing Lab: [place] [facility] [address] [place] [address] [facility] CBC PLATELETS [#/VOLUME] IN BLOOD BY AUTOMATED COUNT 236 10*3/u L 150 - 400 11/29 Specimen Type: BLOOD No comment entered. Ordering Provider: LAURA CARPENTER Report Released Date/Time: May 31, 2024 01:21 PM Reporting Lab: [place] [facility] [address] [place] [address] Performing Lab: [place] [facility] [address] [place] [address] [facility] CBC PLATELET MEAN VOLUME [ENTITIC VOLUME] IN BLOOD BY AUTOMATED COUNT 10.5 fL 7.5 - 11.2 11/29 Specimen Type: BLOOD No comment entered. Ordering Provider: LAURA CARPENTER Report Released Date/Time: May 31, 2024 01:21 PM Reporting Lab: [place] [facility] [address] [place] [address] Performing Lab: [place] [facility] [address] [place] [phone] [facility] CBC ERYTHROCYTE DISTRIBUTIO N WIDTH [RATIO] BY AUTOMATED COUNT 15.4 11.8 - 15.1 11/29 H Specimen Type: BLOOD No comment entered. Ordering Provider: LAURA CARPENTER Report Released Date/Time: May 31, 2024 01:21 PM Reporting Lab: [place] [facility] [address] [place] [address] Performing Lab: [place] [facility] [address] [place] [phone] [facility] CBC LYMPHOCYTES /100 LEUKOCYTES IN BLOOD BY AUTOMATED COUNT 29.1 11/29 Specimen Type: BLOOD No comment entered. Ordering Provider: LAURA CARPENTER Report Released Date/Time: May 31, 2024 01:21 PM Reporting Lab: [place] [facility] [address] [place] [address] Performing Lab: [place] [facility] [address] [place] [address] [facility] CBC MONOCYTES/1 00 LEUKOCYTES IN BLOOD BY AUTOMATED COUNT 8.6 11/29 Specimen Type: BLOOD No comment entered. Ordering Provider: LAURA CARPENTER Report Released Date/Time: May 31, 2024 01:21 PM Reporting Lab: [place] [facility] [address] [place] [address] Performing Lab: [place] [facility] [address] [place] [address] [facility] CBC NEUTROPHILS /100 LEUKOCYTES IN BLOOD BY AUTOMATED COUNT 57.0 11/29 Specimen Type: BLOOD No comment entered. Ordering Provider: LAURA CARPENTER Report Released Date/Time: May 31, 2024 01:21 PM Reporting Lab: [place] [facility] [address] [place] [address] Performing Lab: [place] [facility] [address] [place] [address] [facility] CBC EOSINOPHILS /100 LEUKOCYTES IN BLOOD BY AUTOMATED COUNT 3.5 11/29 Specimen Type: BLOOD No comment entered. Ordering Provider: LAURA CARPENTER Report Released Date/Time: May 31, 2024 01:21 PM Reporting Lab: [place] [facility] [address] [place] [address] Performing Lab: [place] [facility] [address] [place] [address] [facility] CBC BASOPHILS/1 00 LEUKOCYTES IN BLOOD BY AUTOMATED COUNT 0.9 11/29 Specimen Type: BLOOD No comment entered. Ordering Provider: LAURA CARPENTER Report Released Date/Time: May 31, 2024 01:21 PM Reporting Lab: [place] [facility] [address] [place] [address] Performing Lab: [place] [facility] [address] [place] [address] [facility] CBC LYMPHOCYTES [#/VOLUME] IN BLOOD BY AUTOMATED COUNT 2.17 10*3/u L 0.77 - 4.50 11/29 Specimen Type: BLOOD No comment entered. Ordering Provider: LAURA CARPENTER Report Released Date/Time: May 31, 2024 01:21 PM Reporting Lab: [place] [facility] [address] [place] [address] Performing Lab: [place] [facility] [address] [place] [address] [facility] CBC MONOCYTES [#/VOLUME] IN BLOOD BY AUTOMATED COUNT 0.64 10*3/u L 0.19 - 0.8 11/29 Specimen Type: BLOOD No comment entered. Ordering Provider: LAURA CARPENTER Report Released Date/Time: May 31, 2024 01:21 PM Reporting Lab: [place] [facility] [address] [place] [address] Performing Lab: [place] [facility] [address] [place] [address] [facility] CBC NEUTROPHILS [#/VOLUME] IN BLOOD BY AUTOMATED COUNT 4.24 10*3/u L 2.10 - 8.00 11/29 Specimen Type: BLOOD No comment entered. Ordering Provider: LAURA CARPENTER Report Released Date/Time: May 31, 2024 01:21 PM Reporting Lab: [place] [facility] [address] [place] [address] Performing Lab: [place] [facility] [address] [place] [address] [facility] CBC EOSINOPHILS [#/VOLUME] IN BLOOD BY AUTOMATED COUNT 0.26 10*3/u L 0.00 - 0.60 11/29 Specimen Type: BLOOD No comment entered. Ordering Provider: LAURA CARPENTER Report Released Date/Time: May 31, 2024 01:21 PM Reporting Lab: [place] [facility] [address] [place] [phone] Performing Lab: [place] [facility] [address] [place] [address] [facility] CBC BASOPHILS [#/VOLUME] IN BLOOD BY AUTOMATED COUNT 0.07 10*3/u L 0.00 - 0.20 11/29 Specimen Type: BLOOD No comment entered. Ordering Provider: LAURA CARPENTER Report Released Date/Time: May 31, 2024 01:21 PM Reporting Lab: [place] [facility] [address] [place] [address] Performing Lab: [place] [facility] [address] [place] [address] [facility] CBC IMMATURE GRANULOCYTE S/100 LEUKOCYTES IN BLOOD BY AUTOMATED COUNT 0.9 11/29 Specimen Type: BLOOD No comment entered. Ordering Provider: LAURA CARPENTER Report Released Date/Time: May 31, 2024 01:21 PM Reporting Lab: [place] [facility] [address] [place] [phone] Performing Lab: [place] [facility] [address] [place] [address] [facility] CBC IMMATURE GRANULOCYTE S [#/VOLUME] IN BLOOD BY AUTOMATED COUNT 0.07 10*3/u L 0.00 - 0.05 11/29 H Specimen Type: BLOOD No comment entered. Ordering Provider: LAURA CARPENTER Report Released Date/Time: May 31, 2024 01:21 PM Reporting Lab: [place] [facility] [address] [place] [phone] Performing Lab: [place] [facility] [address] [place] [address] [facility] COMPREHENS KO METABOLIC PANEL CREATININE [MASS/VOLUM E] IN SERUM OR PLASMA 1.14 mg/dL 0.7 - 1.3 11/29 Specimen Type: PLASMA Comment: LDL calculation invalid when Triglyceride exceeds 250 mg/dl Ordering Provider: LAURA CARPENTER Report Released Date/Time: May 31, 2024 01:21 PM Reporting Lab: [place] [facility] [address] [place] [address] Performing Lab: [place] [facility] [address] [place] [address] [facility] COMPREHENS KO METABOLIC PANEL UREA NITROGEN [MASS/VOLUM E] IN SERUM OR PLASMA 25 mg/dL 9 - 25 11/29 Specimen Type: PLASMA Comment: LDL calculation invalid when Triglyceride exceeds 250 mg/dl Ordering Provider: LAURA CARPENTER Report Released Date/Time: May 31, 2024 01:21 PM Reporting Lab: [place] [facility] [address] [place] [address] Performing Lab[facility] [place] [facility] [address] [place] [address] [facility] COMPREHENS KO METABOLIC PANEL GLUCOSE [MASS/VOLUM E] IN SERUM OR PLASMA 87 mg/dL 72 - 99 11/29 Specimen Type: PLASMA Comment: LDL calculation invalid when Triglyceride exceeds 250 mg/dl Ordering Provider: LAURA CARPENTER Report Released Date/Time: May 31, 2024 01:21 PM Reporting Lab: [place] [facility] [address] [place] [address] Performing Lab: [place] [facility] [address] [place] [address] [facility] COMPREHENS KO METABOLIC PANEL SODIUM [MOLES/VOLU ME] IN SERUM OR PLASMA 144 meq/L 136 - 145 11/29 Specimen Type: PLASMA Comment: LDL calculation invalid when Triglyceride exceeds 250 mg/dl Ordering Provider: LAURA CARPENTER Report Released Date/Time: May 31, 2024 01:21 PM Reporting Lab: [place] [facility] [address] [place] [address] Performing Lab: [place] [facility] [address] [place] [address] [facility] COMPREHENS KO METABOLIC PANEL POTASSIUM [MOLES/VOLU ME] IN SERUM OR PLASMA 3.8 meq/L 3.5 - 5 11/29 Specimen Type: PLASMA Comment: LDL calculation invalid when Triglyceride exceeds 250 mg/dl Ordering Provider: LAURA CARPENTER Report Released Date/Time: May 31, 2024 01:21 PM Reporting Lab: [place] [facility] [address] [place] [address] Performing Lab: [place] [facility] [address] [place] [address] [facility] COMPREHENS KO METABOLIC PANEL CHLORIDE [MOLES/VOLU ME] IN SERUM OR PLASMA 102 meq/L 98 - 107 11/29 Specimen Type: PLASMA Comment: LDL calculation invalid when Triglyceride exceeds 250 mg/dl Ordering Provider: LAURA CARPENTER Report Released Date/Time: May 31, 2024 01:21 PM Reporting Lab: [place] [facility] [address] [place] [address] Performing Lab: [place] [facility] [address] [place] [address] [facility] COMPREHENS KO METABOLIC PANEL CARBON DIOXIDE, TOTAL [MOLES/VOLU ME] IN SERUM OR PLASMA 30 meq/L 22 - 31 11/29 Specimen Type: PLASMA Comment: LDL calculation invalid when Triglyceride exceeds 250 mg/dl Ordering Provider: LAURA CARPENTER Report Released Date/Time: May 31, 2024 01:21 PM Reporting Lab: [place] [facility] [address] [place] [address] Performing Lab: [place] [facility] [address] [place] [address] [facility] COMPREHENS KO METABOLIC PANEL CALCIUM [MASS/VOLUM E] IN SERUM OR PLASMA 9.6 mg/dL 8.4 - 10.4 11/29 Specimen Type: PLASMA Comment: LDL calculation invalid when Triglyceride exceeds 250 mg/dl Ordering Provider: LAURA CARPENTER Report Released Date/Time: May 31, 2024 01:21 PM Reporting Lab: [place] [facility] [address] [place] [address] Performing Lab: [place] [facility] [address] [place] [address] [facility] COMPREHENS KO METABOLIC PANEL PROTEIN [MASS/VOLUM E] IN SERUM OR PLASMA 7.5 g/dL 6 - 8.6 11/29 Specimen Type: PLASMA Comment: LDL calculation invalid when Triglyceride exceeds 250 mg/dl Ordering Provider: LAURA CARPENTER Report Released Date/Time: May 31, 2024 01:21 PM Reporting Lab: [place] [facility] [address] [place] [address] Performing Lab: [place] [facility] [address] [place] [address] [facility] COMPREHENS KO METABOLIC PANEL ALBUMIN [MASS/VOLUM E] IN SERUM OR PLASMA 4.3 g/dL 3.4 - 5 11/29 Specimen Type: PLASMA Comment: LDL calculation invalid when Triglyceride exceeds 250 mg/dl Ordering Provider: LAURA CARPENTER Report Released Date/Time: May 31, 2024 01:21 PM Reporting Lab: [place] [facility] [address] [place] [address] Performing Lab: [place] [facility] [address] [place] [address] [facility] COMPREHENS KO METABOLIC PANEL BILIRUBIN.T OTAL [MASS/VOLUM E] IN SERUM OR PLASMA 0.7 mg/dL 0.2 - 1.2 11/29 Specimen Type: PLASMA Comment: LDL calculation invalid when Triglyceride exceeds 250 mg/dl Ordering Provider: LAURA CARPENTER Report Released Date/Time: May 31, 2024 01:21 PM Reporting Lab: [place] [facility] [address] [place] [address] Performing Lab: [place] [facility] [address] [place] [address] [facility] COMPREHENS KO METABOLIC PANEL ALKALINE PHOSPHATASE [ENZYMATIC ACTIVITY/VO LUME] IN SERUM OR PLASMA 82 U/L 40 - 150 11/29 Specimen Type: PLASMA Comment: LDL calculation invalid when Triglyceride exceeds 250 mg/dl Ordering Provider: LAURA CARPENTER Report Released Date/Time: May 31, 2024 01:21 PM Reporting Lab: [place] [facility] [address] [place] [address] Performing Lab: [place] [facility] [address] [place] [address] [facility] COMPREHENS KO METABOLIC PANEL ASPARTATE AMINOTRANSF ERASE [ENZYMATIC ACTIVITY/VO LUME] IN SERUM OR PLASMA 25 U/L 5 - 34 11/29 Specimen Type: PLASMA Comment: LDL calculation invalid when Triglyceride exceeds 250 mg/dl Ordering Provider: LAURA CARPENTER Report Released Date/Time: May 31, 2024 01:21 PM Reporting Lab: [place] [facility] [address] [place] [address] Performing Lab: [place] [facility] [address] [place] [address] [facility] COMPREHENS KO METABOLIC PANEL ALANINE AMINOTRANSF ERASE [ENZYMATIC ACTIVITY/VO LUME] IN SERUM OR PLASMA 32 U/L 8 - 40 11/29 Specimen Type: PLASMA Comment: LDL calculation invalid when Triglyceride exceeds 250 mg/dl Ordering Provider: LAURA CARPENTER Report Released Date/Time: May 31, 2024 01:21 PM Reporting Lab: [place] [facility] [address] [place] [address] Performing Lab: [place] [facility] [address] [place] [address] [facility] COMPREHENS KO METABOLIC PANEL GLOMERULAR FILTRATION RATE/1.73 SQ M.PREDICTED [VOLUME RATE/AREA] IN SERUM, PLASMA OR BLOOD BY CREATININE- BASED FORMULA (CKD-EPI 2020) 65 11/29 Specimen Type: PLASMA Comment: LDL calculation invalid when Triglyceride exceeds 250 mg/dl Ordering Provider: LAURA CARPENTER Report Released Date/Time: May 31, 2024 01:21 PM Reporting Lab: [place] [facility] [address] [place] [address] Performing Lab: [place] [facility] [address] [place] [address] [facility] COMPREHENS KO METABOLIC PANEL CREATININE [MASS/VOLUM E] IN SERUM OR PLASMA 1.15 mg/dL 0.7 - 1.3 05/26 Specimen Type: PLASMA No comment entered. Ordering Provider: LAURA CARPENTER Report Released Date/Time: May 26, 2024 10:42 AM Reporting Lab: [place] [facility] [address] [place] [address] Performing Lab: [place] [facility] [address] [place] [address] [facility] COMPREHENS KO METABOLIC PANEL UREA NITROGEN [MASS/VOLUM E] IN SERUM OR PLASMA 16 mg/dL 9 - 05/26 Specimen Type: PLASMA No comment entered. Ordering Provider: LAURA CARPENTER Report Released Date/Time: May 26, 2024 10:42 AM Reporting Lab: [place] [facility] [address] [place] [address] Performing Lab: [place] [facility] [address] [place] [address] [facility] COMPREHENS KO METABOLIC PANEL GLUCOSE [MASS/VOLUM E] IN SERUM OR PLASMA 105 mg/dL 72 - 99 05/26 H Specimen Type: PLASMA No comment entered. Ordering Provider: LAURA CARPENTER Report Released Date/Time: May 26, 2024 10:42 AM Reporting Lab: [place] [facility] [address] [place] [address] Performing Lab: [place] [facility] [address] [place] [address] [facility] COMPREHENS KO METABOLIC PANEL SODIUM [MOLES/VOLU ME] IN SERUM OR PLASMA 140 meq/L 136 - 145 05/26 Specimen Type: PLASMA No comment entered. Ordering Provider: LAURA CARPENTER Report Released Date/Time: May 26, 2024 10:42 AM Reporting Lab: [place] [facility] [address] [place] [address] Performing Lab: [place] [facility] [address] [place] [address] [facility] COMPREHENS KO METABOLIC PANEL POTASSIUM [MOLES/VOLU ME] IN SERUM OR PLASMA 3.8 meq/L 3.5 - 5 05/26 Specimen Type: PLASMA No comment entered. Ordering Provider: LAURA CARPENTER Report Released Date/Time: May 26, 2024 10:42 AM Reporting Lab: [place] [facility] [address] [place] [address] Performing Lab: [place] [facility] [address] [place] [address] [facility] COMPREHENS KO METABOLIC PANEL CHLORIDE [MOLES/VOLU ME] IN SERUM OR PLASMA 102 meq/L 98 - 107 05/26 Specimen Type: PLASMA No comment entered. Ordering Provider: LAURA CARPENTER Report Released Date/Time: May 26, 2024 10:42 AM Reporting Lab: [place] [facility] [address] [place] [address] Performing Lab: [place] [facility] [address] [place] [address] [facility] COMPREHENS KO METABOLIC PANEL CARBON DIOXIDE, TOTAL [MOLES/VOLU ME] IN SERUM OR PLASMA 27 meq/L 22 - 31 05/26 Specimen Type: PLASMA No comment entered. Ordering Provider: LAURA CARPENTER Report Released Date/Time: May 26, 2024 10:42 AM Reporting Lab: [place] [facility] [address] [place] [address] Performing Lab: [place] [facility] [address] [place] [address] [facility] COMPREHENS KO METABOLIC PANEL CALCIUM [MASS/VOLUM E] IN SERUM OR PLASMA 9.1 mg/dL 8.4 - 10.4 05/26 Specimen Type: PLASMA No comment entered. Ordering Provider: LAURA CARPENTER Report Released Date/Time: May 26, 2024 10:42 AM Reporting Lab: [place] [facility] [address] [place] [facility] Performing Lab: [place] [facility] [address] [place] [phone] [facility] COMPREHENS KO METABOLIC PANEL PROTEIN [MASS/VOLUM E] IN SERUM OR PLASMA 7.5 g/dL 6 - 8.6 05/26 Specimen Type: PLASMA No comment entered. Ordering Provider: LAUAR CARPENTER Report Released Date/Time: May 26, 2024 10:42 AM Reporting Lab: [place] [facility] [address] [place] [address] Performing Lab: [place] [facility] [address] [place] [address] [facility] COMPREHENS KO METABOLIC PANEL ALBUMIN [MASS/VOLUM E] IN SERUM OR PLASMA 4.2 g/dL 3.4 - 5 05/26 Specimen Type: PLASMA No comment entered. Ordering Provider: LAURA CARPENTER Report Released Date/Time: May 26, 2024 10:42 AM Reporting Lab: [place] [facility] [address] [place] [address] Performing Lab: [place] [facility] [address] [place] [address] [facility] COMPREHENS KO METABOLIC PANEL BILIRUBIN.T OTAL [MASS/VOLUM E] IN SERUM OR PLASMA 1.1 mg/dL 0.2 - 1.2 05/26 Specimen Type: PLASMA No comment entered. Ordering Provider: LAURA CARPENTER Report Released Date/Time: May 26, 2024 10:42 AM Reporting Lab: [place] [facility] [address] [place] [address] Performing Lab: [place] [facility] [address] [place] [address] [facility] COMPREHENS KO METABOLIC PANEL ALKALINE PHOSPHATASE [ENZYMATIC ACTIVITY/VO LUME] IN SERUM OR PLASMA 95 U/L 40 - 150 05/26 Specimen Type: PLASMA No comment entered. Ordering Provider: LAURA CARPENTER Report Released Date/Time: May 26, 2024 10:42 AM Reporting Lab: [place] [facility] [address] [place] [phone] Performing Lab: [place] [facility] [address] [place] [address] [facility] COMPREHENS KO METABOLIC PANEL ASPARTATE AMINOTRANSF ERASE [ENZYMATIC ACTIVITY/VO LUME] IN SERUM OR PLASMA 20 U/L 5 - 34 05/26 Specimen Type: PLASMA No comment entered. Ordering Provider: LAURA CARPENTER Report Released Date/Time: May 26, 2024 10:42 AM Reporting Lab: [place] [facility] [address] [place] [address] Performing Lab: [place] [facility] [address] [place] [address] [facility] COMPREHENS KO METABOLIC PANEL ALANINE AMINOTRANSF ERASE [ENZYMATIC ACTIVITY/VO LUME] IN SERUM OR PLASMA 19 U/L 8 - 40 05/26 Specimen Type: PLASMA No comment entered. Ordering Provider: LAURA CARPENTER Report Released Date/Time: May 26, 2024 10:42 AM Reporting Lab: [place] [facility] [address] [place] [address] Performing Lab: [place] [facility] [address] [place] [address] [facility] COMPREHENS KO METABOLIC PANEL GLOMERULAR FILTRATION RATE/1.73 SQ M.PREDICTED [VOLUME RATE/AREA] IN SERUM, PLASMA OR BLOOD BY CREATININE- BASED FORMULA (CKD-EPI 2020) 65 05/26 Specimen Type: PLASMA No comment entered. Ordering Provider: LAURA CARPENTER Report Released Date/Time: May 26, 2024 10:42 AM Reporting Lab: [place] [facility] [address] [place] [phone] Performing Lab: [place] [facility] [address] [place] [address] [facility] B12 COBALAMIN (VITAMIN B12) [MASS/VOLUM E] IN SERUM OR PLASMA 1178 pg/mL 213 - 816 05/26 H Specimen Type: SERUM No comment entered. Ordering Provider: LAURA CARPENTER Report Released Date/Time: May 26, 2024 10:42 AM Reporting Lab: [place] [facility] [address] [place] [address] Performing Lab: [place] [facility] [address] [place] [address] [facility] CBC LEUKOCYTES [#/VOLUME] IN BLOOD BY AUTOMATED COUNT 9.9 10*3/u L 3.6 - 11.2 05/26 Specimen Type: BLOOD No comment entered. Ordering Provider: LAURA CARPENTER Report Released Date/Time: May 26, 2024 10:42 AM Reporting Lab: [place] [facility] [address] [place] [address] Performing Lab: [place] [facility] [address] [place] [address] [facility] CBC ERYTHROCYTE S [#/VOLUME] IN BLOOD BY AUTOMATED COUNT 4.56 10*6/u L 4.10 - 5.70 05/26 Specimen Type: BLOOD No comment entered. Ordering Provider: LAURA CARPENTER Report Released Date/Time: May 26, 2024 10:42 AM Reporting Lab: [place] [facility] [address] [place] [address] Performing Lab: [place] [facility] [address] [place] [address] [facility] CBC HEMOGLOBIN [MASS/VOLUM E] IN BLOOD 15.3 g/dL 13.1 - 16.8 05/26 Specimen Type: BLOOD No comment entered. Ordering Provider: LAURA CARPENTER Report Released Date/Time: May 26, 2024 10:42 AM Reporting Lab: [place] [facility] [address] [place] [address] Performing Lab: [place] [facility] [address] [place] [address] [facility] CBC HEMATOCRIT [VOLUME FRACTION] OF BLOOD 44.8 38.2 - 48.4 05/26 Specimen Type: BLOOD No comment entered. Ordering Provider: LAURA CARPENTER Report Released Date/Time: May 26, 2024 10:42 AM Reporting Lab: [place] [facility] [address] [place] [address] Performing Lab: [place] [facility] [address] [place] [address] [facility] CBC MCV [ENTITIC VOLUME] BY AUTOMATED COUNT 98.2 fL 80.0 - 100.0 05/26 Specimen Type: BLOOD No comment entered. Ordering Provider: LAURA CARPENTER Report Released Date/Time: May 26, 2024 10:42 AM Reporting Lab: [place] [facility] [address] [place] [address] Performing Lab: [place] [facility] [address] [place] [address] [facility] CBC MCH [ENTITIC MASS] BY AUTOMATED COUNT 33.6 pg 27.0 - 34.0 05/26 Specimen Type: BLOOD No comment entered. Ordering Provider: LAURA CARPENTER Report Released Date/Time: May 26, 2024 10:42 AM Reporting Lab: [place] [facility] [address] [place] [address] Performing Lab: [place] [facility] [address] [place] [address] [facility] CBC MCHC [MASS/VOLUM E] BY AUTOMATED COUNT 34.2 g/dL 33.0 - 36.0 05/26 Specimen Type: BLOOD No comment entered. Ordering Provider: LAURA CARPENTER Report Released Date/Time: May 26, 2024 10:42 AM Reporting Lab: [place] [facility] [address] [place] [address] Performing Lab: [place] [facility] [address] [place] [address] [facility] CBC PLATELETS [#/VOLUME] IN BLOOD BY AUTOMATED COUNT 243 10*3/u L 150 - 400 05/26 Specimen Type: BLOOD No comment entered. Ordering Provider: LAURA CARPENTER Report Released Date/Time: May 26, 2024 10:42 AM Reporting Lab: [place] [facility] [address] [place] [phone] Performing Lab: [place] [facility] [address] [place] [phone] [facility] CBC PLATELET MEAN VOLUME [ENTITIC VOLUME] IN BLOOD BY AUTOMATED COUNT 10.7 fL 7.5 - 11.2 05/26 Specimen Type: BLOOD No comment entered. Ordering Provider: LAURA CARPENTER Report Released Date/Time: May 26, 2024 10:42 AM Reporting Lab: [place] [facility] [address] [place] [phone] Performing Lab: [place] [facility] [address] [place] [facility] [facility] CBC ERYTHROCYTE DISTRIBUTIO N WIDTH [RATIO] BY AUTOMATED COUNT 15.6 11.8 - 15.1 05/26 H Specimen Type: BLOOD No comment entered. Ordering Provider: LAURA CARPENTER Report Released Date/Time: May 26, 2024 10:42 AM Reporting Lab: [place] [facility] [address] [place] [address] Performing Lab: [place] [facility] [address] [place] [address] [place] [facility] CBC LYMPHOCYTES /100 LEUKOCYTES IN BLOOD BY AUTOMATED COUNT 20.8 05/26 Specimen Type: BLOOD No comment entered. Ordering Provider: LAURA CARPENTER Report Released Date/Time: May 26, 2024 10:42 AM Reporting Lab: [place] [facility] [address] [place] [address] Performing Lab: [place] [facility] [address] [place] [address] [place] [facility] CBC MONOCYTES/1 00 LEUKOCYTES IN BLOOD BY AUTOMATED COUNT 9.5 05/26 Specimen Type: BLOOD No comment entered. Ordering Provider: LAURA CARPENTER Report Released Date/Time: May 26, 2024 10:42 AM Reporting Lab: [place] [facility] [address] [place] [address] Performing Lab: [place] [facility] [address] [place] [address] [place] [facility] CBC NEUTROPHILS /100 LEUKOCYTES IN BLOOD BY AUTOMATED COUNT 65.8 05/26 Specimen Type: BLOOD No comment entered. Ordering Provider: LAURA CARPENTER Report Released Date/Time: May 26, 2024 10:42 AM Reporting Lab: [place] [facility] [address] [place] [address] Performing Lab: [place] [facility] [address] [place] [address] [place] [facility] CBC EOSINOPHILS /100 LEUKOCYTES IN BLOOD BY AUTOMATED COUNT 2.5 05/26 Specimen Type: BLOOD No comment entered. Ordering Provider: LAURA CARPENTER Report Released Date/Time: May 26, 2024 10:42 AM Reporting Lab: [place] [facility] [address] [place] [address] Performing Lab: [place] [facility] [address] [place] [address] [place] [facility] CBC BASOPHILS/1 00 LEUKOCYTES IN BLOOD BY AUTOMATED COUNT 0.8 05/26 Specimen Type: BLOOD No comment entered. Ordering Provider: LAURA CARPENTER Report Released Date/Time: May 26, 2024 10:42 AM Reporting Lab: [place] [facility] [address] [place] [address] Performing Lab: [place] [facility] [address] [place] [address] [facility] CBC LYMPHOCYTES [#/VOLUME] IN BLOOD BY AUTOMATED COUNT 2.05 10*3/u L 0.77 - 4.50 05/26 Specimen Type: BLOOD No comment entered. Ordering Provider: LAURA CARPENTER Report Released Date/Time: May 26, 2024 10:42 AM Reporting Lab: [place] [facility] [address] [place] [id number] Performing Lab: [place] [facility] [address] [place] [address] [facility] CBC MONOCYTES [#/VOLUME] IN BLOOD BY AUTOMATED COUNT 0.94 10*3/u L 0.19 - 0.8 05/26 H Specimen Type: BLOOD No comment entered. Ordering Provider: LAURA CARPENTER Report Released Date/Time: May 26, 2024 10:42 AM Reporting Lab: [place] [facility] [address] [place] [address] Performing Lab: [place] [facility] [address] [place] [address] [facility] CBC NEUTROPHILS [#/VOLUME] IN BLOOD BY AUTOMATED COUNT 6.48 10*3/u L 2.10 - 8.00 05/26 Specimen Type: BLOOD No comment entered. Ordering Provider: LAURA CARPENTER Report Released Date/Time: May 26, 2024 10:42 AM Reporting Lab: [place] [facility] [address] [place] [address] Performing Lab: [place] [facility] [address] [place] [address] [facility] CBC EOSINOPHILS [#/VOLUME] IN BLOOD BY AUTOMATED COUNT 0.25 10*3/u L 0.00 - 0.60 05/26 Specimen Type: BLOOD No comment entered. Ordering Provider: KUZAS,LAURA R Report Released Date/Time: May 26, 2024 10:42 AM Reporting Lab: [place] [facility] [address] [place] [address] Performing Lab[place] [facility] [facility] [address] [place] [address] [facility] CBC BASOPHILS [#/VOLUME] IN BLOOD BY AUTOMATED COUNT 0.08 10*3/u L 0.00 - 0.20 05/26 Specimen Type: BLOOD No comment entered. Ordering Provider: LAURA CARPENTER Report Released Date/Time: May 26, 2024 10:42 AM Reporting Lab: [place] [facility] [address] [place] [address] Performing Lab: [place] [facility] [address] [place] [address] [facility] CBC IMMATURE GRANULOCYTE S/100 LEUKOCYTES IN BLOOD BY AUTOMATED COUNT 0.6 05/26 Specimen Type: BLOOD No comment entered. Ordering Provider: LAURA CARPENTER Report Released Date/Time: May 26, 2024 10:42 AM Reporting Lab: [place] [facility] [address] [place] [address] Performing Lab: [place] [facility] [address] [place] [address] [facility] CBC IMMATURE GRANULOCYTE S [#/VOLUME] IN BLOOD BY AUTOMATED COUNT 0.06 10*3/u L 0.00 - 0.05 05/26 H Specimen Type: BLOOD No comment entered. Ordering Provider: LAURA CARPENTER Report Released Date/Time: May 26, 2024 10:42 AM Reporting Lab: [place] [facility] [address] [place] [address] Performing Lab: [place] [facility] [address] [place] [address] [facility] FOLATE (PB) FOLATE [MASS/VOLUM E] IN SERUM OR PLASMA 10.0 ng/mL 7 - 20 05/26 Specimen Type: SERUM No comment entered. Ordering Provider: LAURA CARPENTER Report Released Date/Time: May 26, 2024 10:42 AM Reporting Lab: [place] [facility] [address] [place] [address] Performing Lab: [place] [facility] [address] [place] [address] [facility] HGA1C HEMOGLOBIN A1C/HEMOGLO BIN.TOTAL IN BLOOD 6.0 4.0 - 6.0 05/26 Specimen Type: BLOOD No comment entered. Ordering Provider: LAURA CARPENTER Report Released Date/Time: May 26, 2024 10:42 AM Reporting Lab: [place] [facility] [address] [place] [address] Performing Lab: [place] [facility] [address] [place] [address] [facility] Vital Signs Combined list of inpatient and outpatient Vital Signs from Department of [facility] and [facility] Affairs, ranging from 12 months to all on record, depending upon the facility. Vital Sign Value Date Comments Source SYSTOLIC BLOOD PRESSURE 132 05/31/2024 12:42:00 [facility] DIASTOLIC BLOOD PRESSURE 80 05/31/2024 12:42:00 [facility] PULSE OXIMETRY 95 05/31/2024 12:42:00 [facility] WEIGHT 222.9 05/31/2024 12:42:00 [facility] BMI 29 kg/m2 05/31/2024 12:42:00 [facility] PAIN 2 05/31/2024 [facility]42[facility] HE[facility] 73.0 05/31/2024 12:42:00 [facility] TEMPERATURE 97.8 05/31/2024 12:42:00 [facility] PULSE 65 05/31/2024 12:42:00 [facility] RESPIRATION 18 05/31/2024 12:42:00 [facility] Encounters Combined list of: 1) Encounters from Department of Veterans Affairs facilities going backup to the last 18 months, not all [place] inpatient encounters are included; 2) Encounters from the Department of [facility] facilities going backup to 280 months. Location Location Details Encounter Type Encounter Number Reason For Visit Attending Provider ADM Date DC Date Status Disposition Source [facility] Outpatient Encounter [id number] ROMINA ARBOLEDA IGH E 04/18 [facility] Outpatient Encounter [id number] 05/05 [facility] O/P EST LOW 20 MIN [id number] Diagnos is: ICD-10- CM Z00.01 Encount er for general adult medical exam w abnorma l finding s LAURA CARPENTER 05/31 [facility] FEE [id number] Diagnos is: ICD-10- CM Z00.01 Encount er for general adult medical exam w abnorma l finding s LUNA BARRAZA 05/31 [facility] Outpatient Encounter [id number] 07/06 [facility] Outpatient Encounter [id number] LAURA CARPENTER 12/26 [facility] Outpatient Encounter [id number] 04/17 [facility] Social History Combined list of available smoking, tobacco, and other social history from Department of Defense and Veterans Affairs facilities. Social History Type Response Date Comment Sourc e Tobacco smoking status NHIS VA-TOBACCO NEVER USED 05/31/2024 [facility] History of tobacco use VA-TOBACCO NEVER USED 05/27/2023 [facility] History of tobacco use VA-TOBACCO NEVER USED 05/17/2021 [facility] History of tobacco use VA-TOBACCO NEVER USED 11/08/2018 [facility] Plan of Care List of future care activities from Department of [facility] Affairs facilities. Additional future care activities may be listed in the Assessment and Plan section. Date/Time Care Activity Care Activity Detail Facili ty 05/25/2025 AMBULATORY - MEDICINE AMBULATORY - MEDICI [facility] Advance Directives List of completed, amended, or rescinded Advance Directives on record at Department of [facility] facilities. An actual copy of the Directive is not included. Date Advance Directive Provider Source 07/06/2023 ADVANCE DIRECTIVE MICAH SHER CHICA [facility]
[2025-04-28] VITALS (9 sets, daily range): BP systolic 112–128; BP diastolic 63–75; PULSE 87–106; RESP 16–24; TEMP 36.8; O2SAT 92–98; BMI 30.1
[2025-04-28 13:49] LABS: Hematocrit 38.8 % (37-53); Hemoglobin 12.40 g/dL (11.27-16.99); Mean Corpuscular HGB Conc 32.0 g/dL (30-55); Mean Corpuscular Hemoglobin 30.5 pg (27-33); Mean Corpuscular Volume 95.3 fl (82-101); Nucleated Red Blood Cells % 0 %; Platelet Count 180 10^3/cmm (157-399); Red Blood Count 4.07 10^6/uL (3.85-5.65); White Blood Count 9.88 10^3/uL (3.29-11.43)
--- NOTE | 2025-04-28 13:53 | W.ED.ABDPA2 ---
HPI - Abdominal Pain General: Chief Complaint: Abdominal Pain Stated Complaint: FLANK PAIN Time Seen by Provider: 04/28/25 13:38 History of Present Illness: 79-year-old male presents to the emergency room complaining of abdominal pain and left flank pain that began 6 days ago. Is also noticed worsening shortness of breath. He usually wears oxygen at 2 L/min at baseline. When I seen the patient he focus more on epigastric and upper abdominal pain and indicated more to his right upper abdomen area. Nurses notes and reported left flank pain. He states this does not feel like kidney stones stones that he has had in the past. Patient reports a fever at home up to 102. He has also had some mild chest pressure. Associated Symptoms: Denies chills, dysuria and fever(s) Related Data Home Medications ?Medication ?Instructions ?Recorded ?Confirmed aspirin 81 mg tablet,delayed 81 mg PO DAILY 01/27/20 04/29/25 release (Sea Low Dose Aspirin) cholecalciferol (vitamin D3) 25 25 mcg PO DAILY 03/28/21 04/29/25 mcg (1,000 unit) capsule ascorbic acid (vitamin C) 1,000 mg 1,000 mg PO DAILY 09/02/21 04/29/25 tablet zinc acetate 50 mg (zinc) capsule 50 mg PO DAILY 04/12/23 04/29/25 ferrous gluconate 324 mg (37.5 mg 240 mg PO DAILY 09/29/23 04/29/25 iron) tablet coenzyme Q10 100 mg capsule 100 mg PO DAILY 04/29/25 04/29/25 (CoQ-10) omega 1-sjk-bjc-fish oil 100 1 cap PO DAILY 04/29/25 04/29/25 mg-160 mg-1,000 mg capsule (Fish Oil) Previous Rx's ?Medication ?Instructions ?Recorded acetaminophen 650 mg 650 mg PO Q8H PRN pain #60 tabs 04/16/23 tablet,extended release metoprolol succinate 50 mg 50 mg PO DAILY #90 tabs 04/12/24 tablet,extended release 24 hr esomeprazole magnesium 40 mg 40 mg PO DAILY 90 days #90 caps 10/04/24 capsule,delayed release escitalopram oxalate 20 mg tablet 20 mg PO DAILY #90 tabs 11/16/24 furosemide 80 mg tablet 80 mg PO DAILY Edema #90 tabs 01/16/25 tiotropium 2.5 mcg-olodaterol 2.5 2 puff inhalation DAILY #4 grams 02/21/25 mcg/actuation mist for inhalation (Stiolto Respimat) albuterol sulfate 90 mcg/actuation 2 puff inhalation Q6H PRN 03/14/25 aerosol inhaler shortness of breath or wheezing #8.5 grams febuxostat 40 mg tablet 40 mg PO DAILY #90 tabs 03/23/25 prednisone 5 mg tablet 5 mg PO DAILY #90 tabs 03/23/25 diclofenac sodium 1 % topical gel 2 g topical QID #100 grams 04/04/25 (Arthritis Pain (diclofenac)) tamsulosin 0.4 mg capsule 0.4 mg PO DAILY #30 caps 04/04/25 cephalexin 500 mg capsule 500 mg PO BID #14 caps 04/26/25 Allergies Allergy/AdvReac Type Severity Reaction Status Date / Time ranitidine (From Zantac) Allergy Mild rash Verified 04/26/25 11:03 upadacitinib (From Rinvoq) Allergy Unknown ADR-Dizzine Verified 04/26/25 11:03 ss apremilast (From Otezla) Allergy diarrhea Verified 04/26/25 11:03 etanercept (From Enbrel) Allergy life Verified 04/26/25 11:03 threatening infection levofloxacin (From Levaquin) Allergy vomiting Verified 04/26/25 11:03 methotrexate Allergy life Verified 04/26/25 11:03 threatening infection tamsulosin Allergy dizziness Verified 04/26/25 11:03 tramadol Allergy nausea Verified 04/26/25 11:03 tofacitinib (From Xeljanz) AdvReac ADR-Dizzine Verified 04/26/25 11:03 ss Review of Systems Const: Denies: fever(s) or chills Card: Denies: chest pain Resp: Denies: dyspnea GI: Denies: abdominal pain : Denies: dysuria, urinary frequency or urinary urgency Musc: Denies: neck pain or back pain Skin/Breast: Denies: rash PFSH ED PFSH: Medical History Pulmonary fibrosis Immunization counseling High risk medication use Plaque psoriasis Hyperlipidemia Cervical disc disease Current chronic use of systemic steroids TMJ arthralgia Tinnitus of both ears Complex sleep apnea syndrome Restrictive lung disease Gout Osteopenia Stage 2 chronic kidney disease baseline creatinine 1.1 ASHLEE (acute kidney injury) Primary osteoarthritis of right knee History of thyroid nodule 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 Mitral valve prolapse Facial pain Tricuspid regurgitation TRACE (obstructive sleep apnea) Fibromyalgia Lumbago Rheumatoid arthritis without rheumatoid factor, multiple sites Diastolic heart failure Osteoarthritis of knees, bilateral Sarcoidosis of lung Psoriatic arthritis Surgical History Status post total right knee replacement using cement Status post right shoulder hemiarthroplasty Status post hip hemiarthroplasty History of lung biopsy H/O bilateral cataract extraction right:12/05/14 left: 12/12/14 History of arthroscopy of both knees H/O lithotripsy H/O transurethral resection of prostate H/O repair of rotator cuff Left shoulder History of appendectomy History of lung biopsy Family History Father , Emphysema 72 Emphysema of lung CAD (coronary artery disease) Other Cancer Hypertension Social History Smoking and tobacco/nicotine status: never used tobacco/nicotine Second hand smoke exposure: No Alcohol intake: never Substance/Drug Use: current Other substance/drug use details: Marijuana gummy at night Lives independently: Yes Household members: spouse Marital status: Current occupational status: retired Current occupation: Steps are wide 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 Can use walker to ascend Do you think of yourself as: Straight/Heterosexual Current gender identity: Male Physical Exam Const: COMMON NORMALS: no acute distress GENERAL APPEARANCE: cooperative and comfortable ORIENTATION/CONSCIOUSNESS: Yes awake, Yes oriented to person, Yes oriented to place and Yes oriented to time HENMT: COMMON NORMALS: normocephalic, atraumatic and hearing grossly normal bilaterally HEAD & SCALP: normocephalic and atraumatic Resp: COMMON NORMALS: normal respiratory effort, No retractions, No use of accessory muscles and clear to auscultation bilaterally AUSCULTATION: clear to auscultation bilaterally Cardio: COMMON NORMALS: regular rate, regular rhythm and No murmurs present (Cardio) RATE: regular rate RHYTHM: regular rhythm GI: COMMON NORMALS: Soft to palpation and No hepatosplenomegaly present AUSCULTATION: Yes normoactive bowel sounds PALPATION: Yes Soft to palpation, No Tenderness to palpation present (GI), No Guarding due to palpation present (GI) and Yes No hepatosplenomegaly present Extremity: COMMON NORMALS: normal to inspection, capillary refill normal, no clubbing, cyanosis or edema, no calf tenderness and no pedal edema Neuro: SENSORIUM/ORIENTATION: Yes oriented to person, Yes oriented to place and Yes oriented to time Skin: COMMON NORMALS: no rashes or lesions noted GENERAL SKIN EXAM: no rashes or lesions noted Course Vital Signs: Vital signs: Vital Signs Temperature 98.9 F 04/29/25 05:08 Pulse Rate 80 04/29/25 08:00 Respiratory Rate 17 04/29/25 08:00 Blood Pressure 116/72 04/29/25 08:00 Pulse Oximetry 96 04/29/25 08:00 Oxygen Delivery Me thod Nasal Cannula 04/29/25 08:00 Oxygen Flow Rate 2 04/29/25 08:00 MDM - Abdominal Pain Medical Decision Making Ureteral obstructions with signs of cystitis worsening renal function. Unfortunately we do not have nephrology available here patient will be transferred to [facility] in [place] are discussed with hospitalist and with urologist. Patient has been cultured started on IV antibiotics. Patient stable at the time of transfer. Medical Records I reviewed the patient's medical records. Lab Data I reviewed the patient's lab results. 04/28/25 13:20 04/28/25 13:20 Labs/Radiology: Radiology Impressions Chest X-Ray 04/28/25 13:59 IMPRESSION: No acute findings. Abdomen/Pelvis CT 04/28/25 14:18 IMPRESSION: Moderate left hydronephrosis attributed to a calculus obstructing the distal left ureter. COMMENTS: Consistent with the [employer]'s Incidental Findings Committee white paper (J Am Galindo Radiol 2018): Any incidental renal lesion less than 1 cm or classified as too small to characterize, or any incidental cystic renal lesion characterized as simple-appearing, is likely benign. No follow-up imaging is recommended for these lesions per consensus recommendations based on imaging criteria. Gallbladder Ultrasound 04/28/25 14:25 IMPRESSION: 1. Hepatic steatosis. 2. Right renal cyst. Laboratory Results WBC 9.88 10^3/uL (3.29-11.43) 04/28/25 13:20 RBC 4.07 10^6/uL (3.85-5.65) 04/28/25 13:20 Hgb 12.40 g/dL (11.27-16.99) 04/28/25 13:20 Hct 38.8 % (37-53) 04/28/25 13:20 MCV 95.3 fl (82-101) 04/28/25 13:20 MCH 30.5 pg (27-33) 04/28/25 13:20 MCHC 32.0 g/dL (30-55) 04/28/25 13:20 RDW 13.8 % (12.1-15.1) 04/28/25 13:20 Plt Count 180 10^3/cmm (157-399) 04/28/25 13:20 MPV 11.6 fL (7.4-10.4) H 04/28/25 13:20 Neut % (Auto) 84.4 % 04/28/25 13:20 Lymph % (Auto) 5.9 % 04/28/25 13:20 [place] % (Auto) 8.0 % 04/28/25 13:20 Eos % (Auto) 0.7 % 04/28/25 13:20 Baso % (Auto) 0.3 % 04/28/25 13:20 Neut # (Auto) 8.34 10^3/uL (1.8-7.7) H 04/28/25 13:20 Lymph # (Auto) 0.6 10^3/uL (0.8-4.8) L 04/28/25 13:20 [place] # (Auto) 0.8 10^3/uL (0.2-0.9) 04/28/25 13:20 Eos # (Auto) 0.1 10^3/uL (0.0-0.8) 04/28/25 13:20 Baso # (Auto) 0.0 10^3/uL (0.0-0.1) 04/28/25 13:20 Nucleated RBC % (auto) 0 % 04/28/25 13:20 Nucleated RBCs # 0.0 /100WBC 04/28/25 13:20 Sodium 138 mmol/L (136-145) 04/28/25 13:20 Potassium 4.1 mmol/L (3.5-5.1) 04/28/25 13:20 Chloride 94 mmol/L (98-107) L 04/28/25 13:20 Carbon Dioxide 31 mmol/L (22-29) H 04/28/25 13:20 Anion Gap 17.1 (5-19) 04/28/25 13:20 BUN 64 mg/dL (8-23) H 04/28/25 13:20 Creatinine 3.0 mg/dL (0.7-1.2) H 04/28/25 13:20 GFR Calculation Not Reportable 04/28/25 13:20 Glucose 130 mg/dL (65-115) H 04/28/25 13:20 Calculated Osmolality 306 mOsm/kg (285-295) H 04/28/25 13:20 Calcium 9.3 mg/dL (8.5-10.5) 04/28/25 13:20 Total Bilirubin 0.9 mg/dL (0.15-1.2) 04/28/25 13:20 AST 109 U/L (0-40) H 04/28/25 13:20 ALT 71 U/L (0-41) H 04/28/25 13:20 Alkaline Phosphatase 302 U/L (40-130) H 04/28/25 13:20 Troponin T Baseline 13 ng/L (0-15) 04/28/25 13:20 Troponin T 120 Minute 11.44 ng/L (0-15) 04/28/25 15:42 Delta Troponin T -1.56 ABS# (0-10) L 04/28/25 15:42 Troponin T Hi Sens 6Hr 12.21 ng/L (0-15) 04/28/25 19:38 Troponin T Hi Sens 6Hr Delta -0.79 ng/L (0-12) L 04/28/25 19:38 NT-Pro-B Natriuret Pep 1398 pg/mL (0-450) H 04/28/25 15:42 Total Protein 7.3 g/dL (6.6-8.7) 04/28/25 13:20 Albumin 3.1 g/dL (3.5-5.2) L 04/28/25 13:20 Globulin 4.2 g/dL (1.3-4.6) 04/28/25 13:20 Urine Color Yellow (Yellow) 04/28/25 14:27 Urine Appearance Clear (CLEAR) 04/28/25 14:27 Urine pH 5.0 (5-7) 04/28/25 14:27 Ur Specific [place] 1.016 (1.005-1.030) 04/28/25 14:27 Urine Protein 1+ (Negative) A 04/28/25 14:27 Urine Glucose (UA) Negative (Normal) 04/28/25 14:27 Urine Ketones Negative (Negative) 04/28/25 14:27 Urine Blood Negative (Negative) 04/28/25 14:27 Urine Nitrate Negative (Negative) 04/28/25 14:27 Urine Bilirubin Negative (Negative) 04/28/25 14:27 Urine Urobilinogen 1.0 mg/dL (Negative) 04/28/25 14:27 Ur Leukocyte Esterase 1+ (Negative) A 04/28/25 14:27 Urine RBC 0-2 /hpf (0-2) 04/28/25 14:27 Urine WBC 11-20 /hpf (0-5) H 04/28/25 14:27 Ur Squamous Epith Cells 0-5 /hpf (0-5) 04/28/25 14:27 Amorphous Sediment Not Reportable 04/28/25 14:27 Urine Bacteria None seen /hpf (NONE) 04/28/25 14:27 Hyaline Casts 2.05 /lpf 04/28/25 14:27 All radiology interpretation(s) finalized by discharge Discharge Plan Discharge Patient Disposition: Xfer Short-Term Hosp Clinical Impression: Acute kidney injury, Cystitis, Left nephrolithiasis, Elevated LFTs Condition: Stable Referrals: Arnulfo Sam MD [Primary Care Provider, [facility]] Print Language: Congolese Coding Level of Care Code ED Geothermal Technician for Kyle Schwartz
--- NOTE | 2025-04-28 13:59 | XRR_ITS ---
PROCEDURE INFORMATION: Exam: XR Chest Exam date and time: 04/28/2025 2:02 PM Age: 79 years old Clinical indication: Cough and dyspnea; Additional info: Dyspnea/cough TECHNIQUE: Imaging protocol: Radiologic exam of the chest. Views: 1 view. COMPARISON: CR XR chest 1V portable [id number] 05/03/2023 8:34 AM FINDINGS: Lungs: Calcified lymph node left hilum consistent with old granulomatous disease. Pleural spaces: Unremarkable. No pleural effusion. No pneumothorax. Heart/Mediastinum: Borderline cardiomegaly. Diaphragm: Stable mildly elevated right hemidiaphragm. Bones/joints: Unremarkable. XR/XR chest 1V portable [id number] IMPRESSION: No acute findings.
[2025-04-28 14:10] LABS: Alanine Aminotransferase 71 U/L (0-41); Albumin Level 3.1 g/dL (3.5-5.2); Alkaline Phosphatase 302 U/L (40-130); Anion Gap 17.1 (5-19); Aspartate Amino Transferase 109 U/L (0-40); Blood Urea Nitrogen 64 mg/dL (8-23); Calcium 9.3 mg/dL (8.5-10.5); Carbon Dioxide 31 mmol/L (22-29); Chloride 94 mmol/L (98-107); Creatinine Clr Calc Pharmacy 24.5240; Globulin 4.2 g/dL (1.3-4.6); Glucose 130 mg/dL (65-115); Osmolality Calculated 306 mOsm/kg (285-295); Potassium 4.1 mmol/L (3.5-5.1); Sodium 138 mmol/L (136-145); Total Protein 7.3 g/dL (6.6-8.7)
--- NOTE | 2025-04-28 14:17 | PC.NURSE ---
educated pt on need for urine sample, provided urinal
--- NOTE | 2025-04-28 14:18 | CTR_ITS ---
PROCEDURE INFORMATION: Exam: CT Abdomen And Pelvis Without Contrast Exam date and time: 04/28/2025 2:39 PM Age: 79 years old Clinical indication: Abdominal pain; Flank; Left lower quadrant (llq); Prior surgery; Surgery date: 6+ months; Surgery type: Appy, RT hip; Additional info: Flank pain TECHNIQUE: Imaging protocol: Computed tomography of the abdomen and pelvis without contrast. Radiation optimization: All CT scans at this facility use at least one of these dose optimization techniques: automated exposure control; mA and/or kV adjustment per patient size (includes targeted exams where dose is matched to clinical indication); or iterative reconstruction. COMPARISON: CT abdomen pelvis wo con [id number] 03/31/2025 5:54 PM RADIATION DOSE METRICS: Total DLP (mGy-cm): 1042.17 FINDINGS: Liver: Normal. No mass. Gallbladder and biliary ducts: Normal. No calcified stones. No ductal dilation. Pancreas: Normal. No ductal dilation. Spleen: There are multiple punctate splenic calcifications consistent with old granulomatous disease. There is moderate nonspecific splenomegaly. Adrenal glands: Normal. No mass. Kidneys and ureters: There are multiple simple renal cysts bilaterally of varying size. There are multiple nonobstructing bilateral renal calculi similar to prior. In addition, there is moderate left hydronephrosis that is new since the last exam secondary to an oblong calculus or multiple calculi in the distal left ureter measuring about 6 mm in diameter and 15 mm in length. See image 67 series 6. Stomach and bowel: Unremarkable. No obstruction. No mucosal thickening. Appendix: No evidence of appendicitis. Intraperitoneal space: Unremarkable. No free air. No significant fluid collection. Vasculature: Unremarkable. No abdominal aortic aneurysm. Lymph nodes: Unremarkable. No enlarged lymph nodes. Urinary bladder: Unremarkable as visualized. Reproductive: Unremarkable as visualized. Bones/joints: Moderate lumbar spondylosis with rotary levoscoliosis. Soft tissues: Small fat filled umbilical hernia. CT/CT kidney stone [id number] IMPRESSION: Moderate left hydronephrosis attributed to a calculus obstructing the distal left ureter. COMMENTS: Consistent with the [employer]'s Incidental Findings Committee white paper (J Am Galindo Radiol 2018): Any incidental renal lesion less than 1 cm or classified as too small to characterize, or any incidental cystic renal lesion characterized as simple-appearing, is likely benign. No follow-up imaging is recommended for these lesions per consensus recommendations based on imaging criteria.
--- NOTE | 2025-04-28 14:25 | USR_ITS ---
PROCEDURE INFORMATION: Exam: US Abdomen, Limited; Right Upper Quadrant Exam date and time: 04/28/2025 2:57 PM Age: 79 years old Clinical indication: Abdominal pain; Generalized; Prior surgery; Surgery date: 6+ months; Surgery type: Unknown dates. HX of appendectomy; Additional info: Abd pain/elevated lfts TECHNIQUE: Imaging protocol: Real time ultrasound of the abdomen with image documentation. Limited exam focused on the right upper quadrant. COMPARISON: 1. CT kidney stone [id number] 04/28/2025 2:39 PM 2. US abdomen complete* [id number] 07/10/2022 8:43 AM FINDINGS: Limitations: Suboptimal image quality due to patient body habitus and shadowing from bowel gas. Liver: Normal. No masses. Liver measures 16.7 cm in length. Increased echogenicity. Gallbladder: Normal. No gallstones. There is no gallbladder wall thickening. Biliary ducts: Normal. No stones. No dilation. Common bile duct measures 0.5 cm. Pancreas: Largely obscured by shadowing from bowel gas. Right kidney: Normal. No mass. No hydronephrosis. Right kidney measures 11.9 cm in length. 2.6 x 2.7 x 2.8 cm cyst in the upper pole of the right kidney. Aorta: Proximal aorta measures 2.0 cm. Inferior vena cava: IVC measures 1.4 cm in caliber. US/US gall bladder [id number] IMPRESSION: 1. Hepatic steatosis. 2. Right renal cyst.
--- NOTE | 2025-04-28 14:27 | ECG_ITS ---
[facility] Date: 2025-04[facility]28 Pat Name: Sarkis Galvin Department: Room: Gender: Male Faceter: : 1945 Requested By: Aleksandr Dueñas Order Number: [id number] Reading MD: Measurements Intervals [place] Rate: 85 P: 41 MN: 165 QRS: 27 QRSD: 96 T: 14 QT: 340 QTc: 406 Interpretive Statements SINUS RHYTHM Compared to ECG 04/12/2023 00:26:59 ST (T wave) deviation no longer present [email or web address]
[2025-04-28 14:35] LABS: Glucose Urine UA Negative (Normal); Nitrate Urine Negative (Negative); Specific Gravity, Urine 1.016 (1.005-1.030)
[2025-04-28 14:40] LABS: Add Urine Microscopic? YES
[2025-04-28 15:25] LABS: Troponin(5th) Baseline 13 ng/L (0-15)
[2025-04-28 16:24] LABS: Troponin 5 2HR 11.44 ng/L (0-15)
[2025-04-28 16:30] LABS: Troponin 5 2HR Delta -1.56 ABS# (0-10)
--- NOTE | 2025-04-28 16:38 | PC.NURSE ---
antibiotics delayed d/t pending blood cultures to be drawn
[2025-04-28 16:41] LABS: NT Pro B Type Natriuretic Pept 1398 pg/mL (0-450)
--- NOTE | 2025-04-28 17:16 | PC.NURSE ---
pt antibiotics delayed d/t blood cultures not being obtained, lab notified
[2025-04-28] MEDS: cefTRIAXone 1,000 mg SDV 1000 MG IVP (17:46)
[2025-04-28] MEDS: ondansetron 2 mg/ML SDV 2 mL 4 MG IVP (18:03)
[2025-04-28] MEDS: morphine 4 mg/mL SDV 1 mL IVP (18:03)
--- NOTE | 2025-04-28 18:56 | ECG_ITS ---
[facility]25-04[facility]28 Pat Name: Sarkis Galvin Department: Room: Gender: Male [employer] Driver: : 1945 Requested By: Aleksandr Dueñas Order Number: [id number] Reading MD: Measurements Intervals [place] Rate: 97 P: 49 VT: 162 QRS: 40 QRSD: 98 T: 24 QT: 315 QTc: 401 Interpretive Statements SINUS RHYTHM NONSPECIFIC T-WAVE ABNORMALITY Compared to ECG 04/28/2025 15:46:26 T-wave abnormality now present [email or web address]
[2025-04-28] MEDS: HYDROmorphone 0.5 MG/0.5 ML INJ IVP (19:52)
[2025-04-28 20:21] LABS: Troponin 5 6HR 12.21 ng/L (0-15)
[2025-04-28 20:29] LABS: Troponin 5 6HR Delta -0.79 ng/L (0-12)
--- NOTE | 2025-04-28 20:49 | PC.NURSE ---
patient states pain is now 2/10. He is resting comfortably. He was given ice chips. Able to tolerate well. at bedside.
--- NOTE | 2025-04-28 20:50 | ECG_ITS ---
[facility] Test Date: 2025-04-28 Pat Name: Sarkis Galvin Department: Room: Gender: Male [employer]: : 1945 Requested By: Aleksandr Dueñas Order Number: [id number] Reading MD: Measurements Intervals [place] Rate: 101 P: 50 AL: 157 QRS: 42 QRSD: 102 T: 28 QT: 314 QTc: 408 Interpretive Statements SINUS TACHYCARDIA NONSPECIFIC T-WAVE ABNORMALITY ABNORMAL RHYTHM ECG Compared to ECG 04/28/2025 18:56:58 Sinus rhythm no longer present T-wave abnormality still present [email or web address]
[2025-04-29] VITALS (10 sets, daily range): BP systolic 112–132; BP diastolic 62–82; PULSE 80–102; RESP 15–18; TEMP 37.2; O2SAT 93–96
--- NOTE | 2025-04-29 05:13 | PC.NURSE ---
Report called to [facility], 3-A [phone] . Spoke with Letitia Turcios RN
== END 2025-04-29 08:35 | disposition short-term general hospital (02) ==
PROVIDERS: Emergency Provider Family Medicine; PCP Family Medicine
DX: N17.9 Acute kidney failure, unspecified (principal); N30.90 Cystitis, unspecified without hematuria; N20.0 Calculus of kidney; R74.01 Elevation of levels of liver transaminase levels; E78.5 Hyperlipidemia, unspecified; N18.2 Chronic kidney disease, stage 2 (mild); I50.30 Unspecified diastolic (congestive) heart failure
CPT/HCPCS: 36415; 71045; 74176; 76705; 80053; 81001; 83880; 84484; 85025; 87040; 87077; 87150; 87186; 87205; 93005; 93010; 96374; 96375; 99285; J0696; J1171; J2270; J2405

== ENCOUNTER → 2025-06-15 11:10 | Outpatient (BNVA) | payer MEDICARE, SELFPAY | PROVIDERS: PCP Clinical Nurse Specialist Adult Health; Visit Provider Internal Medicine Rheumatology | DX: L40.50 Arthropathic psoriasis, unspecified (principal); M17.0 Bilateral primary osteoarthritis of knee; L40.0 Psoriasis vulgaris; M10.9 Gout, unspecified; Z79.899 Other long term (current) drug therapy; Z71.85 Encounter for immunization safety counseling | CPT/HCPCS: 36415; 80076; 82565; 84550; 85025; 85651; 86140; 86480; 99214 ==

== ENCOUNTER → 2025-07-11 15:43 | Outpatient (BNVA) | payer MEDICARE, SELFPAY | PROVIDERS: PCP Clinical Nurse Specialist Adult Health; Visit Provider Internal Medicine | DX: J96.11 Chronic respiratory failure with hypoxia (principal); Z99.81 Dependence on supplemental oxygen; J84.10 Pulmonary fibrosis, unspecified; J98.4 Other disorders of lung; D86.0 Sarcoidosis of lung; G47.31 Primary central sleep apnea | CPT/HCPCS: 36415; 85651; 99214 ==

== ENCOUNTER → 2025-07-24 15:50 | Outpatient (BNVA) | payer MEDICARE, SELFPAY | PROVIDERS: PCP Clinical Nurse Specialist Adult Health; Visit Provider Clinical Nurse Specialist Adult Health | DX: N18.2 Chronic kidney disease, stage 2 (mild) (principal) | CPT/HCPCS: 80048 ==

== ENCOUNTER → 2025-08-07 14:20 | Outpatient (BNVA) | payer MEDICARE, SELFPAY | PROVIDERS: PCP Clinical Nurse Specialist Adult Health; Visit Provider Family Medicine | DX: N18.2 Chronic kidney disease, stage 2 (mild) (principal); J84.10 Pulmonary fibrosis, unspecified | CPT/HCPCS: 80048; 86021; 86036 ==

== ENCOUNTER → 2025-10-12 12:04 | Outpatient (BNVA) | payer MEDICARE, SELFPAY | PROVIDERS: PCP Family Medicine; Referring Provider Internal Medicine Rheumatology; Visit Provider Specialist | DX: G43.711 Chronic migraine without aura, intractable, with status migrainosus (principal); G47.33 Obstructive sleep apnea (adult) (pediatric); D86.0 Sarcoidosis of lung; J84.10 Pulmonary fibrosis, unspecified; J96.11 Chronic respiratory failure with hypoxia; M06.09 Rheumatoid arthritis without rheumatoid factor, multiple sites; I50.30 Unspecified diastolic (congestive) heart failure | CPT/HCPCS: 36415; 82233; 82234; 82542; 82607; 82746; 83520; 85651; 99204 ==